=== PATIENT | female | born 1940 | race Caucasian/White ===

== ENCOUNTER 2017-11-02 22:18 | Emergency (ER) | payer MEDICARE, SELFPAY ==
[2017-11-02 22:19] VITALS: BP 163/72; PULSE 95; RESP 18; TEMP 37.1; O2SAT 98; BMI 21.4
--- NOTE | 2017-11-02 22:40 | CT_ITS ---
STUDY: CT ABDOMEN AND PELVIS WITHOUT CONTRAST REASON FOR EXAM: Female, 77 years old. Left-sided back pain, nausea and vomiting RADIATION DOSAGE (If Supplied By Facility): CTDIvol = ( 6.05 ) mGy, DLP = ( 271.98 ) mGycm TECHNIQUE: Transaxial images were obtained from the dome of the diaphragm to the symphysis pubis without oral contrast, and without intravenous contrast. Sagittal and coronal images were reconstructed. Individualized dose optimization techniques were used for this CT. COMPARISON: 09/08/2011 FINDINGS: The visualized lung bases are unremarkable. The visualized portions of the heart are within normal limits. Normal liver. There are surgical clips in the gallbladder fossa consistent with a prior cholecystectomy. Normal spleen. Normal pancreas. Normal bilateral adrenal glands. Normal right kidney. Normal left kidney. Normal visualized stomach. Normal small intestine. Normal colon. The appendix is visualized and appears normal. Normal abdominal aorta. Normal inferior vena cava. Normal retroperitoneum. Normal urinary bladder. Normal abdominal wall. There are diffuse degenerative changes of the visualized lumbar spine. CT/Abdomen/Pelvis without Cont IMPRESSION: No evidence of acute intestinal pathology or acute obstructive uropathy. Electronically Signed: Romulo Gan MD at 23:47 EDT Tel , Service support ,
--- NOTE | 2017-11-02 22:40 | EKG12_ITS ---
Test Reason : BACK PAIN Blood Pressure : / mmHG Vent. Rate : 086 BPM Atrial Rate : 086 BPM P-R Int : 136 ms QRS Dur : 080 ms QT Int : 360 ms P-R-T Axes : 041 080 056 degrees QTc Int : 430 ms Normal sinus rhythm Normal ECG Confirmed by CHIKI COLLADO, ANA ([id number]), department editor MEGHAN PEREZ ([id number] on 11/04/2017 3:42:51 PM Referred By: ULISES Confirmed By:ANA MONET MD
--- NOTE | 2017-11-02 22:43 | ED.VISSUMM ---
- ER Visit Summary Date of Service: 11/02/17 Chief Complaint: Left thoracic back pain History of Present Illness: The patient is a 77 F who presents for 4 days of intermittent left-sided back pain. Patient states the pain is severe and comes in waves. She has had associated vomiting today. She denies any urinary symptoms, fever, chest pain, shortness of breath, abdominal pain or any other complaint other than the back pain. She states she had history of shingles in the past and has had recurrence 4 times. She cannot say for sure if it was in the same area as her back pain. She has had pain in the same area but has not had vomiting with it before. No history of kidney stones. Denies cardiac history or venous thromboembolism. History remarkable for diabetes. Physical Examination: Vital signs: afebrile, hemodynamically stable, no hypoxia on room air General: well nourished, well developed, in no distress appears uncomfortable pacing in the room holding her hand on her left thoracic back Skin: warm, dry, no rash, no pallor. no hyperesthesia to light touch on left back HEENT: normocephalic and atraumatic; PERRL, EOMI, moist mucous membranes Cardiovascular: regular rate and rhythm without murmurs, no peripheral edema, 2+ pulses all distal extremities Respiratory: No increased work of breathing, lungs are clear to auscultation bilaterally, no rales, rhonchi or wheezing Abdominal: Abdomen is soft, nontender with normoactive bowel sounds, no guarding or rebound, no masses, left CVA tenderness, no midline tenderness or deformities, tender to palp left thoracic paraspinal region MSK: Moves all extremities, no deformities, normal strength Neuro: Awake and alert, oriented ?4. No facial droop, sensation and motor function intact and symmetric Test Results: Abnormal Lab Results 11/02/17 11/02/17 11/02/17 22:50 22:50 23:40 WBC 5.2 RBC 4.15 L Hgb 12.1 Hct 35.6 L MCV 85.8 MCH 29.2 MCHC 34.0 RDW 12.9 RDW Differential 40.6 Plt Count 306 MPV 9.0 Immature Gran % (Auto) 0.000 Neut % (Auto) 68.4 Lymph % (Auto) 21.6 [place] % (Auto) 8.6 Eos % (Auto) 1.0 Baso % (Auto) 0.4 Absolute Neuts (auto) 3.6 Absolute Lymphs (auto) 1.13 Total Counted Not Reportable Sodium 134 L Potassium 3.9 Chloride 99 Carbon Dioxide 27.0 Anion Gap 8 BUN 16 Creatinine 1.10 H Estim Creat Clear Calc 34.95 Est GFR (MDRD) Af Amer 62 Est GFR (MDRD) Non-Af 51 L BUN/Creatinine Ratio 14.5 Glucose 202 H Calcium 9.0 Total Bilirubin 0.90 AST 12 L ALT 18 Alkaline Phosphatase 82 Troponin I < 0.02 Total Protein 7.6 Albumin 3.9 Globulin 3.7 Albumin/Globulin Ratio 1.1 Lipase 123 Urine Color Yellow Urine Clarity Sl. Cloudy Urine pH 7.0 Ur Specific [place] 1.010 Urine Protein 30 H Urine Glucose (UA) Normal Urine Ketones 5 H Urine Occult Blood Negative Urine Nitrite Negative Urine Bilirubin Negative Urine Urobilinogen Normal Ur Leukocyte Esterase 500 H Urine RBC 0 SEEN Urine WBC 0-5 SEEN Ur Squamous Epith Cells 0 SEEN Urine Bacteria 0 SEEN Urine Mucus 0 SEEN Medications Given Discontinued Medications Hydrocodone Bitart/Acetaminophen ([place] 5mg-325mg) 2 tablet PO X1 ONE Stop: 11/03/17 00:29 Last Admin: 11/03/17 00:38 Dose: 2 tablet Morphine Sulfate () 4 mg IV X1 ONE Stop: 11/02/17 22:40 Last Admin: 11/02/17 22:59 Dose: 4 mg Morphine Sulfate () 4 mg IV X1 ONE Stop: 11/02/17 23:59 Last Admin: 11/03/17 00:01 Dose: 4 mg Ondansetron HCl (Zofran) 4 mg IV X1 ONE Stop: 11/02/17 22:40 Last Admin: 11/02/17 22:59 Dose: 4 mg Clinical Impression(s) from Imaging Studies Abdomen/Pelvis CT 11/02/17 22:40 IMPRESSION: No evidence of acute intestinal pathology or acute obstructive uropathy. Chest X-Ray 11/02/17 23:20 IMPRESSION: No acute disease. Mild scoliosis. COPD. Emergency Department Course and Treatment: Patient presents with left thoracic back pain, stating this is an intermittent issue for her and she has had it before, however not with vomiting. She is an elderly female and appears very uncomfortable, thus despite her statement this happened before, workup was performed to look for alternative source of her thoracic back pain. EKG showed a sinus rhythm without ischemia or ectopy. Troponin negative. Labs were unremarkable. Urine negative for infection. CT flank was performed and showed no urolithiasis or other acute intra-abdominal abnormalities. Patient received 2 doses of morphine and IV fluids, with great relief of her pain. On reevaluation the patient felt well enough to go home. We discussed patient's symptoms further, and given that there was no alternative cause of her pain found and she and daughter feel confident that this is patient's recurrent pain at the site of a prior shingles infection, patient will be discharged home. She was given a dose of [place] prior to discharge in a prescription for the same for concern for postherpetic neuralgia. She is to follow-up with her primary care doctor. She was discharged home in improved condition. Treatment Plan: [] Disposition: [] Impression: Postherpetic neuralgia of the left thoracic back This note was generated with S[employer]ee[employer] dictation software. It may contain incorrect words, spelling, and punctuation that were not noted in review of the chart prior to signing ED Disposition - Plan for ED Patient: Disposition: Home or Assisted Living Chief Complaint: Back Instructions: ED Spasm Back No Trauma Prescriptions: Hydrocodone/Acetaminophen [[place] 5-325 Tablet] 1 ea PO 4X/DAY PRN PRN 3 Days #12 tab PRN Reason: Pain Referrals: Jose Rafael Cuba MD [Primary Care Provider] - 3-5 Days Additional Instructions: A workup for your severe back pain tonight showed no concerning findings on imaging or lab work. Your pain seems most consistent with recurrent pain due to a history of shingles. Continue your gabapentin for your pain. For severe pain you may instead use [place], but do not use both medications at the same time. Please follow-up with your primary care doctor within the next few days to discuss further pain management strategies. Any time you develop worsening of your symptoms or any new concerning symptoms, please return to the emergency department for another evaluation.
[2017-11-02 22:56] LABS: Absolute Lymphocyte Count 1.13 X10^3/ul (0.83-4.51); Absolute Neutrophil Count 3.6 X10^3/uL (2.0-7.7); Basophil# 0.02 X10^3/uL; Basophil% 0.4 % (0-1); Eosinophil# 0.05 X10^3/uL; Hematocrit 35.6 % (37-47); Hemoglobin 12.1 g/dl (12.0-15.0); Lymphocyte # 1.13 X10^3/ul (4.0); Lymphocyte % 21.6 % (19-41); Mean Corpuscular Hgb 29.2 pg (27.0-32.0); Mean Corpuscular Volume 85.8 fL (81-99); Monocyte# 0.45 X10^3/uL; Monocyte% 8.6 % (0-10); Neutrophil # 3.58 X10^3/uL (2.7-7.7); Neutrophil % 68.4 % (47-70); POSITIVE COUNT NO; POSITIVE DIFFERENTIAL NO; POSITIVE MORPHOLOGY NO; Platelet Count 306 K/mm3 (150-450); RBC Distribution Width CV 12.9 % (11.6-14.6); RBC Distribution Width SD 40.6 fl (35.1-43.9); Red Blood Count 4.15 M/mm3 (4.2-5.4); White Blood Count 5.2 K/mm3 (4.4-11.0)
[2017-11-02] MEDS: Morphine 4 MG/ML Syringe IV (22:59)
[2017-11-02] MEDS: Ondansetron 4 MG/2 ML Vial IV (22:59)
[2017-11-02 23:17] LABS: ALB/GLOB Ratio 1.1 RATIO (0.9-2.4); AST(SGOT) 12 U/L (15-37); Alanine Aminotransfer ALT/SGPT 18 U/L (13-56); Albumin, Serum 3.9 g/dL (3.2-5.0); Alkaline Phosphatase 82 U/L (45-117); Anion Gap 8 (5-15); BUN 16 mg/dL (7-18); BUN/Creat Ratio 14.5 RATIO (10-20); Chloride 99 mmol/L (98-107); EST Glomerular Filtration Rate 51 mL/min (>60); Est Glom Filt Rate - Afr Amer 62 mL/min (>60); Estimated Creatinine Clearance 34.95 ml/min; Globulin 3.7 g/dL (2.2-4.2); Glucose 202 mg/dL (74-106); Lipase 123 U/L (73-393); Potassium 3.9 mmol/L (3.5-5.1); Protein, Total 7.6 g/dL (6.4-8.2); Sodium Level 134 mmol/L (136-145)
--- NOTE | 2017-11-02 23:20 | RAD_ITS ---
STUDY: X-RAY CHEST REASON FOR EXAM: Female, 77 years old. Left-sided back pain TECHNIQUE: Frontal and lateral views of the chest. COMPARISON: November 06, 2011 FINDINGS: Lungs are hyperaerated. The lungs are clear and expanded. There is no demonstrated pleural abnormality. Normal size heart. Normal mediastinum and ch[place]. Normal visualized pulmonary arteries. Normal visualized aortic arch and descending thoracic aorta. Mild scoliosis. Normal visualized ribs, clavicles, and shoulders. There is no demonstrated abnormality of the visualized soft tissue structures of the upper abdomen. RAD/Chest PA and Lateral IMPRESSION: No acute disease. Mild scoliosis. COPD. Electronically Signed: Cheng Lawson MD at 23:53 EDT , Service support ,
[2017-11-02 23:47] LABS: Bacteria 0 SEEN /hpf (None Seen); Color, Urine Yellow (Yellow); Glucose, Dipstick Normal (Normal); Ketone-Dipstick 5 mg/dl (Negative); Leukocyte Esterase-Dipstick 500 /ul (Negative); Mucous, Urine 0 SEEN /hpf (<or=2+); Nitrite-Dipstick Negative (Negative); Occult Blood-Urine Negative /ul (Negative); Protein-Dipstick 30 mg/dl (Negative); Squamous Epithelial Cells - UA 0 SEEN /hpf (5-10); Urine Bilirubin Dipstick Negative (Negative); Urine Clarity Sl. Cloudy (Clear); Urine Urobilinogen Normal (Normal)
[2017-11-03] MEDS: Morphine 4 MG/ML Syringe IV (00:01)
[2017-11-03 00:05] VITALS: BP 124/82; PULSE 88; RESP 18; O2SAT 97
[2017-11-03 00:08] LABS: Red Blood Cells-Urine 0 SEEN /hpf (0-5); White Blood Cells 0-5 SEEN /hpf (0-5)
--- NOTE | 2017-11-03 00:30 | ED.DEP ---
ED Disposition - Plan for ED Patient: Disposition: Home or Assisted Living Chief Complaint: Back Instructions: ED Spasm Back No Trauma Prescriptions: Hydrocodone/Acetaminophen [[place] 5-325 Tablet] 1 ea PO 4X/DAY PRN PRN 3 Days #12 tab PRN Reason: Pain Referrals: Jose Rafael Cuba MD [Primary Care Provider] - 3-5 Days Additional Instructions: A workup for your severe back pain tonight showed no concerning findings on imaging or lab work. Your pain seems most consistent with recurrent pain due to a history of shingles. Continue your gabapentin for your pain. For severe pain you may instead use [place], but do not use both medications at the same time. Please follow-up with your primary care doctor within the next few days to discuss further pain management strategies. Any time you develop worsening of your symptoms or any new concerning symptoms, please return to the emergency department for another evaluation.
[2017-11-03] MEDS: HYDROcodone Bitartrate/Apap 5/325 Tablet PO (00:38)
[2017-11-03 00:41] VITALS: BP 130/53; PULSE 82; RESP 16; O2SAT 95
== END 2017-11-03 00:41 | disposition home or self-care (01) ==
PROVIDERS: Emergency Provider Emergency Medicine; Family Provider Family Medicine; PCP Family Medicine
DX: B02.29 Other postherpetic nervous system involvement (principal); E11.9 Type 2 diabetes mellitus without complications; Z79.84 Long term (current) use of oral hypoglycemic drugs
CPT/HCPCS: 71046; 74176; 80053; 81001; 83690; 84484; 85025; 93005; 96374; 96375; 96376; 99284; J7040; A4216; J2405

== ENCOUNTER → 2017-11-16 07:06 | Outpatient (CLI) | payer MEDICARE, SELFPAY ==
[2017-11-16 10:47] LABS: Hemoglobin A1c 8.4 % (4.2-6.3)
[2017-11-16 10:51] LABS: Anion Gap 7 (5-15); BUN 34 mg/dL (7-18); BUN/Creat Ratio 32.7 RATIO (10-20); Chloride 107 mmol/L (98-107); Cholesterol 251 mg/dL (200); Creatinine, Serum 1.04 mg/dL (0.55-1.02); EST Glomerular Filtration Rate 55 mL/min (>60); Est Glom Filt Rate - Afr Amer 66 mL/min (>60); Glucose 176 mg/dL (74-106); High Density Lipoprotein 62 mg/dL; Potassium 4.2 mmol/L (3.5-5.1); Sodium Level 142 mmol/L (136-145); Triglycerides 99 mg/dL; Very Low Density Lipoprotein 20 mg/dL (5-40)
== END ==
PROVIDERS: Family Provider Family Medicine; PCP Family Medicine; Visit Provider Family Medicine
DX: E78.00 Pure hypercholesterolemia, unspecified (principal); E11.9 Type 2 diabetes mellitus without complications
CPT/HCPCS: 36415; 80048; 80061; 83036

== ENCOUNTER → 2018-05-16 07:13 | Outpatient (CLI) | payer MEDICARE, SELFPAY ==
[2018-05-16 10:31] LABS: Hemoglobin A1c 8.1 % (4.2-6.3)
[2018-05-16 10:41] LABS: Anion Gap 8 (5-15); BUN 20 mg/dL (7-18); Calcium,Total 9.2 mg/dL (8.5-10.1); Chloride 107 mmol/L (98-107); Creatinine, Serum 1.05 mg/dL (0.55-1.02); EST Glomerular Filtration Rate 54 mL/min (>60); Est Glom Filt Rate - Afr Amer 66 mL/min (>60); Glucose 202 mg/dL (74-106); Potassium 4.2 mmol/L (3.5-5.1); Sodium Level 140 mmol/L (136-145)
== END ==
PROVIDERS: Family Provider Family Medicine; PCP Family Medicine; Referring Provider Family Medicine; Visit Provider Family Medicine
DX: E11.65 Type 2 diabetes mellitus with hyperglycemia (principal)
CPT/HCPCS: 36415; 80048; 83036

== ENCOUNTER → 2018-10-05 17:11 | Outpatient (CLI) | payer MEDICARE, SELFPAY ==
--- NOTE | 2018-10-05 17:14 | RAD_ITS ---
STUDY: X-RAY - LUMBAR SPINE REASON FOR EXAM: Female, 78 years old. Low back pain. TECHNIQUE: 3 view(s) of the lumbar spine were obtained. COMPARISON: CT of the abdomen and pelvis dated November 02, 2017. FINDINGS: Normal lumbar lordosis. There is no substantial scoliosis. There is a normal alignment of the vertebrae. There is multilevel endplate spondylosis of the lumbar vertebrae. There is multi-level degenerative disc disease with multi-level disc space narrowing. There is no demonstrated fracture. There is no obvious organomegaly, mass or dilated bowel. Surgical clips are visible in the right upper quadrant. RAD/Lumbar Spine 2 or 3 Views IMPRESSION: 1. Multilevel degenerative disc disease, spondylosis and degenerative arthropathy of the lumbar spine. 2. No radiographic evidence for acute fracture. Electronically Signed: Rubi Cuba MD at 8:49 EDT , Service support ,
--- NOTE | 2018-10-05 17:15 | RAD_ITS ---
STUDY: X-RAY - THORACIC SPINE REASON FOR EXAM: Female, 78 years old. Back pain. TECHNIQUE: 3 view(s) of the thoracic spine were obtained. COMPARISON: Radiographs of the chest dated November 02, 2017. FINDINGS: Normal kyphosis of the thoracic spine. There is no substantial scoliosis. Normal thoracic vertebrae and endplates. Normal disc space heights. There is a pleural effusion. There appears to be a basal air space consolidation and/or atelectasis. RAD/Thoracic Spine 3 Views IMPRESSION: 1. No radiographic evidence of acute compression fracture. 2. Basilar airspace consolidation and/or atelectasis with pleural effusions. Electronically Signed: Rubi Cuba MD at 8:45 EDT , Service support ,
== END ==
PROVIDERS: Family Provider Family Medicine; PCP Family Medicine; Referring Provider Anesthesiology Pain Medicine; Visit Provider Anesthesiology Pain Medicine
DX: M54.6 Pain in thoracic spine (principal); M54.5 Low back pain
CPT/HCPCS: 72072; 72100

== ENCOUNTER → 2019-04-09 07:42 | Outpatient (CLI) | payer MEDICARE, SELFPAY ==
[2019-04-09 10:20] LABS: Hemoglobin A1c 8.2 % (4.2-6.3)
[2019-04-09 10:36] LABS: Anion Gap 10 (5-15); BUN 17 mg/dL (7-18); BUN/Creat Ratio 12.9 RATIO (10-20); Calcium,Total 8.9 mg/dL (8.5-10.1); Chloride 106 mmol/L (98-107); Cholesterol 246 mg/dL (200); Creatinine, Serum 1.32 mg/dL (0.55-1.02); EST Glomerular Filtration Rate 42 mL/min (>60); Est Glom Filt Rate - Afr Amer 50 mL/min (>60); Glucose 161 mg/dL (74-106); High Density Lipoprotein 66 mg/dL; Sodium Level 142 mmol/L (136-145); Triglycerides 144 mg/dL; Very Low Density Lipoprotein 29 mg/dL (5-40)
== END ==
PROVIDERS: Family Provider Family Medicine; PCP Family Medicine; Referring Provider Family Medicine; Visit Provider Family Medicine
DX: E11.9 Type 2 diabetes mellitus without complications (principal); E78.00 Pure hypercholesterolemia, unspecified
CPT/HCPCS: 36415; 80048; 80061; 83036

== ENCOUNTER → 2019-04-11 08:51 | Outpatient (CLI) | payer MEDICARE, SELFPAY ==
[2019-04-11 08:57] LABS: Bacteria 0 SEEN /hpf (None Seen); Mucous, Urine 0 SEEN /hpf (<or=2+); Red Blood Cells-Urine 0 SEEN /hpf (0-5)
[2019-04-11 10:13] LABS: Color, Urine Yellow (Yellow); Glucose, Dipstick 1000 mg/dl (Normal); Ketone-Dipstick Negative (Negative); Leukocyte Esterase-Dipstick 25 /ul (Negative); Nitrite-Dipstick Negative (Negative); Occult Blood-Urine Negative /ul (Negative); Protein-Dipstick 15 mg/dl (Negative); Specific Gravity, Urine 1.015 (1.002-1.030); Urine Bilirubin Dipstick Negative (Negative); Urine Clarity Clear (Clear); Urine Urobilinogen Normal (Normal)
[2019-04-11 10:15] LABS: Absolute Lymphocyte Count 0.94 X10^3/uL (0.83-4.51); Absolute Neutrophil Count 2.5 X10^3/uL (2.0-7.7); Basophil# 0.06 X10^3/uL; Basophil% 1.5 % (0-1); Eosinophils% 2.5 % (0-5); Hematocrit 35.8 % (37-47); Hemoglobin 11.5 g/dL (12.0-15.0); Lymphocyte # 0.94 X10^3/ul (4.0); Lymphocyte % 23.9 % (19-41); Mean Corp Hgb Conc 32.1 g/dL (32-36); Mean Corpuscular Volume 90.4 fL (81-99); Mean Platelet Vol. 10.3 fl (6.2-12.0); Monocyte# 0.38 X10^3/uL; Monocyte% 9.6 % (0-10); NRBC Flagged by Analyzer 0 % (0-5); Neutrophil # 2.45 X10^3/uL (2.7-7.7); Neutrophil % 62.2 % (47-70); Platelet Count 340 K/mm3 (150-450); RBC Distribution Width CV 13.2 % (11.6-14.6); RBC Distribution Width SD 43.9 fl (35.1-43.9); Red Blood Count 3.96 M/mm3 (4.2-5.4); White Blood Count 3.9 K/mm3 (4.4-11.0)
[2019-04-11 10:24] LABS: Squamous Epithelial Cells - UA 0-5 SEEN /hpf (5-10); White Blood Cells 0-5 SEEN /hpf (0-5)
[2019-04-11 10:37] LABS: PTHIN 63.9 pg/mL (18.4-80.1)
[2019-04-11 10:38] LABS: Vitamin B12 369 pg/mL (211-911); Vitamin D,25 Hydroxy 35.2 ng/mL (29.95-100.01)
[2019-04-11 10:56] LABS: AST(SGOT) 14 U/L (15-37); Alanine Aminotransfer ALT/SGPT 24 U/L (13-56); Albumin, Serum 4.1 g/dL (3.2-5.0); Alkaline Phosphatase 86 U/L (45-117); Bilirubin, Direct 0.12 mg/dL (0.00-0.30); Globulin 3.5 g/dL (2.2-4.2); Protein, Total 7.6 g/dL (6.4-8.2); Thyroid Stim Hormone (TSH) 0.79 uIU/mL (0.358-3.74)
[2019-04-11 11:32] LABS: Microalbumin,Random Urine 36.4 mg/L (NO RANGE EST.); Microalbumin:Creatinine Ratio 37.8 mg/g CRE (<30 mg/g CRE); Protein, Urine (Random) 19.6 mg/dL (<11.9); Protein:Creat Ratio 203 mg/g CRE (0-200)
== END ==
PROVIDERS: Family Provider Family Medicine; PCP Family Medicine; Referring Provider Family Medicine; Visit Provider Family Medicine
DX: E11.22 Type 2 diabetes mellitus with diabetic chronic kidney disease (principal); N18.3 Chronic kidney disease, stage 3 (moderate); E11.42 Type 2 diabetes mellitus with diabetic polyneuropathy; E55.9 Vitamin D deficiency, unspecified; E78.00 Pure hypercholesterolemia, unspecified; R03.0 Elevated blood-pressure reading, without diagnosis of hypertension
CPT/HCPCS: 36415; 80076; 81001; 82043; 82306; 82570; 82607; 83970; 84156; 84443; 85025

== ENCOUNTER → 2019-04-25 08:32 | Outpatient (CLI) | payer MEDICARE, SELFPAY ==
--- NOTE | 2019-04-25 08:35 | CDU_ITS ---
Reason For Study: Carotid artery stenosis Rt. Velocities/BP Lt. Velocities/BP Prox CCA 89.1/14.7 cm/sec. Prox CCA 107.2/22.5 cm/sec. Mid CCA 91.7/17.3 cm/sec. Mid CCA 93.7/16.3 cm/sec. Dist CCA 83.9/21.3 cm/sec. Dist CCA 80.2/13.9 cm/sec. Prox ICA 66.7/16.3 cm/sec. Prox ICA 58.1/13.9 cm/sec. Mid ICA 112/33.4 cm/sec. Mid ICA 103.5/28.6 cm/sec. Dist ICA 80.6/16.6 cm/sec. Dist ICA 101.1/29.8 cm/sec. Rt. ICA/CCA = 1.3. Lt. ICA/CCA = 1.1. Prox ECA 132.1 cm/sec. Prox ECA 372.6/33.9 cm/sec. Rt. Vert. 90.4/17.9 cm/sec. Lt. Vert. 81.4/17.6 cm/sec. Right Extracranial There is homogeneous, smooth atherosclerotic plaque noted in the right common carotid artery. There is homogeneous, smooth atherosclerotic plaque noted in the right internal carotid artery. There is heterogeneous, irregular atherosclerotic plaque noted in the right external carotid artery. Antegrade flow is noted in the right vertebral artery. There is heterogeneous, irregular atherosclerotic plaque noted in the right bulb. Left Extracranial There is homogeneous, smooth atherosclerotic plaque noted in the left common carotid artery. There is homogeneous, smooth atherosclerotic plaque noted in the left internal carotid artery. There is heterogeneous, irregular atherosclerotic plaque noted in the left external carotid artery. Antegrade flow is noted in the left vertebral artery. There is heterogeneous, irregular atherosclerotic plaque noted in the left bulb. Procedure Carotid Duplex 72989. Exam performed in department. Interpretation Summary Mild (<50%) stenosis right extracranial internal carotid. Mild (<50%) stenosis left extracranial internal carotid. Flow within the vertebral arteries is antegrade bilaterally. Heterogeneous, irregular atherosclerotic plaque is noted in the carotid bulbs bilaterally, which does not appear to be hemodynamically significant. Elevated velocities in the left external carotid artery is suggestive of stenosis >50%. Ordering Physician: Jose Rafael Kat Referring Physician: Jose Rafael Kat Performed By: Loan Vivar RVT
== END ==
PROVIDERS: Family Provider Family Medicine; PCP Family Medicine; Referring Provider Family Medicine; Visit Provider Family Medicine
DX: I65.23 Occlusion and stenosis of bilateral carotid arteries (principal)
CPT/HCPCS: 93880

== ENCOUNTER → 2019-05-03 10:09 | Outpatient (CLI) | payer MEDICARE, SELFPAY ==
[2019-05-03 13:09] LABS: Ferritin 39 ng/mL (8-252); Iron 55 ug/dL (50-170); Iron Binding Capacity,Total 321 ug/dL (250-450)
== END ==
PROVIDERS: Family Provider Family Medicine; PCP Family Medicine; Visit Provider Family Medicine
DX: D64.9 Anemia, unspecified (principal)
CPT/HCPCS: 36415; 82728; 82746; 83540; 83550

== ENCOUNTER 2019-07-16 19:07 | Emergency (ER) | payer MEDICARE, SELFPAY ==
[2019-07-16 19:07] VITALS: BP 155/94; PULSE 84; RESP 18; TEMP 36.5; O2SAT 96; BMI 19.9
--- NOTE | 2019-07-16 19:25 | EKG12_ITS ---
Test Reason : CP Blood Pressure : / mmHG Vent. Rate : 078 BPM Atrial Rate : 078 BPM P-R Int : 196 ms QRS Dur : 080 ms QT Int : 370 ms P-R-T Axes : 065 060 049 degrees QTc Int : 421 ms Normal sinus rhythm Normal ECG Confirmed by DOLLY COLLADO, SHAMEKA ([id number]), senior editor TIAN RING ([id number]) on 07/20/2019 9:50:49 AM Referred By: Confirmed By:DORCAS ALBERTO MD
--- NOTE | 2019-07-16 19:27 | RAD_ITS ---
STUDY: X-RAY CHEST REASON FOR EXAM: Female, 78 years old. CHEST PAIN TECHNIQUE: Frontal view COMPARISON: November 02, 2017 FINDINGS: The lungs are clear and expanded. There is no demonstrated pleural abnormality. Normal size heart. Normal mediastinum and [place]. Normal visualized pulmonary arteries. Normal visualized aortic arch and descending thoracic aorta. Degenerative changes of the thoracic spine. Normal visualized ribs, clavicles, and shoulders. There is no demonstrated abnormality of the visualized soft tissue structures of the upper abdomen. RAD/Chest 1 View (Portable) IMPRESSION: Normal x-ray examination of the chest. Electronically Signed: Satya Georges DO at 19:57 EST Tel [phone], Service support ,
[2019-07-16 19:36] LABS: Absolute Lymphocyte Count 1.16 X10^3/uL (0.83-4.51); Absolute Neutrophil Count 2.9 X10^3/uL (2.0-7.7); Basophil# 0.03 X10^3/uL; Basophil% 0.6 % (0-1); Eosinophil# 0.18 X10^3/uL; Eosinophils% 3.6 % (0-5); Hematocrit 33.5 % (37-47); Hemoglobin 11.2 g/dL (12.0-15.0); Lymphocyte # 1.16 X10^3/ul (4.0); Mean Corp Hgb Conc 33.4 g/dL (32-36); Mean Corpuscular Volume 86.8 fL (81-99); Mean Platelet Vol. 10.1 fl (6.2-12.0); Monocyte# 0.72 X10^3/uL; Monocyte% 14.3 % (0-10); NRBC Flagged by Analyzer 0 % (0-5); Neutrophil # 2.94 X10^3/uL (2.7-7.7); Neutrophil % 58.3 % (47-70); Platelet Count 319 K/mm3 (150-450); RBC Distribution Width CV 12.7 % (11.6-14.6); Red Blood Count 3.86 M/mm3 (4.2-5.4)
[2019-07-16 19:57] LABS: Anion Gap 6 (5-15); BUN 24 mg/dL (7-18); BUN/Creat Ratio 20.9 RATIO (10-20); Calcium,Total 9.2 mg/dL (8.5-10.1); Chloride 93 mmol/L (98-107); Creatinine, Serum 1.15 mg/dL (0.55-1.02); EST Glomerular Filtration Rate 49 mL/min (>60); Est Glom Filt Rate - Afr Amer 59 mL/min (>60); Estimated Creatinine Clearance 34.57 ml/min; Glucose 144 mg/dL (74-106); Potassium 4.3 mmol/L (3.5-5.1); Sodium Level 125 mmol/L (136-145)
--- NOTE | 2019-07-16 20:29 | ED.DCSUM_ITS ---
History of Present Illness Chief Complaint: Chest Pain Informant: Patient Onset: Today Narrative: Presents the emergency department with chest pain. She describes it as sharp lasting seconds was improved with rubbing of the left breast. Symptoms occurred 3 times within a 15-minute phone conversation with her daughter. She has had some shortness of breath a couple days ago. She is otherwise been feeling well. History of diabetes. She notes a slightly hoarse voice compared to normal. Past Medical History - Allergies and Home Meds Allergies/Adverse Reactions: Allergies oxycodone [Oxycodone] Adverse Reaction (Verified 07/16/19 19:09) Other CAUSES EXTREME DEHYDRATION Primary Care Physician: Jose Rafael Kat MD [Primary Care Provider] - Surgical History: cholecystectomy, hysterectomy, REPAIR Smoking Status: Never smoker Review of Systems General: Denies: Chills, Fever, Sweats Eyes: Denies: Visual changes - bilaterally, Diplopia ENT: Denies: Rhinorrhea, Sore throat Cardiovascular: Reports: Chest pain. Denies: Palpitations Respiratory: Reports: Dyspnea. Denies: Cough, Dyspnea on exertion Gastrointestinal: Denies: Abdominal pain, Nausea, Vomiting, Diarrhea, Melena, Hematochezia Genitourinary: Denies: Dysuria, Hematuria, Frequency Musculoskeletal: Denies: Back pain, Extremity Pain Skin: Denies: Rash, Wounds Neurological: Denies: Headache, Weakness, Numbness Physical Exam Vital Signs/Narrative: Vital Signs Temp Pulse Resp BP Pulse Ox 07/16/19 19:07 97.7 F L 84 18 155/94 H 96 Inital Vital Signs reviewed: Yes General: Well nourished, Well developed, No Acute Distress Head: Normocephalic, Atraumatic Eyes: Perrl, EOMI ENT: Moist mucous membranes, No rhinorrhea Neck: Supple, Nontender Cardiovascular: Regular rate, Regular rhythm, No murmurs Respiratory: No distress, CTA bilaterally, Chest nontender Abdomen: Soft, Nontender, Nondistended, Normal bowel sounds Back: Nontender, Normal Inspection Extremities: Nontender, No edema Skin: Normal color, No rash Neurological: Alert, Oriented x3, Cranial nerves II-XII grossly intact, Normal S trength, Normal Sensation Psychological: Normal affect, Normal Mood Diagnostic/Tx/Re-eval Chest X-Ray - ED: 1 View - Rhythm Strip Rhythm Strip: Sinus Rhythm Rate: 78 - Medical Decision Making EKG showed a normal sinus rhythm at a rate of 78. Chest x-ray was negative with a normal mediastinal silhouette.. Troponin is negative. Sodium is 125. I do not see an obvious reason for why she would be hyponatremic. She is not on a diuretic. She is not significantly hyperglycemic. She does not drink alcohol.. Patient symptoms are very atypical for angina. They are intermittent and have not reoccurred I doubt its PE or dissection. We discussed doing a second troponin. Patient declines and she will be discharged home to follow-up with her primary care physician return if worsening or concerns ED Disposition - Plan for ED Patient: Disposition: Psych[facility] Hospital or Unit Diagnosis: Chest pain Instructions: CHEST PAIN, Uncertain Cause Referrals: Jose Rafael Kat MD [Primary Care Provider] - As soon as possible
[2019-07-16 20:46] VITALS: BP 140/60; PULSE 78; RESP 20; O2SAT 99
== END 2019-07-16 20:47 | disposition home or self-care (01) ==
PROVIDERS: Emergency Provider Emergency Medicine; Family Provider Family Medicine; PCP Family Medicine
DX: R07.9 Chest pain, unspecified (principal); R06.00 Dyspnea, unspecified; E87.1 Hypo-osmolality and hyponatremia; E11.9 Type 2 diabetes mellitus without complications; Z79.84 Long term (current) use of oral hypoglycemic drugs; Z79.899 Other long term (current) drug therapy; Z88.5 Allergy status to narcotic agent; Z90.49 Acquired absence of other specified parts of digestive tract; Z90.710 Acquired absence of both cervix and uterus
CPT/HCPCS: 71045; 80048; 84484; 85025; 93005; 99284; A4216

== ENCOUNTER → 2019-07-30 08:21 | Outpatient (CLI) | payer MEDICARE, SELFPAY ==
[2019-07-16 19:07] VITALS: BMI 19.9
[2019-07-30 10:10] LABS: Absolute Lymphocyte Count 0.75 X10^3/uL (0.83-4.51); Absolute Neutrophil Count 2.3 X10^3/uL (2.0-7.7); Basophil# 0.05 X10^3/uL; Basophil% 1.3 % (0-1); Eosinophils% 5.4 % (0-5); Hematocrit 38.6 % (37-47); Hemoglobin 12.3 g/dL (12.0-15.0); Lymphocyte # 0.75 X10^3/ul (4.0); Lymphocyte % 20.2 % (19-41); Mean Corp Hgb Conc 31.9 g/dL (32-36); Mean Corpuscular Hgb 28.8 pg (27.0-32.0); Mean Corpuscular Volume 90.4 fL (81-99); Mean Platelet Vol. 10.5 fl (6.2-12.0); Monocyte% 10.8 % (0-10); NRBC Flagged by Analyzer 0 % (0-5); Platelet Count 370 K/mm3 (150-450); RBC Distribution Width CV 13.2 % (11.6-14.6); RBC Distribution Width SD 43.6 fl (35.1-43.9); Red Blood Count 4.27 M/mm3 (4.2-5.4); White Blood Count 3.7 K/mm3 (4.4-11.0)
[2019-07-30 10:33] LABS: Hemoglobin A1c 7.8 % (4.2-6.3)
[2019-07-30 10:34] LABS: Protein, Urine (Random) 12.8 mg/dL (<11.9); Protein:Creat Ratio 104 mg/g CRE (0-200)
[2019-07-30 10:36] LABS: ALB/GLOB Ratio 1.1 RATIO (0.9-2.4); AST(SGOT) 11 U/L (15-37); Alanine Aminotransfer ALT/SGPT 24 U/L (13-56); Albumin, Serum 3.9 g/dL (3.2-5.0); Alkaline Phosphatase 99 U/L (45-117); Anion Gap 5 (5-15); BUN 25 mg/dL (7-18); BUN/Creat Ratio 19.4 RATIO (10-20); Calcium,Total 9.4 mg/dL (8.5-10.1); Chloride 106 mmol/L (98-107); Cholesterol 229 mg/dL (200); Creatinine, Serum 1.29 mg/dL (0.55-1.02); EST Glomerular Filtration Rate 43 mL/min (>60); Est Glom Filt Rate - Afr Amer 52 mL/min (>60); Globulin 3.6 g/dL (2.2-4.2); Glucose 177 mg/dL (74-106); High Density Lipoprotein 64 mg/dL; Potassium 4.5 mmol/L (3.5-5.1); Protein, Total 7.5 g/dL (6.4-8.2); Sodium Level 138 mmol/L (136-145); Triglycerides 83 mg/dL; Very Low Density Lipoprotein 17 mg/dL (5-40)
[2019-07-30 10:55] LABS: Vitamin D,25 Hydroxy 38.6 ng/mL (29.95-100.01)
== END ==
LOC: MFPLAB 08:21
PROVIDERS: PCP Family Medicine; Visit Provider Family Medicine
DX: E11.22 Type 2 diabetes mellitus with diabetic chronic kidney disease (principal); N18.3 Chronic kidney disease, stage 3 (moderate); D64.9 Anemia, unspecified; E78.00 Pure hypercholesterolemia, unspecified; E55.9 Vitamin D deficiency, unspecified
CPT/HCPCS: 36415; 80053; 80061; 82306; 82570; 83036; 84156; 85025

== ENCOUNTER → 2019-11-27 08:13 | Outpatient (CLI) | payer MEDICARE, SELFPAY ==
[2019-11-27 10:01] LABS: Absolute Lymphocyte Count 0.82 X10^3/uL (0.83-4.51); Absolute Neutrophil Count 2.2 X10^3/uL (2.0-7.7); Basophil# 0.03 X10^3/uL; Basophil% 0.8 % (0-1); Eosinophil# 0.18 X10^3/uL; Hematocrit 35.5 % (37-47); Hemoglobin 11.3 g/dL (12.0-15.0); Lymphocyte # 0.82 X10^3/ul (4.0); Lymphocyte % 22.8 % (19-41); Mean Corp Hgb Conc 31.8 g/dL (32-36); Mean Corpuscular Hgb 29.7 pg (27.0-32.0); Mean Corpuscular Volume 93.2 fL (81-99); Mean Platelet Vol. 10.4 fl (6.2-12.0); Monocyte# 0.34 X10^3/uL; Monocyte% 9.5 % (0-10); NRBC Flagged by Analyzer 0 % (0-5); Neutrophil # 2.21 X10^3/uL (2.7-7.7); Neutrophil % 61.6 % (47-70); Platelet Count 337 K/mm3 (150-450); RBC Distribution Width SD 47.6 fl (35.1-43.9); Red Blood Count 3.81 M/mm3 (4.2-5.4); White Blood Count 3.6 K/mm3 (4.4-11.0)
[2019-11-27 10:08] LABS: ALB/GLOB Ratio 1.1 RATIO (0.9-2.4); AST(SGOT) 13 U/L (15-37); Alanine Aminotransfer ALT/SGPT 17 U/L (13-56); Albumin, Serum 3.7 g/dL (3.2-5.0); Alkaline Phosphatase 98 U/L (45-117); Anion Gap 10 (5-15); BUN 26 mg/dL (7-18); BUN/Creat Ratio 20.5 RATIO (10-20); Calcium,Total 9.4 mg/dL (8.5-10.1); Chloride 109 mmol/L (98-107); Creatinine, Serum 1.27 mg/dL (0.55-1.02); EST Glomerular Filtration Rate 43 mL/min (>60); Est Glom Filt Rate - Afr Amer 52 mL/min (>60); Globulin 3.5 g/dL (2.2-4.2); Glucose 169 mg/dL (74-106); Protein, Total 7.2 g/dL (6.4-8.2); Sodium Level 143 mmol/L (136-145)
[2019-11-27 10:15] LABS: Hemoglobin A1c 6.9 % (3.8-5.6)
[2019-11-27 10:20] LABS: Protein, Urine (Random) 14.1 mg/dL (<11.9); Protein:Creat Ratio 279 mg/g CRE (0-200)
[2019-11-27 11:56] LABS: Vitamin B12 239 pg/mL (211-911)
[2019-11-27 12:06] LABS: Ferritin 17 ng/mL (8-252); Iron 94 ug/dL (50-170); Iron Binding Capacity,Total 330 ug/dL (250-450); PERCENT IRON SATURATION 28.5 % (15.0-55.0)
== END ==
PROVIDERS: PCP Family Medicine; Visit Provider Family Medicine
DX: E11.22 Type 2 diabetes mellitus with diabetic chronic kidney disease (principal); N18.3 Chronic kidney disease, stage 3 (moderate); E55.9 Vitamin D deficiency, unspecified
CPT/HCPCS: 80053; 82306; 82570; 82607; 82728; 82746; 83036; 83540; 83550; 84156; 85025

== ENCOUNTER → 2019-11-29 08:50 | Outpatient (CLI) | payer MEDICARE, SELFPAY ==
[2019-11-29 08:43] VITALS: BMI 19.5
--- NOTE | 2019-11-29 08:52 | RAD_ITS ---
STUDY: X-RAY - RIGHT HUMERUS REASON FOR EXAM: Female, 79 years old. Pain. Question biceps tendon rupture. TECHNIQUE: 2 view(s) of the humerus. COMPARISON: None. FINDINGS: Normal visualized humerus. There is no demonstrated fracture or osseous destructive process. There are mild degenerative changes of the shoulder. The elbow appears intact. There is no demonstrated soft tissue abnormality. There is no abnormal contour of the biceps muscle to suggest biceps tendon rupture although this cannot be stated with certainty on plain film image. RAD/Humerus min 2 Views IMPRESSION: Normal x-ray examination of the humerus. Electronically Signed: Messi Fishman DO at 17:55 EDT Tel [phone], Service support ,
== END ==
PROVIDERS: PCP Family Medicine; Referring Provider Physician Assistant; Visit Provider Physician Assistant
DX: S46.211A Strain of muscle, fascia and tendon of other parts of biceps, right arm, initial encounter (principal)
CPT/HCPCS: 73060

== ENCOUNTER → 2020-01-25 08:05 | Outpatient (CLI) | payer MEDICARE, SELFPAY ==
[2019-11-29 08:43] VITALS: BMI 19.5
[2020-01-25 08:09] LABS: Bacteria 0 SEEN /hpf (None Seen); Mucous, Urine 0 SEEN /hpf (<or=2+); Red Blood Cells-Urine 0 SEEN /hpf (0-5); White Blood Cells 0 SEEN /hpf (0-5)
[2020-01-25 10:21] LABS: Color, Urine Yellow (Yellow); Glucose, Dipstick Normal (Normal); Ketone-Dipstick Negative (Negative); Leukocyte Esterase-Dipstick 25 /ul (Negative); Nitrite-Dipstick Negative (Negative); Occult Blood-Urine Negative /ul (Negative); Protein-Dipstick Negative (Negative); Specific Gravity, Urine 1.015 (1.002-1.030); Urine Bilirubin Dipstick Negative (Negative); Urine Clarity Clear (Clear); Urine Urobilinogen Normal (Normal)
[2020-01-25 10:29] LABS: Absolute Lymphocyte Count 0.86 X10^3/uL (0.83-4.51); Absolute Neutrophil Count 2.9 X10^3/uL (2.0-7.7); Basophil# 0.05 X10^3/uL; Basophil% 1.2 % (0-1); Eosinophil# 0.14 X10^3/uL; Eosinophils% 3.2 % (0-5); Hematocrit 36.6 % (37-47); Hemoglobin 11.8 g/dL (12.0-15.0); Lymphocyte # 0.86 X10^3/ul (4.0); Lymphocyte % 19.9 % (19-41); Mean Corp Hgb Conc 32.2 g/dL (32-36); Mean Corpuscular Volume 93.1 fL (81-99); Mean Platelet Vol. 10.5 fl (6.2-12.0); Monocyte# 0.39 X10^3/uL; NRBC Flagged by Analyzer 0 % (0-5); Neutrophil # 2.88 X10^3/uL (2.7-7.7); Neutrophil % 66.5 % (47-70); Platelet Count 355 K/mm3 (150-450); RBC Distribution Width CV 13.6 % (11.6-14.6); RBC Distribution Width SD 46.6 fl (35.1-43.9); Red Blood Count 3.93 M/mm3 (4.2-5.4); White Blood Count 4.3 K/mm3 (4.4-11.0)
[2020-01-25 10:31] LABS: Squamous Epithelial Cells - UA 0-5 SEEN /hpf (5-10)
[2020-01-25 10:37] LABS: Hemoglobin A1c 7.2 % (3.8-5.6)
[2020-01-25 10:41] LABS: ALB/GLOB Ratio 1.1 RATIO (0.9-2.4); AST(SGOT) 11 U/L (15-37); Alanine Aminotransfer ALT/SGPT 18 U/L (13-56); Albumin, Serum 3.9 g/dL (3.2-5.0); Alkaline Phosphatase 111 U/L (45-117); Anion Gap 5 (5-15); BUN 27 mg/dL (7-18); BUN/Creat Ratio 18.6 RATIO (10-20); Calcium,Total 9.2 mg/dL (8.5-10.1); Chloride 105 mmol/L (98-107); Creatinine, Serum 1.45 mg/dL (0.55-1.02); EST Glomerular Filtration Rate 37 mL/min (>60); Est Glom Filt Rate - Afr Amer 45 mL/min (>60); Globulin 3.6 g/dL (2.2-4.2); Glucose 220 mg/dL (74-106); Protein, Total 7.5 g/dL (6.4-8.2); Sodium Level 137 mmol/L (136-145)
[2020-01-25 11:46] LABS: Vitamin D,25 Hydroxy 45.4 ng/mL
== END ==
PROVIDERS: PCP Family Medicine; Referring Provider Family Medicine; Visit Provider Family Medicine
DX: E11.22 Type 2 diabetes mellitus with diabetic chronic kidney disease (principal); N18.3 Chronic kidney disease, stage 3 (moderate); E55.9 Vitamin D deficiency, unspecified
CPT/HCPCS: 36415; 80053; 81001; 82306; 83036; 85025

== ENCOUNTER → 2020-04-28 16:35 | Outpatient (CLI) | payer MEDICARE, SELFPAY ==
[2019-11-29 08:43] VITALS: BMI 19.5
== END ==
PROVIDERS: PCP Family Medicine; Visit Provider Registered Nurse
DX: Z20.828 Contact with and (suspected) exposure to other viral communicable diseases (principal)
CPT/HCPCS: 87635; U0003

== ENCOUNTER → 2020-09-02 08:10 | Outpatient (CLI) | payer MEDICARE, SELFPAY ==
[2019-11-29 08:43] VITALS: BMI 19.5
[2020-09-02 10:05] LABS: Absolute Neutrophil Count 3.1 X10^3/uL (2.0-7.7); Basophil# 0.05 X10^3/uL; Eosinophil# 0.23 X10^3/uL; Eosinophils% 4.7 % (0-5); Hematocrit 38.8 % (37-47); Hemoglobin 12.2 g/dL (12.0-15.0); Lymphocyte % 22.5 % (19-41); Mean Corp Hgb Conc 31.4 g/dL (32-36); Mean Corpuscular Hgb 28.7 pg (27.0-32.0); Mean Corpuscular Volume 91.3 fL (81-99); Mean Platelet Vol. 10.3 fl (6.2-12.0); Monocyte# 0.38 X10^3/uL; Monocyte% 7.8 % (0-10); NRBC Flagged by Analyzer 0 % (0-5); Neutrophil # 3.12 X10^3/uL (2.7-7.7); Neutrophil % 63.8 % (47-70); Platelet Count 389 K/mm3 (150-450); RBC Distribution Width CV 13.5 % (11.6-14.6); RBC Distribution Width SD 45.5 fl (35.1-43.9); Red Blood Count 4.25 M/mm3 (4.2-5.4); White Blood Count 4.9 K/mm3 (4.4-11.0)
[2020-09-02 10:33] LABS: PTHIN 62.5 pg/mL (18.4-80.1)
[2020-09-02 10:34] LABS: Hemoglobin A1c 8.9 % (3.8-5.6)
[2020-09-02 10:37] LABS: Vitamin B12 333 pg/mL (211-911); Vitamin D,25 Hydroxy 29.1 ng/mL
[2020-09-02 10:48] LABS: Microalbumin,Random Urine 17.4 mg/L (NO RANGE EST.); Microalbumin:Creatinine Ratio 26.2 mg/g CRE (<30 mg/g CRE); Protein, Urine (Random) 14.2 mg/dL (<11.9); Protein:Creat Ratio 214 mg/g CRE (0-200)
[2020-09-02 11:26] LABS: ALB/GLOB Ratio 1.1 RATIO (0.9-2.4); AST(SGOT) 12 U/L (15-37); Alanine Aminotransfer ALT/SGPT 18 U/L (13-56); Alkaline Phosphatase 112 U/L (45-117); Anion Gap 9 (5-15); BUN 28 mg/dL (7-18); BUN/Creat Ratio 21.9 RATIO (10-20); Calcium,Total 9.4 mg/dL (8.5-10.1); Chloride 103 mmol/L (98-107); Cholesterol 274 mg/dL (200); Creatinine, Serum 1.28 mg/dL (0.55-1.02); EST Glomerular Filtration Rate 43 mL/min (>60); Est Glom Filt Rate - Afr Amer 52 mL/min (>60); Ferritin 22 ng/mL (8-252); Globulin 3.7 g/dL (2.2-4.2); Glucose 251 mg/dL (74-106); High Density Lipoprotein 56 mg/dL; Iron 69 ug/dL (50-170); Iron Binding Capacity,Total 313 ug/dL (250-450); Potassium 4.8 mmol/L (3.5-5.1); Protein, Total 7.7 g/dL (6.4-8.2); Sodium Level 138 mmol/L (136-145); Triglycerides 233 mg/dL; Very Low Density Lipoprotein 47 mg/dL (5-40)
== END ==
PROVIDERS: PCP Family Medicine; Referring Provider Family Medicine; Visit Provider Family Medicine
DX: D64.9 Anemia, unspecified (principal); E11.22 Type 2 diabetes mellitus with diabetic chronic kidney disease; N18.30 Chronic kidney disease, stage 3 unspecified; E55.9 Vitamin D deficiency, unspecified
CPT/HCPCS: 36415; 80053; 80061; 82043; 82306; 82570; 82607; 82728; 82746; 83036; 83540; 83550; 83970; 84100; 84156; 85025

== ENCOUNTER → 2020-10-13 12:12 | Outpatient (CLI) | payer MEDICARE, SELFPAY ==
[2019-11-29 08:43] VITALS: BMI 19.5
[2020-10-13 15:21] LABS: Absolute Lymphocyte Count 0.83 X10^3/uL (0.83-4.51); Absolute Neutrophil Count 2.3 X10^3/uL (2.0-7.7); Basophil# 0.02 X10^3/uL; Basophil% 0.5 % (0-1); Eosinophil# 0.13 X10^3/uL; Eosinophils% 3.3 % (0-5); Hematocrit 33.6 % (37-47); Hemoglobin 10.7 g/dL (12.0-15.0); Lymphocyte # 0.83 X10^3/ul (4.0); Lymphocyte % 20.8 % (19-41); Mean Corp Hgb Conc 31.8 g/dL (32-36); Mean Platelet Vol. 9.9 fl (6.2-12.0); Monocyte% 17.5 % (0-10); NRBC Flagged by Analyzer 0 % (0-5); Neutrophil # 2.31 X10^3/uL (2.7-7.7); Neutrophil % 57.6 % (47-70); Platelet Count 313 K/mm3 (150-450); RBC Distribution Width CV 13.5 % (11.6-14.6); RBC Distribution Width SD 43.7 fl (35.1-43.9); Red Blood Count 3.82 M/mm3 (4.2-5.4)
[2020-10-13 15:31] LABS: Vitamin D,25 Hydroxy 30.1 ng/mL
[2020-10-13 15:32] LABS: ALB/GLOB Ratio 0.9 RATIO (0.9-2.4); AST(SGOT) 12 U/L (15-37); Alanine Aminotransfer ALT/SGPT 18 U/L (13-56); Albumin, Serum 3.6 g/dL (3.2-5.0); Alkaline Phosphatase 72 U/L (45-117); Anion Gap 7 (5-15); BUN 12 mg/dL (7-18); BUN/Creat Ratio 9.9 RATIO (10-20); Calcium,Total 9.3 mg/dL (8.5-10.1); Chloride 96 mmol/L (98-107); Cholesterol 204 mg/dL (200); Creatinine, Serum 1.21 mg/dL (0.55-1.02); EST Glomerular Filtration Rate 46 mL/min (>60); Est Glom Filt Rate - Afr Amer 55 mL/min (>60); Globulin 3.8 g/dL (2.2-4.2); Glucose 157 mg/dL (74-106); High Density Lipoprotein 64 mg/dL; Potassium 3.8 mmol/L (3.5-5.1); Protein, Total 7.4 g/dL (6.4-8.2); Sodium Level 130 mmol/L (136-145); Triglycerides 129 mg/dL; Very Low Density Lipoprotein 26 mg/dL (5-40)
[2020-10-13 15:40] LABS: Protein, Urine (Random) 49.3 mg/dL (<11.9); Protein:Creat Ratio 404 mg/g CRE (0-200)
[2020-10-13 16:29] LABS: Hemoglobin A1c 8.3 % (3.8-5.6)
== END ==
PROVIDERS: PCP Family Medicine; Visit Provider Family Medicine
DX: K92.0 Hematemesis (principal); E55.9 Vitamin D deficiency, unspecified; E11.69 Type 2 diabetes mellitus with other specified complication
CPT/HCPCS: 36415; 80053; 80061; 82306; 82570; 83036; 84156; 85025

== ENCOUNTER 2020-10-30 10:52 | Day surgery (SDC) | payer MEDICARE, SELFPAY ==
[2019-11-29 08:43] VITALS: BMI 19.5
[2020-10-30] VITALS (7 sets, daily range): BP systolic 109–146; BP diastolic 58–77; PULSE 76–92; RESP 16–18; TEMP 36.2–37.1; O2SAT 97–100; BMI 19.3
[2020-10-30] MEDS: Lactated Ringers 1,000 ML 100 ML IV (11:35)
--- NOTE | 2020-10-30 12:00 | IMM_PTH ---
PATIENT: MARGOT BOLAÑOS LOC: EN U#:[id number] AGE/SX: 80/F ROOM: RE10/30/[address]: Dr. Dread Houser MD : 1940 BED: DIS: 10/30/2020 SPEC #: [id number] RECD: 10/30/20 13:51 STATUS: COMFORT REQ #: [id number] ODALYS: 10/30/20 12:[address]: Dread Houser DEPT: IMMUNOHISTOCHEMISTRY RECD BY: Shobha Chang ENTERED: 10/30/20 13:51 SP TYPE: IMMUNO OTHR DR: Dr. Jose Rafael Kat MD Tissues: B - Stomach, NOS Procedures: H Pylori (initial) PHYSICIAN & INSTITUTION [place] [id number] SPECIMEN INFORMATION: Tissue Source: B ? Antrum biopsy Clinical Info: Nausea, hematemesis Specimen Number: [id number] CPT code: 54966 METHODOLOGY: Deparaffinized sections of prefer/formalin-fixed tissue or PAP/DQ stained slides are incubated with monoclonal/polyclonal antibodies/oligonucleotide probes. Localization is made via biotin free immunoperoxidase method. Appropriate controls are performed and reacted as expected. Results on target cell population are indicated in the following table: RESULTS: ANTIBODY / CLONE RESULT Block B H Pylori (polyclonal) negative These tests were developed and their performance characteristics determined by [facility]. They may not have been cleared or approved by the U.S. Food and Drug Administration. The FDA has determined that such clearance or approval is not necessary. INTERPRETATION: B. Antrum biopsy: Negative for Helicobacter pylori organisms. AM:carin 11/03/2020
--- NOTE | 2020-10-30 12:00 | EGD_PTH ---
PATIENT: MARGOT BOLAÑOS LOC: EN U#:[id number] AGE/SX: 80/F ROOM: RE10/30/[address]: Dr. Dread Houser MD : 1940 BED: DIS: 10/30/2020 SPEC #: [id number] RECD: 10/30/20 12:49 STATUS: COMFORT RECallie #: [id number] ODALYS: 10/30/20 12:[address]: Dread Houser DEPT: SURGICAL PATHOLOGY RECD BY: Erika Fleming ENTERED: 10/30/20 13:34 SP TYPE: EGD BIOPSY OT DR: Dr. Jose Rafael Kat MD Tissues: A - Duodenum, NOS B - Gastric mucous membrane C - Gastric fundus D - COLON BIOPSY Procedures: Surgery Specimen Level IV HEADER OPERATION[place] [place] [facility] [place] DIAGNOSIS: Nausea, hematemesis TISSUE SUBMITTED: A - Duodenum biopsy, B - Antrum biopsy for histo and H. pylori, C - Fundic gland polyp biopsy, D - Random colonic biopsy MICROSCOPIC DIAGNOSIS A. Duodenum, biopsy: No pathologic change. B. Gastric antrum, biopsy: Mild chronic gastritis. See comment. C. Gastric fundus, biopsy: Focal changes suggestive of fundic gland polyp. D. Colon, random biopsy: No pathologic change. AM:carin 10/31/2020 COMMENT B. The results of immunohistochemistry for Helicobacter pylori will be reported separately ([id number]). MICROSCOPIC DESCRIPTION Slides are reviewed. GROSS DESCRIPTION A - Received in fixative is one container labeled with the patient's name and designated duodenum biopsy. The specimen consists of two irregular fragments of light anton soft tissue that in aggregate measure 0.8 x 0.3 x 0.1 cm. The specimen is totally submitted in one cassette. B - Received in fixative is one container labeled with the patient's name and designated antrum biopsy. The specimen consists of one irregular fragment of light anton soft tissue that measures 0.6 x 0.1 x 0.1 cm. The specimen is totally submitted in one cassette. C - Received in fixative is one container labeled with the patient's name and designated fundic gland polyp biopsy. The specimen consists of one irregular fragment of light anton soft tissue that measures 0.4 x 0.3 x 0.1 cm. The specimen is totally submitted in one cassette. D - Received in fixative is one container labeled with the patient's name and designated random colonic biopsy. The specimen consists of multiple irregular fragments of light anton soft tissue that in aggregate measure 1.5 x 1 x 0.1 cm. The specimen is totally submitted in one cassette. / SJ:rg 10/30/20 TC:3 CPT: 27480 x4
--- NOTE | 2020-10-30 12:17 | OP.EGD_ITS ---
Patient Name: Jermaine Vasquez Procedure Date: 10/30/2020 11:33 AM Date of : 1940 Age: 80 Procedure: Upper GI endoscopy Indications: Abdominal pain in the right upper quadrant, Hematemesis, Diarrhea, Nausea with vomiting Providers: Dread Houser MD Referring MD: Jose Rafael Kat Medicines: See the Anesthesia note for documentation of the administered medications Patient Profile: This is a 80 year old female. Refer to note in patient chart for documentation of history and physical. Complications: No immediate complications. Procedure: Pre-Anesthesia Assessment: - Prior to the procedure, a History and Physical was performed, and patient medications and allergies were reviewed. The patient's tolerance of previous anesthesia was also reviewed. The risks and benefits of the procedure and the sedation options and risks were discussed with the patient. All questions were answered, and informed consent was obtained. Prior Anticoagulants: The patient has taken no previous anticoagulant or antiplatelet agents. ASA Grade Assessment: II - A patient with mild systemic disease. After reviewing the risks and benefits, the patient was deemed in satisfactory condition to undergo the procedure. After obtaining informed consent, the endoscope was passed under direct vision. Throughout the procedure, the patient's blood pressure, pulse, and oxygen saturations were monitored continuously. The Endoscope was introduced through the mouth, and advanced to the second part of duodenum. The upper GI endoscopy was accomplished without difficulty. The patient tolerated the procedure well. Scope In: 11:50:59 AM Scope Out: 11:55:22 AM Total Procedure Duration Time 0 hours 4 minutes 23 seconds Findings: The Z-line was regular and was found 37 cm from the incisors. No biopsies or other specimens were collected for this exam. Localized mild inflammation characterized by linear erosions was found in the prepyloric region of the stomach. Biopsies were taken with a cold forceps for Helicobacter pylori testing. The examined duodenum was normal. Biopsies were taken with a cold forceps for histology. Impression: - Z-line regular, 37 cm from the incisors. No specimens collected. - Gastritis. Biopsied. - Normal examined duodenum. Biopsied. Recommendation: - Await pathology results. - Repeat upper endoscopy (date not yet determined) for surveillance based on pathology results. - Return to nurse practitioner in 1 week. - Continue present medications. Procedure Code(s): --- Professional --- 32811, Esophagogastroduodenoscopy, flexible, transoral; with biopsy, single or multiple Diagnosis Code(s): --- Professional --- K29.70, Gastritis, unspecified, without bleeding R10.11, Right upper quadrant pain K92.0, Hematemesis R19.7, Diarrhea, unspecified R11.2, Nausea with vomiting, unspecified CPT copyright 2017 [employer]. All rights reserved. The codes documented in this report are preliminary and upon nail making machine tender review may be revised to meet current compliance requirements. MD Dread Araujo MD 10/30/2020 12:17:40 PM This report has been signed electronically. Number of Addenda: 0 Note Initiated On: 10/30/2020 11:33 AM
--- NOTE | 2020-10-30 12:18 | OP.CCLET_ITS ---
10/30/2020 Jose Rafael Kat [address] [place] [address] Re : Upper GI endoscopy procedure for Jermaine Vasquez Dear Dr. Kat This procedure was performed on October. My impressions and recommendations are as follows: Impressions : - Z-line regular, 37 cm from the incisors. No specimens collected. - Gastritis. Biopsied. - Normal examined duodenum. Biopsied. Recommendations : - Await pathology results. - Repeat upper endoscopy (date not yet determined) for surveillance based on pathology results. - Return to nurse practitioner in 1 week. - Continue present medications. My findings are described in the full procedure note, which is enclosed. If I can be of further assistance, please feel free to contact me at Doctor phone number(s): , Fax: [phone], Work: . Sincerely, MD Dread Araujo MD 10/30/2020 12:17:40 PM This report has been signed electronically.
--- NOTE | 2020-10-30 12:19 | OP.COLON_ITS ---
Patient Name: Jermaine Vasquez Procedure Date: 10/30/2020 11:57 AM Date of : 1940 Age: 80 Procedure: Colonoscopy Indications: Clinically significant diarrhea of unexplained origin Providers: Dread Houser MD Referring MD: Jose Rafael Kat Medicines: See the Anesthesia note for documentation of the administered medications Patient Profile: This is a 80 year old female. Refer to note in patient chart for documentation of history and physical. Last Colonoscopy: more than 10 years ago. Complications: No immediate complications. Estimated blood loss: Minimal. Procedure: Pre-Anesthesia Assessment: - Prior to the procedure, a History and Physical was performed, and patient medications and allergies were reviewed. The patient's tolerance of previous anesthesia was also reviewed. The risks and benefits of the procedure and the sedation options and risks were discussed with the patient. All questions were answered, and informed consent was obtained. Prior Anticoagulants: The patient has taken no previous anticoagulant or antiplatelet agents. ASA Grade Assessment: II - A patient with mild systemic disease. After reviewing the risks and benefits, the patient was deemed in satisfactory condition to undergo the procedure. After I obtained informed consent, the scope was passed under direct vision. Throughout the procedure, the patient's blood pressure, pulse, and oxygen saturations were monitored continuously. The adult colonoscope was introduced through the anus and advanced to the cecum, identified by appendiceal orifice and ileocecal valve. The colonoscopy was performed without difficulty. The patient tolerated the procedure well. The quality of the bowel preparation was good. Scope In: 11:58:41 AM Scope Withdrawal Time 0 hours 6 minutes 29 seconds Scope Out: 12:11:29 PM Total Procedure Duration Time 0 hours 12 minutes 48 seconds Findings: The colon (entire examined portion) appeared normal. Biopsies for histology were taken with a cold forceps from the entire colon for evaluation of microscopic colitis. The exam was otherwise without abnormality on direct and retroflexion views. Impression: - The entire examined colon is normal. Biopsied. - The examination was otherwise normal on direct and retroflexion views. Recommendation: - Discharge patient to home. - Resume previous diet. - Continue present medications. - Await pathology results. - Repeat colonoscopy is not recommended due to current age (66 years or older) for surveillance. - Return to nurse practitioner in 1 week. Procedure Code(s): --- Professional --- 47829, Colonoscopy, flexible; with biopsy, single or multiple Diagnosis Code(s): --- Professional --- R19.7, Diarrhea, unspecified CPT copyright 2017 [employer]. All rights reserved. The codes documented in this report are preliminary and upon seasoner review may be revised to meet current compliance requirements. MD Dread Araujo MD 10/30/2020 12:19:24 PM This report has been signed electronically. Number of Addenda: 0 Note Initiated On: 10/30/2020 11:57 AM
--- NOTE | 2020-10-30 12:19 | OP.CCLET_ITS ---
10/30/2020 Jose Rafael Kat [address] [place] [address] Re : Colonoscopy procedure for Jermaine Vasquez Dear Dr. Kat This procedure was performed on October. My impressions and recommendations are as follows: Impressions : - The entire examined colon is normal. Biopsied. - The examination was otherwise normal on direct and retroflexion views. Recommendations : - Discharge patient to home. - Resume previous diet. - Continue present medications. - Await pathology results. - Repeat colonoscopy is not recommended due to current age (66 years or older) for surveillance. - Return to nurse practitioner in 1 week. My findings are described in the full procedure note, which is enclosed. If I can be of further assistance, please feel free to contact me at Doctor phone number(s): , Fax: [phone], Work: . Sincerely, MD Dread Araujo MD 10/30/2020 12:19:24 PM This report has been signed electronically.
[2020-10-30 12:55] LABS: Bedside Glucose 171 mg/dL (70-110)
== END 2020-10-30 13:17 ==
LOC: EN 10:53 → AC 11:00
PROVIDERS: PCP Family Medicine; Referring Provider Family Medicine; Visit Provider Surgery
PROC: 0DJD8ZZ Inspection of Lower Intestinal Tract, Via Natural or Artificial Opening Endoscopic (ICD-10-PCS; CPT 45378; principal; 2020-10-30 11:55)
DX: K29.50 Unspecified chronic gastritis without bleeding (principal); R19.7 Diarrhea, unspecified; E11.9 Type 2 diabetes mellitus without complications; Z79.84 Long term (current) use of oral hypoglycemic drugs; Z79.899 Other long term (current) drug therapy
CPT/HCPCS: 43239; 45380; 82962; 88305; 88342; J7120

== ENCOUNTER → 2020-11-11 15:17 | Outpatient (CLI) | payer MEDICARE, SELFPAY ==
[2020-10-30 11:30] VITALS: BMI 19.3
--- NOTE | 2020-11-11 15:22 | RAD_ITS ---
STUDY: X-RAY - CERVICAL SPINE REASON FOR EXAM: Female, 80 years old. CERVICALGIA TECHNIQUE: 5 view(s) of the cervical spine were obtained. COMPARISON: None FINDINGS: Normal anterior atlantoaxial articulation. Normal odontoid process. There is straightening of the normal cervical lordosis. There is multi-level endplate spondylosis. There is multi-level degenerative disc disease with multilevel disc space narrowing. Facet joint osteoarthritis. Mild degree of right C5-C6 neural foraminal stenosis. The soft tissue structures are unremarkable. RAD/Cerv Spine 4 or 5 Views IMPRESSION: Straightening of the normal cervical lordosis. Multilevel spondylosis and disc space narrowing. Electronically Signed: Marcelo Marshall MD at 15:23 EDT , Service support ,
== END ==
PROVIDERS: PCP Family Medicine; Referring Provider Family Medicine; Visit Provider Family Medicine
DX: M54.2 Cervicalgia (principal)
CPT/HCPCS: 72050

== ENCOUNTER → 2020-12-02 08:05 | Outpatient (CLI) | payer MEDICARE, SELFPAY ==
[2020-10-30 11:30] VITALS: BMI 19.3
[2020-12-02 09:47] LABS: Absolute Neutrophil Count 2.7 X10^3/uL (2.0-7.7); Basophil# 0.03 X10^3/uL; Basophil% 0.7 % (0-1); Eosinophil# 0.14 X10^3/uL; Eosinophils% 3.3 % (0-5); Hematocrit 35.5 % (37-47); Hemoglobin 11.3 g/dL (12.0-15.0); Lymphocyte % 21.5 % (19-41); Mean Corp Hgb Conc 31.8 g/dL (32-36); Mean Corpuscular Hgb 28.8 pg (27.0-32.0); Mean Corpuscular Volume 90.3 fL (81-99); Mean Platelet Vol. 9.8 fl (6.2-12.0); Monocyte# 0.38 X10^3/uL; Monocyte% 9.1 % (0-10); NRBC Flagged by Analyzer 0 % (0-5); Neutrophil # 2.73 X10^3/uL (2.7-7.7); Neutrophil % 65.2 % (47-70); Platelet Count 386 K/mm3 (150-450); RBC Distribution Width CV 13.9 % (11.6-14.6); RBC Distribution Width SD 46.3 fl (35.1-43.9); Red Blood Count 3.93 M/mm3 (4.2-5.4); White Blood Count 4.2 K/mm3 (4.4-11.0)
[2020-12-02 10:00] LABS: Protein, Urine (Random) 25.1 mg/dL (<11.9); Protein:Creat Ratio 326 mg/g CRE (0-200)
[2020-12-02 10:13] LABS: Vitamin D,25 Hydroxy 42.7 ng/mL
[2020-12-02 10:29] LABS: ALB/GLOB Ratio 1.1 RATIO (0.9-2.4); AST(SGOT) 10 U/L (15-37); Alanine Aminotransfer ALT/SGPT 17 U/L (13-56); Albumin, Serum 3.8 g/dL (3.2-5.0); Alkaline Phosphatase 91 U/L (45-117); Anion Gap 9 (5-15); BUN 24 mg/dL (7-18); Calcium,Total 9.6 mg/dL (8.5-10.1); Chloride 104 mmol/L (98-107); Cholesterol 264 mg/dL (200); Creatinine, Serum 1.26 mg/dL (0.55-1.02); EST Glomerular Filtration Rate 44 mL/min (>60); Est Glom Filt Rate - Afr Amer 53 mL/min (>60); Globulin 3.6 g/dL (2.2-4.2); Glucose 237 mg/dL (74-106); High Density Lipoprotein 76 mg/dL; Potassium 4.3 mmol/L (3.5-5.1); Protein, Total 7.4 g/dL (6.4-8.2); Sodium Level 138 mmol/L (136-145); Triglycerides 86 mg/dL; Very Low Density Lipoprotein 17 mg/dL (5-40)
[2020-12-02 11:29] LABS: Hemoglobin A1c 7.5 % (3.8-5.6)
== END ==
PROVIDERS: PCP Family Medicine; Referring Provider Family Medicine; Visit Provider Family Medicine
DX: E11.22 Type 2 diabetes mellitus with diabetic chronic kidney disease (principal); D64.9 Anemia, unspecified; E55.9 Vitamin D deficiency, unspecified
CPT/HCPCS: 36415; 80053; 80061; 82306; 82570; 83036; 84156; 85025

== ENCOUNTER 2020-12-15 10:42 | Outpatient (RCR) | payer MEDICARE, SELFPAY ==
[2020-10-30 11:30] VITALS: BMI 19.3
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
== END 2020-12-15 19:00 | disposition home or self-care (01) ==
LOC: PT 10:42
PROVIDERS: PCP Family Medicine; Referring Provider Family Medicine; Visit Provider Family Medicine
DX: M50.30 Other cervical disc degeneration, unspecified cervical region (principal); M46.92 Unspecified inflammatory spondylopathy, cervical region
CPT/HCPCS: 97035; 97161

== ENCOUNTER → 2021-03-06 08:19 | Outpatient (CLI) | payer MEDICARE, SELFPAY ==
[2021-03-06 11:00] LABS: Hemoglobin A1c 9.4 % (3.8-5.6); PTHIN 54.2 pg/mL (18.4-80.1)
[2021-03-06 11:03] LABS: Vitamin B12 255 pg/mL (211-911)
[2021-03-06 11:19] LABS: ALB/GLOB Ratio 1.1 RATIO (0.9-2.4); AST(SGOT) 12 U/L (15-37); Alanine Aminotransfer ALT/SGPT 24 U/L (13-56); Albumin, Serum 3.9 g/dL (3.2-5.0); Alkaline Phosphatase 78 U/L (45-117); Anion Gap 5 (5-15); BUN 18 mg/dL (7-18); BUN/Creat Ratio 14.2 RATIO (10-20); Calcium,Total 9.3 mg/dL (8.5-10.1); Chloride 108 mmol/L (98-107); Cholesterol 234 mg/dL (200); Creatinine, Serum 1.27 mg/dL (0.55-1.02); EST Glomerular Filtration Rate 43 mL/min (>60); Est Glom Filt Rate - Afr Amer 52 mL/min (>60); Ferritin 22 ng/mL (8-252); Globulin 3.7 g/dL (2.2-4.2); Glucose 200 mg/dL (74-106); High Density Lipoprotein 78 mg/dL; Iron 64 ug/dL (50-170); Iron Binding Capacity,Total 320 ug/dL (250-450); Phosphorus 4.1 mg/dL (2.5-4.9); Protein, Total 7.6 g/dL (6.4-8.2); Sodium Level 139 mmol/L (136-145); Triglycerides 77 mg/dL; Very Low Density Lipoprotein 15 mg/dL (5-40)
== END ==
PROVIDERS: PCP Family Medicine; Referring Provider Family Medicine; Visit Provider Family Medicine
DX: E11.22 Type 2 diabetes mellitus with diabetic chronic kidney disease (principal); N18.9 Chronic kidney disease, unspecified; D64.9 Anemia, unspecified; E55.9 Vitamin D deficiency, unspecified
CPT/HCPCS: 36415; 80053; 80061; 82306; 82607; 82728; 82746; 83036; 83540; 83550; 83970; 84100

== ENCOUNTER → 2021-06-04 08:07 | Outpatient (CLI) | payer MEDICARE, SELFPAY ==
[2021-06-04 08:10] LABS: Red Blood Cells-Urine 0 SEEN /hpf (0-5)
[2021-06-04 10:19] LABS: Absolute Lymphocyte Count 1.14 X10^3/uL (0.83-4.51); Absolute Neutrophil Count 2.4 X10^3/uL (2.0-7.7); Basophil# 0.03 X10^3/uL; Basophil% 0.8 % (0-1); Eosinophil# 0.12 X10^3/uL; Hematocrit 38.7 % (37-47); Hemoglobin 12.5 g/dL (12.0-15.0); Lymphocyte # 1.14 X10^3/ul (0.83-4.51); Lymphocyte % 28.5 % (19-41); Mean Corp Hgb Conc 32.3 g/dL (32-36); Mean Corpuscular Hgb 29.2 pg (27.0-32.0); Mean Corpuscular Volume 90.4 fL (81-99); Mean Platelet Vol. 10.2 fl (6.2-12.0); Monocyte# 0.35 X10^3/uL; Monocyte% 8.8 % (0-10); NRBC Flagged by Analyzer 0 % (0-5); Neutrophil # 2.35 X10^3/uL (2.7-7.7); Neutrophil % 58.6 % (47-70); Platelet Count 376 K/mm3 (150-450); RBC Distribution Width CV 13.1 % (11.6-14.6); RBC Distribution Width SD 43.1 fl (35.1-43.9); Red Blood Count 4.28 M/mm3 (4.2-5.4)
[2021-06-04 10:23] LABS: Color, Urine Yellow (Yellow); Glucose, Dipstick Normal (Normal); Ketone-Dipstick Negative (Negative); Leukocyte Esterase-Dipstick 500 /ul (Negative); Nitrite-Dipstick Negative (Negative); Occult Blood-Urine Negative /ul (Negative); Protein-Dipstick Negative (Negative); Specific Gravity, Urine 1.015 (1.002-1.030); Urine Bilirubin Dipstick Negative (Negative); Urine Clarity Sl. Cloudy (Clear); Urine Urobilinogen Normal (Normal)
[2021-06-04 10:32] LABS: Bacteria 1+ /hpf (None Seen); Mucous, Urine RARE /hpf (<or=2+); Squamous Epithelial Cells - UA 0-5 SEEN /hpf (5-10); White Blood Cells 10-25 SEEN /hpf (0-5)
[2021-06-04 10:37] LABS: ALB/GLOB Ratio 1.1 RATIO (0.9-2.4); AST(SGOT) 15 U/L (15-37); Alanine Aminotransfer ALT/SGPT 19 U/L (13-56); Alkaline Phosphatase 86 U/L (45-117); Anion Gap 8 (5-15); BUN 29 mg/dL (7-18); BUN/Creat Ratio 19.6 RATIO (10-20); Chloride 107 mmol/L (98-107); Creatinine, Serum 1.48 mg/dL (0.55-1.02); EST Glomerular Filtration Rate 36 mL/min (>60); Est Glom Filt Rate - Afr Amer 44 mL/min (>60); Globulin 3.8 g/dL (2.2-4.2); Glucose 228 mg/dL (74-106); Phosphorus 4.1 mg/dL (2.5-4.9); Potassium 4.2 mmol/L (3.5-5.1); Protein, Total 7.8 g/dL (6.4-8.2); Protein:Creat Ratio 220 mg/g CRE (0-200); Sodium Level 138 mmol/L (136-145)
[2021-06-04 10:39] LABS: Vitamin D,25 Hydroxy 53.5 ng/mL
[2021-06-04 10:46] LABS: Hemoglobin A1c 8.1 % (3.8-5.6)
== END ==
PROVIDERS: PCP Family Medicine; Referring Provider Family Medicine; Visit Provider Family Medicine
DX: D64.9 Anemia, unspecified (principal); E55.9 Vitamin D deficiency, unspecified; E11.22 Type 2 diabetes mellitus with diabetic chronic kidney disease; N18.9 Chronic kidney disease, unspecified
CPT/HCPCS: 36415; 80053; 81001; 82306; 82570; 83036; 84100; 84156; 85025

== ENCOUNTER 2021-09-04 10:08 | Outpatient (CLI) | payer MEDICARE, SELFPAY ==
[2021-09-04 10:36] LABS: Bacteria 0 SEEN /hpf (None Seen); Mucous, Urine 0 SEEN /hpf (<or=2+); Red Blood Cells-Urine 0 SEEN /hpf (0-5)
[2021-09-04 10:46] LABS: Absolute Lymphocyte Count 0.81 X10^3/uL (0.83-4.51); Absolute Neutrophil Count 5.6 X10^3/uL (2.0-7.7); Basophil# 0.05 X10^3/uL; Basophil% 0.7 % (0-1); Eosinophil# 0.11 X10^3/uL; Eosinophils% 1.5 % (0-5); Hematocrit 41.4 % (37-47); Hemoglobin 13.1 g/dL (12.0-15.0); Lymphocyte # 0.81 X10^3/ul (0.83-4.51); Lymphocyte % 11.2 % (19-41); Mean Corp Hgb Conc 31.6 g/dL (32-36); Mean Corpuscular Volume 91.6 fL (81-99); Mean Platelet Vol. 10.2 fl (6.2-12.0); Monocyte# 0.64 X10^3/uL; Monocyte% 8.9 % (0-10); NRBC Flagged by Analyzer 0 % (0-5); Neutrophil # 5.56 X10^3/uL (2.7-7.7); Neutrophil % 77.1 % (47-70); Platelet Count 512 K/mm3 (150-450); RBC Distribution Width SD 43.8 fl (35.1-43.9); Red Blood Count 4.52 M/mm3 (4.2-5.4); White Blood Count 7.2 K/mm3 (4.4-11.0)
[2021-09-04 10:50] LABS: Color, Urine Yellow (Yellow); Glucose, Dipstick 1000 mg/dl (Normal); Ketone-Dipstick Negative (Negative); Leukocyte Esterase-Dipstick 100 /ul (Negative); Nitrite-Dipstick Negative (Negative); Occult Blood-Urine Negative /ul (Negative); Protein-Dipstick Negative (Negative); Urine Bilirubin Dipstick Negative (Negative); Urine Clarity Sl. Cloudy (Clear); Urine Urobilinogen Normal (Normal)
[2021-09-04 10:59] LABS: Protein, Urine (Random) 10.7 mg/dL (<11.9); Protein:Creat Ratio 274 mg/g CRE (0-200)
[2021-09-04 11:01] LABS: Squamous Epithelial Cells - UA 0-5 SEEN /hpf (5-10); White Blood Cells 10-25 SEEN /hpf (0-5)
[2021-09-04 11:04] LABS: Vitamin D,25 Hydroxy 80.5 ng/mL
[2021-09-04 11:08] LABS: ALB/GLOB Ratio 0.7 RATIO (0.9-2.4); AST(SGOT) 8 U/L (15-37); Alanine Aminotransfer ALT/SGPT 17 U/L (13-56); Albumin, Serum 3.4 g/dL (3.2-5.0); Alkaline Phosphatase 87 U/L (45-117); Anion Gap 7 (5-15); BUN 21 mg/dL (7-18); BUN/Creat Ratio 14.5 RATIO (10-20); Calcium,Total 10.1 mg/dL (8.5-10.1); Chloride 104 mmol/L (98-107); Cholesterol 192 mg/dL (200); Creatinine, Serum 1.45 mg/dL (0.55-1.02); EST Glomerular Filtration Rate 37 mL/min (>60); Est Glom Filt Rate - Afr Amer 45 mL/min (>60); Globulin 4.9 g/dL (2.2-4.2); Glucose 285 mg/dL (74-106); High Density Lipoprotein 47 mg/dL; Phosphorus 4.4 mg/dL (2.5-4.9); Potassium 3.9 mmol/L (3.5-5.1); Protein, Total 8.3 g/dL (6.4-8.2); Sodium Level 136 mmol/L (136-145); Triglycerides 159 mg/dL; Very Low Density Lipoprotein 32 mg/dL (5-40)
[2021-09-04 11:13] LABS: PTHIN 37.3 pg/mL (18.4-80.1)
== END 2021-09-04 23:59 | disposition home or self-care (01) ==
LOC: MFPLAB 10:09
PROVIDERS: PCP Family Medicine; Visit Provider Family Medicine
DX: D64.9 Anemia, unspecified (principal); E11.22 Type 2 diabetes mellitus with diabetic chronic kidney disease; E55.9 Vitamin D deficiency, unspecified; N18.9 Chronic kidney disease, unspecified
CPT/HCPCS: 36415; 80053; 80061; 81001; 82306; 82570; 83036; 83970; 84100; 84156; 85025

== ENCOUNTER → 2021-12-28 | Outpatient (CLI) | payer MEDICARE, SELFPAY ==
[2021-12-28 10:02] LABS: Absolute Lymphocyte Count 0.86 X10^3/uL (0.83-4.51); Absolute Neutrophil Count 2.7 X10^3/uL (2.0-7.7); Basophil# 0.04 X10^3/uL; Eosinophil# 0.13 X10^3/uL; Eosinophils% 3.2 % (0-5); Hematocrit 38.7 % (37-47); Hemoglobin 12.2 g/dL (12.0-15.0); Lymphocyte # 0.86 X10^3/ul (0.83-4.51); Lymphocyte % 20.9 % (19-41); Mean Corp Hgb Conc 31.5 g/dL (32-36); Mean Corpuscular Hgb 29.3 pg (27.0-32.0); Mean Corpuscular Volume 92.8 fL (81-99); Mean Platelet Vol. 10.4 fl (6.2-12.0); Monocyte# 0.36 X10^3/uL; Monocyte% 8.7 % (0-10); NRBC Flagged by Analyzer 0 % (0-5); Neutrophil # 2.72 X10^3/uL (2.7-7.7); Platelet Count 388 K/mm3 (150-450); RBC Distribution Width CV 14.7 % (11.6-14.6); RBC Distribution Width SD 50.1 fl (35.1-43.9); Red Blood Count 4.17 M/mm3 (4.2-5.4); White Blood Count 4.1 K/mm3 (4.4-11.0)
[2021-12-28 10:20] LABS: Vitamin D,25 Hydroxy 75.1 ng/mL
[2021-12-28 10:37] LABS: Hemoglobin A1c 9.2 % (3.8-5.6)
[2021-12-28 10:44] LABS: AST(SGOT) 13 U/L (15-37); Alanine Aminotransfer ALT/SGPT 16 U/L (13-56); Albumin, Serum 3.9 g/dL (3.2-5.0); Alkaline Phosphatase 90 U/L (45-117); Anion Gap 7 (5-15); BUN 19 mg/dL (7-18); BUN/Creat Ratio 13.9 RATIO (10-20); Calcium,Total 9.5 mg/dL (8.5-10.1); Chloride 106 mmol/L (98-107); Creatinine, Serum 1.37 mg/dL (0.55-1.02); EST Glomerular Filtration Rate 40 mL/min (>60); Est Glom Filt Rate - Afr Amer 48 mL/min (>60); Globulin 3.8 g/dL (2.2-4.2); Glucose 242 mg/dL (74-106); Potassium 4.7 mmol/L (3.5-5.1); Protein, Total 7.7 g/dL (6.4-8.2); Sodium Level 139 mmol/L (136-145)
[2021-12-28 10:53] LABS: Microalbumin,Random Urine 13.8 mg/L (NO RANGE EST.); Microalbumin:Creatinine Ratio 23.3 mg/g CRE (<30 mg/g CRE)
== END | disposition home or self-care (01) ==
LOC: MFPLAB 08:02
PROVIDERS: PCP Family Medicine; Visit Provider Family Medicine
DX: E11.9 Type 2 diabetes mellitus without complications (principal); E55.9 Vitamin D deficiency, unspecified
CPT/HCPCS: 36415; 80053; 82043; 82306; 82570; 83036; 85025

== ENCOUNTER → 2022-03-29 | Outpatient (CLI) | payer MEDICARE, SELFPAY ==
[2022-03-29 08:06] LABS: Bacteria 0 SEEN /hpf (None Seen); Mucous, Urine 0 SEEN /hpf (<or=2+); Red Blood Cells-Urine 0 SEEN /hpf (0-5)
[2022-03-29 10:02] LABS: Absolute Lymphocyte Count 0.89 X10^3/uL (0.83-4.51); Absolute Neutrophil Count 2.4 X10^3/uL (2.0-7.7); Basophil# 0.05 X10^3/uL; Basophil% 1.3 % (0-1); Eosinophil# 0.12 X10^3/uL; Eosinophils% 3.2 % (0-5); Hematocrit 38.7 % (37-47); Hemoglobin 12.6 g/dL (12.0-15.0); Lymphocyte # 0.89 X10^3/ul (0.83-4.51); Lymphocyte % 23.5 % (19-41); Mean Corp Hgb Conc 32.6 g/dL (32-36); Mean Corpuscular Hgb 29.9 pg (27.0-32.0); Mean Corpuscular Volume 91.9 fL (81-99); Mean Platelet Vol. 10.1 fl (6.2-12.0); Monocyte# 0.34 X10^3/uL; NRBC Flagged by Analyzer 0 % (0-5); Neutrophil # 2.37 X10^3/uL (2.7-7.7); Neutrophil % 62.7 % (47-70); Platelet Count 416 K/mm3 (150-450); RBC Distribution Width CV 13.4 % (11.6-14.6); Red Blood Count 4.21 M/mm3 (4.2-5.4); White Blood Count 3.8 K/mm3 (4.4-11.0)
[2022-03-29 10:18] LABS: Color, Urine Yellow (Yellow); Glucose, Dipstick Normal (Normal); Ketone-Dipstick Negative (Negative); Leukocyte Esterase-Dipstick 100 /ul (Negative); Nitrite-Dipstick Negative (Negative); Occult Blood-Urine Negative /ul (Negative); Protein-Dipstick Negative (Negative); Urine Bilirubin Dipstick Negative (Negative); Urine Clarity Sl. Cloudy (Clear); Urine Urobilinogen Normal (Normal); Urine pH 6.5 (5.0 - 8.0)
[2022-03-29 10:20] LABS: Vitamin D,25 Hydroxy 65.1 ng/mL
[2022-03-29 10:21] LABS: AST(SGOT) 16 U/L (15-37); Alanine Aminotransfer ALT/SGPT 26 U/L (13-56); Albumin, Serum 3.8 g/dL (3.2-5.0); Alkaline Phosphatase 86 U/L (45-117); Anion Gap 10 (5-15); BUN 22 mg/dL (7-18); BUN/Creat Ratio 17.2 RATIO (10-20); Calcium,Total 9.6 mg/dL (8.5-10.1); Chloride 102 mmol/L (98-107); Cholesterol 269 mg/dL (200); Creatinine, Serum 1.28 mg/dL (0.55-1.02); EST Glomerular Filtration Rate 43 mL/min (>60); Est Glom Filt Rate - Afr Amer 52 mL/min (>60); Globulin 3.7 g/dL (2.2-4.2); Glucose 243 mg/dL (74-106); High Density Lipoprotein 70 mg/dL; Magnesium 2.2 mg/dL (1.6-2.6); Phosphorus 3.7 mg/dL (2.5-4.9); Potassium 4.1 mmol/L (3.5-5.1); Protein, Total 7.5 g/dL (6.4-8.2); Sodium Level 137 mmol/L (136-145); Triglycerides 156 mg/dL; Very Low Density Lipoprotein 31 mg/dL (5-40)
[2022-03-29 10:24] LABS: Squamous Epithelial Cells - UA 0-5 SEEN /hpf (5-10); White Blood Cells 10-25 SEEN /hpf (0-5)
[2022-03-29 10:26] LABS: Hemoglobin A1c 9.5 % (3.8-5.6)
[2022-03-29 10:45] LABS: Microalbumin:Creatinine Ratio 24.3 mg/g CRE (<30 mg/g CRE); Protein, Urine (Random) 9.4 mg/dL (<11.9); Protein:Creat Ratio 208 mg/g CRE (0-200)
== END | disposition home or self-care (01) ==
LOC: MFPLAB 08:05
PROVIDERS: PCP Family Medicine; Referring Provider Family Medicine; Visit Provider Family Medicine
DX: E11.22 Type 2 diabetes mellitus with diabetic chronic kidney disease (principal); E55.9 Vitamin D deficiency, unspecified; N18.9 Chronic kidney disease, unspecified
CPT/HCPCS: 36415; 80053; 80061; 81001; 82043; 82306; 82570; 83036; 83735; 84100; 84156; 85025

== ENCOUNTER → 2022-09-20 | Outpatient (CLI) | payer MEDICARE, SELFPAY ==
[2022-09-20 09:13] LABS: Mucous, Urine 0 SEEN /hpf (<or=2+); Red Blood Cells-Urine 0 SEEN /hpf (0-5); Squamous Epithelial Cells - UA 0 SEEN /hpf (5-10)
[2022-09-20 10:04] LABS: Absolute Lymphocyte Count 1.09 X10^3/uL (0.83-4.51); Absolute Neutrophil Count 2.2 X10^3/uL (2.0-7.7); Basophil# 0.04 X10^3/uL; Eosinophil# 0.12 X10^3/uL; Eosinophils% 3.1 % (0-5); Hematocrit 38.4 % (37-47); Hemoglobin 12.4 g/dL (12.0-15.0); Lymphocyte # 1.09 X10^3/ul (0.83-4.51); Lymphocyte % 28.6 % (19-41); Mean Corp Hgb Conc 32.3 g/dL (32-36); Mean Corpuscular Hgb 29.5 pg (27.0-32.0); Mean Corpuscular Volume 91.2 fL (81-99); Mean Platelet Vol. 9.9 fl (6.2-12.0); Monocyte% 10.5 % (0-10); NRBC Flagged by Analyzer 0 % (0-5); Neutrophil # 2.15 X10^3/uL (2.7-7.7); Neutrophil % 56.5 % (47-70); Platelet Count 382 K/mm3 (150-450); RBC Distribution Width CV 12.9 % (11.6-14.6); Red Blood Count 4.21 M/mm3 (4.2-5.4); White Blood Count 3.8 K/mm3 (4.4-11.0)
[2022-09-20 10:21] LABS: ALB/GLOB Ratio 1.2 RATIO (0.9-2.4); AST(SGOT) 15 U/L (15-37); Alanine Aminotransfer ALT/SGPT 19 U/L (13-56); Albumin, Serum 4.2 g/dL (3.2-5.0); Alkaline Phosphatase 68 U/L (45-117); Anion Gap 8 (5-15); BUN 14 mg/dL (7-18); BUN/Creat Ratio 11.2 RATIO (10-20); Calcium,Total 9.7 mg/dL (8.5-10.1); Chloride 104 mmol/L (98-107); Cholesterol 250 mg/dL (200); Creatinine, Serum 1.25 mg/dL (0.55-1.02); EST Glomerular Filtration Rate 44 mL/min (>60); Est Glom Filt Rate - Afr Amer 53 mL/min (>60); Globulin 3.4 g/dL (2.2-4.2); Glucose 193 mg/dL (74-106); High Density Lipoprotein 68 mg/dL; Protein, Total 7.6 g/dL (6.4-8.2); Sodium Level 139 mmol/L (136-145); Triglycerides 107 mg/dL; Very Low Density Lipoprotein 21 mg/dL (5-40)
[2022-09-20 10:25] LABS: Vitamin D,25 Hydroxy 60.5 ng/mL
[2022-09-20 10:28] LABS: Hemoglobin A1c 7.9 % (3.8-5.6)
[2022-09-20 10:43] LABS: Color, Urine Yellow (Yellow); Glucose, Dipstick Normal (Normal); Ketone-Dipstick Negative (Negative); Leukocyte Esterase-Dipstick 100 /ul (Negative); Nitrite-Dipstick Negative (Negative); Occult Blood-Urine Negative /ul (Negative); Protein-Dipstick 15 mg/dl (Negative); Urine Bilirubin Dipstick Negative (Negative); Urine Clarity Clear (Clear); Urine Urobilinogen Normal (Normal); Urine pH 6.5 (5.0 - 8.0)
[2022-09-20 10:45] LABS: Microalbumin,Random Urine 6.2 mg/L (NO RANGE EST.); Microalbumin:Creatinine Ratio 16.1 mg/g CRE (<30 mg/g CRE); Protein, Urine (Random) < 6.0 mg/dL (<11.9)
[2022-09-20 10:58] LABS: Bacteria RARE /hpf (None Seen); White Blood Cells 0-5 SEEN /hpf (0-5)
== END | disposition home or self-care (01) ==
PROVIDERS: PCP Family Medicine; Visit Provider Family Medicine
DX: E11.22 Type 2 diabetes mellitus with diabetic chronic kidney disease (principal); E55.9 Vitamin D deficiency, unspecified; N18.9 Chronic kidney disease, unspecified
CPT/HCPCS: 36415; 80053; 80061; 81001; 82043; 82306; 82570; 83036; 84100; 84156; 85025

== ENCOUNTER → 2022-12-20 | Outpatient (CLI) | payer MEDICARE, SELFPAY ==
[2022-12-20 10:09] LABS: Color, Urine Yellow (Yellow); Glucose, Dipstick 100 mg/dl (Normal); Ketone-Dipstick Negative (Negative); Leukocyte Esterase-Dipstick 100 /ul (Negative); Nitrite-Dipstick Negative (Negative); Occult Blood-Urine Negative /ul (Negative); Protein-Dipstick Negative (Negative); Specific Gravity, Urine 1.015 (1.002-1.030); Urine Bilirubin Dipstick Negative (Negative); Urine Clarity Clear (Clear); Urine Urobilinogen Normal (Normal)
[2022-12-20 10:12] LABS: Protein, Urine (Random) 21.1 mg/dL (<11.9); Protein:Creat Ratio 205 mg/g CRE (0-200)
[2022-12-20 10:22] LABS: Absolute Lymphocyte Count 1.07 X10^3/uL (0.83-4.51); Absolute Neutrophil Count 4.4 X10^3/uL (2.0-7.7); Basophil# 0.05 X10^3/uL; Basophil% 0.8 % (0-1); Eosinophil# 0.13 X10^3/uL; Eosinophils% 2.1 % (0-5); Hematocrit 38.5 % (37-47); Hemoglobin 12.2 g/dL (12.0-15.0); Lymphocyte # 1.07 X10^3/ul (0.83-4.51); Lymphocyte % 17.3 % (19-41); Mean Corp Hgb Conc 31.7 g/dL (32-36); Mean Corpuscular Hgb 29.8 pg (27.0-32.0); Mean Corpuscular Volume 94.1 fL (81-99); Mean Platelet Vol. 10.4 fl (6.2-12.0); Monocyte# 0.49 X10^3/uL; Monocyte% 7.9 % (0-10); NRBC Flagged by Analyzer 0 % (0-5); Neutrophil # 4.44 X10^3/uL (2.7-7.7); Neutrophil % 71.6 % (47-70); Platelet Count 370 K/mm3 (150-450); RBC Distribution Width CV 13.3 % (11.6-14.6); RBC Distribution Width SD 46.2 fl (35.1-43.9); Red Blood Count 4.09 M/mm3 (4.2-5.4); White Blood Count 6.2 K/mm3 (4.4-11.0)
[2022-12-20 10:28] LABS: Mucous, Urine 0 SEEN /hpf (<or=2+); Red Blood Cells-Urine 0 SEEN /hpf (0-5)
[2022-12-20 10:29] LABS: Bacteria RARE /hpf (None Seen); Squamous Epithelial Cells - UA 0-5 SEEN /hpf (5-10); White Blood Cells 0-5 SEEN /hpf (0-5)
[2022-12-20 11:36] LABS: ALB/GLOB Ratio 1.3 RATIO (0.9-2.4); AST(SGOT) 12 U/L (15-37); Alanine Aminotransfer ALT/SGPT 16 U/L (13-56); Albumin, Serum 3.9 g/dL (3.2-5.0); Alkaline Phosphatase 77 U/L (45-117); Anion Gap 10 (5-15); BUN 24 mg/dL (7-18); BUN/Creat Ratio 17.6 RATIO (10-20); Calcium,Total 9.3 mg/dL (8.5-10.1); Chloride 107 mmol/L (98-107); Cholesterol 270 mg/dL (200); Creatinine, Serum 1.36 mg/dL (0.55-1.02); EST Glomerular Filtration Rate 40 mL/min (>60); Est Glom Filt Rate - Afr Amer 48 mL/min (>60); Globulin 3.1 g/dL (2.2-4.2); Glucose 265 mg/dL (74-106); High Density Lipoprotein 71 mg/dL; Phosphorus 4.3 mg/dL (2.5-4.9); Potassium 4.3 mmol/L (3.5-5.1); Sodium Level 139 mmol/L (136-145); Triglycerides 91 mg/dL; Very Low Density Lipoprotein 18 mg/dL (5-40)
[2022-12-20 12:04] LABS: Hemoglobin A1c 8.2 % (3.8-5.6)
== END | disposition home or self-care (01) ==
LOC: MFPLAB 08:01
PROVIDERS: PCP Family Medicine; Visit Provider Family Medicine
DX: E11.9 Type 2 diabetes mellitus without complications (principal)
CPT/HCPCS: 36415; 80053; 80061; 81001; 82570; 83036; 84100; 84156; 85025

== ENCOUNTER → 2023-01-31 | Outpatient (CLI) | payer MEDICARE, SELFPAY ==
--- NOTE | 2023-01-31 08:42 | CDU_ITS ---
Reason For Study: Carotid stenosis Rt. Velocities/BP Lt. Velocities/BP Prox CCA 67.4/12.6 cm/sec. Prox CCA 81.5/9.7 cm/sec. Mid CCA 57.9/11.6 cm/sec. Mid CCA 53.2/8.8 cm/sec. Dist CCA 57.9/10.7 cm/sec. Dist CCA 58.9/12.6 cm/sec. Prox ICA 43/10.7 cm/sec. Prox ICA 57/12.6 cm/sec. Mid ICA 77/22.9 cm/sec. Mid ICA 91/26.7 cm/sec. Dist ICA 75.9/20.1 cm/sec. Dist ICA 80.8/22.4 cm/sec. Rt. ICA/CCA = 1.33. Lt. ICA/CCA = 1.54. Prox ECA 115.6/6 cm/sec. Prox ECA 148.5/4.2 cm/sec. Rt. Vert. 68.3/15.4 cm/sec. Lt. Vert. 53.1/12.4 cm/sec. Right Extracranial There is homogeneous, smooth atherosclerotic plaque noted in the right common carotid artery. There is homogeneous, smooth atherosclerotic plaque noted in the right internal carotid artery. There is heterogeneous, irregular atherosclerotic plaque noted in the right external carotid artery. Antegrade flow is noted in the right vertebral artery. There is heterogeneous, irregular atherosclerotic plaque noted in the right bulb. Left Extracranial There is homogeneous, smooth atherosclerotic plaque noted in the left common carotid artery. There is homogeneous, smooth atherosclerotic plaque noted in the left internal carotid artery. There is intimal thickening but no significant atherosclerotic plaque noted in the left external carotid artery. Antegrade flow is noted in the left vertebral artery. There is heterogeneous, irregular atherosclerotic plaque noted in the left bulb. Procedure This is a Carotid Duplex examination using B-mode, color flow and specral Doppler. Carotid Duplex 01205. Exam performed in department. VL/Carotid Duplex Ultrasound Interpretation Summary Smooth heterogenous plaque at the proximal right internal carotid with less benito n 50% stenosis Less than 50% stenosis right external carotid artery Calcific plaque with shadowing at the proximal left internal carotid artery/car otid bulb with less than 50% stenosis Less than 50% stenosis left external carotid artery Patent and antegrade vertebral arteries bilaterally No apparent progression of disease since April 25, 2019 Ordering Physician: Jose Rafael Kat Referring Physician: Jose Rafael Kat Performed By: Loan Vivar RVT
== END | disposition home or self-care (01) ==
PROVIDERS: PCP Family Medicine; Referring Provider Family Medicine; Visit Provider Family Medicine
DX: I65.23 Occlusion and stenosis of bilateral carotid arteries (principal)
CPT/HCPCS: 93880

== ENCOUNTER → 2023-05-13 | Outpatient (CLI) | payer MEDICARE, SELFPAY ==
[2023-05-13 08:19] LABS: Bacteria 0 SEEN /hpf (None Seen); Mucous, Urine 0 SEEN /hpf (<or=2+); Red Blood Cells-Urine 0 SEEN /hpf (0-5); Squamous Epithelial Cells - UA 0 SEEN /hpf (5-10)
[2023-05-13 10:15] LABS: Absolute Lymphocyte Count 1.04 X10^3/uL (0.83-4.51); Absolute Neutrophil Count 4.2 X10^3/uL (2.0-7.7); Basophil# 0.08 X10^3/uL; Basophil% 1.3 % (0-1); Eosinophils% 6.3 % (0-5); Hematocrit 37.8 % (37-47); Hemoglobin 11.8 g/dL (12.0-15.0); Lymphocyte # 1.04 X10^3/ul (0.83-4.51); Lymphocyte % 16.4 % (19-41); Mean Corp Hgb Conc 31.2 g/dL (32-36); Mean Corpuscular Hgb 28.9 pg (27.0-32.0); Mean Corpuscular Volume 92.4 fL (81-99); Mean Platelet Vol. 10.4 fl (6.2-12.0); Monocyte# 0.62 X10^3/uL; Monocyte% 9.8 % (0-10); NRBC Flagged by Analyzer 0 % (0-5); Neutrophil # 4.16 X10^3/uL (2.7-7.7); Neutrophil % 65.7 % (47-70); Platelet Count 406 K/mm3 (150-450); RBC Distribution Width CV 13.1 % (11.6-14.6); Red Blood Count 4.09 M/mm3 (4.2-5.4); White Blood Count 6.3 K/mm3 (4.4-11.0)
[2023-05-13 10:19] LABS: Color, Urine Yellow (Yellow); Glucose, Dipstick Normal (Normal); Ketone-Dipstick Negative (Negative); Leukocyte Esterase-Dipstick 25 /ul (Negative); Nitrite-Dipstick Negative (Negative); Occult Blood-Urine Negative /ul (Negative); Protein-Dipstick Negative (Negative); Urine Bilirubin Dipstick Negative (Negative); Urine Clarity Sl. Cloudy (Clear); Urine Urobilinogen Normal (Normal)
[2023-05-13 10:29] LABS: Vitamin D,25 Hydroxy 89.9 ng/mL
[2023-05-13 10:30] LABS: Protein, Urine (Random) 11.6 mg/dL (<11.9); Protein:Creat Ratio 238 mg/g CRE (0-200); White Blood Cells 0-5 SEEN /hpf (0-5)
[2023-05-13 10:37] LABS: AST(SGOT) 9 U/L (15-37); Alanine Aminotransfer ALT/SGPT 13 U/L (13-56); Albumin, Serum 3.6 g/dL (3.2-5.0); Alkaline Phosphatase 83 U/L (45-117); Anion Gap 4 (5-15); BUN 27 mg/dL (7-18); BUN/Creat Ratio 20.6 RATIO (10-20); Calcium,Total 9.5 mg/dL (8.5-10.1); Chloride 107 mmol/L (98-107); Cholesterol 252 mg/dL (200); Creatinine, Serum 1.31 mg/dL (0.55-1.02); EST Glomerular Filtration Rate 41 mL/min (>60); Est Glom Filt Rate - Afr Amer 50 mL/min (>60); Globulin 3.7 g/dL (2.2-4.2); Glucose 212 mg/dL (74-106); High Density Lipoprotein 68 mg/dL; Phosphorus 3.2 mg/dL (2.5-4.9); Potassium 4.8 mmol/L (3.5-5.1); Protein, Total 7.3 g/dL (6.4-8.2); Sodium Level 136 mmol/L (136-145); Thyroid Stim Hormone (TSH) 0.52 uIU/mL (0.358-3.74); Triglycerides 91 mg/dL; Very Low Density Lipoprotein 18 mg/dL (5-40)
[2023-05-13 10:53] LABS: Hemoglobin A1c 9.8 % (3.8-5.6)
== END | disposition home or self-care (01) ==
LOC: MFPLAB 08:18
PROVIDERS: PCP Family Medicine; Visit Provider Family Medicine
DX: E11.22 Type 2 diabetes mellitus with diabetic chronic kidney disease (principal); E55.9 Vitamin D deficiency, unspecified; N18.9 Chronic kidney disease, unspecified
CPT/HCPCS: 36415; 80053; 80061; 81001; 82306; 82570; 83036; 84100; 84156; 84443; 85025

== ENCOUNTER → 2023-08-15 | Outpatient (CLI) | payer MEDICARE, SELFPAY ==
--- OUTSIDE RECORDS SUMMARY | 2023-08-15 09:06 | XMS RPT_ITS | CCD ---
Author Name Unknown Address [address] [place] [id number] Organization [facility] Results Test Name Value Interpretation Reference Range Facil ity Progress note 11-10-2020 Note Date & Type Note Facility 11-10-2020 Note HNO ID: [id number] Author: Katty Aguilar APRN.FASHION DESIGN PROFESSOR Service: ? Author Type: Nurse Practitioner Type: Progress Notes Filed: 11/10/2020 1:32 PM Note Text: DEPARTMENT OF GASTROENTEROLOGY - FOLLOW UP VISIT HISTORY OF PRESENT ILLNESS Jermaine Bolaños is a 80 year old female who presents today for follow up of diarrhea, nausea and hematemesis. Had EGD and Colonoscopy done by on 10/30/2020 Diarrhea - has resolved she has noticed if she does not drink Gatorade she will have loose stool. She thinks her ozempic is causing the diarrhea. Patient denies blood or black stool. She is having a bowel movement every 3 days. Diet - She will have 2 healthy choice meals a day and munch on food throughout the day. She states she does get full early she has not been eating as much. She has a recent weight loss and is concerned. Patient feels this due to her ozempic and she has a Appt December 05 to discuss Ozempic and possible discontinuing the medication Denies having heartburn, nausea, vomiting, dysphagia or painful swallowing I have reviewed the procedure and pathology reports, as well as the images, with the patient. PRIOR TEST RESULTS Imaging/Procedures: Colonoscopy: Impression: The entire examined colon was normal biopsied. The examination was otherwise normal on direct and retroflexion views. EGD: Impressions: Z-line regular, 37 cm from the incisors. No specimen collected. Gastritis biopsied. Normal examined duodenum biopsied. Pathology: A. Duodenum biopsy: No pathologic change. B. Gastric antrum biopsy: Mild chronic gastritis see comment (negative for H pylori ) C. Gastric fundus, biopsied: Focal changes suggestive of fundic gland polyp. D. Colon random biopsies no pathological change PAST MEDICAL HISTORY Diagnosis Date - Diabetes (HCC) oral medication, no longer using it - Excessive or frequent menstruation PAST SURGICAL HISTORY Procedure Laterality Date - ANTER COLPORRHAPHY,BLAD/VAGINA age 32 or so - COLONOSCOPY W/BX 10/30/2020 - EGD W/O BRSH SPECIMEN W/BX 10/30/2020 - L'SCOPE LIZ W/EXPL CBD - VAGINAL HYSTERECTOMY age 32 or so Current Outpatient Medications Medication Sig Dispense Refill - OZEMPIC 0.25 mg or 0.5 mg(2 mg/1.5 mL) pnij Inject 0.5 mg subcutaneously one time a week. - cholecalciferol, vitD3,/vit K2 (VITAMIN D3-VITAMIN K2 ORAL) Take 1 tablet by mouth once daily. - gabapentin (NEURONTIN) 300 mg capsule Take 1 capsule by mouth three times daily. (Patient taking differently: Take 100 mg by mouth as needed. ) 21 capsule 0 - metFORMIN (GLUCOPHAGE) 500 mg ORAL tablet Take 500 mg by mouth twice daily with meals. - glipiZIDE (GLUCOTROL) 5 mg tablet Take 1 tablet by mouth once daily. - omeprazole (PRILOSEC) 20 mg capsule Take 1 capsule by mouth once daily. 30 capsule 1 - polyethylene glycol 3350 (MIRALAX, GLYCOLAX) 17 gram/dose powder Use as directed for Miralax / Gatorade Bowel Prep Kit (Patient not taking: Reported on 11/10/2020 ) 238 g 0 - carisoprodol (SOMA) 350 mg tablet Take 1 tablet by mouth four times daily as needed for Muscle Spasm. (Patient not taking: Reported on 10/16/2020) 30 tablet 0 No current facility-administered medications for this visit. ALLERGIES No Known Allergies PHYSICAL EXAMINATION BP 132/80 Pulse 85 Ht 5' 2 (1.58m) Wt 103 lb 3.2 oz (46.8kg) SpO2 95% BMI 18.87 kg/(m2). Last 6 Encounter Wt Readings: Date: Wt: 11/10/2020 46.8 kg (103 lb 3.2 oz) 10/16/2020 50.3 kg (111 lb) 11/02/2011 51.7 kg (114 lb) 10/27/2011 51 kg (112 lb 6.4 oz) 01/14/2010 51.1 kg (112 lb 11.2 oz) 01/29/2009 55.3 kg (122 lb)] General Appearance: alert, oriented x 3, pleasant and in no acute distress Eyes: Negative for significant chage in vision, and significant vision problems Oropharynx:Lips, tongue, and oral mucosa normal. There is no thrush or oral ulcers. Lungs: breath sounds clear to auscultation bilaterally, no crackles, rhonchi, or wheezes Heart: regular rate and rhythm, no murmurs or gallops Abdomen: not distended, normal bowel sounds, soft and depressible, no guarding or rebound, no palpable mass, no organomegaly Rectal exam: deferred Extremities: no cyanosis or edema Skin: no jaundice, no spider angiomas, no palmar erythema Neuro: alert, oriented x 3, pleasant and in no acute distress IMPRESSION (K21.9) Gastroesophageal reflux disease without esophagitis (primary encounter diagnosis) (E87.8) Electrolyte abnormality PLAN Patient presents today for a follow up from colonoscopy and EGD done by at [facility]. Patient's symptoms have resolved however she does have diarrhea if she does not drink Gatorade. Patient has had a concerning drop in weight and states that she does have early satiety, patient believes this is do to her ozempic. I also believe this is contributing to patients symptoms. Plan I will order labs CMP and CBC and start her in a low dose omeprazole 20mg onc (more content not included)... [facility] Summary Purpose Family History No Family History Records FoundNo Family History Records Found Advance Directives No Advanced Directives Records FoundNo Advanced Directives Records Found Additional Source Comments INFORMATION SOURCE (unrecogn ized section and content) DATE CREATED AUTHOR AUTHOR'S ORGANIZ ATION 08/22/2021 [facility] FOR RECORDS PERTAINING TO PATIENTS WHO ARE OR HAVE BEEN ENROLLED IN A CHEMICAL DEPENDENCY/SUBSTANCEABUSE PROGRAM, SOME INFORMATION MAY BE OMITTED. This clinical summary was aggregated from multiple sources. Caution should be exercised in using it in the provision of clinical care. This summary normalizes information from multiple sources, and as a consequence, information in this document may materially change the coding, format and clinical context of patient data. In addition, data may be omitted in some cases. CLINICAL DECISIONS SHOULD BE BASED ON THE PRIMARY CLINICAL RECORDS. [facility]. provides no warranty or guarantee of the accuracy or completeness of information in this document.
[2023-08-15 10:30] LABS: Absolute Lymphocyte Count 1.01 X10^3/uL (0.83-4.51); Absolute Neutrophil Count 3.4 X10^3/uL (2.0-7.7); Basophil# 0.05 X10^3/uL; Eosinophil# 0.13 X10^3/uL; Eosinophils% 2.6 % (0-5); Hematocrit 39.3 % (37-47); Hemoglobin 12.3 g/dL (12.0-15.0); Lymphocyte # 1.01 X10^3/ul (0.83-4.51); Lymphocyte % 20.1 % (19-41); Mean Corp Hgb Conc 31.3 g/dL (32-36); Mean Corpuscular Hgb 28.4 pg (27.0-32.0); Mean Corpuscular Volume 90.8 fL (81-99); Mean Platelet Vol. 10.1 fl (6.2-12.0); Monocyte# 0.43 X10^3/uL; Monocyte% 8.5 % (0-10); NRBC Flagged by Analyzer 0 % (0-5); Neutrophil # 3.39 X10^3/uL (2.7-7.7); Neutrophil % 67.4 % (47-70); Platelet Count 424 K/mm3 (150-450); RBC Distribution Width SD 50.2 fl (35.1-43.9); Red Blood Count 4.33 M/mm3 (4.2-5.4)
[2023-08-15 10:50] LABS: Vitamin D,25 Hydroxy 58.1 ng/mL
[2023-08-15 11:21] LABS: Color, Urine Yellow (Yellow); Glucose, Dipstick Normal (Normal); Ketone-Dipstick Negative (Negative); Leukocyte Esterase-Dipstick 500 /ul (Negative); Nitrite-Dipstick Negative (Negative); Occult Blood-Urine Negative /ul (Negative); Protein-Dipstick Negative (Negative); Urine Bilirubin Dipstick Negative (Negative); Urine Clarity Clear (Clear); Urine Urobilinogen Normal (Normal)
[2023-08-15 11:51] LABS: Bacteria 0 SEEN /hpf (None Seen); Mucous, Urine 0 SEEN /hpf (<or=2+); Red Blood Cells-Urine 0 SEEN /hpf (0-5); Squamous Epithelial Cells - UA 0 SEEN /hpf (5-10); White Blood Cells 0 SEEN /hpf (0-5)
[2023-08-15 13:08] LABS: ALB/GLOB Ratio 1.1 RATIO (0.9-2.4); AST(SGOT) 12 U/L (15-37); Alanine Aminotransfer ALT/SGPT 25 U/L (13-56); Albumin, Serum 4.1 g/dL (3.2-5.0); Alkaline Phosphatase 72 U/L (45-117); Anion Gap 9 (5-15); BUN 20 mg/dL (7-18); BUN/Creat Ratio 16.5 RATIO (10-20); Calcium,Total 9.6 mg/dL (8.5-10.1); Chloride 110 mmol/L (98-107); Creatinine, Serum 1.21 mg/dL (0.55-1.02); EST Glomerular Filtration Rate 45 mL/min (>60); Est Glom Filt Rate - Afr Amer 55 mL/min (>60); Globulin 3.6 g/dL (2.2-4.2); Glucose 175 mg/dL (74-106); Phosphorus 3.6 mg/dL (2.5-4.9); Protein, Total 7.7 g/dL (6.4-8.2); Sodium Level 140 mmol/L (136-145)
[2023-08-15 14:13] LABS: Hemoglobin A1c 8.2 % (3.8-5.6)
[2023-08-15 14:28] LABS: Microalbumin,Random Urine 7.7 mg/L (NO RANGE EST.); Microalbumin:Creatinine Ratio 18.1 mg/g CRE (<30 mg/g CRE); Protein, Urine (Random) 11.2 mg/dL (<11.9); Protein:Creat Ratio 263 mg/g CRE (0-200)
== END | disposition home or self-care (01) ==
LOC: MFPLAB 08:12
PROVIDERS: PCP Family Medicine; Visit Provider Family Medicine
DX: E11.8 Type 2 diabetes mellitus with unspecified complications (principal); E55.9 Vitamin D deficiency, unspecified
CPT/HCPCS: 36415; 80053; 81001; 82043; 82306; 82570; 83036; 84100; 84156; 85025

== ENCOUNTER → 2023-12-12 | Outpatient (CLI) | payer MEDICARE, SELFPAY ==
[2023-12-12 08:03] LABS: Mucous, Urine 0 SEEN /hpf (<or=2+); Red Blood Cells-Urine 0 SEEN /hpf (0-5)
[2023-12-12 10:37] LABS: Color, Urine Yellow (Yellow); Glucose, Dipstick 100 mg/dl (Normal); Ketone-Dipstick Negative (Negative); Leukocyte Esterase-Dipstick 500 /ul (Negative); Nitrite-Dipstick Negative (Negative); Occult Blood-Urine Negative /ul (Negative); Protein-Dipstick Negative (Negative); Specific Gravity, Urine 1.015 (1.002-1.030); Urine Bilirubin Dipstick Negative (Negative); Urine Clarity Sl. Cloudy (Clear); Urine Urobilinogen Normal (Normal)
[2023-12-12 10:53] LABS: Absolute Lymphocyte Count 1.03 X10^3/uL (0.83-4.51); Absolute Neutrophil Count 3.2 X10^3/uL (2.0-7.7); Basophil# 0.05 X10^3/uL; Eosinophil# 0.19 X10^3/uL; Eosinophils% 3.8 % (0-5); Hematocrit 37.6 % (37-47); Hemoglobin 11.9 g/dL (12.0-15.0); Lymphocyte # 1.03 X10^3/ul (0.83-4.51); Lymphocyte % 20.9 % (19-41); Mean Corp Hgb Conc 31.6 g/dL (32-36); Mean Corpuscular Hgb 28.5 pg (27.0-32.0); Mean Corpuscular Volume 90.2 fL (81-99); Mean Platelet Vol. 10.6 fl (6.2-12.0); Monocyte# 0.44 X10^3/uL; Monocyte% 8.9 % (0-10); NRBC Flagged by Analyzer 0 % (0-5); Neutrophil # 3.22 X10^3/uL (2.7-7.7); Neutrophil % 65.2 % (47-70); Platelet Count 376 K/mm3 (150-450); RBC Distribution Width CV 13.3 % (11.6-14.6); RBC Distribution Width SD 43.9 fl (35.1-43.9); Red Blood Count 4.17 M/mm3 (4.2-5.4); White Blood Count 4.9 K/mm3 (4.4-11.0)
[2023-12-12 10:54] LABS: Bacteria RARE /hpf (None Seen); Squamous Epithelial Cells - UA 0-5 SEEN /hpf (5-10); White Blood Cells 5-10 SEEN /hpf (0-5)
[2023-12-12 11:10] LABS: Vitamin D,25 Hydroxy 53.7 ng/mL
[2023-12-12 11:21] LABS: Microalbumin,Random Urine 14.7 mg/L (NO RANGE EST.); Microalbumin:Creatinine Ratio 21.8 mg/g CRE (<30 mg/g CRE); Protein, Urine (Random) 16.3 mg/dL (<11.9); Protein:Creat Ratio 241 mg/g CRE (0-200)
[2023-12-12 11:28] LABS: AST(SGOT) 14 U/L (15-37); Alanine Aminotransfer ALT/SGPT 22 U/L (13-56); Albumin, Serum 3.7 g/dL (3.2-5.0); Alkaline Phosphatase 93 U/L (45-117); Anion Gap 6 (5-15); BUN 19 mg/dL (7-18); BUN/Creat Ratio 15.2 RATIO (10-20); Calcium,Total 9.7 mg/dL (8.5-10.1); Chloride 108 mmol/L (98-107); Cholesterol 241 mg/dL (200); Creatinine, Serum 1.25 mg/dL (0.55-1.02); EST Glomerular Filtration Rate 44 mL/min (>60); Est Glom Filt Rate - Afr Amer 53 mL/min (>60); Globulin 3.6 g/dL (2.2-4.2); Glucose 283 mg/dL (74-106); High Density Lipoprotein 70 mg/dL; Phosphorus 3.8 mg/dL (2.5-4.9); Potassium 4.5 mmol/L (3.5-5.1); Protein, Total 7.3 g/dL (6.4-8.2); Sodium Level 136 mmol/L (136-145); Thyroid Stim Hormone (TSH) 0.71 uIU/mL (0.358-3.74); Triglycerides 94 mg/dL; Very Low Density Lipoprotein 19 mg/dL (5-40)
[2023-12-12 11:49] LABS: Hemoglobin A1c 10.6 % (3.8-5.6)
[2023-12-12 12:32] LABS: PTHIN 26.8 pg/mL (18.4-80.1)
== END | disposition home or self-care (01) ==
LOC: MFPLAB 08:01
PROVIDERS: PCP Family Medicine; Visit Provider Family Medicine
DX: E11.22 Type 2 diabetes mellitus with diabetic chronic kidney disease (principal)
CPT/HCPCS: 36415; 80053; 80061; 81001; 82043; 82306; 82570; 83036; 83970; 84100; 84156; 84443; 85025

== ENCOUNTER 2024-01-17 16:32 | Emergency (ER) | payer MEDICARE, SELFPAY ==
[2024-01-17 16:33] VITALS: BP 150/90; PULSE 82; RESP 22; TEMP 36.8; O2SAT 93; BMI 20.2
[2024-01-17 18:33] VITALS: BP 171/73; PULSE 91; RESP 16; O2SAT 100
[2024-01-17 18:50] LABS: Bedside Glucose 263 mg/dL (74-106)
[2024-01-17 19:00] VITALS: BP 141/70; PULSE 99; RESP 16; O2SAT 98
--- NOTE | 2024-01-17 19:33 | CT_ITS ---
EXAM: CT LUMBAR SPINE WITHOUT INTRAVENOUS CONTRAST CLINICAL INDICATION: Pain TECHNIQUE: Helically acquired images were obtained of the lumbar spine without intravenous contrast. 2D reformats were reviewed. This CT exam was performed using one or more of the following dose reduction techniques: automated exposure control, adjustment of the mA and/or kV according to patient size, and/or use of iterative reconstruction technique. COMPARISON: No relevant prior studies available. FINDINGS: VERTEBRAE: There is facet hypertrophy at L4-5 and L5-S1. No fracture. No traumatic subluxation. No discrete lytic or blastic abnormality. Normal alignment. DISCS/SPINAL CANAL/NEURAL FORAMINA: There is disc space narrowing from L2 through S1. VASCULATURE: Visualized abdominal aorta is not dilated. LYMPH NODES: Unremarkable. No retroperitoneal adenopathy. CT/Spine Lumbar without Contrast IMPRESSION: Multilevel degenerative change with disc space narrowing. There is no acute osseous abnormality. If indicated further evaluation with MRI may be beneficial. Electronically Signed: Samuel Agustin MD at 20:28 EDT ,
--- NOTE | 2024-01-17 19:33 | CT_ITS ---
EXAM: CT THORACIC SPINE WITHOUT INTRAVENOUS CONTRAST CLINICAL INDICATION: pain TECHNIQUE: Helically acquired images were obtained of the thoracic spine without intravenous contrast. 2D reformats were reviewed. This CT exam was performed using one or more of the following dose reduction techniques: automated exposure control, adjustment of the mA and/or kV according to patient size, and/or use of iterative reconstruction technique. COMPARISON: No relevant prior studies available. FINDINGS: VERTEBRAE: Unremarkable. No fracture. No traumatic subluxation. No discrete lytic or blastic abnormality. Normal alignment. DISCS/SPINAL CANAL/NEURAL FORAMINA: Unremarkable. Disc heights are preserved. VASCULATURE: Visualized thoracic aorta is not dilated. LYMPH NODES: Unremarkable. No retroperitoneal adenopathy. LUNGS AND PLEURAL SPACES: Unremarkable as visualized. No mass. No consolidation or edema. No pleural effusion or thickening. No pneumothorax. CT/Spine Thoracic without Contras IMPRESSION: No evidence of acute thoracic spinal fracture or spondylolisthesis. Electronically Signed: Samuel Agustin MD at 20:27 EDT ,
--- NOTE | 2024-01-17 19:34 | EDS_ITS ---
HPI History of Present Illness Chief Complaint: Back Narrative Narrative: 83-year-old female past medical history of chronic back pain for which she takes gabapentin presents with exacerbation of her chronic back pain that she has had since Tuesday of last week. This was almost 7 days ago. Her daughter who is an VEHICLE SAFETY INSPECTOR relates history that she had a bad fall 3 weeks ago. However, she had fallen forward. Additionally patient has superficial pressure sore on her mid spine in the thoracic to lumbar area. She denies any fevers or chills, no loss of bowel or bladder, no radiation down her leg. However, she complains more of left-sided back pain and muscle spasms. She does not like to take her gabapentin because they make her wobbly and woozy. She is a diabetic. She lives at home independently. She presents for exacerbation of her chronic pain. She states when she usually comes to the emergency department she receives an injection of morphine to help control her pain. PFSH PFSH Home Medications ?Medication ?Instructions ?Recorded ?Last Taken ?Type glipizide 5 mg tablet, extended 5 mg PO DAILY@0800 06/06/14 Unknown History release 24 hr metformin 1,000 mg tablet 500 mg PO BID 06/06/14 Unknown History cholecalciferol (vitamin D3) 25 1,000 unit PO DAILY 11/02/17 Unknown History mcg (1,000 unit) capsule gabapentin 300 mg capsule 300 mg PO PRN PRN Spasms 11/02/17 Unknown History semaglutide 0.25 mg or 0.5 mg (2 0.5 mg SQ QWEEK 10/24/20 Unknown History mg/1.5 mL) subcutaneous pen injector Allergy/AdvReac Type Severity Reaction Status Date / Time oxycodone (Oxycodone) AdvReac passed out Verified 01/17/24 16:35 Social History Smoking Status: Never smoker ROS ROS ED ROS Narrative Constitutional: No fever, no chills. HEENT: No sore throat. No neck pain. No loss of vision. No rhinorrhea. Cardiovascular: No chest pain. No palpitations. No pedal edema. Respiratory: No cough, no shortness of breath. Abdominal: No abdominal pain. No nausea. No vomiting. Genitourinary: No dysuria. No hematuria. Musculoskeletal: No myalgias. No arthralgias. Positive thoracic to upper lumbar back pain, more left paraspinal. Neurologic: No headaches. No dizziness. No lightheadedness. No loss of bowel or bladder. Skin: No rash. No change in color. Psychiatric: No depression. No anxiety. EXAM Physical Exam Narrative Exam Narrative: Afebrile. Vital signs noted. HEENT: Normocephalic. Atraumatic. PERRL, EOMI. Neck soft and supple. No point tenderness or step off. Cardiovascular: Regular rate and rhythm. No murmurs, rubs, or gallops appreciated. Respiratory: No tachypnea. Lungs clear to auscultation bilaterally. Gastrointestinal: Abdomen soft, nontender, with normoactive bowel sounds. No rebound or guarding. Neurological: Awake. Alert. Nonfocal, nonlateralizing. Skin: No rash. Normal color. No pallor. Positive bandage upper lumbar to lower thoracic spine. No point tenderness or step-off. Mild tenderness to palpation left paraspinal musculature in this area. Musculoskeletal: No pedal edema. Full range of motion extremities. Const Vital Signs: 01/17/24 16:33 01/17/24 18:33 01/17/24 19:00 Temperature 98.2 F Temperature Source Temporal Pulse Rate 82 91 99 Respiratory Rate 22 H 16 16 Blood Pressure 150/90 H 171/73 H 141/70 H Blood Pressure Mean 110 105 93 Pulse Ox 93 100 98 Oxygen Delivery Method Room Air Room Air Room Air 01/17/24 20:56 Temperature Temperature Source Pulse Rate 98 Respiratory Rate 14 Blood Pressure 168/80 H Blood Pressure Mean 109 Pulse Ox 97 Oxygen Delivery Method Room Air MDM MDM MDM Narrative Medical decision making narrative: In the differential diagnosis would be compression fracture. I do not feel that her stage I pressure sore would be the cause of her left-sided pain. I have low suspicion for abscess. Her daughter states that she is not concerned about her slightly elevated blood sugar, but she is more worried about her intractable pain. Patient states that she usually receives an intramuscular injection of morphine. They deny that she needs to be admitted for detention placement. She was administered 4 mg of morphine intramuscularly. Additionally I will obtain CT of the thoracic and of the lumbar spine to rule out compression fracture. I reviewed the radiology reports of the CT of the thoracic and lumbar spine. There are multilevel degenerative changes with disc space narrowing but no evidence of an acute fracture in either the lumbar or the thoracic spine. After her initial morphine shot, she states that she usually receives 2 intramuscular injections. I did review her previous chart, she has not been here since 2019 regarding her chronic back pain. I had a lengthy discussion with the patient and her daughter who is an VEHICLE SAFETY INSPECTOR. Patient makes all her own decisions. She does not want to be admitted overnight and she does not want detention placement. She was given her second injection, and I feel she can be discharged to continue her gabapentin and follow-up with her primary care provider. She is agreeable to the plan. Disposition is discharged home in stable condition. Lab Data Labs: Laboratory Results - last 24 hr 01/17/24 18:28 POC Glucose 263 H Radiography Diagnostic Testing: Clinical Impression(s) from Imaging Studies Lumbar Spine CT 01/17/24 19:33 IMPRESSION: Multilevel degenerative change with disc space narrowing. There is no acute osseous abnormality. If indicated further evaluation with MRI may be beneficial. Electronically Signed: Samuel Agustin MD at 20:28 EDT , Thoracic Spine CT 01/17/24 19:33 IMPRESSION: No evidence of acute thoracic spinal fracture or spondylolisthesis. Electronically Signed: Samuel Agustin MD at 20:27 EDT , Discharge Plan Triage Chief Complaint: Back ED Provider: José Her Dx/Rx/DC Orders Clinical Impression: Acute on chronic back pain Instructions: ED Pain Management: Chronic Prescriptions: No Action glipizide 5 MG tablet 5 mg PO DAILY@0800 metformin 1,000 MG tablet 500 mg PO BID gabapentin 300 MG capsule 300 mg PO PRN PRN (Reason: Spasms) cholecalciferol (vitamin D3) 1,000 UNIT capsule 1,000 unit PO DAILY semaglutide 0.25 MG/0.2 ML pen injector 0.5 mg SQ QWEEK Primary Care Provider: Jose Rafael Kat Referrals: Jose Rafael Kat MD [Primary Care Provider] - 1 Day Activity Restrictions/Additional Instructions: Take your gabapentin as previously directed. Print Language: Palauan Disposition Disposition: Home, Self Care
[2024-01-17] MEDS: Morphine 4 MG/ML Syringe IM ×2 (19:40→20:59)
[2024-01-17 20:56] VITALS: BP 168/80; PULSE 98; RESP 14; O2SAT 97
[2024-01-17 21:26] VITALS: BP 163/70; PULSE 89; RESP 18; TEMP 36.6; O2SAT 98
== END 2024-01-17 21:34 | disposition home or self-care (01) ==
PROVIDERS: Emergency Provider Emergency Medicine; PCP Family Medicine; Visit Provider Emergency Medicine
DX: M54.9 Dorsalgia, unspecified (principal); E11.9 Type 2 diabetes mellitus without complications; G89.29 Other chronic pain
CPT/HCPCS: 72128; 72131; 82962; 96372; 99282

== ENCOUNTER → 2024-03-12 | Outpatient (CLI) | payer MEDICARE, SELFPAY ==
[2024-03-12 08:05] LABS: Bacteria 0 SEEN /hpf (None Seen); Mucous, Urine 0 SEEN /hpf (<or=2+); Red Blood Cells-Urine 0 SEEN /hpf (0-5)
[2024-03-12 10:16] LABS: Absolute Lymphocyte Count 0.96 X10^3/uL (0.83-4.51); Absolute Neutrophil Count 3.4 X10^3/uL (2.0-7.7); Basophil# 0.06 X10^3/uL; Basophil% 1.2 % (0-1); Eosinophil# 0.13 X10^3/uL; Eosinophils% 2.6 % (0-5); Hemoglobin 11.4 g/dL (12.0-15.0); Lymphocyte # 0.96 X10^3/ul (0.83-4.51); Lymphocyte % 19.4 % (19-41); Mean Corp Hgb Conc 31.7 g/dL (32-36); Mean Corpuscular Hgb 28.5 pg (27.0-32.0); Mean Platelet Vol. 9.4 fl (6.2-12.0); Monocyte# 0.42 X10^3/uL; Monocyte% 8.5 % (0-10); NRBC Flagged by Analyzer 0 % (0-5); Neutrophil # 3.36 X10^3/uL (2.7-7.7); Neutrophil % 68.1 % (47-70); Platelet Count 648 K/mm3 (150-450); RBC Distribution Width CV 13.6 % (11.6-14.6); RBC Distribution Width SD 44.6 fl (35.1-43.9); White Blood Count 4.9 K/mm3 (4.4-11.0)
[2024-03-12 10:32] LABS: ALB/GLOB Ratio 0.9 RATIO (0.9-2.4); AST(SGOT) 21 U/L (15-37); Alanine Aminotransfer ALT/SGPT 23 U/L (13-56); Albumin, Serum 3.6 g/dL (3.2-5.0); Alkaline Phosphatase 74 U/L (45-117); Anion Gap 8 (5-15); BUN 18 mg/dL (7-18); BUN/Creat Ratio 15.5 RATIO (10-20); Calcium,Total 9.8 mg/dL (8.5-10.1); Chloride 102 mmol/L (98-107); Cholesterol 247 mg/dL (200); Creatinine, Serum 1.16 mg/dL (0.55-1.02); EST Glomerular Filtration Rate 48 mL/min (>60); Est Glom Filt Rate - Afr Amer 58 mL/min (>60); Globulin 3.9 g/dL (2.2-4.2); Glucose 230 mg/dL (74-106); High Density Lipoprotein 80 mg/dL; Potassium 4.3 mmol/L (3.5-5.1); Protein, Total 7.5 g/dL (6.4-8.2); Sodium Level 135 mmol/L (136-145); Triglycerides 110 mg/dL; Very Low Density Lipoprotein 22 mg/dL (5-40)
[2024-03-12 10:33] LABS: Vitamin D,25 Hydroxy 80.9 ng/mL
[2024-03-12 10:34] LABS: Glucose, Dipstick Normal (Normal); Ketone-Dipstick Negative (Negative); Leukocyte Esterase-Dipstick 100 /ul (Negative); Nitrite-Dipstick Negative (Negative); Occult Blood-Urine Negative /ul (Negative); Protein-Dipstick Negative (Negative); Urine Bilirubin Dipstick Negative (Negative); Urine Urobilinogen Normal (Normal)
[2024-03-12 10:37] LABS: Color, Urine YELLOW (Yellow); Urine Clarity Clear (Clear)
[2024-03-12 10:41] LABS: Squamous Epithelial Cells - UA 0-5 SEEN /hpf (5-10)
[2024-03-12 10:42] LABS: White Blood Cells 0-5 SEEN /hpf (0-5)
[2024-03-12 10:43] LABS: Hemoglobin A1c 10.4 % (3.8-5.6)
[2024-03-12 10:50] LABS: Microalbumin,Random Urine 13.6 mg/L (NO RANGE EST.); Microalbumin:Creatinine Ratio 28.3 mg/g CRE (<30 mg/g CRE); Protein, Urine (Random) 11.9 mg/dL (<11.9); Protein:Creat Ratio 247 mg/g CRE (0-200)
== END | disposition home or self-care (01) ==
LOC: MFPLAB 08:03
PROVIDERS: PCP Family Medicine; Visit Provider Family Medicine
DX: E11.22 Type 2 diabetes mellitus with diabetic chronic kidney disease (principal)
CPT/HCPCS: 36415; 80053; 80061; 81001; 82043; 82306; 82570; 83036; 84100; 84156; 85025

== ENCOUNTER → 2024-03-14 | Outpatient (CLI) | payer MEDICARE, SELFPAY ==
--- NOTE | 2024-03-14 11:46 | RAD_ITS ---
INDICATION: anesthesia of skin EXAMINATION/TECHNIQUE: X-RAY - XR Spine Cervical 2 or 3 Views COMPARISON: Prior study dated: 11/11/2020 FINDINGS: VERTEBRAE: Preserved vertebral body height. No fracture. Minimal anterolisthesis of C4 over C5 and C7 over T1. Preservation of the normal cervical lordosis. No significant facet arthropathy. DISCS: Disc space narrowing of C5-C6 and C6-C7. Endplate spondylosis. NECK SOFT TISSUES: No prevertebral soft tissue widening. LUNG APICES: Clear. RAD/Cerv Spine 2 or 3 Views IMPRESSION: Multilevel degenerative changes as described above essentially unchanged.. Electronically Signed: Gio Schroeder MD at 15:54 EDT ,
--- NOTE | 2024-03-14 11:46 | RAD_ITS ---
STUDY: X-RAY - LUMBAR SPINE REASON FOR EXAM: Female, 83 years old. Skin anesthesia. TECHNIQUE: 2 view(s) of the lumbar spine were obtained. COMPARISON: CT of the lumbar spine December 18, 2023 FINDINGS: Osteopenia. Normal lordosis. Mild thoracolumbar scoliosis unchanged. Diffuse moderate lower thoracic and lumbosacral facet sclerosis. Stable diffuse intervertebral disc space narrowing in the lower thoracic and lumbosacral spine. Marked sclerosis of the endplates and osteophytes from L2-3 to L5-S1, all unchanged compared to the CT study. Cholecystectomy clips and vascular calcification unchanged. RAD/Lumbar Spine 2 or 3 Views IMPRESSION: Stable osteopenia with diffuse moderate to marked lower thoracic and lumbosacral spondylosis, stable since prior CT of January 17, 2024. Electronically Signed: All Reynolds MD at 15:25 EDT ,
== END | disposition home or self-care (01) ==
LOC: MTRAD 11:44
PROVIDERS: PCP Family Medicine; Referring Provider Family Medicine; Visit Provider Family Medicine
DX: R20.0 Anesthesia of skin (principal)
CPT/HCPCS: 72040; 72100

== ENCOUNTER → 2024-04-06 | Outpatient (CLI) | payer MEDICARE, SELFPAY ==
--- NOTE | 2024-04-06 08:40 | CDU_ITS ---
Version 2 Reason For Study: CAROTID STENOSIS Rt. Velocities/BP Lt. Velocities/BP Prox CCA 82.8/14.7 cm/sec. Prox CCA 66.9/14.2 cm/sec. Mid CCA 77.1/15.7 cm/sec. Mid CCA 88.9/16.4 cm/sec. Dist CCA 72.4/13.8 cm/sec. Dist CCA 69.1/13.1 cm/sec. Prox ICA 59.2/13.1 cm/sec. Prox ICA 60.1/14.7 cm/sec. Mid ICA 117.4/29.0 cm/sec. Mid ICA 101.4/21.6 cm/sec. Dist ICA 144.0/34.2 cm/sec. Dist ICA 152.7/37.6 cm/sec. Rt. ICA/CCA = 144.0/77.1=1.9. Lt. ICA/CCA = 152.7/88.9=1.7. Prox ECA 106.3/4.4 cm/sec. Prox ECA 304.8/10.7 cm/sec. Rt. Vert. 41.7/8.7 cm/sec. Lt. Vert. 58.4/8.6 cm/sec. Right Extracranial There is intimal thickening but no significant atherosclerotic plaque noted in the right common carotid artery. The tortuous nature of the right internal carotid artery may result in flow velocities overestimating the degree of stenosis. There is heterogeneous, irregular atherosclerotic plaque noted in the right external carotid artery. Antegrade flow is noted in the right vertebral artery. Left Extracranial There is intimal thickening but no significant atherosclerotic plaque noted in the left common carotid artery. There is homogeneous, smooth atherosclerotic plaque noted in the left internal carotid artery. The tortuous nature of the left internal carotid artery may result in flow velocities overestimating the degree of stenosis. There is heterogeneous, irregular atherosclerotic plaque noted in the left external carotid artery. Antegrade flow is noted in the left vertebral artery. Procedure Carotid Duplex [id number]. This is a Carotid Duplex examination using B-mode, color flow and specral Doppler. Exam performed in department. VL/Carotid Duplex Ultrasound Interpretation Summary Moderate (50-69%) stenosis right extracranial internal carotid. Moderate (50-69%) stenosis left extracranial internal carotid. Patent and antegrade vertebrals bilaterally. Degree of stenosis may be over estimated due to vessel tortuosity. Ordering Physician: Jose Rafael Kat Referring Physician: Jose Rafael Kat Performed By: Anastacia Guzman RDCS, RVT
== END | disposition home or self-care (01) ==
LOC: CVS 08:37
PROVIDERS: PCP Family Medicine; Referring Provider Family Medicine; Visit Provider Family Medicine
DX: I65.23 Occlusion and stenosis of bilateral carotid arteries (principal)
CPT/HCPCS: 93880

== ENCOUNTER → 2024-05-17 | Outpatient (CLI) | payer MEDICARE, SELFPAY ==
[2024-05-17 15:36] LABS: Absolute Lymphocyte Count 1.02 X10^3/uL (0.83-4.51); Absolute Neutrophil Count 4.6 X10^3/uL (2.0-7.7); Basophil# 0.05 X10^3/uL; Basophil% 0.8 % (0-1); Eosinophil# 0.08 X10^3/uL; Eosinophils% 1.3 % (0-5); Hematocrit 38.6 % (37-47); Hemoglobin 12.7 g/dL (12.0-15.0); Lymphocyte # 1.02 X10^3/ul (0.83-4.51); Lymphocyte % 16.3 % (19-41); Mean Corp Hgb Conc 32.9 g/dL (32-36); Mean Corpuscular Hgb 29.1 pg (27.0-32.0); Mean Corpuscular Volume 88.5 fL (81-99); Mean Platelet Vol. 9.9 fl (6.2-12.0); Monocyte# 0.51 X10^3/uL; Monocyte% 8.2 % (0-10); NRBC Flagged by Analyzer 0 % (0-5); Neutrophil # 4.55 X10^3/uL (2.7-7.7); Neutrophil % 72.9 % (47-70); Platelet Count 420 K/mm3 (150-450); RBC Distribution Width CV 13.2 % (11.6-14.6); RBC Distribution Width SD 43.1 fl (35.1-43.9); Red Blood Count 4.36 M/mm3 (4.2-5.4); White Blood Count 6.2 K/mm3 (4.4-11.0)
[2024-05-17 16:09] LABS: ALB/GLOB Ratio 1.3 RATIO (0.9-2.4); AST(SGOT) 15 U/L (15-37); Alanine Aminotransfer ALT/SGPT 25 U/L (13-56); Albumin, Serum 4.5 g/dL (3.2-5.0); Alkaline Phosphatase 99 U/L (45-117); Anion Gap 8 (5-15); BUN 13 mg/dL (7-18); BUN/Creat Ratio 10.7 RATIO (10-20); Calcium,Total 9.8 mg/dL (8.5-10.1); Chloride 98 mmol/L (98-107); Cholesterol 180 mg/dL (200); Creatinine, Serum 1.22 mg/dL (0.55-1.02); EST Glomerular Filtration Rate 45 mL/min (>60); Est Glom Filt Rate - Afr Amer 54 mL/min (>60); Ferritin 26 ng/mL (8-252); Globulin 3.4 g/dL (2.2-4.2); Glucose 327 mg/dL (74-106); High Density Lipoprotein 87 mg/dL; Iron 71 ug/dL (50-170); Iron Binding Capacity,Total 371 ug/dL (250-450); Potassium 4.6 mmol/L (3.5-5.1); Protein, Total 7.9 g/dL (6.4-8.2); Sodium Level 134 mmol/L (136-145); Triglycerides 92 mg/dL; Very Low Density Lipoprotein 18 mg/dL (5-40)
[2024-05-17 17:01] LABS: Vitamin B12 365 pg/mL (211-911); Vitamin D,25 Hydroxy 75.7 ng/mL
== END | disposition home or self-care (01) ==
LOC: MFPLAB 12:00
PROVIDERS: PCP Family Medicine; Referring Provider Family Medicine; Visit Provider Family Medicine
DX: E11.8 Type 2 diabetes mellitus with unspecified complications (principal); D64.9 Anemia, unspecified; E55.9 Vitamin D deficiency, unspecified
CPT/HCPCS: 36415; 80053; 80061; 82306; 82607; 82728; 82746; 83036; 83540; 83550; 85025

== ENCOUNTER → 2024-09-26 | Outpatient (CLI) | payer MEDICARE, SELFPAY ==
[2024-09-26 10:53] LABS: Absolute Lymphocyte Count 0.91 X10^3/uL (0.83-4.51); Absolute Neutrophil Count 3.5 X10^3/uL (2.0-7.7); Basophil# 0.05 X10^3/uL; Eosinophil# 0.16 X10^3/uL; Eosinophils% 3.2 % (0-5); Hematocrit 35.8 % (37-47); Hemoglobin 12.1 g/dL (12.0-15.0); Lymphocyte # 0.91 X10^3/ul (0.83-4.51); Lymphocyte % 17.9 % (19-41); Mean Corp Hgb Conc 33.8 g/dL (32-36); Mean Corpuscular Hgb 29.4 pg (27.0-32.0); Mean Corpuscular Volume 87.1 fL (81-99); Mean Platelet Vol. 9.7 fl (6.2-12.0); Monocyte# 0.44 X10^3/uL; Monocyte% 8.7 % (0-10); NRBC Flagged by Analyzer 0 % (0-5); Platelet Count 409 K/mm3 (150-450); RBC Distribution Width CV 13.2 % (11.6-14.6); RBC Distribution Width SD 41.7 fl (35.1-43.9); Red Blood Count 4.11 M/mm3 (4.2-5.4); White Blood Count 5.1 K/mm3 (4.4-11.0)
[2024-09-26 11:18] LABS: Hemoglobin A1c 9.8 % (<=5.6)
[2024-09-26 11:38] LABS: ALB/GLOB Ratio 1.8 RATIO (0.9-2.4); AST(SGOT) 22 U/L (<=31); Alanine Aminotransfer ALT/SGPT 20 U/L (<=34); Albumin, Serum 4.3 g/dL (3.4-4.8); Alkaline Phosphatase 84 U/L (35-104); Anion Gap 13 (5-15); BUN 16 mg/dL (4-19); BUN/Creat Ratio 13.8 RATIO (10-20); Calcium,Total 9.6 mg/dL (7.6-11.0); Carbon Dioxide 23.2 mmol/L (21.0-32.0); Chloride 99 mmol/L (98-108); Cholesterol 169 mg/dL (<=200); Creatinine, Serum 1.17 mg/dL (0.70-1.20); EST Glomerular Filtration Rate 47 (>60); Globulin 2.4 g/dL (2.2-4.2); Glucose 145 mg/dL (70-99); High Density Lipoprotein 89 mg/dL; Low Density Lipoprotein Calc. 67 mg/dL; Potassium 4.3 mmol/L (3.3-5.1); Protein, Total 6.8 g/dL (5.9-8.4); Sodium Level 135 mmol/L (133-145); Total Bilirubin 0.52 mg/dL (0.00-1.30); Triglycerides 64 mg/dL; Very Low Density Lipoprotein 13 mg/dL (5-40); Vitamin D,25 Hydroxy 83.8 ng/mL (30-100)
[2024-09-26 12:34] LABS: Microalbumin,Random Urine < 12.0 mg/L (NO RANGE EST.); Microalbumin:Creatinine Ratio UNABLE TO CALCULATE mg/g CRE
== END | disposition home or self-care (01) ==
LOC: MFPLAB 08:35
PROVIDERS: PCP Family Medicine; Referring Provider Family Medicine; Visit Provider Family Medicine
DX: E11.8 Type 2 diabetes mellitus with unspecified complications (principal)
CPT/HCPCS: 36415; 80053; 80061; 82043; 82306; 82570; 83036; 85025

== ENCOUNTER → 2024-11-08 | Outpatient (CLI) | payer MEDICARE, SELFPAY ==
--- NOTE | 2024-11-08 06:34 | MRI_ITS ---
PROCEDURE: SPINE LUMBAR (ROUTINE) 11/08/2024 REASON FOR EXAM: LEG WEAKNESS TECHNIQUE: Multiplanar and multisequence images were obtained without IV contrast administration. Axial and sagittal T1 and T2 weighted images were obtained. Fat suppressed images were also obtained. COMPARISON: None. FINDINGS: Mildly heterogeneous signal intensity of the visualized bone marrow, probably osteopenia. Moderate diffuse spondylosis. Exaggerated lumbar lordosis. Mildly increased kyphosis at the level of the thoracolumbar junction. There is normal signal intensity from the visualized bone marrow without evidence of replacement or acute fracture. The conus is unremarkable. T12-L1 : Moderate diffuse disc bulge. Superimposed central disc extrusion measuring 6.4 mm. The spinal canal is mildly narrowed. Mild bilateral neural foraminal narrowing. L1-2: Mild diffuse disc bulge. Bilateral facet joint arthropathy and ligamentum flavum hypertrophy. The spinal canal is not narrowed. Mild bilateral neural foramina narrowing. L2-3: Grade 1 retrolisthesis measuring 5.6 mm. Moderate diffuse disc bulge. Bilateral facet joint arthropathy and ligamentum flavum hypertrophy. The spinal canal is mildly narrowed. Moderate bilateral neural foramina narrowing. L3-4: Grade 1 retrolisthesis measuring 3.5 mm. Moderate diffuse disc bulge. Bilateral facet joint arthropathy and ligamentum flavum hypertrophy. The spinal canal is mildly narrowed. Moderate bilateral neural foramina narrowing. L4-5: Grade 1 retrolisthesis measuring 3.2 mm. Moderate diffuse disc bulge. Bilateral facet joint arthropathy and ligamentum flavum hypertrophy. The spinal canal is mildly narrowed. Moderate right and mild left neural foramina narrowing. L5-S1: Grade 1 retrolisthesis measuring 3.3 mm. Moderate diffuse disc bulge. Bilateral facet joint arthropathy and ligamentum flavum hypertrophy. Moderate right and mild left neural foraminal narrowing. Bilateral prominent extrarenal pelves. MRI/Spine Lumbar (Routine) IMPRESSION: Spondylosis. Degenerative disc disease. Reading Location: [place] [id number]
--- NOTE | 2024-11-08 06:34 | MRI_ITS ---
PROCEDURE: BRAIN WITHOUT CONTRAST 11/08/2024 REASON FOR EXAM: LEG WEAKNESS TECHNIQUE: Noncontrast brain MRI. Multiplanar and multisequence images were obtained. COMPARISON: None FINDINGS: BRAIN/PARENCHYMA: No evidence of acute infarction or acute intracranial hemorrhage. There are subcortical and periventricular white matter FLAIR hyperintensities, likely related to chronic microvascular ischemic disease. No abnormal post-contrast enhancement. EXTRA-AXIAL SPACES: No abnormal extra-axial fluid collections. Patent basal cisterns and foramen magnum. MIDLINE SHIFT: None. VENTRICLES: No hydrocephalus. SCALP SOFT TISSUES & CALVARIUM: No significant abnormality. VISUALIZED SINUSES & MASTOIDS: No air-fluid levels in the paranasal sinuses. The mastoid air cells are clear. ARTERIAL FLOW VOIDS: Preserved major arterial flow voids indicating gross patency. MRI/Brain without Contrast IMPRESSION: No acute intracranial abnormality; no acute infarct, intracranial hemorrhage or extra-axial collection. Chronic microvascular ischemia and involutional changes. Reading Location: [facility]
== END | disposition home or self-care (01) ==
PROVIDERS: PCP Family Medicine; Referring Provider Family Medicine; Visit Provider Family Medicine
DX: R29.898 Other symptoms and signs involving the musculoskeletal system (principal)
CPT/HCPCS: 70551; 72148

== ENCOUNTER → 2024-11-23 | Outpatient (CLI) | payer MEDICARE, SELFPAY ==
[2024-11-23 11:01] LABS: ALB/GLOB Ratio 1.7 RATIO (0.9-2.4); AST(SGOT) 16 U/L (<=31); Alanine Aminotransfer ALT/SGPT 12 U/L (<=34); Albumin, Serum 4.4 g/dL (3.4-4.8); Alkaline Phosphatase 73 U/L (35-104); Anion Gap 18 (5-15); BUN 13 mg/dL (4-19); BUN/Creat Ratio 10.5 RATIO (10-20); Calcium,Total 9.2 mg/dL (7.6-11.0); Carbon Dioxide 16.4 mmol/L (21.0-32.0); Chloride 102 mmol/L (98-108); EST Glomerular Filtration Rate 45 (>60); Globulin 2.6 g/dL (2.2-4.2); Glucose 196 mg/dL (70-99); Potassium 4.2 mmol/L (3.3-5.1); Protein, Total 7.1 g/dL (5.9-8.4); Sodium Level 136 mmol/L (133-145); Total Bilirubin 0.68 mg/dL (0.00-1.30)
[2024-11-23 11:11] LABS: Hemoglobin A1c 8.6 % (<=5.6)
== END | disposition home or self-care (01) ==
LOC: MFPLAB 08:12
PROVIDERS: PCP Family Medicine; Referring Provider Family Medicine; Visit Provider Family Medicine
DX: E11.8 Type 2 diabetes mellitus with unspecified complications (principal)
CPT/HCPCS: 36415; 80053; 83036

== ENCOUNTER → 2025-03-05 | Outpatient (CLI) | payer MEDICARE, SELFPAY ==
--- NOTE | 2025-03-05 11:42 | RAD_ITS ---
EXAM: XR Left Hip With Pelvis When Performed, 2 or 3 Views CLINICAL INDICATION: LEFT HIP PAIN TECHNIQUE: Two or three views of the left hip with pelvis when performed. COMPARISON: No relevant prior studies available. FINDINGS: BONES/JOINTS: Mild degenerative changes of the right hip joint. No acute fracture. No dislocation. SOFT TISSUES: Unremarkable. VASCULATURE: Vascular calcification. RAD/Hip uni 4+ views with Pelvis IMPRESSION: Degenerative changes as above. Reading Location: [facility]
== END | disposition home or self-care (01) ==
LOC: MTRAD 11:40
PROVIDERS: PCP Family Medicine; Referring Provider Family Medicine; Visit Provider Family Medicine
DX: M25.552 Pain in left hip (principal)
CPT/HCPCS: 73503

== ENCOUNTER → 2025-03-27 | Outpatient (CLI) | payer MEDICARE, SELFPAY ==
[2025-03-27 10:21] LABS: Mucous, Urine 0 SEEN /hpf (<or=2+); Red Blood Cells-Urine 0 SEEN /hpf (0-5)
[2025-03-27 12:24] LABS: Color, Urine Yellow (Yellow); Glucose, Dipstick Normal (Normal); Ketone-Dipstick Negative (Negative); Leukocyte Esterase-Dipstick 25 /ul (Negative); Nitrite-Dipstick Negative (Negative); Occult Blood-Urine Negative /ul (Negative); Protein-Dipstick 30 mg/dl (Negative); Specific Gravity, Urine 1.015 (1.002-1.030); Urine Bilirubin Dipstick Negative (Negative)
[2025-03-27 12:28] LABS: Hematocrit 34.3 % (37-47); Hemoglobin 11.5 g/dL (12.0-15.0); Immature Granulocytes Count 0.010 X10^3/uL (0.0-0.0); Mean Corp Hgb Conc 33.5 g/dL (32-36); Mean Corpuscular Volume 88.4 fL (81-99); Mean Platelet Vol. 9.5 fl (6.2-12.0); NRBC Flagged by Analyzer 0 % (0-5); Platelet Count 396 K/mm3 (150-450); RBC Distribution Width CV 13.8 % (11.6-14.6); RBC Distribution Width SD 44.7 fl (35.1-43.9); Red Blood Count 3.88 M/mm3 (4.2-5.4); White Blood Count 4.6 K/mm3 (4.4-11.0)
[2025-03-27 12:30] LABS: Squamous Epithelial Cells - UA 0-5 SEEN /hpf (5-10)
[2025-03-27 12:47] LABS: Creatinine, Urine (random) 93.20 mg/dL (28.00-217.00); Microalbumin,Random Urine < 12.0 mg/L (<20 mg/L); Protein, Urine (Random) 10.8 mg/dL (0.0-12.0); Protein:Creat Ratio 116 mg/g CRE (0-200)
[2025-03-27 13:01] LABS: AST(SGOT) 16 U/L (<=31); Alanine Aminotransfer ALT/SGPT 12 U/L (<=34); Albumin, Serum 4.6 g/dL (3.4-4.8); Alkaline Phosphatase 66 U/L (35-104); Anion Gap 14 (5-15); BUN 25 mg/dL (4-19); BUN/Creat Ratio 22.7 RATIO (10-20); Calcium,Total 9.7 mg/dL (7.6-11.0); Carbon Dioxide 21.5 mmol/L (21.0-32.0); Chloride 95 mmol/L (98-108); Cholesterol 157 mg/dL (<=200); Globulin 2.6 g/dL (2.2-4.2); Glucose 116 mg/dL (70-99); Low Density Lipoprotein Calc. 62 mg/dL; Potassium 4.3 mmol/L (3.3-5.1); Triglycerides 113 mg/dL; Very Low Density Lipoprotein 23 mg/dL (5-40); Vitamin D,25 Hydroxy 113.0 ng/mL (30-100); cholesterol:hdl ratio screen 2.16
== END | disposition home or self-care (01) ==
LOC: MFPLAB 10:16
PROVIDERS: PCP Family Medicine; Visit Provider Family Medicine
DX: E55.9 Vitamin D deficiency, unspecified (principal); E11.22 Type 2 diabetes mellitus with diabetic chronic kidney disease; N18.30 Chronic kidney disease, stage 3 unspecified
CPT/HCPCS: 36415; 80053; 80061; 81001; 82043; 82306; 82570; 83036; 84156; 85025

== ENCOUNTER → 2025-04-17 | Outpatient (CLI) | payer MEDICARE, SELFPAY ==
--- NOTE | 2025-04-17 10:21 | RAD_ITS ---
PROCEDURE: LUMBAR SPINE 2 OR 3 VIEWS 04/17/2025 REASON FOR EXAM: PAIN TECHNIQUE: Procedure Code: RADSPLL Modality: DX Procedure: LUMBAR SPINE 2 OR 3 VIEWS FINDINGS: No evidence acute fracture or dislocation. S shaped scoliosis. Severe degenerative changes of the visualized spine. Grade 1 retrolisthesis of L2 on L3 and L3 on L4. Vertebral body heights are maintained. RAD/Lumbar Spine 2 or 3 Views IMPRESSION: Spondylosis. Scoliosis. Spondylolisthesis. Reading Location: [id number]
--- NOTE | 2025-04-17 10:21 | RAD_ITS ---
PROCEDURE: THORACIC SPINE 2 VIEWS 04/17/2025 REASON FOR EXAM: PAIN TECHNIQUE: Procedure Code: RADSPT2 Modality: DX Procedure: THORACIC SPINE 2 VIEWS FINDINGS: No evidence of acute fracture or dislocation. Mild degenerative changes of the thoracic spine. Vertebral body heights are maintained. RAD/Thoracic Spine 2 Views IMPRESSION: Spondylosis. Reading Location: [id number]
== END | disposition home or self-care (01) ==
LOC: MTRAD 10:21
PROVIDERS: PCP Family Medicine; Referring Provider Family Medicine; Visit Provider Family Medicine
DX: M54.9 Dorsalgia, unspecified (principal)
CPT/HCPCS: 72070; 72100

== ENCOUNTER 2025-05-27 05:45 | Day surgery (SDC) | payer MEDICARE, SELFPAY ==
--- NOTE | 2025-05-21 09:54 | EKG12_ITS ---
Test Reason : PREOP Blood Pressure : */* mmHG Vent. Rate : 78 BPM Atrial Rate : 78 BPM P-R Int : 172 ms QRS Dur : 76 ms QT Int : 372 ms P-R-T Axes : 64 68 48 degrees QTcB Int : 424 ms Normal sinus rhythm Normal ECG Confirmed by CHIKI COLLADO, ANA ([id number]), desk editor CHRIS BLACKMAN ([id number]) on 05/22/2025 6:25:16 AM Referred By: Jose Rafael Kat Confirmed By: ANA MONET MD
[2025-05-21 11:04] LABS: Anion Gap 12 (5-15); BUN 21 mg/dL (4-19); BUN/Creat Ratio 19.8 RATIO (10-20); Calcium,Total 9.3 mg/dL (7.6-11.0); Carbon Dioxide 20.2 mmol/L (21.0-32.0); Chloride 108 mmol/L (98-108); Glucose 201 mg/dL (70-99); Potassium 4.5 mmol/L (3.3-5.1)
[2025-05-27] VITALS (7 sets, daily range): BP systolic 123–156; BP diastolic 57–74; PULSE 67–83; RESP 12–20; TEMP 36.3–36.9; O2SAT 97–100; BMI 19.3
--- OUTSIDE RECORDS SUMMARY | 2025-05-27 05:50 | XMS RPT_ITS | CCD ---
Author Organization [facility] Care Team Providers Care C 13 Catapult Operator Name Role Phone Dr. Jose Rafael Kat Primary Care Provider Dr. Dewayne Jordan Attending Provider [place], Dr. Jose Rafael Stroud Primary Care Provider [phone] [place], Dr. Jose Rafael Stroud Attending Provider [place], Dr. Jose Rafael Stroud Referring Provider [place], Dr. Jose Rafael Stroud Primary Care Provider [phone] [place], Dr. Jose Rafael Stroud Attending Provider [phone] [place], Dr. Jose Rafael Stroud Referring Provider [place], Dr. Garcia Attending Provider [place], Dr. Jose Rafael Stroud Primary Care Physician [place], Dr. Jose Rafael Stroud Attending Physician [phone] [place], Dr. Jose Rafael Stroud Referring Provider [phone] [place], Dr. Garcia Attending Physician Jose Rafael Kat Primary Care Unavailable Jose Rafael Kat Attending Unavailable Jose Rafael Kat Referring Unavailable Jose Rafael Kat Attending Unavailable Jose Rafael Kat Primary Care Unavailable Jose Rafael Kat Referring Unavailable Jose Rafael Kat Primary Care Unavailable Jose Rafael Kat Attending Unavailable Jose Rafael Kat Referring Unavailable Jose Rafael Kat Primary Care Unavailable Jose Rafael Kat Attending Unavailable Jose Rafael Kat Referring Unavailable Jose Rafael Kat Primary Care Unavailable Jose Rafael Kat Attending Unavailable Jose Rafael Kat Referring Unavailable Jose Rafael Kat Primary Care Unavailable Jose Rafael Kat Attending Unavailable Jose Rafael Kat Referring Unavailable Jose Rafael Kat Primary Care Unavailable Jose Rafael Kat Attending Unavailable Jose Rafael Kat Primary Care Unavailable Jose Rafael Kat Attending Unavailable Jose Rafael Kat Referring Unavailable Jose Rafael Kat Primary Care Unavailable Jose Alejo Attending Unavailable Jose Rafael Kat Referring Unavailable Jose Rafael Kat Primary Care Unavailable Jose Alejo Attending Unavailable Allergies Allergy Classification Reported Allergen(s) Allergy Type Date of Onset Reaction(s) Facility (11 sources) oxyCODONE Drug Allergy 10-24-2020 passed out [facility] Comment on above: CAUSES EXTREME DEHYD RATION (2 sources) semaglutide Drug Allergy 03-07-2025 Vomiting [facility] (1 source) oxyCODONE Drug Allergy 03-07-2025 [facility] Repository (1 source) semaglutide Drug allergy (disorder) 03-07-2025 [facility] Repository Medications Current Medications Medication Drug Class(es) Dates Sig (Normalized) Sig (Original) aspirin 81 mg oral tablet (2 sources) Platelet Aggregation Inhibitor, Nonsteroidal Anti-inflammatory Drug Start: 03-07-2025 take 1 tablet by mouth once daily cholecalciferol 0.025 mg oral capsule (11 sources) Vitamin D Start: 11-02-2017 take 1 capsule by mouth once daily gabapentin 300 mg oral capsule (11 sources) Anti-epileptic Agent Start: 11-02-2017 glipiZIDE 10 mg oral tablet (13 sources) Sulfonylurea Start: 03-07-2025 take 1 tablet by mouth twice daily Start: 06-06-2014 End: 03-07-2025 take 1 tablet by mouth once daily Glipizide 5 MG tablet Discontinued 5 mg PO DAILY@0800 June 06, 2014 1:00am March 07, 2025 9:15am metFORMIN hydrochloride 1000 mg oral tablet (11 sources) Biguanide Start: 06-06-2014 Start: 06-06-2014 take 500 mg by mouth twice femi ly Metformin Active 500 MG PO TWICE A DAY June 06, 2014 12:00am naproxen sodium 220 mg oral capsule (2 sources) Nonsteroidal Anti-inflammatory Drug Start: 03-07-2025 take 1 capsule by mouth twice daily as needed rosuvastatin calcium 5 mg oral tablet (2 sources) HMG-CoA Reductase Inhibitor Start: 03-07-2025 take 1 table t by mouth once daily Completed/Discontinued Medications Medication Drug Class(es) Dates Sig (Normalized) Sig (Original) 0.25 mg, 0.5 mg dose 1.5 ml semaglutide 1.34 mg/ml pen injector (11 sources) Start: 10-24-2020 End: 03-07-2025 Semaglutide 0.25 MG/0.2 ML pen injector Discontinued 0.5 mg SQ EVERY WEEK October 24, 2020 12:00am March 07, 2025 9:21am Start: 10-24-2020 inject 0.5 mg by sub cutaneous injection every week Semaglutide Active 0.5 MG SQ EVERY WEEK October 23, 2020 11:00pm Problems Active Problems Problem Classification Problem Date Documented Da te Episodic/Chronic Abdominal hernia (5 sources) Right inguinal hernia ; Translations: [Unilateral inguinal hernia, without obstruction or gangrene, not specified as recurrent] Onset: 03-07-2025 03-07-2025 Episodic Diabetes mellitus with complications (1 source) Type 2 diabetes mellitus with unspecified complications; Translations: [Type 2 diabetes mellitus with unspecified complications] Onset: 11-29-2024 Chronic Diabetes mellitus without complication (11 sources) Diabetes mellitus; Translations: [Type 2 diabetes mellitus without complications] 04-01-2016 Chronic Disorders of lipid metabolism (11 sources) Hyperlipidemia; Translations: [Hyperlipidemia, unspecified] 04-01-2016 Chronic Nonspecific chest pain (11 sources) Chest pain; Translations: [Chest pain, unspecified] 07-17-2019 Episodic Nutritional deficiencies (1 source) Vitamin D deficiency, unspecified; Translations: [Vitamin D deficiency, unspecified] Onset: 04-26-2025 Chronic Osteoarthritis (11 sources) Degenerative joint disease involving multiple joints; Translations: [Polyosteoarthritis , unspecified] 04-01-2016 Chronic Other non-traumatic joint disorders (2 sources) Pain in left hip; Translations: [Pain in left hip] Onset: 03-05-2025 Episodic Spondylosis; intervertebral disc disorders; other back problems (6 sources) Exacerbation of backache; Translations: [Dorsalgia, unspecified] Onset: 04-30-2025 01-25-2024 Episodic Past or Other Problems Problem Classification Problem Date Documented Date Episodic/Chronic Other connective tissue disease (1 source) Other symptoms and signs involving the musculoskeletal system; Translations: [Other symptoms and signs involving the musculoskeletal system] Onset: 11-13-2024 Episodic Results Test Name Value Interpretation Reference Range Facility Lumbar Spine 2 or 3 Viewson 04-17-2025 Lumbar Spine 2 or 3 Views [facility] [address], [place] [id number] Lumbar Spine 2 or 3 Views MR#: [id number] Acct: [id number] Name: MARGOT VASQUEZ Rep #: [id number] : 1940 F 84 From: Barney Chong MD PCP: Dr. Jose Rafael Kat MD Status: REG CLI Study: Lumbar Spine 2 or 3 Views Date of Exam: Exam# [id number] Ordering Dr: Jose Rafael Kat MD PROCEDURE: LUMBAR SPINE 2 OR 3 VIEWS 04/17/2025 REASON FOR EXAM: PAIN TECHNIQUE: Procedure Code: RADSPLL Modality: DX Procedure: LUMBAR SPINE 2 OR 3 VIEWS FINDINGS: No evidence acute fracture or dislocation. S shaped scoliosis. Severe degenerative changes of the visualized spine. Grade 1 retrolisthesis of L2 on L3 and L3 on L4. Vertebral body heights are maintained. RAD/Lumbar Spine 2 or 3 Views IMPRESSION: Spondylosis. Scoliosis. Spondylolisthesis. Reading Location: [address] CC: Dr. Jose Rafael Kat MD Satellite Tv Technician Installer: Signed Normal [facility] Thoracic Spine 2 Viewson Thoracic Spine 2 Views [facility] [address], [place] [address] Thoracic Spine 2 Views MR#: [id number] Acct: [id number] Name: MARGOT VASQUEZ Rep #: [id number] : 1940 F 84 From: Barney Chong MD PCP: Dr. Jose Rafael Kat MD Status: REG CLI Study: Thoracic Spine 2 Views Date of Exam: 04/17/25 Exam# [id number] Ordering Dr: Jose Rafael Kat MD PROCEDURE: THORACIC SPINE 2 VIEWS 04/17/2025 REASON FOR EXAM: PAIN TECHNIQUE: Procedure Code: RADSPT2 Modality: DX Procedure: THORACIC SPINE 2 VIEWS FINDINGS: No evidence of acute fracture or dislocation. Mild degenerative changes of the thoracic spine. Vertebral body heights are maintained. RAD/Thoracic Spine 2 Views IMPRESSION: Spondylosis. Reading Location: [address] CC: Dr. Jose Rafael Kat MD Satellite Tv Technician Installer: Signed Normal [facility] Absolute lymphocyte countOrd ered By: Jose Rafael Kat on 03-27-2025 Lymphocytes Auto (Unsp spec) [#/Vol] 0.89 10*3/uL 0.83-4.51 [facility] Absolute neutrophil countOrd ered By: Jose Rafael Kat on 03-27-2025 Neutrophils (Bld) [#/Vol] 3.2 10*3/uL 2.0-7.7 [facility] Anion gap in Serum or Plasma Ordered By: Jose Rafael Kat on 03-27-2025 Anion gap [Moles/Vol] 14 mmol/L 5-15 [facility] Automated lymphocyte count a s percentage of total leukocytesOrdered By: Jose Rafael Kat on 03-27-2025 Lymphocytes/100 WBC Auto (Unsp spec) 19.5 % 19-41 [facility] BUN/creatinine ratioOrdered By: Jose Rafael Kat on 03-27-2025 Urea nitrogen/Creatinine [Mass ratio] 22.7 mg/mg High 10-20 [facility] Basophil percentageOrdered B y: Jose Rafael Kat on 03-27-2025 Basophils/100 WBC (Bld) 1.1 % High 0-1 [facility] Bilirubin Test strip Ql (U)O rdered By: Jose Rafael Kat on 03-27-2025 Bilirubin Ql (U) Negative Negative [facility] Bilirubin, totalOrdered By: Jose Rafael Kat on 03-27-2025 Bilirubin [Mass/Vol] 0.80 mg/dL 0.00-1.30 [facility] CBC W/Diff, Automatedon 03-05 Absolute Lymph 0.89 X10 3/uL Normal 0.83-4.51 [facility] Comment on above: Order Comment: Order Date: 03/27/25Order Info: [id number] - CBCD Performed By: #### L 500.4100, L100.0100, L500.4050, L501.9985 ####[facility] [address] [place], [address] Absolute Neut 3.2 X10 3/uL Normal 2.0-7.7 [facility] Comment on above: Order Comment: Order Date: 03/27/25Order Info: [id number] - CBCD Performed By: #### L 500.4100, L100.0100, L500.4050, [id number] ####[facility] [address] [place], [address] Basophils/100 WBC (Bld) 1.1 % High 0-1 [facility] Comment on above: Order Comment: Order Date: 03/27/25Order Info: 018- - CBCD Performed By: #### L 500.4100, L100.0100, L500.4050, [id number] ####[facility] [address] [place], [address] Eosinophils/100 WBC (Bld) 0.9 % Normal 0-5 [facility] Comment on above: Order Comment: Order Date: 03/27/25Order Info: 018- - CBCD Performed By: #### L 500.4100, L100.0100, L500.4050, [id number] ####[facility] [address] [place], [address] Erythrocyte distribution width (RBC) [Ratio] 13.8 % Normal 11.6-14.6 [facility] Comment on above: Order Comment: Order Date: 03/27/25Order Info: [id number] - CBCD Performed By: #### L 500.4100, L100.0100, L500.4050, L501.9985 ####[facility] [address] [place], [address] Hematocrit (Bld) [Volume fraction] 34.3 % Low 37-47 [facility] Comment on above: Order Comment: Order Date: 03/27/25Order Info: [id number] - CBCD Performed By: #### L 500.4100, L100.0100, L500.4050, L501.9985 ####[facility] [address] [place], [address] Hemoglobin (Bld) [Mass/Vol] 11.5 g/dL Low 12.0-15.0 [facility] Comment on above: Order Comment: Order Date: 03/27/25Order Info: [id number] - CBCD Performed By: #### L 500.4100, L100.0100, L500.4050, [id number] ####[facility] [address] [place], [address] IG% 0.200 Normal 0.0-0.9 [facility] Comment on above: Order Comment: Order Date: 03/27/25Order Info: [id number] - CBCD Result Comment: IG% - Immature Granulocytes (promyelocytes, myelocytes and metamyelocytes) > 1% indicates that a LEFT SHIFT is Present. Performed By: #### L 500.4100, L100.0100, L500.4050, L501.9985 ####[facility] [address] [place], [address] Lymphocytes/100 WBC (Bld) 19.5 % Normal 19-41 [facility] Comment on above: Order Comment: Order Date: 03/27/25Order Info: [id number] - CBCD Performed By: #### L 500.4100, L100.0100, L500.4050, L501.9985 ####[facility] [address] [place], [address] MCH (RBC) [Entitic mass] 29.6 pg Normal 27.0-32.0 [facility] Comment on above: Order Comment: Order Date: 03/27/25Order Info: [id number] - CBCD Performed By: #### L 500.4100, L100.0100, L500.4050, L501.9985 ####[facility] [address] [place], [address] MCHC (RBC) [Mass/Vol] 33.5 g/dL Normal 32-36 [facility] Comment on above: Order Comment: Order Date: 03/27/25Order Info: [id number] - CBCD Performed By: #### L 500.4100, L100.0100, L500.4050, L501.9985 ####[facility] [address] [place], [address] MCV (RBC) [Entitic vol] 88.4 fL Normal 81-99 [facility] Comment on above: Order Comment: Order Date: 03/27/25Order Info: 018- - CBCD Performed By: #### L 500.4100, L100.0100, L500.4050, [id number] ####[facility] [address] [place], [address] Monocytes/100 WBC (Bld) 9.2 % Normal 0-10 [facility] Comment on above: Order Comment: Order Date: 03/27/25Order Info: 018- - CBCD Performed By: #### L 500.4100, L100.0100, L500.4050, L501.9985 ####[facility] [address] [place], [address] Neutrophils/100 WBC (Bld) 69.1 % Normal 47-70 [facility] Comment on above: Order Comment: Order Date: 03/27/25Order Info: [id number] - CBCD Performed By: #### L 500.4100, L100.0100, L500.4050, L501.9985 ####[facility] [address] [place], [address] Nucleated RBC (Bld) [#/Vol] 0 10*3/uL Normal 0-5 [facility] Comment on above: Order Comment: Order Date: 03/27/25Order Info: [id number] - CBCD Performed By: #### L 500.4100, L100.0100, L500.4050, L501.9985 ####[facility] [address] [place], [address] Platelet mean volume (Bld) [Entitic vol] 9.5 fL Normal 6.2-12.0 [facility] Comment on above: Order Comment: Order Date: 03/27/25Order Info: 018- - CBCD Performed By: #### L 500.4100, L100.0100, L500.4050, L501.9985 ####[facility] [address] [place], [address] Platelets (Bld) [#/Vol] 396 10*3/uL Normal 150-450 [facility] Comment on above: Order Comment: Order Date: 03/27/25Order Info: [id number]- - CBCD Performed By: #### L 500.4100, L100.0100, L500.4050, L501.9985 ####[facility] [address] [place], [address] RBC (Bld) [#/Vol] 3.88 10*6/uL Low 4.2-5.4 [facility] Comment on above: Order Comment: Order Date: 03/27/25Order Info: [id number] - CBCD Performed By: #### L 500.4100, L100.0100, L500.4050, L501.9985 ####[facility] [address] [place], [address] RDW SD 44.7 fl High 35.1-43.9 [facility] Comment on above: Order Comment: Order Date: 03/27/25Order Info: [id number] - CBCD Performed By: #### L 500.4100, L100.0100, L500.4050, L501.9985 ####[facility] [address] [place], [place], [id number] WBC (Bld) [#/Vol] 4.6 10*3/uL Normal 4.4-11.0 [facility] Comment on above: Order Comment: Order Date: 03/27/25Order Info: [id number]- - CBCD Performed By: #### L 500.4100, L100.0100, L500.4050, L501.9985 ####[facility] [address] [place], [place], [id number] Calculated very low density lipoprotein (VLDL) cholesterol measurementOrdered By: Jose Rafael Kat on 03-27-2025 Calculated very low density lipoprotein (VLDL) cholesterol measurement 23 mg/dL 5-40 [facility] Carbon dioxide, total [Moles /volume] in Central venous bloodOrdered By: Jose Rafael Kat on 03-27-2025 CO2 [Moles/Vol] 21.5 mmol/L 21.0-32.0 [facility] Chloride assayOrdered By: Ashtyn Kat on 03-27-2025 Chloride [Moles/Vol] 95 mmol/L Low 98-108 [facility] Comprehensive Metabolic Prof ilon 03-27-2025 Albumin [Mass/Vol] 4.6 g/dL Normal 3.4-4.8 [facility] Comment on above: Order Comment: Order Date: 03/27/25Order Info: [id number] - CMPOrder Info: [id number] - LIPID Performed By: #### L 500.4100, L100.0100, L500.4050, L501.9985 ####[facility] [address] [place], [place], [address] Albumin/Globulin [Mass ratio] 1.8 {ratio} Normal 0.9-2.4 [facility] Comment on above: Order Comment: Order Date: 03/27/25Order Info: [id number] - CMPOrder Info: [id number] - LIPID Performed By: #### L 500.4100, L100.0100, L500.4050, L501.9985 ####[facility] [address] [place], [address] ALK PHOS 66 U/L Normal 35-104 [facility] Comment on above: Order Comment: Order Date: 03/27/25Order Info: [id number]- - CMPOrder Info: [id number] - LIPID Performed By: #### L 500.4100, L100.0100, L500.4050, L501.9985 ####[facility] [address] [place], [address] ALT [Catalytic activity/Vol] 12 U/L Normal <=34 [facility] Comment on above: Order Comment: Order Date: 03/27/25Order Info: [id number] - CMPOrder Info: [id number] - LIPID Performed By: #### L 500.4100, L100.0100, L500.4050, L501.9985 ####[facility] [address] [place], [address] AST [Catalytic activity/Vol] 16 U/L Normal <=31 [facility] Comment on above: Order Comment: Order Date: 03/27/25Order Info: [id number]- - CMPOrder Info: [id number] - LIPID Performed By: #### L 500.4100, L100.0100, L500.4050, L501.9985 ####[facility] [address] [place], [address] Bilirubin [Mass/Vol] 0.80 mg/dL Normal 0.00-1.30 [facility] Comment on above: Order Comment: Order Date: 03/27/25Order Info: [id number]- - CMPOrder Info: [id number] - LIPID Performed By: #### L 500.4100, L100.0100, L500.4050, L501.9985 ####[facility] [address] [place], [address] BUN/CRE 22.7 RATIO High 10-20 [facility] Comment on above: Order Comment: Order Date: 03/27/25Order Info: [id number] - CMPOrder Info: [id number] - LIPID Performed By: #### L 500.4100, L100.0100, L500.4050, L501.9985 ####[facility] [address] [place], [address] Calcium [Mass/Vol] 9.7 mg/dL Normal 7.6-11.0 [facility] Comment on above: Order Comment: Order Date: 03/27/25Order Info: [id number] - CMPOrder Info: [id number] - LIPID Performed By: #### L 500.4100, L100.0100, L500.4050, L501.9985 ####[facility] [address] [place], [address] Chloride [Moles/Vol] 95 mmol/L Low 98-108 [facility] Comment on above: Order Comment: Order Date: 03/27/25Order Info: [id number]- - CMPOrder Info: [id number] - LIPID Performed By: #### L 500.4100, L100.0100, L500.4050, L501.9985 ####[facility] [address] [place], [address] CO2 [Moles/Vol] 21.5 mmol/L Normal 21.0-32.0 [facility] Comment on above: Order Comment: Order Date: 03/27/25Order Info: [id number] - CMPOrder Info: [id number] - LIPID Performed By: #### L 500.4100, L100.0100, L500.4050, L501.9985 ####[facility] [address] [place], [address] Creatinine [Mass/Vol] 1.10 mg/dL Normal 0.70-1.20 [facility] Comment on above: Order Comment: Order Date: 03/27/25Order Info: [id number] - CMPOrder Info: [id number] - LIPID Performed By: #### L 500.4100, L100.0100, L500.4050, L501.9985 ####[facility] [address] [place], [address] GAP 14 Normal 5-15 [facility] Comment on above: Order Comment: Order Date: 03/27/25Order Info: [id number]- - CMPOrder Info: [id number] - LIPID Performed By: #### L 500.4100, L100.0100, L500.4050, L501.9985 ####[facility] [address] [place], [address] GFR/1.73 sq M.predicted among non-blacks MDRD (S/P/Bld) [Vol rate/Area] 50 mL/min/{1.73_m2} Low >60 [facility] Comment on above: Order Comment: Order Date: 03/27/25Order Info: [id number]- - CMPOrder Info: [id number] - LIPID Result Comment: mL/m in/1.73m2 CKD-EPI Creatinine Equation (2020) Performed By: #### L 500.4100, L100.0100, L500.4050, L501.9985 ####[facility] [address] [place], [address] Globulin (S) [Mass/Vol] 2.6 g/dL Normal 2.2-4.2 [facility] Comment on above: Order Comment: Order Date: 03/27/25Order Info: [id number] - CMPOrder Info: [id number] - LIPID Performed By: #### L 500.4100, L100.0100, L500.4050, L501.9985 ####[facility] [address] [place], [address] Glucose [Mass/Vol] 116 mg/dL High 70-99 [facility] Comment on above: Order Comment: Order Date: 03/27/25Order Info: [id number] - CMPOrder Info: [id number] - LIPID Performed By: #### L 500.4100, L100.0100, L500.4050, L501.9985 ####[facility] [address] [place], [address] Potassium [Moles/Vol] 4.3 mmol/L Normal 3.3-5.1 [facility] Comment on above: Order Comment: Order Date: 03/27/25Order Info: [id number]- - CMPOrder Info: [id number] - LIPID Performed By: #### L 500.4100, L100.0100, L500.4050, L501.9985 ####[facility] [address] [place], [address] Sodium [Moles/Vol] 130 mmol/L Low 133-145 [facility] Comment on above: Order Comment: Order Date: 03/27/25Order Info: [id number] - CMPOrder Info: [id number] - LIPID Performed By: #### L 500.4100, L100.0100, L500.4050, L501.9985 ####[facility] [address] [place], [address] T PROT 7.2 g/dL Normal 5.9-8.4 [facility] Comment on above: Order Comment: Order Date: 03/27/25Order Info: [id number] - CMPOrder Info: [id number] - LIPID Performed By: #### L 500.4100, L100.0100, L500.4050, L501.9985 ####[facility] [address] [place], [address] Urea nitrogen [Mass/Vol] 25 mg/dL High 4-19 [facility] Comment on above: Order Comment: Order Date: 03/27/25Order Info: [id number] - CMPOrder Info: [id number] - LIPID Performed By: #### L 500.4100, L100.0100, L500.4050, L501.9985 ####[facility] [address] [place], [place], [id number] Eosinophil percentageOrdered By: Jose Rafael Kat on 03-27-2025 Eosinophils/100 WBC (Bld) 0.9 % 0-5 [facility] Erythrocyte distribution wid th ratioOrdered By: Jose Rafael Kat on 03-27-2025 Erythrocyte distribution width (RBC) [Ratio] 13.8 % 11.6-14.6 [facility] Erythrocyte distribution wid th standard deviationOrdered By: Jose Rafael Kat on 03-27-2025 Erythrocyte distribution width (RBC) [Ratio] 44.7 fl High 35.1-43.9 [facility] Glomerular filtration rate ( GFR) estimation/1.73 sq m using serum, plasma, or whole bOrdered By: Jose Rafael Kat on 03-27-2025 GFR/1.73 sq M.predicted among non-blacks MDRD (S/P/Bld) [Vol rate/Area] 50 mL/min/{1.73_m2} Low >60 [facility] Comment on above: mL/min/1.73m2 CKD-EP I Creatinine Equation (2020) Hematocrit Auto (Bld) [Volum e fraction]Ordered By: Jose Rafael Kat on 03-27-2025 Hematocrit (Bld) [Volume fraction] 34.3 % Low 37-47 [facility] Hemoglobin A1con 03-27-2025 HbA1c (Bld) [Mass fraction] 8.5 % High <=5.6 [facility] Comment on above: Order Comment: Order Date: 03/27/25Order Info: [id number] - A1C Result Comment: Norm al < 5.7 % Prediabetic 5.7 - 6.4 % Diabetic >or= 6.5 % Please note range changes. Performed By: #### L 500.4100, L100.0100, L500.4050, L501.9985 ####[facility] [address] [place], [place], [id number] Hemoglobin A1c percentageOrd ered By: Jose Rafael Kat on 03-27-2025 HbA1c (Bld) [Mass fraction] 8.5 % High <5.7 [facility] [facility] Comment on above: Normal < 5.7 % Predi abetic 5.7 - 6.4 % Diabetic >or= 6.5 % Please note range changes. Hemoglobin measurementOrdere d By: Jose Rafael Kat on 03-27-2025 Hemoglobin (Bld) [Mass/Vol] 11.5 g/dL Low 12.0-15.0 [facility] Immature granulocytes/100 WB C Auto (Bld)Ordered By: Jose Rafael Kat on 03-27-2025 Immature granulocytes/100 WBC (Bld) 0.200 % 0.0-0.9 [facility] Comment on above: IG% - Immature Granu locytes (promyelocytes, myelocytes and metamyelocytes) > 1% indicates that a LEFT SHIFT is Present. Ketones Test strip Ql (U)Ord ered By: Jose Rafael Kat on 03-27-2025 Ketones Ql (U) Negative Negative [facility] LDL calc ser/plasOrdered By: Jose Rafael Kat on 03-27-2025 Cholesterol in LDL [Mass/Vol] 62 mg/dL [facility] Comment on above: Lbruckikai=981-999 m g/dL & Higher Rzgb=793 mg/dL or greaterFriedwald Equation for LDL-C Laboratory - Chemistry and C hemistry - challengeOrdered By: Jose Rafael Kat on 03-27-2025 AST [Catalytic activity/Vol] 16 U/L <32 [facility] Lipid Profileon 03-27-2025 CHOL:HDL 2.16 Normal [facility] Comment on above: Order Comment: Order Date: 03/27/25Order Info: [id number] - CMPOrder Info: [id number] - LIPID Performed By: #### L 500.4100, L100.0100, L500.4050, L501.9985 ####[facility] [address] [place], [address] Cholesterol [Mass/Vol] 157 mg/dL Normal <=200 [facility] Comment on above: Order Comment: Order Date: 03/27/25Order Info: [id number] - CMPOrder Info: [id number] - LIPID Result Comment: Chol esterol level, Desirable <200 mg/dL Borderline high cholesterol 200-239 mg/dL High cholesterol >=240 mg/dL Recommendations of the NCEP Adult Treatment Panel for the following risk-cutoff thresholds for the [place] population. Performed By: #### L 500.4100, L100.0100, L500.4050, L501.9985 ####[facility] [address] [place], [address] Cholesterol in HDL [Mass/Vol] 73 mg/dL Normal [facility] Comment on above: Order Comment: Order Date: 03/27/25Order Info: [id number]- - CMPOrder Info: [id number] - LIPID Result Comment: Ivon onal Cholesterol Education Program (NCEP) guidelines: <40 mg/dL: Low HDL-cholesterol (major risk factor for CHD) >= 60 mg/dL: High HDL-cholesterol (negative risk factor for CHD) HDL-cholesterol is affected by a number of factors, e.g. smoking, exercise, hormones, sex and age. Performed By: #### L 500.4100, L100.0100, L500.4050, L501.9985 ####[facility] [address] [place], [address] Cholesterol in LDL [Mass/Vol] 62 mg/dL Normal [facility] Comment on above: Order Comment: Order Date: 03/27/25Order Info: [id number] - CMPOrder Info: [id number] - LIPID Result Comment: Bord oxmjox=237-181 mg/dL Higher Ddxh=409 mg/dL or greater Friedwald Equation for LDL-C Performed By: #### L 500.4100, L100.0100, L500.4050, L501.9985 ####[facility] [address] [place], [address] Cholesterol in VLDL [Mass/Vol] 23 mg/dL Normal 5-40 [facility] Comment on above: Order Comment: Order Date: 03/27/25Order Info: [id number]- - CMPOrder Info: [id number] - LIPID Performed By: #### L 500.4100, L100.0100, L500.4050, L501.9985 ####[facility] [address] [place], [place], [id number] Triglyceride [Mass/Vol] 113 mg/dL Normal [facility] Comment on above: Order Comment: Order Date: 03/27/25Order Info: [id number] - CMPOrder Info: [id number] - LIPID Result Comment: The drugs N-Acetylcysteine and Metamizole may falsely depress this assay. Normal range: <150 mg/dL Borderline High: 150-199 mg/dL High: 200-499 mg/dL Very High: >500 mg/dL Performed By: #### L 500.4100, L100.0100, L500.4050, L501.9985 ####[facility] [address] [place], [place], [id number] MCV (mean corpuscular volume ) determinationOrdered By: Jose Rafael Kat on 03-27-2025 MCV (RBC) [Entitic vol] 88.4 fL 81-99 [facility] Mean corpuscular hemoglobin (MCH) determinationOrdered By: Jose Rafael Kat on 03-27-2025 MCH (RBC) [Entitic mass] 29.6 pg 27.0-32.0 [facility] Mean corpuscular hemoglobin concentration (MCHC) determinationOrdered By: Jose Rafael Kat on 03-27-2025 MCHC (RBC) [Mass/Vol] 33.5 g/dL 32-36 [facility] Mean platelet volume determi nationOrdered By: Jose Rafael Kat on 03-27-2025 Platelet mean volume (Bld) [Entitic vol] 9.5 fL 6.2-12.0 [facility] Microalb:Creat Ratio,Random URon 03-27-2025 MALB:CREAT UNABLE TO CALCULATE Normal <30 mg/g CRE [facility] Comment on above: Order Comment: Order Date: 03/27/25Order Info: [id number] - MIALB Performed By: #### L 502.0250, L501.0900, L400.0001, L506.1001 ####[facility] [address] [place], [address] MICROALBUMIN,UR < 12.0 Normal <20 mg/L [facility] Comment on above: Order Comment: Order Date: 03/27/25Order Info: [id number] - MIALB Performed By: #### L 502.0250, L501.0900, L400.0001, L506.1001 ####[facility] [address] [place], [address] Microalbumin/creat ratio urO rdered By: Jose Rafael Kat on 03-27-2025 Urine microalbumin/creatinine ratio measurement UNABLE TO CALCULATE mg/g CRE <30 [facility] Microscopic analysis of urin e for red blood cells (RBC)Ordered By: Jose Rafael Kat on 03-27-2025 Microscopic analysis of urine for red blood cells (RBC) 0 SEEN /hpf 0-5 [facility] Monocyte percentageOrdered B y: Jose Rafael Kat on 03-27-2025 Monocytes/100 WBC (Bld) 9.2 % 0-10 [facility] Mucus LM Ql (Urine sed)Order ed By: Jose Rafael Kta on 03-27-2025 Mucus Ql (Urine sed) 0 SEEN /hpf [facility] Neutrophil percentageOrdered By: Jose Rafael Kat on 03-27-2025 Neutrophils/100 WBC (Bld) 69.1 % 47-70 [facility] Nitrite Test strip Ql (U)Ord ered By: Jose Rafael Kat on 03-27-2025 Nitrite Ql (U) Negative Negative [facility] Nucleated red blood cell per centageOrdered By: Jose Rafael Kat on 03-27-2025 Nucleated RBC/100 WBC (Bld) [Ratio] 0 % 0-5 [facility] Platelet countOrdered By: Ashtyn Kat on 03-27-2025 Platelets (Bld) [#/Vol] 396 10*3/uL 150-450 [facility] Potassium measurement (mass/ volume)Ordered By: Jose Rafael Kat on 03-27-2025 Potassium (Unsp spec) [Mass/Vol] 4.3 mmol/L 3.3-5.1 [facility] Protein Test strip Ql (U)Ord ered By: Jose Rafael Kat on 03-27-2025 Protein Ql (U) 30 mg/dl High Negative [facility] Protein+Creatinine Ratio,Uri neon 03-27-2025 PROT:CRE RATIO 116 mg/g CRE Normal 0-200 [facility] Comment on above: Order Comment: Order Date: 03/27/25Order Info: [id number] - MIALB Performed By: #### L 502.0250, L501.0900, L400.0001, L506.1001 ####[facility] [address] [place], [address] Protein (U) [Mass/Vol] 10.8 mg/dL Normal 0.0-12.0 [facility] Comment on above: Order Comment: Order Date: 03/27/25Order Info: [id number] - MIALB Performed By: #### L 502.0250, L501.0900, L400.0001, L506.1001 ####[facility] [address] [place], [address] UR CREAT 93.20 mg/dL Normal 28.00-217.00 [facility] Comment on above: Order Comment: Order Date: 03/27/25Order Info: [id number] - MIALB Performed By: #### L 502.0250, L501.0900, L400.0001, L506.1001 ####[facility] [address] [place], [address] RBC Auto (Bld) [#/Vol]Ordere d By: Jose Rafael Kat on 03-27-2025 RBC (Bld) [#/Vol] 3.88 10*6/uL Low 4.2-5.4 [facility] Random urine creatinine tameka urement (mass/volume)Ordered By: Jose Rafael Kat on 03-27-2025 Creatinine Unsp time (U) [Mass/Vol] 93.20 mg/dL 28.00-217.00 [facility] Screening total cholesterol/ high density lipoprotein (HDL) cholesterol ratioOrdered By: Jose Rafael Kat on 03-27-2025 Cholesterol.total/Choles terol in HDL [Mass ratio] 2.16 {ratio} [facility] Serum creatinine measurement (mass/volume)Ordered By: Jose Rafael Kat on 03-27-2025 Creatinine [Mass/Vol] 1.10 mg/dL 0.70-1.20 [facility] Serum globulin measurementOr dered By: Jose Rafael Kat on 03-27-2025 Globulin (S) [Mass/Vol] 2.6 g/dL 2.2-4.2 [facility] Serum glucose measurement (m ass/volume)Ordered By: Jose Rafael Kat on 03-27-2025 Glucose [Mass/Vol] 116 mg/dL High 70-99 [facility] Serum or plasma alanine frazier otransferase (ALT) measurementOrdered By: Jose Rafael Kat on 03-27-2025 ALT [Catalytic activity/Vol] 12 U/L <35 [facility] Serum or plasma albumin tameka urement (mass/volume)Ordered By: Jose Rafael Kat on 03-27-2025 Albumin [Mass/Vol] 4.6 g/dL 3.4-4.8 [facility] Serum or plasma albumin/glob ulin mass ratioOrdered By: Jose Rafael Kat on 03-27-2025 Albumin/Globulin [Mass ratio] 1.8 {ratio} 0.9-2.4 [facility] Serum or plasma alkaline kenroy sphatase measurementOrdered By: Jose Rafael Kat on 03-27-2025 ALP [Catalytic activity/Vol] 66 U/L 35-104 [facility] Serum or plasma calcium tameka urement (mass/volume)Ordered By: Jose Rafael Kat on 03-27-2025 Calcium [Mass/Vol] 9.7 mg/dL 7.6-11.0 [facility] Serum or plasma cholesterol in HDL measurement (mass/volume)Ordered By: Jose Rafael Kat on 03-27-2025 Cholesterol in HDL [Mass/Vol] 73 mg/dL >40 [facility] Comment on above: National Cholesterol Education Program (NCEP) guidelines:<40 mg/dL: Low HDL-cholesterol (major risk factor for CHD)>= 60 mg/dL: High HDL-cholesterol (negative risk factor for CHD)HDL-cholesterol is affected by a number of factors, e.g. smoking, exercise, hormones, sex and age. Serum or plasma cholesterol measurement (mass/volume)Ordered By: Jose Rafael Kat on 03-27-2025 Cholesterol [Mass/Vol] 157 mg/dL <[address] [facility] Comment on above: Cholesterol level, D esirable <200 mg/dLBorderline high cholesterol 200-239 mg/dLHigh cholesterol >=240 mg/dLRecommendations of the NCEP Adult Treatment Panel for the following risk-cutoff thresholds for the [place] population. Serum or plasma urea nitroge n measurement (mass/volume)Ordered By: Jose Rafael Kat on 03-27-2025 Urea nitrogen [Mass/Vol] 25 mg/dL High 4-19 [facility] Sodium levelOrdered By: Jose Rafael Kat on 03-27-2025 Sodium [Moles/Vol] 130 mmol/L Low 133-145 [facility] Squamous epithelial cells de tection in urine sediment by light microscopyOrdered By: Jose Rafael Kat on 03-27-2025 Epithelial cells.squamous LM Ql (Urine sed) 0-5 SEEN /hpf 5- [facility] Total proteinOrdered By: Devaughn Kat on 03-27-2025 Protein [Mass/Vol] 7.2 g/dL 5.9-8.4 [facility] Triglycerides measurementOrd ered By: Jose Rafael Kat on 03-27-2025 Triglyceride [Mass/Vol] 113 mg/dL <199 [facility] Comment on above: The drugs N-Acetylcy steine and Metamizole may falsely depress this assay. Normal range: <150 mg/dLBorderline High: 150-199 mg/dLHigh: 200-499 mg/dLVery High: >500 mg/dL Urinalysis, Completeon 03-27 EPI,SQUAMOUS 0-5 SEEN Normal 5-10 [facility] Comment on above: Order Comment: Urine , Random Performed By: #### L 502.0250, L501.0900, L400.0001, L506.1001 ####[facility] [address] [place], [address] WBC 0-5 SEEN Normal 0-5 [facility] Comment on above: Order Comment: Urine , Random Performed By: #### L 502.0250, L501.0900, L400.0001, L506.1001 ####[facility] [address] [place], [address] BACTERIA 0 SEEN Normal None Seen [facility] Comment on above: Order Comment: Urine , Random Performed By: #### L 502.0250, L501.0900, L400.0001, L506.1001 ####[facility] [address] [place], [address] Mucus Ql (Urine sed) 0 SEEN Normal [facility] Comment on above: Order Comment: Urine , Random Performed By: #### L 502.0250, L501.0900, L400.0001, L506.1001 ####[facility] [address] [place], [address] RBC 0 SEEN Normal 0-5 [facility] Comment on above: Order Comment: Urine , Random Performed By: #### L 502.0250, L501.0900, L400.0001, L506.1001 ####[facility] [address] [place], [address] [facility] detection limit of 20 mg/L or less (mass/volume)Ordered By: Jose Rafael Kat on 03-27-2025 Albumin DL <= 20 mg/L (U) [Mass/Vol] < 12.0 mg/L <20 mg/L [facility] Urine clarityOrdered By: Devaughn Kat on 03-27-2025 Clarity (U) Clear Clear [facility] Urine color determinationOrd ered By: Jose Rafael Kat on 03-27-2025 Color (U) Yellow Yellow [facility] Urine glucose detectionOrder ed By: Jose Rafael Kat on 03-27-2025 Glucose Ql (U) Normal mg/dl Normal [facility] Urine leukocyte esterase det ection by dipstickOrdered By: Jose Rafael Kat on 03-27-2025 Leukocyte esterase Test strip Ql (U) 25 /ul High Negative [facility] Urine pHOrdered By: Jose Rafael burroughs on 03-27-2025 pH (U) 5.0 [pH] 5.0 - 8.0 [facility] Urine protein measurement (m ass/volume)Ordered By: Jose Rafael Kat on 03-27-2025 Protein (U) [Mass/Vol] 10.8 mg/dL 0.0-12.0 [facility] Urine protein/creatinine mas s ratioOrdered By: Jose Rafael Kat on 03-27-2025 Protein/Creatinine (U) [Mass ratio] 116 mg/g CRE 0-200 [facility] Urine sediment bacteria coun t by microscopy (number/high power field)Ordered By: Jose Rafael Kat on 03-27-2025 Bacteria LM.HPF (Urine sed) [#/Area] 0 /[HPF] None Seen [facility] Urine specific gravity measu rementOrdered By: Jose Rafael Kat on 03-27-2025 Specific gravity (U) [Rel density] 1.015 1.002-1.030 [facility] Urine urobilinogen measureme ntOrdered By: Jose Rafael Kat on 03-27-2025 Urobilinogen Ql (U) Normal mg/dl Normal [facility] Vitamin D,25 Hydroxyon 03-27 Vitamin D 25-OH 113.0 ng/mL High 30-100 [facility] Comment on above: Order Comment: Order Date: 03/27/25Order Info: [id number] - CMPOrder Info: [id number] - LIPID Result Comment: Eileen min D Status Deficiency: <20 ng/mL (50nmol/L) Insufficiency: 20-30 ng/mL (50-75 nmol/L) Sufficiency: 30-100 ng/mL (75-250 nmol/L) Toxicity: >100 ng/mL (>250 nmol/L) Performed By: #### L 502.0250, L501.0900, L400.0001, L506.1001 ####[facility] [address] [place], [place], [id number] White blood cell (WBC) count Ordered By: Jose Rafael Kat on 03-27-2025 WBC (Bld) [#/Vol] 4.6 10*3/uL 4.4-11.0 [facility] White blood cell countOrdere d By: Jose Rafael Kat on 03-27-2025 White blood cell count 0-5 SEEN /hpf 0-5 [facility] Surgery Visit Reporton 03-07 Surgery Visit Report [facility] [address] [place] [address] OFFICE VISIT Date of Service: 03/07/25 MR#: [id number] Acct: [id number] Name: MARGOT VASQUEZ Rep #: [id number] : 1940 Provider: Dr. Jose nichole MD Age/Sex: 84/F Location: [facility] Status: Signed Intake Vital Signs 01/17/24 16:33 03/07/25 09:13 Height 5 ft 2 in 5 ft 2 in Weight: 104 lb BMI 19.0 BP 177/78 H Blood Pressure Location Rt brachial Position Sitting Respiration 17 Pulse 84 Pulse Source Monitor Pulse Oximetry (%) 99 Oxygen Delivery Method room air Intake Visit Reasons: INGUINAL HERNIA Chief Complaint: inguinal hernia right side Is patient in pain?: No Allergies semaglutide Adverse Reaction (Intermediate, Verified 03/07/25 09:23) Vomiting oxycodone (Oxycodone) Adverse Reaction (Verified 03/07/25 09:23) passed out Medications ???Medication ???Instructions ???Recorded ???Confirmed ???Type metformin 1,000 mg tablet 500 mg PO BID 06/06/14 03/07/25 Hi story cholecalciferol (vitamin D3) 25 1,000 unit PO DAILY 11/02/1703/07 History mcg (1,000 unit) capsule gabapentin 300 mg capsule 300 mg PO PRN PRN Spasms 11/02/17 03/07/25 History aspirin 81 mg tablet 81 mg PO QDAY 03/07/25 03/07/25 Hi story glipizide 10 mg tablet 10 mg PO BID 03/07/25 03/07/25 His tory naproxen sodium 220 mg capsule 220 mg PO BID PRN 03/07/25 5 History (Eitan) rosuvastatin 5 mg tablet 5 mg PO QDAY 03/07/25 03/07/25 His tory Have you fallen in the past year?: No PFSH Medical History (Updated 03/07/25 @ 09:12 by Becky Basurto) Rheumatoid arthritis Anxiety Basal cell carcinoma (BCC) in situ of skin Surgical History (Updated 03/07/25 @ 09:12 by Becky Basurto) H/O carpal tunnel repair History of cholecystectomy H/O: hysterectomy Family History (Updated 03/07/25 @ 09:13 by Becky Basurto) Mother Diabetes Heart disease Father Diabetes Heart disease Brother Heart disease Diabetes Sister Heart disease Social History (Updated 03/07/25 @ 09:13 by Becky Basurto) Smoking Status: Never smoker alcohol intake: never additional social history: Aleve daily HPI HPI HPI: Patient is an 84-year-old female with right groin bulging. She says this has been there since September. She denies any nausea or vomiting. She says it is sore especially when coughing. She would like it repaired. ROS General General: No weight change, appetite, fatigue, colon cancer, breast cancer or weakness HEENT HEENT: No difficulty swallowing, eye injury, eye surgery, swollen glands or hoarseness Endo Endocrine: Yes diabetes mellitus; No thyroid disease, thyroid cancer, Hair loss, heat intolerance or cold intolerance Skin Skin: No rash or changing moles Musc Musculoskeletal: Yes back problems, arthritis and rheumatoid arthritis; No gout or joint pain Cardio Cardiovascular: No murmur, pacemaker, heart disease, atrial fibrillation, high blood pressure, heart attack, heart stent, palpitations, shortness of breath with exertion or chest pain Psych Psychiatric: Yes anxiety; No depression or hearing voices Resp Respiratory: No shortness of breath, No sleep apnea, No cough, No COPD, No asthma, No emphysema and No wheezing Gastro Gastrointestinal: No abdominal pain, No nausea or vomiting, No diarrhea, Yes constipation, No blood in stool, No acid reflux, No hemorrhoids, No ulcers, No gallbladder problem and No black,tarry stools Lee Hematologic: No blood thinners, No blood disorders, No bleeding, No anemia and No blood clots Neuro Neurologic: No system reviewed and no additional complaints, except as documented, No as per HPI, No abnormal gait, No abnormal hearing, No abnormal movements, No abnormal speech, No behavioral james nges, No burning sensations, No confusion, No convulsions, No disequilibrium, No dizziness, No localized weakness, No frequent falls, No headache(s), No lack of coordination, No loss of vision, No memory loss, Yes numbness, No other visual disturbances, No radicular pain, No restless legs, No sensory deficit, No syncope, Yes tingling, No tremor(s), No weakness and No other Exam Const General: cooperative Orientation: alert and oriented x3 HENMN Head: normal to inspection Neck Neck: normal visual inspection and full ROM Chest Chest palpation inspection: normal inspection of the chest Resp Effort Inspection: normal respiratory effort Auscultation: clear to auscultation bilaterally Cardio Rate: regular rate Rhythm: regular rhythm GI Inspection: non-distended Palpation: soft, hernia direct inguinal on the right and nontender Skin General: no rashes or lesions noted Neuro General: patient alert and patient oriented x3 Extrem General: full R (more content not included)... Normal [facility] Hip uni 4+ views with Pelvis on 03-05-2025 Hip uni 4+ views with Pelvis [facility] [address] [place], [place] [address] Hip uni 4+ views with Pelvis MR#: [id number] Acct: [id number] Name: MARGOT VASQUEZ Rep #: [id number] : 1940 F 84 From: Jovan Magaña MD PCP: Dr. Jose Rafael Kat MD Status: REG CLI Study: Hip uni 4+ views with Pelvis Date of Exam: 08/28 Exam# [id number] Ordering Dr: Jose Rafael Kat MD EXAM: XR Left Hip With Pelvis When Performed, 2 or 3 Views CLINICAL INDICATION: LEFT HIP PAIN TECHNIQUE: Two or three views of the left hip with pelvis when performed. COMPARISON: No relevant prior studies available. FINDINGS: BONES/JOINTS: Mild degenerative changes of the right hip joint. No acute fracture. No dislocation. SOFT TISSUES: Unremarkable. VASCULATURE: Vascular calcification. RAD/Hip uni 4+ views with Pelvis IMPRESSION: Degenerative changes as above. Reading [facility] CC: Dr. Jose Rafael Kat MD Satellite Tv Technician Installer: Signed Normal [facility] Anion gap in Serum or Plasma Ordered By: Jose Rafael Kat on 11-23-2024 Anion gap [Moles/Vol] 18 mmol/L High 5-15 [facility] BUN/creatinine ratioOrdered By: Jose Rafael Kat on 11-23-2024 Urea nitrogen/Creatinine [Mass ratio] 10.5 mg/mg 10-20 [facility] Bilirubin, totalOrdered By: Jose Rafael Kat on 11-23-2024 Bilirubin [Mass/Vol] 0.68 mg/dL 0.00-1.30 [facility] Carbon dioxide, total [Moles /volume] in Central venous bloodOrdered By: Jose Rafael Kat on 11-23-2024 CO2 [Moles/Vol] 16.4 mmol/L Low 21.0-32.0 [facility] Chloride assayOrdered By: Ashtyn Kat on 11-23-2024 Chloride [Moles/Vol] 102 mmol/L 98-108 [facility] Comprehensive Metabolic Prof ilon 11-23-2024 Albumin [Mass/Vol] 4.4 g/dL Normal 3.4-4.8 [facility] Comment on above: Order Comment: Order Date: 11/01/24Order Info: [id number] - CMP Performed By: #### L 500.4050, L501.9985 ####[facility] [address] [place], [place], [id number] Albumin/Globulin [Mass ratio] 1.7 {ratio} Normal 0.9-2.4 [facility] Comment on above: Order Comment: Order Date: 11/01/24Order Info: [id number] - CMP Performed By: #### L 500.4050, L501.9985 ####[facility] [address] [place], [address] ALK PHOS 73 U/L Normal 35-104 [facility] Comment on above: Order Comment: Order Date: 11/01/24Order Info: [id number] - CMP Performed By: #### L 500.4050, L501.9985 ####[facility] [address] [place], [address] ALT [Catalytic activity/Vol] 12 U/L Normal <=34 [facility] Comment on above: Order Comment: Order Date: 11/01/24Order Info: [id number] - CMP Performed By: #### L 500.4050, L501.9985 ####[facility] [address] [place], [address] AST [Catalytic activity/Vol] 16 U/L Normal <=31 [facility] Comment on above: Order Comment: Order Date: 11/01/24Order Info: [id number] - CMP Performed By: #### L 500.4050, L501.9985 ####[facility] [address] [place], [address] Bilirubin [Mass/Vol] 0.68 mg/dL Normal 0.00-1.30 [facility] Comment on above: Order Comment: Order Date: 11/01/24Order Info: [id number] - CMP Performed By: #### L 500.4050, L501.9985 ####[facility] [address] [place], [address] BUN/CRE 10.5 RATIO Normal 10-20 [facility] Comment on above: Order Comment: Order Date: 11/01/24Order Info: [id number] - CMP Performed By: #### L 500.4050, L501.9985 ####[facility] [address] [place], [address] Calcium [Mass/Vol] 9.2 mg/dL Normal 7.6-11.0 [facility] Comment on above: Order Comment: Order Date: 11/01/24Order Info: 0786-1 - CMP Performed By: #### L 500.4050, L501.9985 ####[facility] [address] [place], [address] Chloride [Moles/Vol] 102 mmol/L Normal 98-108 [facility] Comment on above: Order Comment: Order Date: 11/01/24Order Info: 0786-1 - CMP Performed By: #### L 500.4050, L501.9985 ####[facility] [address] [place], [address] CO2 [Moles/Vol] 16.4 mmol/L Low 21.0-32.0 [facility] Comment on above: Order Comment: Order Date: 11/01/24Order Info: 0786-1 - CMP Performed By: #### L 500.4050, L501.9985 ####[facility] [address] [place], [address] Creatinine [Mass/Vol] 1.20 mg/dL Normal 0.70-1.20 [facility] Comment on above: Order Comment: Order Date: 11/01/24Order Info: 0786-1 - CMP Performed By: #### L 500.4050, L501.9985 ####[facility] [address] [place], [address] GAP 18 High 5-15 [facility] Comment on above: Order Comment: Order Date: 11/01/24Order Info: 0786-1 - CMP Performed By: #### L 500.4050, L501.9985 ####[facility] [address] [place], [address] GFR/1.73 sq M.predicted among non-blacks MDRD (S/P/Bld) [Vol rate/Area] 45 mL/min/{1.73_m2} Low >60 [facility] Comment on above: Order Comment: Order Date: 11/01/24Order Info: 0786-1 - CMP Result Comment: mL/m in/1.73m2 CKD-EPI Creatinine Equation (2020) Performed By: #### L 500.4050, L501.9985 ####[facility] [address] [place], [address] Globulin (S) [Mass/Vol] 2.6 g/dL Normal 2.2-4.2 [facility] Comment on above: Order Comment: Order Date: 11/01/24Order Info: 0786-1 - CMP Performed By: #### L 500.4050, L501.9985 ####[facility] [address] [place], [address] Glucose [Mass/Vol] 196 mg/dL High 70-99 [facility] Comment on above: Order Comment: Order Date: 11/01/24Order Info: 0786-1 - CMP Performed By: #### L 500.4050, L501.9985 ####[facility] [address] [place], [address] Potassium [Moles/Vol] 4.2 mmol/L Normal 3.3-5.1 [facility] Comment on above: Order Comment: Order Date: 11/01/24Order Info: 0786-1 - CMP Performed By: #### L 500.4050, L501.9985 ####[facility] [address] [place], [address] Sodium [Moles/Vol] 136 mmol/L Normal 133-145 [facility] Comment on above: Order Comment: Order Date: 11/01/24Order Info: 0786-1 - CMP Performed By: #### L 500.4050, L501.9985 ####[facility] [address] [place], [address] T PROT 7.1 g/dL Normal 5.9-8.4 [facility] Comment on above: Order Comment: Order Date: 11/01/24Order Info: 0786-1 - CMP Performed By: #### L 500.4050, L501.9985 ####[facility] [address] [place], [address] Urea nitrogen [Mass/Vol] 13 mg/dL Normal 4-19 [facility] Comment on above: Order Comment: Order Date: 11/01/24Order Info: 0786-1 - CMP Performed By: #### L 500.4050, L501.9985 ####[facility] [address] [place], [place], [address] Glomerular filtration rate ( GFR) estimation/1.73 sq m using serum, plasma, or whole bOrdered By: Jose Rafael Kat on 11-23-2024 GFR/1.73 sq M.predicted among non-blacks MDRD (S/P/Bld) [Vol rate/Area] 45 mL/min/{1.73_m2} Low >60 [facility] Comment on above: mL/min/1.73m2 CKD-EP I Creatinine Equation (2020) Hemoglobin A1con 11-23-2024 HbA1c (Bld) [Mass fraction] 8.6 % High <=5.6 [facility] Comment on above: Order Comment: Order Date: 11/01/24Order Info: 4548-4 - A1C Result Comment: Norm al < 5.7 % Prediabetic 5.7 - 6.4 % Diabetic >or= 6.5 % Please note range changes. Performed By: #### L 500.4050, L501.9985 ####[facility] [address] [place], [place], [address] Hemoglobin A1c percentageOrd ered By: Jose Rafael Kat on 11-23-2024 HbA1c (Bld) [Mass fraction] 8.6 % High <5.7 [facility] Comment on above: Normal < 5.7 % Predi abetic 5.7 - 6.4 % Diabetic >or= 6.5 % Please note range changes. Laboratory - Chemistry and C hemistry - challengeOrdered By: Jose Rafael Kat on 11-23-2024 AST [Catalytic activity/Vol] 16 U/L <32 [facility] Potassium measurement (mass/ volume)Ordered By: Jose Rafael Kat on 11-23-2024 Potassium (Unsp spec) [Mass/Vol] 4.2 mmol/L 3.3-5.1 [facility] Serum creatinine measurement (mass/volume)Ordered By: Jose Rafael Kat on 11-23-2024 Creatinine [Mass/Vol] 1.20 mg/dL 0.70-1.20 [facility] Serum globulin measurementOr dered By: Jose Rafael Kat on 11-23-2024 Globulin (S) [Mass/Vol] 2.6 g/dL 2.2-4.2 [facility] Serum glucose measurement (m ass/volume)Ordered By: Jose Rafael Kat on 11-23-2024 Glucose [Mass/Vol] 196 mg/dL High 70-99 [facility] Serum or plasma alanine frazier otransferase (ALT) measurementOrdered By: Jose Rafael Kat on 11-23-2024 ALT [Catalytic activity/Vol] 12 U/L <35 [facility] Serum or plasma albumin tameka urement (mass/volume)Ordered By: Jose Rafael Kat on 11-23-2024 Albumin [Mass/Vol] 4.4 g/dL 3.4-4.8 [facility] Serum or plasma albumin/glob ulin mass ratioOrdered By: Jose Rafael Kat on 11-23-2024 Albumin/Globulin [Mass ratio] 1.7 {ratio} 0.9-2.4 [facility] Serum or plasma alkaline kenroy sphatase measurementOrdered By: Jose Rafael Kat on 11-23-2024 ALP [Catalytic activity/Vol] 73 U/L 35-104 [facility] Serum or plasma calcium tameka urement (mass/volume)Ordered By: Jose Rafael Kat on 11-23-2024 Calcium [Mass/Vol] 9.2 mg/dL 7.6-11.0 [facility] Serum or plasma urea nitroge n measurement (mass/volume)Ordered By: Jose Rafael Kat on 11-23-2024 Urea nitrogen [Mass/Vol] 13 mg/dL 4-19 [facility] Sodium levelOrdered By: Jose Rafael Kat on 11-23-2024 Sodium [Moles/Vol] 136 mmol/L 133-145 [facility] Total proteinOrdered By: Devaughn Kat on 11-23-2024 Protein [Mass/Vol] 7.1 g/dL 5.9-8.4 [facility] Magnetic resonance imaging r eportOrdered By: Cheyenne Daily on 11-11-2024 Study report [facility] [address] [place] [address] Spine Lumbar (Routine) MR#: [id number] Acct: [id number] Name: MARGOT VASQUEZ Rep #: [id number] : 1940 F 84 From: Dayday Daily MD PCP: Dr. Jose Rafael Kat MD Status: RE G CLI Study:Spine Lumbar (Routine) Date of Exam: 11/08/24 Exam# [id number] Ordering Dr: Jose Rafael Kat MD PROCEDURE: SPINE LUMBAR (ROUTINE) 11/08/2024 REASON FOR EXAM: LEG WEAKNESS TECHNIQUE: Multiplanar and multisequence images were obtained without IV contrast administration. Axial and sagittal T1 and T2 weighted images were obtained. Fat suppressed images were also obtained. COMPARISON: None. FINDINGS: Mildly heterogeneous signal intensity of the visualized bone marrow, probably osteopenia. Moderate diffuse spondylosis. Exaggerated lumbar lordosis. Mildly increased kyphosis at the level of the thoracolumbar junction. There is normal signal intensity from the visualized bone marrow without evidence of replacement or acute fracture. The conus is unremarkable. T12-L1 : Moderate diffuse disc bulge. Superimposed central disc extrusion measuring 6.4 mm. The spinal canal is mildly narrowed. Mild bilateral neural foraminal narrowing. L1-2: Mild diffuse disc bulge. Bilateral facet joint arthropathy and ligamentumflavum hypertrophy. The spinal canal is not narrowed. Mild bilateral neural foramina narrowing. L2-3: Grade 1 retrolisthesis measuring 5.6 mm. Moderate diffuse disc bulge. Bilateral facet joint arthropathy and ligamentum flavum hypertrophy. The spinal canal is mildly narrowed. Moderate bilateral neural foramina narrowing. L3-4: Grade 1 retrolisthesis measuring 3.5 mm. Moderate diffuse disc bulge. Bilateral facet joint arthropathy and ligamentum flavum hypertrophy. The spinal canal is mildly narrowed. Moderate bilateral neural foramina narrowing. L4-5: Grade 1 retrolisthesis measuring 3.2 mm. Moderate diffuse disc bulge. Bilateral facet joint arthropathy and ligamentum flavum hypertrophy. The spinal canal is mildly narrowed. Moderate right and mild left neural foramina narrowing. L5-S1: Grade 1 retrolisthesis measuring 3.3 mm. Moderate diffuse disc bulge. Bilateral facet joint arthropathy and ligamentum flavum hypertrophy. Moderate right and mild left neural foraminal narrowing. Bilateral prominent extrarenal pelves. MRI/Spine Lumbar (Routine) IMPRESSION: Spondylosis. Degenerative disc disease. Reading Location: [place] [address] CC: Dr. Jose Rafael Kat MD ~ Satellite Tv Technician Installer: Signed [facility] Brain without Contraston Brain without Contrast [facility] [address] [place] [address] Brain without Contrast MR#: [id number] Acct: [id number] Name: MARGOT VASQUEZ Rep #: [id number] : 1940 F 84 From: Emanuel stroud MD PCP: Dr. Jose Rafael Kat MD Status: REG CLI Study: Brain without Contrast Date of Exam: 11/08/24 Exam# [id number] Ordering Dr: Jose Rafael Kat MD PROCEDURE: BRAIN WITHOUT CONTRAST 11/08/2024 REASON FOR EXAM: LEG WEAKNESS TECHNIQUE: Noncontrast brain MRI. Multiplanar and multisequence images were obtained. COMPARISON: None FINDINGS: BRAIN/PARENCHYMA: No evidence of acute infarction or acute intracranial hemorrhage. There are subcortical and periventricular white matter FLAIR hyperintensities, likely related to chronic microvascular ischemic disease. No abnormal post-contrast enhancement. EXTRA-AXIAL SPACES: No abnormal extra-axial fluid collections. Patent basal cisterns and foramen magnum. MIDLINE SHIFT: None. VENTRICLES: No hydrocephalus. SCALP SOFT TISSUES CALVARIUM: No significant abnormality. VISUALIZED SINUSES MASTOIDS: No air-fluid levels in the paranasal sinuses. The mastoid air cells are clear. ARTERIAL FLOW VOIDS: Preserved major arterial flow voids indicating gross patency. MRI/Brain without Contrast IMPRESSION: No acute intracranial abnormality; no acute infarct, intracranial hemorrhage or extra-axial collection. Chronic microvascular ischemia and involutional changes. Reading Location: [facility] CC: Dr. Jose Rafael Kat MD Satellite Tv Technician Installer: Signed Normal [facility] Magnetic resonance imaging r eportOrdered By: Emanuel Manuel on 11-08-2024 Study report [facility] [address] [place], [place] [id number] Brain without Contrast MR#: [id number] Acct: [id number] Name: MARGOT VASQUEZ Rep #: [id number] : 1940 F 84 From: Meg Manuel MD PCP: Dr. Jose Rafael Kat MD Status: RE G CLI Study:Brain without Contrast Date of Exam: 11/08/24 Exam# [id number] Ordering Dr: Jose Rafael Kat MD PROCEDURE: BRAIN WITHOUT CONTRAST 11/08/2024 REASON FOR EXAM: LEG WEAKNESS TECHNIQUE: Noncontrast brain MRI. Multiplanar and multisequence images were obtained. COMPARISON: None FINDINGS: BRAIN/PARENCHYMA: No evidence of acute infarction or acute intracranial hemorrhage. There are subcortical and periventricular white matter FLAIR hyperintensities, likely related to chronic microvascular ischemic disease. No abnormal post-contrast enhancement. EXTRA-AXIAL SPACES: No abnormal extra-axial fluid collections. Patent basal cisterns and foramen magnum. MIDLINE SHIFT: None. VENTRICLES: No hydrocephalus. SCALP SOFT TISSUES & CALVARIUM: No significant abnormality. VISUALIZED SINUSES & MASTOIDS: No air-fluid levels in the paranasal sinuses. Themastoid air cells are clear. ARTERIAL FLOW VOIDS: Preserved major arterial flow voids indicating gross patency. MRI/Brain without Contrast IMPRESSION: No acute intracranial abnormality; no acute infarct, intracranial hemorrhage or extra-axial collection. Chronic microvascular ischemia and involutional changes. Reading Location: [facility] CC: Dr. Jose Rafael Kat MD ~ Satellite Tv Technician Installer: Signed [facility] Spine Lumbar (Routine)on Spine Lumbar (Routine) [facility] [address] [place] [address] Spine Lumbar (Routine) MR#: [id number] Acct: [id number] Name: MARGOT VASQUEZ Rep #: [id number] : 1940 F 84 From: Cheyenne barroso MD PCP: Dr. Jose Rafael Kat MD Status: REG CLI Study: Spine Lumbar (Routine) Date of Exam: 11/08/24 Exam# [id number] Ordering Dr: Jose Rafael Kat MD PROCEDURE: SPINE LUMBAR (ROUTINE) 11/08/2024 REASON FOR EXAM: LEG WEAKNESS TECHNIQUE: Multiplanar and multisequence images were obtained without IV contrast administration. Axial and sagittal T1 and T2 weighted images were obtained. Fat suppressed images were also obtained. COMPARISON: None. FINDINGS: Mildly heterogeneous signal intensity of the visualized bone marrow, probably osteopenia. Moderate diffuse spondylosis. Exaggerated lumbar lordosis. Mildly increased kyphosis at the level of the thoracolumbar junction. There is normal signal intensity from the visualized bone marrow without evidence of replacement or acute fracture. The conus is unremarkable. T12-L1 : Moderate diffuse disc bulge. Superimposed central disc extrusion measuring 6.4 mm. The spinal canal is mildly narrowed. Mild bilateral neural foraminal narrowing. L1-2: Mild diffuse disc bulge. Bilateral facet joint arthropathy and ligamentum flavum hypertrophy. The spinal canal is not narrowed. Mild bilateral neural foramina narrowing. L2-3: Grade 1 retrolisthesis measuring 5.6 mm. Moderate diffuse disc bulge. Bilateral facet joint arthropathy and ligamentum flavum hypertrophy. The spinal canal is mildly narrowed. Moderate bilateral neural foramina narrowing. L3-4: Grade 1 retrolisthesis measuring 3.5 mm. Moderate diffuse disc bulge. Bilateral facet joint arthropathy and ligamentum flavum hypertrophy. The spinal canal is mildly narrowed. Moderate bilateral neural foramina narrowing. L4-5: Grade 1 retrolisthesis measuring 3.2 mm. Moderate diffuse disc bulge. Bilateral facet joint arthropathy and ligamentum flavum hypertrophy. The spinal canal is mildly narrowed. Moderate right and mild left neural foramina narrowing. L5-S1: Grade 1 retrolisthesis measuring 3.3 mm. Moderate diffuse disc bulge. Bilateral facet joint arthropathy and ligamentum flavum hypertrophy. Moderate right and mild left neural foraminal narrowing. Bilateral prominent extrarenal pelves. MRI/Spine Lumbar (Routine) IMPRESSION: Spondylosis. Degenerative disc disease. Reading Location: [place] [address] CC: Dr. Jose Rafael Kat MD Satellite Tv Technician Installer: Signed Normal [facility] Absolute lymphocyte countOrd ered By: Jose Rafael Kat on 09-26-2024 Lymphocytes Auto (Unsp spec) [#/Vol] 0.91 10*3/uL 0.83-4.51 [facility] Absolute neutrophil countOrd ered By: Jose Rafael Kat on 09-26-2024 Neutrophils (Bld) [#/Vol] 3.5 10*3/uL 2.0-7.7 [facility] Albumin DL <= 20 mg/L (U) [M ass/Vol]Ordered By: Jose Rafael Kat on 09-26-2024 Urine Random Microalbumin < 12.0 mg/L NO RANGE EST. [facility] Anion gap in Serum or Plasma Ordered By: Jose Rafael Kat on 09-26-2024 Anion gap [Moles/Vol] 13 mmol/L 5-15 [facility] Automated lymphocyte count a s percentage of total leukocytesOrdered By: Jose Rafael Kat on 09-26-2024 Lymphocytes/100 WBC Auto (Unsp spec) 17.9 % Low 19-41 [facility] BUN/creatinine ratioOrdered By: Jose Rafael Kat on 09-26-2024 Urea nitrogen/Creatinine [Mass ratio] 13.8 mg/mg 10-20 [facility] Basophil percentageOrdered B y: Jose Rafael Kat on 09-26-2024 Basophils/100 WBC (Bld) 1.0 % 0-1 [facility] Bilirubin, totalOrdered By: Jose Rafael aKt on 09-26-2024 Bilirubin [Mass/Vol] 0.52 mg/dL 0.00-1.30 [facility] CBC W/Diff, Automatedon 09-02 Absolute Lymph 0.91 X10 3/uL Normal 0.83-4.51 [facility] Comment on above: Order Comment: Order Date: 09/25/24Order Info: 0184-1 - CBCD Performed By: #### L 502.0250, L500.4050, L500.4100, L100.0100, L501.9985 ####[facility] [address] [place], [address] Absolute Neut 3.5 X10 3/uL Normal 2.0-7.7 [facility] Comment on above: Order Comment: Order Date: 09/25/24Order Info: 0184-1 - CBCD Performed By: #### L 502.0250, L500.4050, L500.4100, L100.0100, L501.9985 ####[facility] [address] [place], [address] Basophils/100 WBC (Bld) 1.0 % Normal 0-1 [facility] Comment on above: Order Comment: Order Date: 09/25/24Order Info: 0184-1 - CBCD Performed By: #### L 502.0250, L500.4050, L500.4100, L100.0100, L501.9985 ####[facility] [address] [place], [address] Eosinophils/100 WBC (Bld) 3.2 % Normal 0-5 [facility] Comment on above: Order Comment: Order Date: 09/25/24Order Info: 0184-1 - CBCD Performed By: #### L 502.0250, L500.4050, L500.4100, L100.0100, L501.9985 ####[facility] [address] [place], [address] Erythrocyte distribution width (RBC) [Ratio] 13.2 % Normal 11.6-14.6 [facility] Comment on above: Order Comment: Order Date: 09/25/24Order Info: 0184-1 - CBCD Performed By: #### L 502.0250, L500.4050, L500.4100, L100.0100, L501.9985 ####[facility] [address] [place], [address] Hematocrit (Bld) [Volume fraction] 35.8 % Low 37-47 [facility] Comment on above: Order Comment: Order Date: 09/25/24Order Info: 0184-1 - CBCD Performed By: #### L 502.0250, L500.4050, L500.4100, L100.0100, L501.9985 ####[facility] [address] [place], [address] Hemoglobin (Bld) [Mass/Vol] 12.1 g/dL Normal 12.0-15.0 [facility] Comment on above: Order Comment: Order Date: 09/25/24Order Info: 0184-1 - CBCD Performed By: #### L 502.0250, L500.4050, L500.4100, L100.0100, L501.9985 ####[facility] [address] [place], [address] IG% 0.200 Normal 0.0-0.9 [facility] Comment on above: Order Comment: Order Date: 09/25/24Order Info: 0184-1 - CBCD Result Comment: IG% - Immature Granulocytes (promyelocytes, myelocytes and metamyelocytes) > 1% indicates that a LEFT SHIFT is Present. Performed By: #### L 502.0250, L500.4050, L500.4100, L100.0100, L501.9985 ####[facility] [address] [place], [address] Lymphocytes/100 WBC (Bld) 17.9 % Low 19-41 [facility] Comment on above: Order Comment: Order Date: 09/25/24Order Info: 0184-1 - CBCD Performed By: #### L 502.0250, L500.4050, L500.4100, L100.0100, L501.9985 ####[facility] [address] [place], [address] MCH (RBC) [Entitic mass] 29.4 pg Normal 27.0-32.0 [facility] Comment on above: Order Comment: Order Date: 09/25/24Order Info: 0184-1 - CBCD Performed By: #### L 502.0250, L500.4050, L500.4100, L100.0100, L501.9985 ####[facility] [address] [place], [address] MCHC (RBC) [Mass/Vol] 33.8 g/dL Normal 32-36 [facility] Comment on above: Order Comment: Order Date: 09/25/24Order Info: 0184-1 - CBCD Performed By: #### L 502.0250, L500.4050, L500.4100, L100.0100, L501.9985 ####[facility] [address] [place], [address] MCV (RBC) [Entitic vol] 87.1 fL Normal 81-99 [facility] Comment on above: Order Comment: Order Date: 09/25/24Order Info: 0184-1 - CBCD Performed By: #### L 502.0250, L500.4050, L500.4100, L100.0100, L501.9985 ####[facility] [address] [facility] [place], [address] Monocytes/100 WBC (Bld) 8.7 % Normal 0-10 [facility] Comment on above: Order Comment: Order Date: 09/25/24Order Info: 0184-1 - CBCD Performed By: #### L 502.0250, L500.4050, L500.4100, L100.0100, L501.9985 ####[facility] [address] [place], [address] Neutrophils/100 WBC (Bld) 69.0 % Normal 47-70 [facility] Comment on above: Order Comment: Order Date: 09/25/24Order Info: 0184-1 - CBCD Performed By: #### L 502.0250, L500.4050, L500.4100, L100.0100, L501.9985 ####[facility] [address] [place], [address] Nucleated RBC (Bld) [#/Vol] 0 10*3/uL Normal 0-5 [facility] Comment on above: Order Comment: Order Date: 09/25/24Order Info: 0184-1 - CBCD Performed By: #### L 502.0250, L500.4050, L500.4100, L100.0100, L501.9985 ####[facility] [address] [place], [address] Platelet mean volume (Bld) [Entitic vol] 9.7 fL Normal 6.2-12.0 [facility] Comment on above: Order Comment: Order Date: 09/25/24Order Info: 0184-1 - CBCD Performed By: #### L 502.0250, L500.4050, L500.4100, L100.0100, L501.9985 ####[facility] [address] [place], [address] Platelets (Bld) [#/Vol] 409 10*3/uL Normal 150-450 [facility] Comment on above: Order Comment: Order Date: 09/25/24Order Info: 0184-1 - CBCD Performed By: #### L 502.0250, L500.4050, L500.4100, L100.0100, L501.9985 ####[facility] [address] [place], [address] RBC (Bld) [#/Vol] 4.11 10*6/uL Low 4.2-5.4 [facility] Comment on above: Order Comment: Order Date: 09/25/24Order Info: 0184-1 - CBCD Performed By: #### L 502.0250, L500.4050, L500.4100, L100.0100, L501.9985 ####[facility] [address] [place], [place], [address] RDW SD 41.7 fl Normal 35.1-43.9 [facility] Comment on above: Order Comment: Order Date: 09/25/24Order Info: 0184-1 - CBCD Performed By: #### L 502.0250, L500.4050, L500.4100, L100.0100, L501.9985 ####[facility] [address] [place], [place], [address] WBC (Bld) [#/Vol] 5.1 10*3/uL Normal 4.4-11.0 [facility] Comment on above: Order Comment: Order Date: 09/25/24Order Info: 0184-1 - CBCD Performed By: #### L 502.0250, L500.4050, L500.4100, L100.0100, L501.9985 ####[facility] [address] [facility] [place], [place], [address] Calculated very low density lipoprotein (VLDL) cholesterol measurementOrdered By: Jose Rafael Kat on 09-26-2024 Calculated very low density lipoprotein (VLDL) cholesterol measurement 13 mg/dL 5-40 [facility] VLDL Cholesterol 13 mg/dL -40 [facility] Carbon dioxide, total [Moles /volume] in Central venous bloodOrdered By: Jose Rafael Kat on 09-26-2024 CO2 [Moles/Vol] 23.2 mmol/L 21.0-32.0 [facility] Chloride assayOrdered By: Ashtyn Kat on 09-26-2024 Chloride [Moles/Vol] 99 mmol/L 98-108 [facility] Comprehensive Metabolic Prof ilon 09-26-2024 Albumin [Mass/Vol] 4.3 g/dL Normal 3.4-4.8 [facility] Comment on above: Order Comment: Order Date: 09/25/24Order Info: 0786-1 - CMPOrder Info: [id number] - LIPID Performed By: #### L 502.0250, L500.4050, L500.4100, L100.0100, L501.9985 ####[facility] [address] [place], [address] Albumin/Globulin [Mass ratio] 1.8 {ratio} Normal 0.9-2.4 [facility] Comment on above: Order Comment: Order Date: 09/25/24Order Info: 0786-1 - CMPOrder Info: [id number] - LIPID Performed By: #### L 502.0250, L500.4050, L500.4100, L100.0100, L501.9985 ####[facility] [facility] [address] [place], [address] ALK PHOS 84 U/L Normal 35-104 [facility] Comment on above: Order Comment: Order Date: 09/25/24Order Info: [id number] - CMPOrder Info: [id number] - LIPID Performed By: #### L 502.0250, L500.4050, L500.4100, L100.0100, L501.9985 ####[facility] [address] [place], [address] ALT [Catalytic activity/Vol] 20 U/L Normal <=34 [facility] Comment on above: Order Comment: Order Date: 09/25/24Order Info: [id number] - CMPOrder Info: [id number] - LIPID Performed By: #### L 502.0250, L500.4050, L500.4100, L100.0100, L501.9985 ####[facility] [address] [place], [address] AST [Catalytic activity/Vol] 22 U/L Normal <=31 [facility] Comment on above: Order Comment: Order Date: 09/25/24Order Info: [id number] - CMPOrder Info: [id number] - LIPID Performed By: #### L 502.0250, L500.4050, L500.4100, L100.0100, L501.9985 ####[facility] [address] [place], [address] Bilirubin [Mass/Vol] 0.52 mg/dL Normal 0.00-1.30 [facility] Comment on above: Order Comment: Order Date: 09/25/24Order Info: [id number] - CMPOrder Info: [id number] - LIPID Performed By: #### L 502.0250, L500.4050, L500.4100, L100.0100, L501.9985 ####[facility] [address] [place], [address] BUN/CRE 13.8 RATIO Normal 10-20 [facility] Comment on above: Order Comment: Order Date: 09/25/24Order Info: [id number] - CMPOrder Info: [id number] - LIPID Performed By: #### L 502.0250, L500.4050, L500.4100, L100.0100, L501.9985 ####[facility] [address] [place], [address] Calcium [Mass/Vol] 9.6 mg/dL Normal 7.6-11.0 [facility] Comment on above: Order Comment: Order Date: 09/25/24Order Info: [id number] - CMPOrder Info: [id number] - LIPID Performed By: #### L 502.0250, L500.4050, L500.4100, L100.0100, L501.9985 ####[facility] [address] [place], [address] Chloride [Moles/Vol] 99 mmol/L Normal 98-108 [facility] Comment on above: Order Comment: Order Date: 09/25/24Order Info: [id number] - CMPOrder Info: [id number] - LIPID Performed By: #### L 502.0250, L500.4050, L500.4100, L100.0100, L501.9985 ####[facility] [address] [place], [address] CO2 [Moles/Vol] 23.2 mmol/L Normal 21.0-32.0 [facility] Comment on above: Order Comment: Order Date: 09/25/24Order Info: [id number] - CMPOrder Info: [id number] - LIPID Performed By: #### L 502.0250, L500.4050, L500.4100, L100.0100, L501.9985 ####[facility] [address] [place], [place], [address] Creatinine [Mass/Vol] 1.17 mg/dL Normal 0.70-1.20 [facility] Comment on above: Order Comment: Order Date: 09/25/24Order Info: [id number] - CMPOrder Info: [id number] - LIPID Performed By: #### L 502.0250, L500.4050, L500.4100, L100.0100, L501.9985 ####[facility] [address] [place], [place], [address] GAP 13 Normal 5-15 [facility] Comment on above: Order Comment: Order Date: 09/25/24Order Info: [id number] - CMPOrder Info: [id number] - LIPID Performed By: #### L 502.0250, L500.4050, L500.4100, L100.0100, L501.9985 ####[facility] [address] [place], [place], [address] GFR/1.73 sq M.predicted among non-blacks MDRD (S/P/Bld) [Vol rate/Area] 47 mL/min/{1.73_m2} Low >60 [facility] Comment on above: Order Comment: Order Date: 09/25/24Order Info: [id number] - CMPOrder Info: [id number] - LIPID Result Comment: mL/m in/1.73m2 CKD-EPI Creatinine Equation (2020) Performed By: #### L 502.0250, L500.4050, L500.4100, L100.0100, L501.9985 ####[facility] [address] [place], [address] Globulin (S) [Mass/Vol] 2.4 g/dL Normal 2.2-4.2 [facility] Comment on above: Order Comment: Order Date: 09/25/24Order Info: [id number] - CMPOrder Info: [id number] - LIPID Performed By: #### L 502.0250, L500.4050, L500.4100, L100.0100, L501.9985 ####[facility] [address] [place], [address] Glucose [Mass/Vol] 145 mg/dL High 70-99 [facility] Comment on above: Order Comment: Order Date: 09/25/24Order Info: [id number] - CMPOrder Info: [id number] - LIPID Performed By: #### L 502.0250, L500.4050, L500.4100, L100.0100, L501.9985 ####[facility] [address] [facility] [place], [address] Potassium [Moles/Vol] 4.3 mmol/L Normal 3.3-5.1 [facility] Comment on above: Order Comment: Order Date: 09/25/24Order Info: [id number] - CMPOrder Info: [id number] - LIPID Performed By: #### L 502.0250, L500.4050, L500.4100, L100.0100, L501.9985 ####[facility] [address] [place] [place], [address] Sodium [Moles/Vol] 135 mmol/L Normal 133-145 [facility] Comment on above: Order Comment: Order Date: 09/25/24Order Info: [id number] - CMPOrder Info: [id number] - LIPID Performed By: #### L 502.0250, L500.4050, L500.4100, L100.0100, L501.9985 ####[facility] [address] [place], [place], [address] T PROT 6.8 g/dL Normal 5.9-8.4 [facility] Comment on above: Order Comment: Order Date: 09/25/24Order Info: [id number] - CMPOrder Info: [id number] - LIPID Performed By: #### L 502.0250, L500.4050, L500.4100, L100.0100, L501.9985 ####[facility] [address] [place], [place], [address] Urea nitrogen [Mass/Vol] 16 mg/dL Normal 4-19 [facility] Comment on above: Order Comment: Order Date: 09/25/24Order Info: [id number] - CMPOrder Info: [id number] - LIPID Performed By: #### L 502.0250, L500.4050, L500.4100, L100.0100, L501.9985 ####[facility] [address] [place], [place], [address] Creatinine Unsp time (U) [Ma ss/Vol]Ordered By: Jose Rafael Kat on 09-26-2024 Creatinine (U) [Mass/Vol] 31.50 mg/dL 28.00-217.00 [facility] Eosinophil percentageOrdered By: Jose Rafael Kat on 09-26-2024 Eosinophils/100 WBC (Bld) 3.2 % 0-5 [facility] Erythrocyte distribution wid th ratioOrdered By: Jose Rafael Kat on 09-26-2024 Erythrocyte distribution width (RBC) [Ratio] 13.2 % 11.6-14.6 [facility] Erythrocyte distribution wid th standard deviationOrdered By: Jose Rafael Kat on 09-26-2024 Erythrocyte distribution width (RBC) [Entitic vol] 41.7 fL 35.1-43.9 [facility] Erythrocyte distribution width (RBC) [Ratio] 41.7 fl 35.1-43.9 [facility] GFR/1.73 sq M.predicted portia g non-blacks MDRD (S/P/Bld) [Vol rate/Area]Ordered By: Jose Rafael Kat on 09-26-2024 Estimated GFR (MDRD) Non-Af Amer 47 Low >60 [facility] Comment on above: mL/min/1.73m2 CKD-EP I Creatinine Equation (2020) Glomerular filtration rate ( GFR) estimation/1.73 sq m using serum, plasma, or whole bOrdered By: Jose Rafael Kat on 09-26-2024 GFR/1.73 sq M.predicted among non-blacks MDRD (S/P/Bld) [Vol rate/Area] 47 mL/min/{1.73_m2} Low >60 [facility] Comment on above: mL/min/1.73m2 CKD-EP I Creatinine Equation (2020) Hematocrit Auto (Bld) [Volum e fraction]Ordered By: Jose Rafael Kat on 09-26-2024 Hematocrit (Bld) [Volume fraction] 35.8 % Low 37-47 [facility] Hemoglobin A1con 09-26-2024 HbA1c (Bld) [Mass fraction] 9.8 % Normal <=5.6 [facility] Comment on above: Order Comment: Order Date: 09/25/24Order Info: [id number] - A1C Performed By: #### L 502.0250, L500.4050, L500.4100, L100.0100, L501.9985 ####[facility] [address] [place], [address] Hemoglobin A1c percentageOrd ered By: Jose Rafael Kat on 09-26-2024 HbA1c (Bld) [Mass fraction] 9.8 % >5.7 [facility] Hemoglobin measurementOrdere d By: Jose Rafael Kat on 09-26-2024 Hemoglobin (Bld) [Mass/Vol] 12.1 g/dL 12.0-15.0 [facility] Immature granulocytes/100 WB C Auto (Bld)Ordered By: Jose Rafael Kat on 09-26-2024 Immature granulocytes/100 WBC (Bld) 0.200 % 0.0-0.9 [facility] Comment on above: IG% - Immature Granu locytes (promyelocytes, myelocytes and metamyelocytes) > 1% indicates that a LEFT SHIFT is Present. L506.1001on 03-26-2025 Vitamin D 25-OH 83.8 ng/mL Normal 30-100 [facility] Comment on above: Order Comment: Order Date: 09/25/24 Order Info: [id number] - CMP Order Info: [id number] - LIPID Result Comment: Eileen min D Status Deficiency: <20 ng/mL (50nmol/L) Insufficiency: 20-30 ng/mL (50-75 nmol/L) Sufficiency: 30-100 ng/mL (75-250 nmol/L) Toxicity: >100 ng/mL (>250 nmol/L) Performed By: #### L 506.1001 #### [facility] [address] [place], [place], [address] LDL calc ser/plasOrdered By: Jose Rafael Kat on 09-26-2024 Cholesterol in LDL [Mass/Vol] 67 mg/dL [facility] Comment on above: Jddzqgpxar=224-093 m g/dL & Higher Vove=773 mg/dL or greater LDL Cholesterol, Calculated 67 mg/dL [facility] Comment on above: Ztwawomhsr=690-849 m g/dL & Higher Yxzc=257 mg/dL or greater Laboratory - Chemistry and C hemistry - challengeOrdered By: Jose Rafael Kat on 09-26-2024 AST [Catalytic activity/Vol] 22 U/L <32 [facility] Lipid Profileon 09-26-2024 CHOL:HDL 1.90 Normal [facility] Comment on above: Order Comment: Order Date: 09/25/24Order Info: [id number] - CMPOrder Info: [id number] - LIPID Performed By: #### L 502.0250, L500.4050, L500.4100, L100.0100, L501.9985 ####[facility] [address] [place], [address] Cholesterol [Mass/Vol] 169 mg/dL Normal <=200 [facility] Comment on above: Order Comment: Order Date: 09/25/24Order Info: [id number] - CMPOrder Info: [id number] - LIPID Result Comment: Chol esterol level, Desirable <200 mg/dL Borderline high cholesterol 200-239 mg/dL High cholesterol >=240 mg/dL Recommendations of the NCEP Adult Treatment Panel for the following risk-cutoff thresholds for the [place] population. Performed By: #### L 502.0250, L500.4050, L500.4100, L100.0100, L501.9985 ####[facility] [address] [place], [address] Cholesterol in HDL [Mass/Vol] 89 mg/dL Normal [facility] Comment on above: Order Comment: Order Date: 09/25/24Order Info: [id number] - CMPOrder Info: [id number] - LIPID Result Comment: Ivon onal Cholesterol Education Program (NCEP) guidelines: <40 mg/dL: Low HDL-cholesterol (major risk factor for CHD) >= 60 mg/dL: High HDL-cholesterol (negative risk factor for CHD) HDL-cholesterol is affected by a number of factors, e.g. smoking, exercise, hormones, sex and age. Performed By: #### L 502.0250, L500.4050, L500.4100, L100.0100, L501.9985 ####[facility] [address] [place], [address] Cholesterol in LDL [Mass/Vol] 67 mg/dL Normal [facility] Comment on above: Order Comment: Order Date: 09/25/24Order Info: [id number] - CMPOrder Info: [id number] - LIPID Result Comment: Bord pcmrgl=550-788 mg/dL Higher Yaxd=059 mg/dL or greater Performed By: #### L 502.0250, L500.4050, L500.4100, L100.0100, L501.9985 ####[facility] [address] [place], [address] Cholesterol in VLDL [Mass/Vol] 13 mg/dL Normal 5-40 [facility] Comment on above: Order Comment: Order Date: 09/25/24Order Info: [id number] - CMPOrder Info: [id number] - LIPID Performed By: #### L 502.0250, L500.4050, L500.4100, L100.0100, L501.9985 ####[facility] [address] [place], [address] Triglyceride [Mass/Vol] 64 mg/dL Normal [facility] Comment on above: Order Comment: Order Date: 09/25/24Order Info: [id number] - CMPOrder Info: [id number] - LIPID Result Comment: The drugs N-Acetylcysteine and Metamizole may falsely depress this assay. Normal range: <150 mg/dL Borderline High: 150-199 mg/dL High: 200-499 mg/dL Very High: >500 mg/dL Performed By: #### L 502.0250, L500.4050, L500.4100, L100.0100, L501.9985 ####[facility] [address] [place], [address] Lymphocytes Auto (Unsp spec) [#/Vol]Ordered By: Jose Rafael Kat on 09-26-2024 Lymphocytes (Bld) [#/Vol] 0.91 10*3/uL 0.83-4.51 [facility] Lymphocytes/100 WBC Auto (Un sp spec)Ordered By: Jose Rafael Kat on 09-26-2024 Lymphocytes/100 WBC (Bld) 17.9 % Low 19-41 [facility] MCV (mean corpuscular volume ) determinationOrdered By: Jose Rafael Kat on 09-26-2024 MCV (RBC) [Entitic vol] 87.1 fL 81-99 [facility] Mean corpuscular hemoglobin (MCH) determinationOrdered By: Jose Rafael Kat on 09-26-2024 MCH (RBC) [Entitic mass] 29.4 pg 27.0-32.0 [facility] Mean corpuscular hemoglobin concentration (MCHC) determinationOrdered By: Jose Rafael Kat on 09-26-2024 MCHC (RBC) [Mass/Vol] 33.8 g/dL 32-36 [facility] Mean platelet volume determi nationOrdered By: Jose Rafael Kat on 09-26-2024 Platelet mean volume (Bld) [Entitic vol] 9.7 fL 6.2-12.0 [facility] Microalb:Creat Ratio,Random URon 09-26-2024 Creatinine [Mass/Vol] 31.50 mg/dL Normal 28.00-217.00 [facility] Comment on above: Order Comment: Order Date: 09/25/24Order Info: [id number] - MIACREOrder Info: [id number] - MIALB Performed By: #### L 502.0250, L500.4050, L500.4100, L100.0100, L501.9985 ####[facility] [address] [place], [place], [address] MALB:CREAT UNABLE TO CALCULATE Normal [facility] Comment on above: Order Comment: Order Date: 09/25/24Order Info: [id number] - MIACREOrder Info: [id number] - MIALB Performed By: #### L 502.0250, L500.4050, L500.4100, L100.0100, L501.9985 ####[facility] [address] [place], [place], [address] MICROALBUMIN,UR < 12.0 Normal NO RANGE EST. [facility] Comment on above: Order Comment: Order Date: 09/25/24Order Info: [id number] - MIACREOrder Info: [id number] - MIALB Performed By: #### L 502.0250, L500.4050, L500.4100, L100.0100, L501.9985 ####[facility] [address] [place], [place], [address] Microalbumin/creat ratio urO rdered By: Jose Rafael Kat on 09-26-2024 Urine Microalbumin/Creatinine Ratio UNABLE TO CALCULATE mg/g CRE [facility] Urine microalbumin/creatinine ratio measurement UNABLE TO CALCULATE mg/g CRE [facility] Monocyte percentageOrdered B y: Jose Rafael Kat on 09-26-2024 Monocytes/100 WBC (Bld) 8.7 % 0-10 [facility] Neutrophil percentageOrdered By: Jose Rafael Kat on 09-26-2024 Neutrophils/100 WBC (Bld) 69.0 % 47-70 [facility] Nucleated red blood cell per centageOrdered By: Jose Rafael Kat on 09-26-2024 Nucleated RBC/100 WBC (Bld) [Ratio] 0 % 0-5 [facility] Platelet countOrdered By: Ashtyn Kat on 09-26-2024 Platelets (Bld) [#/Vol] 409 10*3/uL 150-450 [facility] Potassium (Unsp spec) [Mass/ Vol]Ordered By: Jose Rafael Kat on 09-26-2024 Potassium [Moles/Vol] 4.3 mmol/L 3.3-5.1 [facility] Potassium measurement (mass/ volume)Ordered By: Jose Rafael Kat on 09-26-2024 Potassium (Unsp spec) [Mass/Vol] 4.3 mmol/L 3.3-5.1 [facility] RBC Auto (Bld) [#/Vol]Ordere d By: Jose Rafael Kat on 09-26-2024 RBC (Bld) [#/Vol] 4.11 10*6/uL Low 4.2-5.4 [facility] Random urine creatinine tameka urement (mass/volume)Ordered By: Jose Rafael Kat on 09-26-2024 Creatinine Unsp time (U) [Mass/Vol] 31.50 mg/dL 28.00-217.00 [facility] Screening total cholesterol/ high density lipoprotein (HDL) cholesterol ratioOrdered By: Jose Rafael Kat on 09-26-2024 Cholesterol.total/Choles terol in HDL [Mass ratio] 1.90 {ratio} [facility] Serum creatinine measurement (mass/volume)Ordered By: Jose Rafael Kat on 09-26-2024 Creatinine [Mass/Vol] 1.17 mg/dL 0.70-1.20 [facility] Serum globulin measurementOr dered By: Jose Rafael Kat on 09-26-2024 Globulin (S) [Mass/Vol] 2.4 g/dL 2.2-4.2 [facility] Serum glucose measurement (m ass/volume)Ordered By: Jose Rafael Kat on 09-26-2024 Glucose [Mass/Vol] 145 mg/dL High 70-99 [facility] Serum or plasma alanine frazier otransferase (ALT) measurementOrdered By: Jose Rafael Kat on 09-26-2024 ALT [Catalytic activity/Vol] 20 U/L <35 [facility] Serum or plasma albumin tameka urement (mass/volume)Ordered By: Jose Rafael Kat on 09-26-2024 Albumin [Mass/Vol] 4.3 g/dL 3.4-4.8 [facility] Serum or plasma albumin/glob ulin mass ratioOrdered By: Jose Rafael Kat on 09-26-2024 Albumin/Globulin [Mass ratio] 1.8 {ratio} 0.9-2.4 [facility] Serum or plasma alkaline kenroy sphatase measurementOrdered By: Jose Rafael Kat on 09-26-2024 ALP [Catalytic activity/Vol] 84 U/L 35-104 [facility] Serum or plasma calcium tameka urement (mass/volume)Ordered By: Jose Rafael Kat on 09-26-2024 Calcium [Mass/Vol] 9.6 mg/dL 7.6-11.0 [facility] Serum or plasma cholesterol in HDL measurement (mass/volume)Ordered By: Jose Rafael Kat on 09-26-2024 Cholesterol in HDL [Mass/Vol] 89 mg/dL >40 [facility] Comment on above: National Cholesterol Education Program (NCEP) guidelines:<40 mg/dL: Low HDL-cholesterol (major risk factor for CHD)>= 60 mg/dL: High HDL-cholesterol (negative risk factor for CHD)HDL-cholesterol is affected by a number of factors, e.g. smoking, exercise, hormones, sex and age. Serum or plasma cholesterol measurement (mass/volume)Ordered By: Jose Rafael Kat on 09-26-2024 Cholesterol [Mass/Vol] 169 mg/dL <201 [facility] Comment on above: Cholesterol level, D esirable <200 mg/dLBorderline high cholesterol 200-239 mg/dLHigh cholesterol >=240 mg/dLRecommendations of the NCEP Adult Treatment Panel for the following risk-cutoff thresholds for the [place] population. Serum or plasma urea nitroge n measurement (mass/volume)Ordered By: Jose Rafael Kat on 09-26-2024 Urea nitrogen [Mass/Vol] 16 mg/dL 4-19 [facility] Sodium levelOrdered By: Jose Rafael Kat on 09-26-2024 Sodium [Moles/Vol] 135 mmol/L 133-145 [facility] Total proteinOrdered By: Devaughn Kat on 09-26-2024 Protein [Mass/Vol] 6.8 g/dL 5.9-8.4 [facility] Triglycerides measurementOrd ered By: Jose Rafael Kat on 09-26-2024 Triglyceride [Mass/Vol] 64 mg/dL <199 [facility] Comment on above: The drugs N-Acetylcy steine and Metamizole may falsely depress this assay. Normal range: <150 mg/dLBorderline High: 150-199 mg/dLHigh: 200-499 mg/dLVery High: >500 mg/dL Urine albumin measurement wi detection limit of 20 mg/L or less (mass/volume)Ordered By: Jose Rafael Kat on 09-26-2024 Albumin DL <= 20 mg/L (U) [Mass/Vol] < 12.0 mg/L NO RANGE EST. [facility] Vitamin D, 25-hydroxyOrdered By: Jose Rafael Kat on 09-26-2024 Vitamin D 25-Hydroxy 83.8 ng/mL 30-100 [facility] Comment on above: Vitamin D StatusDefi ciency: <20 ng/mL (50nmol/L)Insufficiency: 20-30 ng/mL (50-75 nmol/L)Sufficiency: 30-100 ng/mL (75-250 nmol/L)Toxicity: >100 ng/mL (>250 nmol/L) White blood cell (WBC) count Ordered By: Jose Rafael Kat on 09-26-2024 WBC (Bld) [#/Vol] 5.1 10*3/uL 4.4-11.0 [facility] CBC W/Diff, Automatedon 05-04 Absolute Lymph 1.02 X10 3/uL Normal 0.83-4.51 [facility] Comment on above: Order Comment: Order Date: 05/17/24 Order Info: [id number] - CBCD Performed By: #### L 506.0250, L100.0100, L500.4050, L503.6150, L501.9985, L503.6075, L503.6550, L500.4100, L506.1000, L503.0105 #### [facility] [address] [place], [address] Absolute Neut 4.6 X10 3/uL Normal 2.0-7.7 [facility] Comment on above: Order Comment: Order Date: 05/17/24 Order Info: [id number] - CBCD Performed By: #### L 506.0250, L100.0100, L500.4050, L503.6150, L501.9985, L503.6075, L503.6550, L500.4100, L506.1000, L503.0105 #### [facility] [address] [place], [address] Basophils/100 WBC (Bld) 0.8 % Normal 0-1 [facility] Comment on above: Order Comment: Order Date: 05/17/24 Order Info: [id number] - CBCD Performed By: #### L 506.0250, L100.0100, L500.4050, L503.6150, L501.9985, L503.6075, L503.6550, L500.4100, L506.1000, L503.0105 #### [facility] [address] [place], [address] Eosinophils/100 WBC (Bld) 1.3 % Normal 0-5 [facility] Comment on above: Order Comment: Order Date: 05/17/24 Order Info: [id number] - CBCD Performed By: #### L 506.0250, L100.0100, L500.4050, L503.6150, L501.9985, L503.6075, L503.6550, L500.4100, L506.1000, L503.0105 #### [facility] [address] [place], [address] Erythrocyte distribution width (RBC) [Ratio] 13.2 % Normal 11.6-14.6 [facility] Comment on above: Order Comment: Order Date: 05/17/24 Order Info: [id number] - CBCD Performed By: #### L 506.0250, L100.0100, L500.4050, L503.6150, L501.9985, L503.6075, L503.6550, L500.4100, L506.1000, L503.0105 #### [facility] [address] [place], [address] Hematocrit (Bld) [Volume fraction] 38.6 % Normal 37-47 [facility] Comment on above: Order Comment: Order Date: 05/17/24 Order Info: [id number]- - CBCD Performed By: #### L 506.0250, L100.0100, L500.4050, L503.6150, L501.9985, L503.6075, L503.6550, L500.4100, L506.1000, L503.0105 #### [facility] [address] [place], [address] Hemoglobin (Bld) [Mass/Vol] 12.7 g/dL Normal 12.0-15.0 [facility] Comment on above: Order Comment: Order Date: 05/17/24 Order Info: [id number] - CBCD Performed By: #### L 506.0250, L100.0100, L500.4050, L503.6150, L501.9985, L503.6075, L503.6550, L500.4100, L506.1000, L503.0105 #### [facility] [address] [place], [address] IG% 0.500 Normal 0.0-0.9 [facility] Comment on above: Order Comment: Order Date: 05/17/24 Order Info: [id number] - CBCD Result Comment: IG% - Immature Granulocytes (promyelocytes, myelocytes and metamyelocytes) > 1% indicates that a LEFT SHIFT is Present. Performed By: #### L 506.0250, L100.0100, L500.4050, L503.6150, L501.9985, L503.6075, L503.6550, L500.4100, L506.1000, L503.0105 #### [facility] [address] [place], [address] Lymphocytes/100 WBC (Bld) 16.3 % Low 19-41 [facility] Comment on above: Order Comment: Order Date: 05/17/24 Order Info: [id number] - CBCD Performed By: #### L 506.0250, L100.0100, L500.4050, L503.6150, L501.9985, L503.6075, L503.6550, L500.4100, L506.1000, L503.0105 #### [facility] [address] [facility] [place], [address] MCH (RBC) [Entitic mass] 29.1 pg Normal 27.0-32.0 [facility] Comment on above: Order Comment: Order Date: 05/17/24 Order Info: [id number]- - CBCD Performed By: #### L 506.0250, L100.0100, L500.4050, L503.6150, L501.9985, L503.6075, L503.6550, L500.4100, L506.1000, L503.0105 #### [facility] [address] [facility] [place], [address] MCHC (RBC) [Mass/Vol] 32.9 g/dL Normal 32-36 [facility] Comment on above: Order Comment: Order Date: 05/17/24 Order Info: 0184-1 - CBCD Performed By: #### L 506.0250, L100.0100, L500.4050, L503.6150, L501.9985, L503.6075, L503.6550, L500.4100, L506.1000, L503.0105 #### [facility] [address] [place], [address] MCV (RBC) [Entitic vol] 88.5 fL Normal 81-99 [facility] Comment on above: Order Comment: Order Date: 05/17/24 Order Info: 0184-1 - CBCD Performed By: #### L 506.0250, L100.0100, L500.4050, L503.6150, L501.9985, L503.6075, L503.6550, L500.4100, L506.1000, L503.0105 #### [facility] [address] [place], [address] Monocytes/100 WBC (Bld) 8.2 % Normal 0-10 [facility] Comment on above: Order Comment: Order Date: 05/17/24 Order Info: 0184- - CBCD Performed By: #### L 506.0250, L100.0100, L500.4050, L503.6150, L501.9985, L503.6075, L503.6550, L500.4100, L506.1000, L503.0105 #### [facility] [address] [place], [address] Neutrophils/100 WBC (Bld) 72.9 % High 47-70 [facility] Comment on above: Order Comment: Order Date: 05/17/24 Order Info: 0184- - CBCD Performed By: #### L 506.0250, L100.0100, L500.4050, L503.6150, L501.9985, L503.6075, L503.6550, L500.4100, L506.1000, L503.0105 #### [facility] [address] [place], [address] Nucleated RBC (Bld) [#/Vol] 0 10*3/uL Normal 0-5 [facility] Comment on above: Order Comment: Order Date: 05/17/24 Order Info: 0184-1 - CBCD Performed By: #### L 506.0250, L100.0100, L500.4050, L503.6150, L501.9985, L503.6075, L503.6550, L500.4100, L506.1000, L503.0105 #### [facility] [address] [place], [address] Platelet mean volume (Bld) [Entitic vol] 9.9 fL Normal 6.2-12.0 [facility] Comment on above: Order Comment: Order Date: 05/17/24 Order Info: 0184-1 - CBCD Performed By: #### L 506.0250, L100.0100, L500.4050, L503.6150, L501.9985, L503.6075, L503.6550, L500.4100, L506.1000, L503.0105 #### [facility] [address] [place], [address] Platelets (Bld) [#/Vol] 420 10*3/uL Normal 150-450 [facility] Comment on above: Order Comment: Order Date: 05/17/24 Order Info: 0184-1 - CBCD Performed By: #### L 506.0250, L100.0100, L500.4050, L503.6150, L501.9985, L503.6075, L503.6550, L500.4100, L506.1000, L503.0105 #### [facility] [address], [address] RBC (Bld) [#/Vol] 4.36 10*6/uL Normal 4.2-5.4 [facility] Comment on above: Order Comment: Order Date: 05/17/24 Order Info: 0184-1 - CBCD Performed By: #### L 506.0250, L100.0100, L500.4050, L503.6150, L501.9985, L503.6075, L503.6550, L500.4100, L506.1000, L503.0105 #### [facility] [address] [place], [place], [address] RDW SD 43.1 fl Normal 35.1-43.9 [facility] Comment on above: Order Comment: Order Date: 05/17/24 Order Info: 0184-1 - CBCD Performed By: #### L 506.0250, L100.0100, L500.4050, L503.6150, L501.9985, L503.6075, L503.6550, L500.4100, L506.1000, L503.0105 #### [facility] [address] [place], [place], [address] WBC (Bld) [#/Vol] 6.2 10*3/uL Normal 4.4-11.0 [facility] Comment on above: Order Comment: Order Date: 05/17/24 Order Info: 0184- - CBCD Performed By: #### L 506.0250, L100.0100, L500.4050, L503.6150, L501.9985, L503.6075, L503.6550, L500.4100, L506.1000, L503.0105 #### [facility] [address] [place], [place], [address] Comprehensive Metabolic Prof ilon 05-17-2024 Albumin [Mass/Vol] 4.5 g/dL Normal 3.2-5.0 [facility] Comment on above: Order Comment: Order Date: 05/17/24 Order Info: 0786-1 - CMP Order Info: [id number] - LIPID Order Info: 2500-7 - TIBC Order Info: 2498-4 - FE Order Info: 2276-4 - LYNNETTE Order Info: 2284-8 - FOLS N Performed By: #### L 506.0250, L100.0100, L500.4050, L503.6150, L501.9985, L503.6075, L503.6550, L500.4100, L506.1000, L503.0105 #### [facility] [address] [place], [address] Albumin/Globulin [Mass ratio] 1.3 {ratio} Normal 0.9-2.4 [facility] Comment on above: Order Comment: Order Date: 05/17/24 Order Info: 07 - CMP Order Info: 54917-8 - LIPID Order Info: 2500-01 - TIBC Order Info: 2497-10 - FE Order Info: 2275-10 - LYNNETTE Order Info: 2284-02 - FOLS N Performed By: #### L 506.0250, L100.0100, L500.4050, L503.6150, L501.9985, L503.6075, L503.6550, L500.4100, L506.1000, L503.0105 #### [facility] [address] [place], [place], [phone] [phone] P 99 U/L Normal 45-117 [facility] Comment on above: Order Comment: Order Date: 05/17/24 Order Info: 785-07 - CMP Order Info: - LIPID Order Info: 2500-01 - TIBC Order Info: 2497-10 - FE Order Info: 2275-10 - LYNNETTE Order Info: 2284-02 - FOLS N Performed By: #### L 506.0250, L100.0100, L500.4050, L503.6150, L501.9985, L503.6075, L503.6550, L500.4100, L506.1000, L503.0105 #### [facility] [address] [place], [address] ALT [Catalytic activity/Vol] 25 U/L Normal 13-56 [facility] Comment on above: Order Comment: Order Date: 05/17/24 Order Info: 07 - CMP Order Info: 48731-1 - LIPID Order Info: 2500-01 - TIBC Order Info: 2497-10 - FE Order Info: 2275-10 - LYNNETTE Order Info: 2284-02 - FOLS N Performed By: #### L 506.0250, L100.0100, L500.4050, L503.6150, L501.9985, L503.6075, L503.6550, L500.4100, L506.1000, L503.0105 #### [facility] [address] [place], [place], [address] AST [Catalytic activity/Vol] 15 U/L Normal 15-37 [facility] Comment on above: Order Comment: Order Date: 05/17/24 Order Info: 0786- - CMP Order Info: 56766-5 - LIPID Order Info: 2500-01 - TIBC Order Info: 2497-10 - FE Order Info: 2275-10 - LYNNETTE Order Info: 2284-02 - FOLS N Performed By: #### L 506.0250, L100.0100, L500.4050, L503.6150, L501.9985, L503.6075, L503.6550, L500.4100, L506.1000, L503.0105 #### [facility] [address] [place], [place], [address] [phone] Bilirubin [Mass/Vol] 0.70 mg/dL Normal 0.20-1.00 [facility] Comment on above: Order Comment: Order Date: 05/17/24 Order Info: 0786- - CMP Order Info: 17405-6 - LIPID Order Info: 2500-01 TIBC Order Info: 2497-10 - FE Order Info: 2275-10 - LYNNETTE Order Info: 2284-02 - FOLS N Result Comment: For patients on eltrombopag therapy, use of Dimension [place] TBIL is not recommended. Performed By: #### L 506.0250, L100.0100, L500.4050, L503.6150, L501.9985, L503.6075, L503.6550, L500.4100, L506.1000, L503.0105 #### [facility] [address] [place], [address] BUN/CRE 10.7 RATIO Normal 10-20 [facility] Comment on above: Order Comment: Order Date: 05/17/24 Order Info: 07 - CMP Order Info: - LIPID Order Info: 2500-01 TIBC Order Info: 2497-10 - FE Order Info: 2275-10 - LYNNETTE Order Info: 8 - FOLS N Performed By: #### L 506.0250, L100.0100, L500.4050, L503.6150, L501.9985, L503.6075, L503.6550, L500.4100, L506.1000, L503.0105 #### [facility] [address] [place], [place], [address] CA,Total 9.8 mg/dL Normal 8.5-10.1 [facility] Comment on above: Order Comment: Order Date: 05/17/24 Order Info: 785-07 - CMP Order Info: - LIPID Order Info: 2500-01 TIBC Order Info: 2497-10 - FE Order Info: 2275-10 - LYNNETTE Order Info: 2284-02 - FOLS N Performed By: #### L 506.0250, L100.0100, L500.4050, L503.6150, L501.9985, L503.6075, L503.6550, L500.4100, L506.1000, L503.0105 #### [facility] [address] [place], [place], [address] [phone] Chloride [Moles/Vol] 98 mmol/L Normal 98-107 [facility] Comment on above: Order Comment: Order Date: 05/17/24 Order Info: 785-07 - CMP Order Info: - LIPID Order Info: 2500-01 TIBC Order Info: 2497-10 - FE Order Info: 2275-10 - LYNNETTE Order Info: 8 - FOLS N Performed By: #### L 506.0250, L100.0100, L500.4050, L503.6150, L501.9985, L503.6075, L503.6550, L500.4100, L506.1000, L503.0105 #### [facility] [address] [place], [address] CO2 [Moles/Vol] 27.0 mmol/L Normal 21.0-32.0 [facility] Comment on above: Order Comment: Order Date: 05/17/24 Order Info: 0786- - CMP Order Info: - LIPID Order Info: 2500-01 - TIBC Order Info: 2497-10 FE Order Info: 2275-10 - LYNNETTE Order Info: 8 - FOLS N Performed By: #### L 506.0250, L100.0100, L500.4050, L503.6150, L501.9985, L503.6075, L503.6550, L500.4100, L506.1000, L503.0105 #### [facility] [address] [place], [address] Creatinine [Mass/Vol] 1.22 mg/dL High 0.55-1.02 [facility] Comment on above: Order Comment: Order Date: 05/17/24 Order Info: 0786- - CMP Order Info: - LIPID Order Info: 2500-01 - TIBC Order Info: 2497-10 FE Order Info: 2275-10 - LYNNETTE Order Info: 2284-02 - FOLS N Result Comment: The validity of the calculated GFR GFRAA in patients over 70 years has not been determined. Clinical correlation is essential. Performed By: #### L 506.0250, L100.0100, L500.4050, L503.6150, L501.9985, L503.6075, L503.6550, L500.4100, L506.1000, L503.0105 #### [facility] [address] [place], [address] EST GFR - AA 54 mL/min Low >60 [facility] Comment on above: Order Comment: Order Date: 05/17/24 Order Info: 07 - CMP Order Info: - LIPID Order Info: 2500-01 - TIBC Order Info: 2497-10 - FE Order Info: 2275-10 - LYNNETTE Order Info: 2284-02 - FOLS N Result Comment: Afri can [place] GFR Calc Performed By: #### L 506.0250, L100.0100, L500.4050, L503.6150, L501.9985, L503.6075, L503.6550, L500.4100, L506.1000, L503.0105 #### [facility] [address] [place], [place], [address] [phone]) GAP 8 Normal 5-15 [facility] Comment on above: Order Comment: Order Date: 05/17/24 Order Info: 0786- - CMP Order Info: - LIPID Order Info: 2500-01 TIBC Order Info: 2497-10 FE Order Info: 2275-10 - LYNNETTE Order Info: 2284-02 - FOLS N Performed By: #### L 506.0250, L100.0100, L500.4050, L503.6150, L501.9985, L503.6075, L503.6550, L500.4100, L506.1000, L503.0105 #### [facility] [address] [place], [place], [phone] (184) GFR/1.73 sq M.predicted among non-blacks MDRD (S/P/Bld) [Vol rate/Area] 45 mL/min/{1.73_m2} Low >60 [facility] Comment on above: Order Comment: Order Date: 05/17/24 Order Info: 0786-1 - CMP Order Info: 38250-3 - LIPID Order Info: 2500-01 TIBC Order Info: 2497-10 FE Order Info: 2275-10 - LYNNETTE Order Info: 2284-02 - FOLS N Result Comment: Non- GFR Calc Performed By: #### L 506.0250, L100.0100, L500.4050, L503.6150, L501.9985, L503.6075, L503.6550, L500.4100, L506.1000, L503.0105 #### [facility] [address] [place], [address] Globulin (S) [Mass/Vol] 3.4 g/dL Normal 2.2-4.2 [facility] Comment on above: Order Comment: Order Date: 05/17/24 Order Info: 785-07 - CMP Order Info: - LIPID Order Info: 2500-01 - TIBC Order Info: 2497-10 - FE Order Info: 2275-10 - LYNNETTE Order Info: 2284-02 - FOLS N Performed By: #### L 506.0250, L100.0100, L500.4050, L503.6150, L501.9985, L503.6075, L503.6550, L500.4100, L506.1000, L503.0105 #### [facility] [address] [place], [address] Glucose [Mass/Vol] 327 mg/dL High 74-106 [facility] Comment on above: Order Comment: Order Date: 05/17/24 Order Info: 785-07 - CMP Order Info: - LIPID Order Info: 2500-01 TIBC Order Info: 2497-10 - FE Order Info: 2275-10 - LYNNETTE Order Info: 2284-02 - FOLS N Result Comment: Gluc ose result greater than or equal to 200 mg/dL suggests DIABETES MELLITUS per A.D.A. criteria. Performed By: #### L 506.0250, L100.0100, L500.4050, L503.6150, L501.9985, L503.6075, L503.6550, L500.4100, L506.1000, L503.0105 #### [facility] [address] [place], [address] Potassium [Moles/Vol] 4.6 mmol/L Normal 3.5-5.1 [facility] Comment on above: Order Comment: Order Date: 05/17/24 Order Info: 07 - CMP Order Info: [id number] - LIPID Order Info: 2500-01 TIBC Order Info: 2497-10 - FE Order Info: 2275-10 - LYNNETTE Order Info: 8 - FOLS N Performed By: #### L 506.0250, L100.0100, L500.4050, L503.6150, L501.9985, L503.6075, L503.6550, L500.4100, L506.1000, L503.0105 #### [facility] [address] [place], [place], [address] Sodium [Moles/Vol] 134 mmol/L Low 136-145 [facility] Comment on above: Order Comment: Order Date: 05/17/24 Order Info: 785-07 - CMP Order Info: - LIPID Order Info: 2500-01 TIBC Order Info: 2497-10 - FE Order Info: 2275-10 - LYNNETTE Order Info: 2284-02 - FOLS N Performed By: #### L 506.0250, L100.0100, L500.4050, L503.6150, L501.9985, L503.6075, L503.6550, L500.4100, L506.1000, L503.0105 #### [facility] [address] [place], [place], [address] [phone] PROT 7.9 g/dL Normal 6.4-8.2 [facility] Comment on above: Order Comment: Order Date: 05/17/24 Order Info: 0786 - CMP Order Info: [id number] - LIPID Order Info: 2500-01 TIBC Order Info: 2497-10 - FE Order Info: 2275-10 - LYNNETTE Order Info: 2284-02 - FOLS N Performed By: #### L 506.0250, L100.0100, L500.4050, L503.6150, L501.9985, L503.6075, L503.6550, L500.4100, L506.1000, L503.0105 #### [facility] [address] [place], [address] Urea nitrogen [Mass/Vol] 13 mg/dL Normal 7-18 [facility] Comment on above: Order Comment: Order Date: 05/17/24 Order Info: 0786-1 - CMP Order Info: 11035-8 - LIPID Order Info: 7 - TIBC Order Info: 2497-10 - FE Order Info: 2275-10 - LYNNETTE Order Info: 2284-02 - FOLS N Performed By: #### L 506.0250, L100.0100, L500.4050, L503.6150, L501.9985, L503.6075, L503.6550, L500.4100, L506.1000, L503.0105 #### [facility] [address], [address] Ferritinon 05-17-2024 Ferritin [Mass/Vol] 26 ng/mL Normal 8-252 [facility] Comment on above: Order Comment: Order Date: 05/17/24Order Info: 07- - CMPOrder Info: - LIPIDOrder Info: 2500-01 - TIBCOrder Info: 2497-10 - FEOrder Info: 2275-10 - FEROrder Info: 2284-02 - FOLSN Performed By: #### L 506.0250, L100.0100, L500.4050, L503.6150, L501.9985, L503.6075, L503.6550, L500.4100, L506.1000, L503.0105 ####[facility] [address] [place], [place], [address](935) Folates, (Folic Acid)on 05-04 FOLATES 17.20 ng/mL Normal 3.1-55.4 [facility] Comment on above: Order Comment: Order Date: 05/17/24Order Info: 0786- - CMPOrder Info: 78212-6 - LIPIDOrder Info: 2500-01 - TIBCOrder Info: 2497-10 - FEOrder Info: 2276-4 - FEROrder Info: 228-8 - FOLSN Performed By: #### L 506.0250, L100.0100, L500.4050, L503.6150, L501.9985, L503.6075, L503.6550, L500.4100, L506.1000, L503.0105 ####[facility] [address] [place], [place], [address](556) Hemoglobin A1con 05-17-2024 HbA1c (Bld) [Mass fraction] 10.0 % High 3.8-5.6 [facility] Comment on above: Order Comment: Order Date: 05/17/24 Order Info: 4548-4 - A1C Result Comment: Norm al < 5.7 % Prediabetic 5.7 - 6.4 % Diabetic >or= 6.5 % Please note range changes. Performed By: #### L 506.0250, L100.0100, L500.4050, L503.6150, L501.9985, L503.6075, L503.6550, L500.4100, L506.1000, L503.0105 #### [facility] [address] [place], [place], [address] Ironon 05-17-2024 Iron [Mass/Vol] 71 ug/dL Normal 50-170 [facility] Comment on above: Order Comment: Order Date: 05/17/24Order Info: 0786-1 - CMPOrder Info: 43806-1 - LIPIDOrder Info: 2500-7 - TIBCOrder Info: 2498-4 - FEOrder Info: 2276-4 - FEROrder Info: 228-8 - FOLSN Performed By: #### L 506.0250, L100.0100, L500.4050, L503.6150, L501.9985, L503.6075, L503.6550, L500.4100, L506.1000, L503.0105 ####[facility] [address] [place], [place], [address] Iron Binding Capacity,Totalo n 05-17-2024 TIBC 371 ug/dL Normal 250-450 [facility] Comment on above: Order Comment: Order Date: 05/17/24Order Info: 86-1 - CMPOrder Info: 32550-0 - LIPIDOrder Info: 2500-01 - TIBCOrder Info: 2497-10 - FEOrder Info: 2275-10 - FEROrder Info: 2284-02 - FOLSN Performed By: #### L 506.0250, L100.0100, L500.4050, L503.6150, L501.9985, L503.6075, L503.6550, L500.4100, L506.1000, L503.0105 ####[facility] [address] [place], [place], [address] Lipid Profileon 05-17-2024 Cholesterol [Mass/Vol] 180 mg/dL Normal 200 [facility] Comment on above: Order Comment: Order Date: 05/17/24Order Info: 785-07 - CMPOrder Info: - LIPIDOrder Info: 2500-01 - TIBCOrder Info: 2497-10 - FEOrder Info: 2275-10 - FEROrder Info: 2284-02 - FOLSN Result Comment: <200 mg/dL Desirable 200-240 mg/dL Borderline >240 mg/dL High Risk Performed By: #### L 506.0250, L100.0100, L500.4050, L503.6150, L501.9985, L503.6075, L503.6550, L500.4100, L506.1000, L503.0105 ####[facility] [address] [place], [place], [address] Cholesterol in HDL [Mass/Vol] 87 mg/dL Normal [facility] Comment on above: Order Comment: Order Date: 05/17/24Order Info: 785- - CMPOrder Info: 71643-0 - LIPIDOrder Info: 2500-01 - TIBCOrder Info: 2497-10 - FEOrder Info: 2275-10 - FEROrder Info: 2284-02 - FOLSN Result Comment: The drugs N-Acetylcysteine and Metamizole may falsely depress this assay. Reference Range HDL <40 mg/dL Low HDL Cholesterol HDL >or= 60 mg/dL High HDL Cholesterol Performed By: #### L 506.0250, L100.0100, L500.4050, L503.6150, L501.9985, L503.6075, L503.6550, L500.4100, L506.1000, L503.0105 ####[facility] [address] [place], [address] Cholesterol in LDL [Mass/Vol] 75 mg/dL Normal 0-130 [facility] Comment on above: Order Comment: Order Date: 05/17/24Order Info: 0786- - CMPOrder Info: [id number] - LIPIDOrder Info: 2500-01 - TIBCOrder Info: 2497-10 - FEOrder Info: 2275-10 - FEROrder Info: 2284-02 - FOLSN Performed By: #### L 506.0250, L100.0100, L500.4050, L503.6150, L501.9985, L503.6075, L503.6550, L500.4100, L506.1000, L503.0105 ####[facility] [address] [place], [address] Cholesterol in VLDL [Mass/Vol] 18 mg/dL Normal 5-40 [facility] Comment on above: Order Comment: Order Date: 05/17/24Order Info: 0786- - CMPOrder Info: [id number] - LIPIDOrder Info: 2500-01 - TIBCOrder Info: 2497-10 - FEOrder Info: 2275-10 - FEROrder Info: 2284-02 - FOLSN Performed By: #### L 506.0250, L100.0100, L500.4050, L503.6150, L501.9985, L503.6075, L503.6550, L500.4100, L506.1000, L503.0105 ####[facility] [address] [place], [address] Triglyceride [Mass/Vol] 92 mg/dL Normal [facility] Comment on above: Order Comment: Order Date: 05/17/24Order Info: 0786-1 - CMPOrder Info: 14150-6 - LIPIDOrder Info: 2500-7 - TIBCOrder Info: 2498-4 - FEOrder Info: 2276-4 - FEROrder Info: 2284-8 - FOLSN Result Comment: The drugs N-Acetylcysteine and Metamizole may falsely depress this assay. Serum Triglycerides Reference Interval Normal <150 mg/dL Borderline high 150 - 199 mg/dL High 200 - 499 mg/dL Very High > or = 500 mg/dL Performed By: #### L 506.0250, L100.0100, L500.4050, L503.6150, L501.9985, L503.6075, L503.6550, L500.4100, L506.1000, L503.0105 ####[facility] [address] [place], [address] Vitamin B12on 05-17-2024 Cobalamin (Vitamin B12) [Mass/Vol] 365 pg/mL Normal 211-911 [facility] Comment on above: Order Comment: Order Date: 05/17/24Order Info: 2132-03 - K30Ooayn Info: 94939-4 - VITD25 Performed By: #### L 506.0250, L100.0100, L500.4050, L503.6150, L501.9985, L503.6075, L503.6550, L500.4100, L506.1000, L503.0105 ####[facility] [address] [place], [address] Vitamin D,25 Hydroxyon 05-17 Vitamin D 25-OH 75.7 ng/mL Normal [facility] Comment on above: Order Comment: Order Date: 05/17/24Order Info: 9 - E06Fhids Info: 93546-8 - VITD25 Result Comment: Eileen min D 25(OH) Status Range Deficiency <20 ng/mL (50nmol/L) Insufficiency 20 - 30 ng/mL (50 - 75 nmol/L) Sufficiency 30 - 100 ng/mL (75 - 250 nmol/L) Toxicity >100 ng/mL (>250 nmol/L) Performed By: #### L 506.0250, L100.0100, L500.4050, L503.6150, L501.9985, L503.6075, L503.6550, L500.4100, L506.1000, L503.0105 ####[facility] [address] [place], [address] Absolute lymphocyte countOrd ered By: Jose Rafael Kat on 08-15-2023 Lymphocytes Auto (Unsp spec) [#/Vol] 1.01 10*3/uL 0.83-4.51 [facility] Automated lymphocyte count a s percentage of total leukocytesOrdered By: Jose Rafael Kat on 08-15-2023 Lymphocytes/100 WBC Auto (Unsp spec) 20.1 % 19-41 [facility] Basophil percentageOrdered B y: Jose Rafael Kat on 08-15-2023 Basophil percentage 0 SEEN /hpf 0-5 [facility] Basophil percentage 3.6 mg/dL 2.5-4.9 [facility] Basophils/100 WBC (Bld) 1.0 % 0-1 [facility] Bilirubin [Mass/Vol] 0.90 mg/dL 0.20-1.00 [facility] Comment on above: For patients on eltr ombopag therapy, use of Dimension [place] TBIL is not recommended. Chloride [Moles/Vol] 110 mmol/L 98-107 [facility] Eosinophils/100 WBC (Bld) 2.6 % 0-5 [facility] Glucose [Mass/Vol] 175 mg/dL 74-106 [facility] Comment on above: Fasting Glucose resu lt greater than or equal to 126 mg/dL suggests DIABETES MELLITUS per A.D.A. criteria. Hemoglobin (Bld) [Mass/Vol] 12.3 g/dL 12.0-15.0 [facility] Monocytes/100 WBC (Bld) 8.5 % 0-10 [facility] Neutrophils (Bld) [#/Vol] 3.4 10*3/uL 2.0-7.7 [facility] Neutrophils/100 WBC (Bld) 67.4 % 47-70 [facility] Potassium [Moles/Vol] 4.0 mmol/L 3.5-5.1 [facility] Protein [Mass/Vol] 7.7 g/dL 6.4-8.2 [facility] Sodium [Moles/Vol] 140 mmol/L 136-145 [facility] WBC (Bld) [#/Vol] 5.0 10*3/uL 4.4-11.0 [facility] Bilirubin Test strip Ql (U)O rdered By: Jose Rafael Kat on 08-15-2023 Bilirubin Ql (U) Negative Negative [facility] Determination of erythrocyte mean corpuscular volume (MCV)Ordered By: Jose Rafael Kat on 08-15-2023 MCV (RBC) [Entitic vol] 90.8 fL 81-99 [facility] Erythrocyte distribution wid th ratioOrdered By: Jose Rafael Kat on 08-15-2023 Erythrocyte distribution width (RBC) [Ratio] 15.0 % 11.6-14.6 [facility] Erythrocyte distribution wid th standard deviationOrdered By: Jose Rafael Kat on 08-15-2023 Erythrocyte distribution width (RBC) [Entitic vol] 50.2 fL 35.1-43.9 [facility] Hematocrit Auto (Bld) [Volum e fraction]Ordered By: Jose Rafael Kat on 08-15-2023 Hematocrit (Bld) [Volume fraction] 39.3 % 37-47 [facility] Immature granulocytes/100 WB C Auto (Bld)Ordered By: Jose Rafael Kat on 08-15-2023 Immature granulocytes/100 WBC (Bld) 0.400 % 0.0-0.9 [facility] Comment on above: IG% - Immature Granu locytes (promyelocytes, myelocytes and metamyelocytes) > 1% indicates that a LEFT SHIFT is Present. Ketones Test strip Ql (U)Ord ered By: Jose Rafael Kat on 08-15-2023 Ketones Ql (U) Negative Negative [facility] Laboratory - Chemistry and C hemistry - challengeOrdered By: Jose Rafael Kat on 08-15-2023 Albumin/Globulin [Mass ratio] 1.1 {ratio} 0.9-2.4 [facility] ALP [Catalytic activity/Vol] 72 U/L 45-117 [facility] ALT [Catalytic activity/Vol] 25 U/L 13-56 [facility] CO2 [Moles/Vol] 21.0 mmol/L 21.0-32.0 [facility] Globulin (S) [Mass/Vol] 3.6 g/dL 2.2-4.2 [facility] Urea nitrogen/Creatinine [Mass ratio] 16.5 mg/mg 10-20 [facility] Laboratory - Hematology and Cell countsOrdered By: Jose Rafael Kat on 08-15-2023 MCH (RBC) [Entitic mass] 28.4 pg 27.0-32.0 [facility] MCHC (RBC) [Mass/Vol] 31.3 g/dL 32-36 [facility] Nucleated RBC/100 WBC (Bld) [Ratio] 0 % 0-5 [facility] Platelet mean volume (Bld) [Entitic vol] 10.1 fL 6.2-12.0 [facility] Platelets (Bld) [#/Vol] 424 10*3/uL 150-450 [facility] Mucus LM Ql (Urine sed)Order ed By: Jose Rafael Kat on 08-15-2023 Mucus Ql (Urine sed) 0 SEEN /hpf [facility] Nitrite Test strip Ql (U)Ord ered By: Jose Rafael Kat on 08-15-2023 Nitrite Ql (U) Negative Negative [facility] No Panel InformationOrdered By: Jose Rafael Kat on 08-15-2023 Estimated GFR (MDRD) Amer 55 mL/min >60 [facility] Comment on above: GFR Calc Estimated GFR (MDRD) Non-Af Amer 45 mL/min >60 [facility] Comment on above: Non- GFR Calc Urine Microalbumin/Creatinine Ratio 18.1 mg/g CRE <30 [facility] Urine RBC 0 SEEN /hpf 0-5 [facility] Vitamin D 25-Hydroxy 58.1 ng/mL [facility] Comment on above: Vitamin D 25(OH) Sta tus Range Deficiency <20 ng/mL (50nmol/L) Insufficiency 20 - 30 ng/mL (50 - 75 nmol/L) Sufficiency 30 - 100 ng/mL (75 - 250 nmol/L) Toxicity >100 ng/mL (>250 nmol/L) Protein Test strip Ql (U)Ord ered By: Jose Rafael Kat on 08-15-2023 Protein Ql (U) Negative Negative [facility] RBC Auto (Bld) [#/Vol]Ordere d By: Jose Rafael Kat on 08-15-2023 RBC (Bld) [#/Vol] 4.33 10*6/uL 4.2-5.4 [facility] Serum or plasma calcium tameka urement (mass/volume)Ordered By: Jose Rafael Kat on 08-15-2023 Calcium [Mass/Vol] 9.6 mg/dL 8.5-10.1 [facility] Serum or plasma creatinine m easurement (mass/volume)Ordered By: Jose Rafael Kat on 08-15-2023 Creatinine [Mass/Vol] 1.21 mg/dL 0.55-1.02 [facility] Comment on above: The validity of the calculated GFR & GFRAA in patients over 70 years has not been determined. Clinical correlation is essential. Serum or plasma urea nitroge n measurement (mass/volume)Ordered By: Jose Rafael Kat on 08-15-2023 Urea nitrogen [Mass/Vol] 20 mg/dL 7-18 [facility] Squamous epithelial cells de tection in urine sediment by light microscopyOrdered By: Jose Rafael Kat on 08-15-2023 Epithelial cells.squamous LM Ql (Urine sed) 0 SEEN /hpf 5-10 [facility] Thin prep Papanicolaou smear with manual screeningOrdered By: Jose Rafael Kat on 08-15-2023 Protein (U) [Mass/Vol] 11.2 mg/dL 0.0-11.8 [facility] Thin prep Papanicolaou smear with manual screening 4.1 g/dL 3.2-5.0 [facility] Thin prep Papanicolaou smear with manual screening 12 U/L 15-37 [facility] Thin prep Papanicolaou smear with manual screening 9 5-15 [facility] Thin prep Papanicolaou smear with manual screening 7.7 mg/L NO RANGE EST. [facility] Urine blood detectionOrdered By: Jose Rafael Kat on 08-15-2023 RBC Ql (U) Negative Negative [facility] Urine clarityOrdered By: Devaughn Kat on 08-15-2023 Clarity (U) Clear Clear [facility] Urine color determinationOrd ered By: Jose Rafael Kat on 08-15-2023 Color (U) Yellow Yellow [facility] Urine creatinine measurement (mass/volume)Ordered By: Jose Rafael Kat on 08-15-2023 Creatinine (U) [Mass/Vol] 42.60 mg/dL NO RANGE EST. [facility] Urine glucose detectionOrder ed By: Jsoe Rafael Kat on 08-15-2023 Glucose Ql (U) Normal mg/dl Normal [facility] Urine leukocyte esterase det ection by dipstickOrdered By: Jose Rafael Kat on 08-15-2023 Leukocyte esterase Test strip Ql (U) 500 /ul Negative [facility] Urine pHOrdered By: Jose Rafael burroughs on 08-15-2023 pH (U) 6.0 [pH] 5.0 - 8.0 [facility] Urine protein/creatinine mas s ratioOrdered By: Jose Rafael Kat on 08-15-2023 Protein/Creatinine (U) [Mass ratio] 263 mg/g CRE 0-200 [facility] Urine sediment bacteria coun t by microscopy (number/high power field)Ordered By: Jose Rafael Kat on 08-15-2023 Bacteria LM.HPF (Urine sed) [#/Area] 0 /[HPF] None Seen [facility] Urine specific gravity measu rementOrdered By: Jose Rafael Kat on 08-15-2023 Specific gravity (U) [Rel density] 1.010 1.002-1.030 [facility] Urine urobilinogen measureme ntOrdered By: Jose Rafael Kat on 08-15-2023 Urobilinogen Ql (U) Normal mg/dl Normal [facility] Whole blood hemoglobin A1c/t otal hemoglobin ratio (mass fraction)Ordered By: Jose Rafael Kat on 08-15-2023 HbA1c (Bld) [Mass fraction] 8.2 % 3.8-5.6 [facility] Comment on above: Normal < 5.7 % Predi abetic 5.7 - 6.4 % Diabetic >or= 6.5 % Please note range changes. Absolute lymphocyte countOrd ered By: Jose Rafael Kat on 05-13-2023 Lymphocytes Auto (Unsp spec) [#/Vol] 1.04 10*3/uL 0.83-4.51 [facility] Basophil percentageOrdered B y: Jose Rafael Kat on 05-13-2023 Basophil percentage 0-5 SEEN /hpf 0-5 [facility] Basophil percentage 3.2 mg/dL 2.5-4.9 [facility] Basophils/100 WBC (Bld) 1.3 % 0-1 [facility] Bilirubin [Mass/Vol] 0.40 mg/dL 0.20-1.00 [facility] Comment on above: For patients on eltr ombopag therapy, use of Dimension [place] TBIL is not recommended. Chloride [Moles/Vol] 107 mmol/L 98-107 [facility] Cholesterol [Mass/Vol] 252 mg/dL <200 [facility] Comment on above: <200 mg/dL Desirable 200-240 mg/dL Borderline >240 mg/dL High Risk Eosinophils/100 WBC (Bld) 6.3 % 0-5 [facility] Glucose [Mass/Vol] 212 mg/dL 74-106 [facility] Comment on above: Glucose result great er than or equal to 200 mg/dLsuggests DIABETES MELLITUS per A.D.A. criteria. Neutrophils (Bld) [#/Vol] 4.2 10*3/uL 2.0-7.7 [facility] Neutrophils/100 WBC (Bld) 65.7 % 47-70 [facility] Potassium [Moles/Vol] 4.8 mmol/L 3.5-5.1 [facility] Protein [Mass/Vol] 7.3 g/dL 6.4-8.2 [facility] Sodium [Moles/Vol] 136 mmol/L 136-145 [facility] Triglyceride [Mass/Vol] 91 mg/dL <199 [facility] Comment on above: The drugs N-Acetylcy steine and Metamizole may falsely depress this assay.Serum Triglycerides Reference Interval Normal <150 mg/dL Borderline high 150 - 199 mg/dL High 200 - 499 mg/dL Very High > or = 500 mg/dL WBC (Bld) [#/Vol] 6.3 10*3/uL 4.4-11.0 [facility] Bilirubin Test strip Ql (U)O rdered By: Jose Rafael Kat on 05-13-2023 Bilirubin Ql (U) Negative Negative [facility] Blood erythrocytes count (nu mber/volume)Ordered By: Jose Rafael Kat on 05-13-2023 RBC (Bld) [#/Vol] 4.09 10*6/uL 4.2-5.4 [facility] Blood hemoglobin measurement (mass/volume)Ordered By: Jose Rafael Kat on 05-13-2023 Hemoglobin (Bld) [Mass/Vol] 11.8 g/dL 12.0-15.0 [facility] Blood lymphocytes/100 leukoc ytesOrdered By: Jose Rafael Kat on 05-13-2023 Lymphocytes/100 WBC (Bld) 16.4 % 19-41 [facility] Blood monocytes/100 leukocyt esOrdered By: Jose Rafael Kat on 05-13-2023 Monocytes/100 WBC (Bld) 9.8 % 0-10 [facility] Blood platelet mean volumeOr dered By: Jose Rafael Kat on 05-13-2023 Platelet mean volume (Bld) [Entitic vol] 10.4 fL 6.2-12.0 [facility] Determination of erythrocyte mean corpuscular volume (MCV)Ordered By: Jose Rafael Kat on 05-13-2023 MCV (RBC) [Entitic vol] 92.4 fL 81-99 [facility] Hematocrit Auto (Bld) [Volum e fraction]Ordered By: Jose Rafael Kat on 05-13-2023 Hematocrit (Bld) [Volume fraction] 37.8 % 37-47 [facility] Ketones Test strip Ql (U)Ord ered By: Jose Rafael Kat on 05-13-2023 Ketones Ql (U) Negative Negative [facility] Laboratory - Chemistry and C hemistry - challengeOrdered By: Jose Rafael Kat on 05-13-2023 ALP [Catalytic activity/Vol] 83 U/L 45-117 [facility] ALT [Catalytic activity/Vol] 13 U/L 13-56 [facility] CO2 [Moles/Vol] 25.0 mmol/L 21.0-32.0 [facility] Globulin (S) [Mass/Vol] 3.7 g/dL 2.2-4.2 [facility] Urea nitrogen/Creatinine [Mass ratio] 20.6 mg/mg 10- [facility] Laboratory - Hematology and Cell countsOrdered By: Jose Rafael Kat on 05-13-2023 Erythrocyte distribution width (RBC) [Entitic vol] 44.0 fL 35.1-43.9 [facility] Erythrocyte distribution width (RBC) [Ratio] 13.1 % 11.6-14.6 [facility] Immature granulocytes/100 WBC (Bld) 0.500 % 0.0-0.9 [facility] Comment on above: IG% - Immature Granu locytes (promyelocytes, myelocytes and metamyelocytes) > 1% indicates that a LEFT SHIFT is Present. MCH (RBC) [Entitic mass] 28.9 pg 27.0-32.0 [facility] Nucleated RBC/100 WBC (Bld) [Ratio] 0 % 0-5 [facility] MCHC Auto (RBC) [Mass/Vol]Or dered By: Jose Rafael Kat on 05-13-2023 MCHC (RBC) [Mass/Vol] 31.2 g/dL 32-36 [facility] Mucus LM Ql (Urine sed)Order ed By: Jose Rafael Kat on 05-13-2023 Mucus Ql (Urine sed) 0 SEEN /hpf [facility] Nitrite Test strip Ql (U)Ord ered By: Jose Rafael Kat on 05-13-2023 Nitrite Ql (U) Negative Negative [facility] No Panel InformationOrdered By: Jose Rafael Kat on 05-13-2023 Estimated GFR (MDRD) Amer 50 mL/min >60 [facility] Comment on above: GFR Calc Estimated GFR (MDRD) Non-Af Amer 41 mL/min >60 [facility] Comment on above: Non- GFR Calc Thyroid Stimulating Hormone (TSH) 0.52 uIU/mL 0.358-3.74 [facility] Vitamin D 25-Hydroxy 89.9 ng/mL [facility] Comment on above: Vitamin D 25(OH) Sta tus Range Deficiency <20 ng/mL (50nmol/L) Insufficiency 20 - 30 ng/mL (50 - 75 nmol/L) Sufficiency 30 - 100 ng/mL (75 - 250 nmol/L) Toxicity >100 ng/mL (>250 nmol/L) Platelets bldOrdered By: Devaughn Kat on 05-13-2023 Platelets (Bld) [#/Vol] 406 10*3/uL 150-450 [facility] Protein Test strip Ql (U)Ord ered By: Jose Rafael Kat on 05-13-2023 Protein Ql (U) Negative Negative [facility] Serum or plasma albumin tameka urement (mass/volume)Ordered By: Jose Rafael Kat on 05-13-2023 Albumin [Mass/Vol] 3.6 g/dL 3.2-5.0 [facility] Serum or plasma albumin/glob ulin mass ratioOrdered By: Jose Rafael Kat on 05-13-2023 Albumin/Globulin [Mass ratio] 1.0 {ratio} 0.9-2.4 [facility] Serum or plasma calcium tameka urement (mass/volume)Ordered By: Jose Rafael Kat on 05-13-2023 Calcium [Mass/Vol] 9.5 mg/dL 8.5-10.1 [facility] Serum or plasma cholesterol in HDL measurement (mass/volume)Ordered By: Jose Rafael Kat on 05-13-2023 Cholesterol in HDL [Mass/Vol] 68 mg/dL >40 [facility] Comment on above: The drugs N-Acetylcy steine and Metamizole may falsely depress this assay. Reference Range HDL <40 mg/dL Low HDL Cholesterol HDL >or= 60 mg/dL High HDL Cholesterol Serum or plasma cholesterol in VLDL measurement (mass/volume)Ordered By: Jose Rafael Kat on 05-13-2023 Cholesterol in VLDL [Mass/Vol] 18 mg/dL 5-40 [facility] Serum or plasma creatinine m easurement (mass/volume)Ordered By: Jose Rafael Kat on 05-13-2023 Creatinine [Mass/Vol] 1.31 mg/dL 0.55-1.02 [facility] Comment on above: The validity of the calculated GFR & GFRAA in patients over 70 years has not been determined. Clinical correlation is essential. Serum or plasma low density lipoprotein (LDL) cholesterol measurement (mass/volume)Ordered By: Jose Rafael Kat on 05-13-2023 Cholesterol in LDL [Mass/Vol] 166 mg/dL 0-130 [facility] Serum or plasma urea nitroge n measurement (mass/volume)Ordered By: Jose Rafael Kat on 05-13-2023 Urea nitrogen [Mass/Vol] 27 mg/dL 7-18 [facility] Squamous epithelial cells de tection in urine sediment by light microscopyOrdered By: Jose Rafael Kat on 05-13-2023 Epithelial cells.squamous LM Ql (Urine sed) 0 SEEN /hpf 5-10 [facility] Thin prep Papanicolaou smear with manual screeningOrdered By: Jose Rafael Kat on 05-13-2023 Thin prep Papanicolaou smear with manual screening 9 U/L 15-37 [facility] Thin prep Papanicolaou smear with manual screening 4 5-15 [facility] Urine blood detectionOrdered By: Jose Rafael Kat on 05-13-2023 RBC Ql (U) Negative Negative [facility] RBC Ql (U) 0 SEEN /hpf 0-5 [facility] Urine clarityOrdered By: Devaughn Kat on 05-13-2023 Clarity (U) Sl. Cloudy Clear [facility] Urine color determinationOrd ered By: Jose Rafael Kat on 05-13-2023 Color (U) Yellow Yellow [facility] Urine creatinine measurement (mass/volume)Ordered By: Jose Rafael Kat on 05-13-2023 Creatinine (U) [Mass/Vol] 48.80 mg/dL NO RANGE EST. [facility] Urine glucose detectionOrder ed By: Jose Rafael Kat on 05-13-2023 Glucose Ql (U) Normal mg/dl Normal [facility] Urine leukocyte esterase det ection by dipstickOrdered By: Jose Rafael Kat on 05-13-2023 Leukocyte esterase Test strip Ql (U) 25 /ul Negative [facility] Urine pHOrdered By: Jose Rafael burroughs on 05-13-2023 pH (U) 6.0 [pH] 5.0 - 8.0 [facility] Urine protein measurement (m ass/volume)Ordered By: Jose Rafael Kat on 05-13-2023 Protein (U) [Mass/Vol] 11.6 mg/dL 0.0-11.8 [facility] Urine protein/creatinine mas s ratioOrdered By: Jose Rafael Kat on 05-13-2023 Protein/Creatinine (U) [Mass ratio] 238 mg/g CRE 0-200 [facility] Urine sediment bacteria coun t by microscopy (number/high power field)Ordered By: Jose Rafael Kat on 05-13-2023 Bacteria LM.HPF (Urine sed) [#/Area] 0 /[HPF] None Seen [facility] Urine specific gravity measu rementOrdered By: Jose Rafael Kat on 05-13-2023 Specific gravity (U) [Rel density] 1.010 1.002-1.030 [facility] Urobilinogen Auto test strip Ql (U)Ordered By: Jose Rafael Kat on 05-13-2023 Urobilinogen Ql (U) Normal mg/dl Normal [facility] Whole blood hemoglobin A1c/t otal hemoglobin ratio (mass fraction)Ordered By: Jose Rafael Kat on 05-13-2023 HbA1c (Bld) [Mass fraction] 9.8 % 3.8-5.6 [facility] Comment on above: Normal < 5.7 % Predi abetic 5.7 - 6.4 % Diabetic >or= 6.5 % Please note range changes. Absolute lymphocyte countOrd ered By: Dr. Kat on 12-20-2022 Lymphocytes Auto (Unsp spec) [#/Vol] 1.07 10*3/uL 0.83-4.51 [facility] Basophil percentageOrdered B y: Dr. Kat on 12-20-2022 Basophil percentage 0-5 SEEN /hpf 0-5 [facility] Basophil percentage 4.3 mg/dL 2.5-4.9 [facility] Basophils/100 WBC (Bld) 0.8 % 0-1 [facility] Bilirubin [Mass/Vol] 0.50 mg/dL 0.20-1.00 [facility] Comment on above: For patients on eltr ombopag therapy, use of Dimension [place] TBIL is not recommended. Chloride [Moles/Vol] 107 mmol/L 98-107 [facility] Cholesterol [Mass/Vol] 270 mg/dL <200 [facility] Comment on above: <200 mg/dL Desirable 200-240 mg/dL Borderline >240 mg/dL High Risk Eosinophils/100 WBC (Bld) 2.1 % 0-5 [facility] Glucose [Mass/Vol] 265 mg/dL 74-106 [facility] Comment on above: Glucose result great er than or equal to 200 mg/dLsuggests DIABETES MELLITUS per A.D.A. criteria. Neutrophils (Bld) [#/Vol] 4.4 10*3/uL 2.0-7.7 [facility] Neutrophils/100 WBC (Bld) 71.6 % 47-70 [facility] Potassium [Moles/Vol] 4.3 mmol/L 3.5-5.1 [facility] Protein [Mass/Vol] 7.0 g/dL 6.4-8.2 [facility] Sodium [Moles/Vol] 139 mmol/L 136-145 [facility] Triglyceride [Mass/Vol] 91 mg/dL <199 [facility] Comment on above: The drugs N-Acetylcy steine and Metamizole may falsely depress this assay.Serum Triglycerides Reference Interval Normal <150 mg/dL Borderline high 150 - 199 mg/dL High 200 - 499 mg/dL Very High > or = 500 mg/dL WBC (Bld) [#/Vol] 6.2 10*3/uL 4.4-11.0 [facility] Bilirubin Test strip Ql (U)O rdered By: Dr. Kat on 12-20-2022 Bilirubin Ql (U) Negative Negative [facility] Blood erythrocytes count (nu mber/volume)Ordered By: Dr. Kat on 12-20-2022 RBC (Bld) [#/Vol] 4.09 10*6/uL 4.2-5.4 [facility] Blood hemoglobin measurement (mass/volume)Ordered By: Dr. Kat on 12-20-2022 Hemoglobin (Bld) [Mass/Vol] 12.2 g/dL 12.0-15.0 [facility] Blood lymphocytes/100 leukoc ytesOrdered By: Dr. Kat on 12-20-2022 Lymphocytes/100 WBC (Bld) 17.3 % 19-41 [facility] Blood monocytes/100 leukocyt esOrdered By: Dr. Kat on 12-20-2022 Monocytes/100 WBC (Bld) 7.9 % 0-10 [facility] Blood platelet mean volumeOr dered By: Dr. Kat on 12-20-2022 Platelet mean volume (Bld) [Entitic vol] 10.4 fL 6.2-12.0 [facility] Determination of erythrocyte mean corpuscular volume (MCV)Ordered By: Dr. Kat on 12-20-2022 MCV (RBC) [Entitic vol] 94.1 fL 81-99 [facility] Hematocrit Auto (Bld) [Volum e fraction]Ordered By: Dr. Kat on 12-20-2022 Hematocrit (Bld) [Volume fraction] 38.5 % 37-47 [facility] Ketones Test strip Ql (U)Ord ered By: Dr. Kat on 12-20-2022 Ketones Ql (U) Negative Negative [facility] Laboratory - Chemistry and C hemistry - challengeOrdered By: Dr. Kat on 12-20-2022 ALP [Catalytic activity/Vol] 77 U/L 45-117 [facility] ALT [Catalytic activity/Vol] 16 U/L 13-56 [facility] CO2 [Moles/Vol] 22.0 mmol/L 21.0-32.0 [facility] Globulin (S) [Mass/Vol] 3.1 g/dL 2.2-4.2 [facility] Urea nitrogen/Creatinine [Mass ratio] 17.6 mg/mg 10-20 [facility] Laboratory - Hematology and Cell countsOrdered By: Dr. Kat on 12-20-2022 Erythrocyte distribution width (RBC) [Entitic vol] 46.2 fL 35.1-43.9 [facility] Erythrocyte distribution width (RBC) [Ratio] 13.3 % 11.6-14.6 [facility] Immature granulocytes/100 WBC (Bld) 0.300 % 0.0-0.9 [facility] Comment on above: IG% - Immature Granu locytes (promyelocytes, myelocytes and metamyelocytes) > 1% indicates that a LEFT SHIFT is Present. MCH (RBC) [Entitic mass] 29.8 pg 27.0-32.0 [facility] Nucleated RBC/100 WBC (Bld) [Ratio] 0 % 0-5 [facility] MCHC Auto (RBC) [Mass/Vol]Or dered By: Dr. Kat on 12-20-2022 MCHC (RBC) [Mass/Vol] 31.7 g/dL 32-36 [facility] Mucus LM Ql (Urine sed)Order ed By: Dr. Kat on 12-20-2022 Mucus Ql (Urine sed) 0 SEEN /hpf [facility] Nitrite Test strip Ql (U)Ord ered By: Dr. Kat on 12-20-2022 Nitrite Ql (U) Negative Negative [facility] No Panel InformationOrdered By: Dr. Kat on 12-20-2022 Estimated GFR (MDRD) Amer 48 mL/min >60 [facility] Comment on above: GFR Calc Estimated GFR (MDRD) Non-Af Amer 40 mL/min >60 [facility] Comment on above: Non- GFR Calc Platelets bldOrdered By: Dr. Kat on 12-20-2022 Platelets (Bld) [#/Vol] 370 10*3/uL 150-450 [facility] Protein Test strip Ql (U)Ord ered By: Dr. Kat on 12-20-2022 Protein Ql (U) Negative Negative [facility] Serum or plasma albumin tameka urement (mass/volume)Ordered By: Dr. Kat on 12-20-2022 Albumin [Mass/Vol] 3.9 g/dL 3.2-5.0 [facility] Serum or plasma albumin/glob ulin mass ratioOrdered By: Dr. Kat on 12-20-2022 Albumin/Globulin [Mass ratio] 1.3 {ratio} 0.9-2.4 [facility] Serum or plasma calcium tameka urement (mass/volume)Ordered By: Dr. Kat on 12-20-2022 Calcium [Mass/Vol] 9.3 mg/dL 8.5-10.1 [facility] Serum or plasma cholesterol in HDL measurement (mass/volume)Ordered By: Dr. Kat on 12-20-2022 Cholesterol in HDL [Mass/Vol] 71 mg/dL >40 [facility] Comment on above: The drugs N-Acetylcy steine and Metamizole may falsely depress this assay. Reference Range HDL <40 mg/dL Low HDL Cholesterol HDL >or= 60 mg/dL High HDL Cholesterol Serum or plasma cholesterol in VLDL measurement (mass/volume)Ordered By: Dr. Kat on 12-20-2022 Cholesterol in VLDL [Mass/Vol] 18 mg/dL 5-40 [facility] Serum or plasma creatinine m easurement (mass/volume)Ordered By: Dr. Kat on 12-20-2022 Creatinine [Mass/Vol] 1.36 mg/dL 0.55-1.02 [facility] Comment on above: The validity of the calculated GFR & GFRAA in patients over 70 years has not been determined. Clinical correlation is essential. Serum or plasma low density lipoprotein (LDL) cholesterol measurement (mass/volume)Ordered By: Dr. Kat on 12-20-2022 Cholesterol in LDL [Mass/Vol] 181 mg/dL 0-130 [facility] Serum or plasma urea nitroge n measurement (mass/volume)Ordered By: Dr. Kat on 12-20-2022 Urea nitrogen [Mass/Vol] 24 mg/dL 7-18 [facility] Squamous epithelial cells de tection in urine sediment by light microscopyOrdered By: Dr. Kat on 12-20-2022 Epithelial cells.squamous LM Ql (Urine sed) 0-5 SEEN /hpf 5-10 [facility] Thin prep Papanicolaou smear with manual screeningOrdered By: Dr. Kat on 12-20-2022 Thin prep Papanicolaou smear with manual screening 12 U/L 15-37 [facility] Thin prep Papanicolaou smear with manual screening 10 5-15 [facility] Urine blood detectionOrdered By: Dr. Kat on 12-20-2022 RBC Ql (U) Negative Negative [facility] RBC Ql (U) 0 SEEN /hpf 0-5 [facility] Urine clarityOrdered By: Dr. Kat on 12-20-2022 Clarity (U) Clear Clear [facility] Urine color determinationOrd ered By: Dr. Kat on 12-20-2022 Color (U) Yellow Yellow [facility] Urine creatinine measurement (mass/volume)Ordered By: Dr. Kat on 12-20-2022 Creatinine (U) [Mass/Vol] 103.00 mg/dL NO RANGE EST. [facility] Urine glucose detectionOrder ed By: Dr. Kat on 12-20-2022 Glucose Ql (U) 100 mg/dl Normal [facility] [facility] leukocyte esterase det ection by dipstickOrdered By: Dr. Kat on 12-20-2022 Leukocyte esterase Test strip Ql (U) 100 /ul Negative [facility] Urine pHOrdered By: Dr. Aisha cline on 12-20-2022 pH (U) 5.0 [pH] 5.0 - 8.0 [facility] Urine protein measurement (m ass/volume)Ordered By: Dr. Kat on 12-20-2022 Protein (U) [Mass/Vol] 21.1 mg/dL 0.0-11.8 [facility] Urine protein/creatinine mas s ratioOrdered By: Dr. Kat on 12-20-2022 Protein/Creatinine (U) [Mass ratio] 205 mg/g CRE 0-200 [facility] Urine sediment bacteria coun t by microscopy (number/high power field)Ordered By: Dr. Kat on 12-20-2022 Bacteria LM.HPF (Urine sed) [#/Area] RARE /hpf None Seen [facility] Urine specific gravity measu rementOrdered By: Dr. Kat on 12-20-2022 Specific gravity (U) [Rel density] 1.015 1.002-1.030 [facility] Urobilinogen Auto test strip Ql (U)Ordered By: Dr. Kat on 12-20-2022 Urobilinogen Ql (U) Normal mg/dl Normal [facility] Whole blood hemoglobin A1c/t otal hemoglobin ratio (mass fraction)Ordered By: Dr. Kat on 12-20-2022 HbA1c (Bld) [Mass fraction] 8.2 % 3.8-5.6 [facility] Comment on above: Normal < 5.7 % Predi abetic 5.7 - 6.4 % Diabetic >or= 6.5 % Please note range changes. Absolute lymphocyte countOrd ered By: Dr. Kat on 09-20-2022 Lymphocytes Auto (Unsp spec) [#/Vol] 1.09 10*3/uL 0.83-4.51 [facility] Basophil percentageOrdered B y: Dr. Kat on 09-20-2022 Basophil percentage 0-5 SEEN /hpf 0-5 [facility] Basophil percentage 4.0 mg/dL 2.5-4.9 [facility] Basophils/100 WBC (Bld) 1.0 % 0-1 [facility] Bilirubin [Mass/Vol] 0.80 mg/dL 0.20-1.00 [facility] Comment on above: For patients on eltr ombopag therapy, use of Dimension [place] TBIL is not recommended. Chloride [Moles/Vol] 104 mmol/L 98-107 [facility] Cholesterol [Mass/Vol] 250 mg/dL <200 [facility] Comment on above: <200 mg/dL Desirable 200-240 mg/dL Borderline >240 mg/dL High Risk Eosinophils/100 WBC (Bld) 3.1 % 0-5 [facility] Glucose [Mass/Vol] 193 mg/dL 74-106 [facility] Comment on above: Fasting Glucose resu lt greater than or equal to 126 mg/dL suggests DIABETES MELLITUS per A.D.A. criteria. Neutrophils (Bld) [#/Vol] 2.2 10*3/uL 2.0-7.7 [facility] Neutrophils/100 WBC (Bld) 56.5 % 47-70 [facility] Potassium [Moles/Vol] 4.0 mmol/L 3.5-5.1 [facility] Protein [Mass/Vol] 7.6 g/dL 6.4-8.2 [facility] Sodium [Moles/Vol] 139 mmol/L 136-145 [facility] Triglyceride [Mass/Vol] 107 mg/dL <199 [facility] Comment on above: The drugs N-Acetylcy steine and Metamizole may falsely depress this assay.Serum Triglycerides Reference Interval Normal <150 mg/dL Borderline high 150 - 199 mg/dL High 200 - 499 mg/dL Very High > or = 500 mg/dL WBC (Bld) [#/Vol] 3.8 10*3/uL 4.4-11.0 [facility] Bilirubin Test strip Ql (U)O rdered By: Dr. Kat on 09-20-2022 Bilirubin Ql (U) Negative Negative [facility] Blood erythrocytes count (nu mber/volume)Ordered By: Dr. Kat on 09-20-2022 RBC (Bld) [#/Vol] 4.21 10*6/uL 4.2-5.4 [facility] Blood hemoglobin measurement (mass/volume)Ordered By: Dr. Kat on 09-20-2022 Hemoglobin (Bld) [Mass/Vol] 12.4 g/dL 12.0-15.0 [facility] Blood lymphocytes/100 leukoc ytesOrdered By: Dr. Kat on 09-20-2022 Lymphocytes/100 WBC (Bld) 28.6 % 19-41 [facility] Blood monocytes/100 leukocyt esOrdered By: Dr. Kat on 09-20-2022 Monocytes/100 WBC (Bld) 10.5 % 0-10 [facility] Blood platelet mean volumeOr dered By: Dr. Kat on 09-20-2022 Platelet mean volume (Bld) [Entitic vol] 9.9 fL 6.2-12.0 [facility] Determination of erythrocyte mean corpuscular volume (MCV)Ordered By: Dr. Kat on 09-20-2022 MCV (RBC) [Entitic vol] 91.2 fL 81-99 [facility] Hematocrit Auto (Bld) [Volum e fraction]Ordered By: Dr. Kat on 09-20-2022 Hematocrit (Bld) [Volume fraction] 38.4 % 37-47 [facility] Ketones Test strip Ql (U)Ord ered By: Dr. Kat on 09-20-2022 Ketones Ql (U) Negative Negative [facility] Laboratory - Chemistry and C hemistry - challengeOrdered By: Dr. Kat on 09-20-2022 ALP [Catalytic activity/Vol] 68 U/L 45-117 [facility] ALT [Catalytic activity/Vol] 19 U/L 13-56 [facility] CO2 [Moles/Vol] 27.0 mmol/L 21.0-32.0 [facility] Globulin (S) [Mass/Vol] 3.4 g/dL 2.2-4.2 [facility] Urea nitrogen/Creatinine [Mass ratio] 11.2 mg/mg 10-20 [facility] Laboratory - Hematology and Cell countsOrdered By: Dr. Kat on 09-20-2022 Erythrocyte distribution width (RBC) [Entitic vol] 43.0 fL 35.1-43.9 [facility] Erythrocyte distribution width (RBC) [Ratio] 12.9 % 11.6-14.6 [facility] Immature granulocytes/100 WBC (Bld) 0.300 % 0.0-0.9 [facility] Comment on above: IG% - Immature Granu locytes (promyelocytes, myelocytes and metamyelocytes) > 1% indicates that a LEFT SHIFT is Present. MCH (RBC) [Entitic mass] 29.5 pg 27.0-32.0 [facility] Nucleated RBC/100 WBC (Bld) [Ratio] 0 % 0-5 [facility] MCHC Auto (RBC) [Mass/Vol]Or dered By: Dr. Kat on 09-20-2022 MCHC (RBC) [Mass/Vol] 32.3 g/dL 32-36 [facility] Mucus LM Ql (Urine sed)Order ed By: Dr. Kat on 09-20-2022 Mucus Ql (Urine sed) 0 SEEN /hpf [facility] Nitrite Test strip Ql (U)Ord ered By: Dr. Kat on 09-20-2022 Nitrite Ql (U) Negative Negative [facility] No Panel InformationOrdered By: Dr. Kat on 09-20-2022 Urine Microalbumin/Creatinine Ratio 16.1 mg/g CRE <30 [facility] Estimated GFR (MDRD) Amer 53 mL/min >60 [facility] Comment on above: GFR Calc Estimated GFR (MDRD) Non-Af Amer 44 mL/min >60 [facility] Comment on above: Non- GFR Calc Vitamin D 25-Hydroxy 60.5 ng/mL [facility] Comment on above: Vitamin D 25(OH) Sta tus Range Deficiency <20 ng/mL (50nmol/L) Insufficiency 20 - 30 ng/mL (50 - 75 nmol/L) Sufficiency 30 - 100 ng/mL (75 - 250 nmol/L) Toxicity >100 ng/mL (>250 nmol/L) Platelets bldOrdered By: Dr. Kat on 09-20-2022 Platelets (Bld) [#/Vol] 382 10*3/uL 150-450 [facility] Protein Test strip Ql (U)Ord ered By: Dr. Kat on 09-20-2022 Protein Ql (U) 15 mg/dl Negative [facility] Serum or plasma albumin tameka urement (mass/volume)Ordered By: Dr. Kat on 09-20-2022 Albumin [Mass/Vol] 4.2 g/dL 3.2-5.0 [facility] Serum or plasma albumin/glob ulin mass ratioOrdered By: Dr. Kat on 09-20-2022 Albumin/Globulin [Mass ratio] 1.2 {ratio} 0.9-2.4 [facility] Serum or plasma calcium tameka urement (mass/volume)Ordered By: Dr. Kat on 09-20-2022 Calcium [Mass/Vol] 9.7 mg/dL 8.5-10.1 [facility] Serum or plasma cholesterol in HDL measurement (mass/volume)Ordered By: Dr. Kat on 09-20-2022 Cholesterol in HDL [Mass/Vol] 68 mg/dL >40 [facility] Comment on above: The drugs N-Acetylcy steine and Metamizole may falsely depress this assay. Reference Range HDL <40 mg/dL Low HDL Cholesterol HDL >or= 60 mg/dL High HDL Cholesterol Serum or plasma cholesterol in VLDL measurement (mass/volume)Ordered By: Dr. Kat on 09-20-2022 Cholesterol in VLDL [Mass/Vol] 21 mg/dL 5-40 [facility] Serum or plasma creatinine m easurement (mass/volume)Ordered By: Dr. Kat on 09-20-2022 Creatinine [Mass/Vol] 1.25 mg/dL 0.55-1.02 [facility] Comment on above: The validity of the calculated GFR & GFRAA in patients over 70 years has not been determined. Clinical correlation is essential. Serum or plasma low density lipoprotein (LDL) cholesterol measurement (mass/volume)Ordered By: Dr. Kat on 09-20-2022 Cholesterol in LDL [Mass/Vol] 161 mg/dL 0-130 [facility] Serum or plasma urea nitroge n measurement (mass/volume)Ordered By: Dr. Kat on 09-20-2022 Urea nitrogen [Mass/Vol] 14 mg/dL 7-18 [facility] Squamous epithelial cells de tection in urine sediment by light microscopyOrdered By: Dr. Kat on 09-20-2022 Epithelial cells.squamous LM Ql (Urine sed) 0 SEEN /hpf 5-10 [facility] Thin prep Papanicolaou smear with manual screeningOrdered By: Dr. Kat on 09-20-2022 Thin prep Papanicolaou smear with manual screening 6.2 mg/L NO RANGE EST. [facility] Thin prep Papanicolaou smear with manual screening 15 U/L 15-37 [facility] Thin prep Papanicolaou smear with manual screening 8 5-15 [facility] Urine blood detectionOrdered By: Dr. Kat on 09-20-2022 RBC Ql (U) Negative Negative [facility] RBC Ql (U) 0 SEEN /hpf 0-5 [facility] Urine clarityOrdered By: Dr. Kat on 09-20-2022 Clarity (U) Clear Clear [facility] Urine color determinationOrd ered By: Dr. Kat on 09-20-2022 Color (U) Yellow Yellow [facility] Urine creatinine measurement (mass/volume)Ordered By: Dr. Kat on 09-20-2022 Creatinine (U) [Mass/Vol] 38.10 mg/dL NO RANGE EST. [facility] Urine glucose detectionOrder ed By: Dr. Kat on 09-20-2022 Glucose Ql (U) Normal mg/dl Normal [facility] Urine leukocyte esterase det ection by dipstickOrdered By: Dr. Kat on 09-20-2022 Leukocyte esterase Test strip Ql (U) 100 /ul Negative [facility] Urine pHOrdered By: Dr. Aisha cline on 09-20-2022 pH (U) 6.5 [pH] 5.0 - 8.0 [facility] Urine protein measurement (m ass/volume)Ordered By: Dr. Kat on 09-20-2022 Protein (U) [Mass/Vol] mg/dL 0.0-11.8 [facility] Urine protein/creatinine mas s ratioOrdered By: Dr. Kat on 09-20-2022 Protein/Creatinine (U) [Mass ratio] TNP [facility] Comment on above: Test not performed Urine sediment bacteria coun t by microscopy (number/high power field)Ordered By: Dr. Kat on 09-20-2022 Bacteria LM.HPF (Urine sed) [#/Area] RARE /hpf None Seen [facility] Urine specific gravity measu rementOrdered By: Dr. Kat on 09-20-2022 Specific gravity (U) [Rel density] 1.010 1.002-1.030 [facility] Urobilinogen Auto test strip Ql (U)Ordered By: Dr. Kat on 09-20-2022 Urobilinogen Ql (U) Normal mg/dl Normal [facility] Whole blood hemoglobin A1c/t otal hemoglobin ratio (mass fraction)Ordered By: Dr. Kat on 09-20-2022 HbA1c (Bld) [Mass fraction] 7.9 % 3.8-5.6 [facility] Comment on above: Normal < 5.7 % Predi abetic 5.7 - 6.4 % Diabetic >or= 6.5 % Please note range changes. Absolute lymphocyte counton 03-29-2022 Lymphocytes Auto (Unsp spec) [#/Vol] 0.89 10*3/uL 0.83-4.51 [facility] Work Phone: Basophil percentageon 2021 Basophil percentage 10-25 SEEN /hpf 0-5 [facility] Work Phone: Basophil percentage 3.7 mg/dL 2.5-4.9 [facility] Work Phone: Basophils/100 WBC (Bld) 1.3 % 0-1 [facility] Work Phone: Bilirubin [Mass/Vol] 0.80 mg/dL 0.20-1.00 [facility] Work Phone: Comment on above: For patients on eltr ombopag therapy, use of Dimension [place] TBIL is not recommended. Chloride [Moles/Vol] 102 mmol/L 98-107 [facility] Work Phone: Cholesterol [Mass/Vol] 269 mg/dL <[address] [facility] Work Phone: Comment on above: <200 mg/dL Desirable 200-240 mg/dL Borderline >240 mg/dL High Risk Eosinophils/100 WBC (Bld) 3.2 % 0-5 [facility] Work Phone: Glucose [Mass/Vol] 243 mg/dL 74-106 [facility] Work Phone: Comment on above: Glucose result great er than or equal to 200 mg/dLsuggests DIABETES MELLITUS per A.D.A. criteria. Neutrophils (Bld) [#/Vol] 2.4 10*3/uL 2.0-7.7 [facility] Work Phone: Neutrophils/100 WBC (Bld) 62.7 % 47-70 [facility] Work Phone: Potassium [Moles/Vol] 4.1 mmol/L 3.5-5.1 [facility] Work Phone: Protein [Mass/Vol] 7.5 g/dL 6.4-8.2 [facility] Work Phone: Sodium [Moles/Vol] 137 mmol/L 136-145 [facility] Work Phone: Triglyceride [Mass/Vol] 156 mg/dL <199 [facility] Work Phone: Comment on above: The drugs N-Acetylcy steine and Metamizole may falsely depress this assay.Serum Triglycerides Reference Interval Normal <150 mg/dL Borderline high 150 - 199 mg/dL High 200 - 499 mg/dL Very High > or = 500 mg/dL WBC (Bld) [#/Vol] 3.8 10*3/uL 4.4-11.0 [facility] Work Phone: Bilirubin Test strip Ql (U)o n 03-29-2022 Bilirubin Ql (U) Negative Negative [facility] Work Phone: Blood erythrocytes count (nu mber/volume)on 03-29-2022 RBC (Bld) [#/Vol] 4.21 10*6/uL 4.2-5.4 [facility] Work Phone: Blood hemoglobin measurement (mass/volume)on 03-29-2022 Hemoglobin (Bld) [Mass/Vol] 12.6 g/dL 12.0-15.0 [facility] Work Phone: Blood lymphocytes/100 leukoc yteson 03-29-2022 Lymphocytes/100 WBC (Bld) 23.5 % 19-41 [facility] Work Phone: Blood monocytes/100 leukocyt eson 03-29-2022 Monocytes/100 WBC (Bld) 9.0 % 0-10 [facility] Work Phone: Blood platelet mean volumeon 03-29-2022 Platelet mean volume (Bld) [Entitic vol] 10.1 fL 6.2-12.0 [facility] Work Phone: Determination of erythrocyte mean corpuscular volume (MCV)on 03-29-2022 MCV (RBC) [Entitic vol] 91.9 fL 81-99 [facility] Work Phone: Hematocrit Auto (Bld) [Volum e fraction]on 03-29-2022 Hematocrit (Bld) [Volume fraction] 38.7 % 37-47 [facility] Work Phone: Ketones Test strip Ql (U)on 03-29-2022 Ketones Ql (U) Negative Negative [facility] Work Phone: Laboratory - Chemistry and C hemistry - challengeon 03-29-2022 ALP [Catalytic activity/Vol] 86 U/L 45-117 [facility] Work Phone: ALT [Catalytic activity/Vol] 26 U/L 13-56 [facility] Work Phone: CO2 [Moles/Vol] 25.0 mmol/L 21.0-32.0 [facility] Work Phone: Globulin (S) [Mass/Vol] 3.7 g/dL 2.2-4.2 [facility] Work Phone: Magnesium [Mass/Vol] 2.2 mg/dL 1.6-2.6 [facility] Work [facility]: Urea nitrogen/Creatinine [Mass ratio] 17.2 mg/mg 10-20 [facility] Work Phone: Laboratory - Hematology and Cell countson 03-29-2022 Erythrocyte distribution width (RBC) [Entitic vol] 45.0 fL 35.1-43.9 [facility] Work Phone: Erythrocyte distribution width (RBC) [Ratio] 13.4 % 11.6-14.6 [facility] Work Phone: Immature granulocytes/100 WBC (Bld) 0.300 % 0.0-0.9 [facility] Work Phone: Comment on above: IG% - Immature Granu locytes (promyelocytes, myelocytes and metamyelocytes) > 1% indicates that a LEFT SHIFT is Present. MCH (RBC) [Entitic mass] 29.9 pg 27.0-32.0 [facility] Work Phone: Nucleated RBC/100 WBC (Bld) [Ratio] 0 % 0-5 [facility] Work Phone: MCHC Auto (RBC) [Mass/Vol]on 03-29-2022 MCHC (RBC) [Mass/Vol] 32.6 g/dL 32-36 [facility] Work Phone: Mucus LM Ql (Urine sed)on Mucus Ql (Urine sed) 0 SEEN /hpf [facility] Work Phone: Nitrite Test strip Ql (U)on 03-29-2022 Nitrite Ql (U) Negative Negative [facility] Work Phone: No Panel Informationon 03-29 Estimated GFR (MDRD) Amer 52 mL/min >60 [facility] Work Phone: Comment on above: GFR Calc Estimated GFR (MDRD) Non-Af Amer 43 mL/min >60 [facility] Work Phone: Comment on above: Non- GFR Calc Urine Microalbumin/Creatinine Ratio 24.3 mg/g CRE <30 [facility] Work Phone: Vitamin D 25-Hydroxy 65.1 ng/mL [facility] Work Phone: Comment on above: Vitamin D 25(OH) Sta tus Range Deficiency <20 ng/mL (50nmol/L) Insufficiency 20 - 30 ng/mL (50 - 75 nmol/L) Sufficiency 30 - 100 ng/mL (75 - 250 nmol/L) Toxicity >100 ng/mL (>250 nmol/L) Platelets bldon 03-29-2022 Platelets (Bld) [#/Vol] 416 10*3/uL 150-450 [facility] Work Phone: Protein Test strip Ql (U)on 03-29-2022 Protein Ql (U) Negative Negative [facility] Work Phone: Serum or plasma albumin tameka urement (mass/volume)on 03-29-2022 Albumin [Mass/Vol] 3.8 g/dL 3.2-5.0 [facility] Work Phone: Serum or plasma albumin/glob ulin mass ratioon 03-29-2022 Albumin/Globulin [Mass ratio] 1.0 {ratio} 0.9-2.4 [facility] Work Phone: Serum or plasma calcium tameka urement (mass/volume)on 03-29-2022 Calcium [Mass/Vol] 9.6 mg/dL 8.5-10.1 [facility] Work Phone: Serum or plasma cholesterol in HDL measurement (mass/volume)on 03-29-2022 Cholesterol in HDL [Mass/Vol] 70 mg/dL >40 [facility] Work Phone: Comment on above: The drugs N-Acetylcy steine and Metamizole may falsely depress this assay. Reference Range HDL <40 mg/dL Low HDL Cholesterol HDL >or= 60 mg/dL High HDL Cholesterol Serum or plasma cholesterol in VLDL measurement (mass/volume)on 03-29-2022 Cholesterol in VLDL [Mass/Vol] 31 mg/dL 5-40 [facility] Work Phone: Serum or plasma creatinine m easurement (mass/volume)on 03-29-2022 Creatinine [Mass/Vol] 1.28 mg/dL 0.55-1.02 [facility] Work Phone: Comment on above: The validity of the calculated GFR & GFRAA in patients over 70 years has not been determined. Clinical correlation is essential. Serum or plasma low density lipoprotein (LDL) cholesterol measurement (mass/volume)on 03-29-2022 Cholesterol in LDL [Mass/Vol] 168 mg/dL 0-130 [facility] Work Phone: Serum or plasma urea nitroge n measurement (mass/volume)on 03-29-2022 Urea nitrogen [Mass/Vol] 22 mg/dL 7-18 [facility] Work Phone: Squamous epithelial cells de tection in urine sediment by light microscopyon 03-29-2022 Epithelial cells.squamous LM Ql (Urine sed) 0-5 SEEN /hpf 5-10 [facility] Work Phone: Thin prep Papanicolaou smear with manual screeningon 03-29-2022 Thin prep Papanicolaou smear with manual screening 16 U/L 15-37 [facility] Work Phone: Thin prep Papanicolaou smear with manual screening 10 5-15 [facility] Work Phone: Thin prep Papanicolaou smear with manual screening 11.0 mg/L NO RANGE EST. [facility] Work Phone: Urine blood detectionon 03-05 RBC Ql (U) Negative Negative [facility] Work Phone: RBC Ql (U) 0 SEEN /hpf 0-5 [facility] Work Phone: Urine clarityon 09-26-2022 Clarity (U) Sl. Cloudy Clear [facility] Work Phone: Urine color determinationon 03-29-2022 Color (U) Yellow Yellow [facility] Work Phone: Urine creatinine measurement (mass/volume)on 03-29-2022 Creatinine (U) [Mass/Vol] 45.30 mg/dL NO RANGE EST. [facility] Work Phone: Urine glucose detectionon Glucose Ql (U) Normal mg/dl Normal [facility] Work Phone: Urine leukocyte esterase det ection by dipstickon 03-29-2022 Leukocyte esterase Test strip Ql (U) 100 /ul Negative [facility] Work Phone: Urine pHon 03-29-2022 pH (U) 6.5 [pH] 5.0 - 8.0 [facility] Work Phone: Urine protein measurement (m ass/volume)on 03-29-2022 Protein (U) [Mass/Vol] 9.4 mg/dL 0.0-11.8 [facility] Work Phone: Urine protein/creatinine mas s ratioon 03-29-2022 Protein/Creatinine (U) [Mass ratio] 208 mg/g CRE 0-200 [facility] Work Phone: Urine sediment bacteria coun t by microscopy (number/high power field)on 03-29-2022 Bacteria LM.HPF (Urine sed) [#/Area] 0 /[HPF] None Seen [facility] Work Phone: Urine specific gravity measu rementon 03-29-2022 Specific gravity (U) [Rel density] 1.010 1.002-1.030 [facility] Work Phone: Urobilinogen Auto test strip Ql (U)on 03-29-2022 Urobilinogen Ql (U) Normal mg/dl Normal [facility] Work Phone: Whole blood hemoglobin A1c/t otal hemoglobin ratio (mass fraction)on 03-29-2022 HbA1c (Bld) [Mass fraction] 9.5 % 3.8-5.6 [facility] Work Phone: Comment on above: Normal < 5.7 % Predi abetic 5.7 - 6.4 % Diabetic >or= 6.5 % Please note range changes. Absolute lymphocyte counton 12-28-2021 Lymphocytes Auto (Unsp spec) [#/Vol] 0.86 10*3/uL 0.83-4.51 [facility] Work Phone: Basophil percentageon 2021 Basophils/100 WBC (Bld) 1.0 % 0-1 [facility] Work Phone: Bilirubin [Mass/Vol] 0.60 mg/dL 0.20-1.00 [facility] Work Phone: Comment on above: For patients on eltr ombopag therapy, use of Dimension [place] TBIL is not recommended. Chloride [Moles/Vol] 106 mmol/L 98-107 [facility] Work Phone: Eosinophils/100 WBC (Bld) 3.2 % 0-5 [facility] Work Phone: Glucose [Mass/Vol] 242 mg/dL 74-106 [facility] Work Phone: Comment on above: Glucose result great er than or equal to 200 mg/dLsuggests DIABETES MELLITUS per A.D.A. criteria. Neutrophils (Bld) [#/Vol] 2.7 10*3/uL 2.0-7.7 [facility] Work Phone: Neutrophils/100 WBC (Bld) 66.0 % 47-70 [facility] Work Phone: Potassium [Moles/Vol] 4.7 mmol/L 3.5-5.1 [facility] Work Phone: Protein [Mass/Vol] 7.7 g/dL 6.4-8.2 [facility] Work Phone: Sodium [Moles/Vol] 139 mmol/L 136-145 [facility] Work Phone: WBC (Bld) [#/Vol] 4.1 10*3/uL 4.4-11.0 [facility] Work Phone: Blood erythrocytes count (nu mber/volume)on 12-28-2021 RBC (Bld) [#/Vol] 4.17 10*6/uL 4.2-5.4 [facility] Work Phone: Blood hemoglobin measurement (mass/volume)on 12-28-2021 Hemoglobin (Bld) [Mass/Vol] 12.2 g/dL 12.0-15.0 [facility] Work Phone: Blood lymphocytes/100 leukoc yteson 12-28-2021 Lymphocytes/100 WBC (Bld) 20.9 % 19-41 [facility] Work Phone: Blood monocytes/100 leukocyt eson 12-28-2021 Monocytes/100 WBC (Bld) 8.7 % 0-10 [facility] Work Phone: Blood platelet mean volumeon 12-28-2021 Platelet mean volume (Bld) [Entitic vol] 10.4 fL 6.2-12.0 [facility] Work Phone: Determination of erythrocyte mean corpuscular volume (MCV)on 12-28-2021 MCV (RBC) [Entitic vol] 92.8 fL 81-99 [facility] Work Phone: Hematocrit Auto (Bld) [Volum e fraction]on 12-28-2021 Hematocrit (Bld) [Volume fraction] 38.7 % 37-47 [facility] Work Phone: Laboratory - Chemistry and C hemistry - challengeon 12-28-2021 ALP [Catalytic activity/Vol] 90 U/L 45-117 [facility] Work Phone: ALT [Catalytic activity/Vol] 16 U/L 13-56 [facility] Work Phone: CO2 [Moles/Vol] 26.0 mmol/L 21.0-32.0 [facility] Work Phone: Globulin (S) [Mass/Vol] 3.8 g/dL 2.2-4.2 [facility] Work Phone: Urea nitrogen/Creatinine [Mass ratio] 13.9 mg/mg 10-20 [facility] Work Phone: Laboratory - Hematology and Cell countson 12-28-2021 Erythrocyte distribution width (RBC) [Entitic vol] 50.1 fL 35.1-43.9 [facility] Work Phone: Erythrocyte distribution width (RBC) [Ratio] 14.7 % 11.6-14.6 [facility] Work Phone: Immature granulocytes/100 WBC (Bld) 0.200 % 0.0-0.9 [facility] Work Phone: Comment on above: IG% - Immature Granu locytes (promyelocytes, myelocytes and metamyelocytes) > 1% indicates that a LEFT SHIFT is Present. MCH (RBC) [Entitic mass] 29.3 pg 27.0-32.0 [facility] Work Phone: Nucleated RBC/100 WBC (Bld) [Ratio] 0 % 0-5 [facility] Work Phone: MCHC Auto (RBC) [Mass/Vol]on 12-28-2021 MCHC (RBC) [Mass/Vol] 31.5 g/dL 32-36 [facility] Work Phone: No Panel Informationon 12-28 Estimated GFR (MDRD) Amer 48 mL/min >60 [facility] Work Phone: Comment on above: GFR Calc Estimated GFR (MDRD) Non-Af Amer 40 mL/min >60 [facility] Work Phone: Comment on above: Non- GFR Calc Urine Microalbumin/Creatinine Ratio 23.3 mg/g CRE <30 [facility] Work Phone: Vitamin D 25-Hydroxy 75.1 ng/mL [facility] Work Phone: Comment on above: Vitamin D 25(OH) Sta tus Range Deficiency <20 ng/mL (50nmol/L) Insufficiency 20 - 30 ng/mL (50 - 75 nmol/L) Sufficiency 30 - 100 ng/mL (75 - 250 nmol/L) Toxicity >100 ng/mL (>250 nmol/L) Platelets bldon 12-28-2021 Platelets (Bld) [#/Vol] 388 10*3/uL 150-450 [facility] Work Phone: Serum or plasma albumin tameka urement (mass/volume)on 12-28-2021 Albumin [Mass/Vol] 3.9 g/dL 3.2-5.0 [facility] Work Phone: Serum or plasma albumin/glob ulin mass ratioon 12-28-2021 Albumin/Globulin [Mass ratio] 1.0 {ratio} 0.9-2.4 [facility] Work Phone: Serum or plasma calcium tameka urement (mass/volume)on 12-28-2021 Calcium [Mass/Vol] 9.5 mg/dL 8.5-10.1 [facility] Work Phone: Serum or plasma creatinine m easurement (mass/volume)on 12-28-2021 Creatinine [Mass/Vol] 1.37 mg/dL 0.55-1.02 [facility] Work Phone: Comment on above: The validity of the calculated GFR & GFRAA in patients over 70 years has not been determined. Clinical correlation is essential. Serum or plasma urea nitroge n measurement (mass/volume)on 12-28-2021 Urea nitrogen [Mass/Vol] 19 mg/dL 7-18 [facility] Work Phone: Thin prep Papanicolaou smear with manual screeningon 12-28-2021 Thin prep Papanicolaou smear with manual screening 13 U/L 15-37 [facility] Work Phone: Thin prep Papanicolaou smear with manual screening 7 5-15 [facility] Work Phone: Thin prep Papanicolaou smear with manual screening 13.8 mg/L NO RANGE EST. [facility] Work Phone: Urine creatinine measurement (mass/volume)on 12-28-2021 Creatinine (U) [Mass/Vol] 59.30 mg/dL NO RANGE EST. [facility] Work Phone: Whole blood hemoglobin A1c/t otal hemoglobin ratio (mass fraction)on 12-28-2021 HbA1c (Bld) [Mass fraction] 9.2 % 3.8-5.6 [facility] Work Phone: Comment on above: Normal < 5.7 % Predi abetic 5.7 - 6.4 % Diabetic >or= 6.5 % Please note range changes. Absolute lymphocyte counton 09-04-2021 Lymphocytes Auto (Unsp spec) [#/Vol] 0.81 10*3/uL 0.83-4.51 [facility] Work Phone: Basophil percentageon 2021 Basophil percentage 10-25 SEEN /hpf 0-5 [facility] Work Phone: Basophil percentage 4.4 mg/dL 2.5-4.9 [facility] Work Phone: Basophils/100 WBC (Bld) 0.7 % 0-1 [facility] Work Phone: Bilirubin [Mass/Vol] 0.40 mg/dL 0.20-1.00 [facility] Work Phone: Comment on above: For patients on eltr ombopag therapy, use of Dimension [place] TBIL is not recommended. Chloride [Moles/Vol] 104 mmol/L 98-107 [facility] Work Phone: Cholesterol [Mass/Vol] 192 mg/dL <200 [facility] Work Phone: Comment on above: <200 mg/dL Desirable 200-240 mg/dL Borderline >240 mg/dL High Risk Eosinophils/100 WBC (Bld) 1.5 % 0-5 [facility] Work Phone: Glucose [Mass/Vol] 285 mg/dL 74-106 [facility] Work Phone: Comment on above: Glucose result great er than or equal to 200 mg/dLsuggests DIABETES MELLITUS per A.D.A. criteria. Neutrophils (Bld) [#/Vol] 5.6 10*3/uL 2.0-7.7 [facility] Work Phone: Neutrophils/100 WBC (Bld) 77.1 % 47-70 [facility] Work Phone: Potassium [Moles/Vol] 3.9 mmol/L 3.5-5.1 [facility] Work Phone: Comment on above: Slight Hemolysis, Re sult may be falsely increased. Protein [Mass/Vol] 8.3 g/dL 6.4-8.2 [facility] Work Phone: Sodium [Moles/Vol] 136 mmol/L 136-145 [facility] Work Phone: Triglyceride [Mass/Vol] 159 mg/dL <199 [facility] Work Phone: Comment on above: The drugs N-Acetylcy steine and Metamizole may falsely depress this assay.Serum Triglycerides Reference Interval Normal <150 mg/dL Borderline high 150 - 199 mg/dL High 200 - 499 mg/dL Very High > or = 500 mg/dL WBC (Bld) [#/Vol] 7.2 10*3/uL 4.4-11.0 [facility] Work Phone: Bilirubin Test strip Ql (U)o n 09-04-2021 Bilirubin Ql (U) Negative Negative [facility] Work Phone: Blood erythrocytes count (nu mber/volume)on 09-04-2021 RBC (Bld) [#/Vol] 4.52 10*6/uL 4.2-5.4 [facility] Work Phone: Blood hemoglobin measurement (mass/volume)on 09-04-2021 Hemoglobin (Bld) [Mass/Vol] 13.1 g/dL 12.0-15.0 [facility] Work Phone: Blood lymphocytes/100 leukoc yteson 09-04-2021 Lymphocytes/100 WBC (Bld) 11.2 % 19-41 [facility] Work Phone: Blood monocytes/100 leukocyt eson 09-04-2021 Monocytes/100 WBC (Bld) 8.9 % 0-10 [facility] Work Phone: Blood platelet mean volumeon 09-04-2021 Platelet mean volume (Bld) [Entitic vol] 10.2 fL 6.2-12.0 [facility] Work Phone: Determination of erythrocyte mean corpuscular volume (MCV)on 09-04-2021 MCV (RBC) [Entitic vol] 91.6 fL 81-99 [facility] Work Phone: Hematocrit Auto (Bld) [Volum e fraction]on 09-04-2021 Hematocrit (Bld) [Volume fraction] 41.4 % 37-47 [facility] Work Phone: Ketones Test strip Ql (U)on 09-04-2021 Ketones Ql (U) Negative Negative [facility] Work Phone: Laboratory - Chemistry and C hemistry - challengeon 09-04-2021 ALP [Catalytic activity/Vol] 87 U/L 45-117 [facility] Work Phone: ALT [Catalytic activity/Vol] 17 U/L 13-56 [facility] Work Phone: CO2 [Moles/Vol] 25.0 mmol/L 21.0-32.0 [facility] Work Phone: Globulin (S) [Mass/Vol] 4.9 g/dL 2.2-4.2 [facility] Work Phone: Urea nitrogen/Creatinine [Mass ratio] 14.5 mg/mg 10-20 [facility] Work Phone: Laboratory - Hematology and Cell countson 09-04-2021 Erythrocyte distribution width (RBC) [Entitic vol] 43.8 fL 35.1-43.9 [facility] Work Phone: Erythrocyte distribution width (RBC) [Ratio] 13.0 % 11.6-14.6 [facility] Work Phone: Immature granulocytes/100 WBC (Bld) 0.600 % 0.0-0.9 [facility] Work Phone: Comment on above: IG% - Immature Granu locytes (promyelocytes, myelocytes and metamyelocytes) > 1% indicates that a LEFT SHIFT is Present. MCH (RBC) [Entitic mass] 29.0 pg 27.0-32.0 [facility] Work Phone: Nucleated RBC/100 WBC (Bld) [Ratio] 0 % 0-5 [facility] Work Phone: MCHC Auto (RBC) [Mass/Vol]on 09-04-2021 MCHC (RBC) [Mass/Vol] 31.6 g/dL 32-36 [facility] Work Phone: Mucus LM Ql (Urine sed)on Mucus Ql (Urine sed) 0 SEEN /hpf [facility] Work Phone: Nitrite Test strip Ql (U)on 09-04-2021 Nitrite Ql (U) Negative Negative [facility] Work Phone: No Panel Informationon 09-04 Estimated GFR (MDRD) Amer 45 mL/min >60 [facility] Work Phone: Comment on above: GFR Calc Estimated GFR (MDRD) Non-Af Amer 37 mL/min >60 [facility] Work Phone: Comment on above: Non- GFR Calc Parathyroid Hormone (Intact) 37.3 pg/mL 18.4-80.1 [facility] Work Phone: Vitamin D 25-Hydroxy 80.5 ng/mL [facility] Work Phone: Comment on above: Vitamin D 25(OH) Sta tus Range Deficiency <20 ng/mL (50nmol/L) Insufficiency 20 - 30 ng/mL (50 - 75 nmol/L) Sufficiency 30 - 100 ng/mL (75 - 250 nmol/L) Toxicity >100 ng/mL (>250 nmol/L) Platelets bldon 09-04-2021 Platelets (Bld) [#/Vol] 512 10*3/uL 150-450 [facility] Work Phone: Protein Test strip Ql (U)on 09-04-2021 Protein Ql (U) Negative Negative [facility] Work Phone: Serum or plasma albumin tameka urement (mass/volume)on 09-04-2021 Albumin [Mass/Vol] 3.4 g/dL 3.2-5.0 [facility] Work Phone: Serum or plasma albumin/glob ulin mass ratioon 09-04-2021 Albumin/Globulin [Mass ratio] 0.7 {ratio} 0.9-2.4 [facility] Work Phone: Serum or plasma calcium tameka urement (mass/volume)on 09-04-2021 Calcium [Mass/Vol] 10.1 mg/dL 8.5-10.1 [facility] Work Phone: Serum or plasma cholesterol in HDL measurement (mass/volume)on 09-04-2021 Cholesterol in HDL [Mass/Vol] 47 mg/dL >40 [facility] Work Phone: Comment on above: The drugs N-Acetylcy steine and Metamizole may falsely depress this assay. Reference Range HDL <40 mg/dL Low HDL Cholesterol HDL >or= 60 mg/dL High HDL Cholesterol Serum or plasma cholesterol in VLDL measurement (mass/volume)on 09-04-2021 Cholesterol in VLDL [Mass/Vol] 32 mg/dL 5-40 [facility] Work Phone: Serum or plasma creatinine m easurement (mass/volume)on 09-04-2021 Creatinine [Mass/Vol] 1.45 mg/dL 0.55-1.02 [facility] Work Phone: Comment on above: The validity of the calculated GFR & GFRAA in patients over 70 years has not been determined. Clinical correlation is essential. Serum or plasma low density lipoprotein (LDL) cholesterol measurement (mass/volume)on 09-04-2021 Cholesterol in LDL [Mass/Vol] 113 mg/dL 0-130 [facility] Work Phone: Serum or plasma urea nitroge n measurement (mass/volume)on 09-04-2021 Urea nitrogen [Mass/Vol] 21 mg/dL 7-18 [facility] Work Phone: Squamous epithelial cells de tection in urine sediment by light microscopyon 09-04-2021 Epithelial cells.squamous LM Ql (Urine sed) 0-5 SEEN /hpf 5-10 [facility] Work Phone: Thin prep Papanicolaou smear with manual screeningon 09-04-2021 Thin prep Papanicolaou smear with manual screening 8 U/L 15-37 [facility] Work Phone: Comment on above: Slight Hemolysis, Re sult may be falsely increased. Thin prep Papanicolaou smear with manual screening 7 5-15 [facility] Work Phone: Urine blood detectionon - RBC Ql (U) Negative Negative [facility] Work Phone: RBC Ql (U) 0 SEEN /hpf 0-5 [facility] Work Phone: Urine clarityon 09-04-2021 Clarity (U) Sl. Cloudy Clear [facility] Work Phone: Urine color determinationon 09-04-2021 Color (U) Yellow Yellow [facility] Work Phone: Urine creatinine measurement (mass/volume)on 09-04-2021 Creatinine (U) [Mass/Vol] 39.10 mg/dL NO RANGE EST. [facility] Work Phone: Urine glucose detectionon Glucose Ql (U) 1000 mg/dl Normal [facility] Work Phone: Urine leukocyte esterase det ection by dipstickon 09-04-2021 Leukocyte esterase Test strip Ql (U) 100 /ul Negative [facility] Work Phone: Urine pHon 09-04-2021 pH (U) 5.0 [pH] 5.0 - 8.0 [facility] Work Phone: Urine protein measurement (m ass/volume)on 09-04-2021 Protein (U) [Mass/Vol] 10.7 mg/dL 0.0-11.8 [facility] Work Phone: Urine protein/creatinine mas s ratioon 09-04-2021 Protein/Creatinine (U) [Mass ratio] 274 mg/g CRE 0-200 [facility] Work Phone: Urine sediment bacteria coun t by microscopy (number/high power field)on 09-04-2021 Bacteria LM.HPF (Urine sed) [#/Area] 0 /[HPF] None Seen [facility] Work Phone: Urine specific gravity measu rementon 09-04-2021 Specific gravity (U) [Rel density] 1.010 1.002-1.030 [facility] Work Phone: Urobilinogen Auto test strip Ql (U)on 09-04-2021 Urobilinogen Ql (U) Normal mg/dl Normal [facility] Work Phone: Whole blood hemoglobin A1c/t otal hemoglobin ratio (mass fraction)on 09-04-2021 HbA1c (Bld) [Mass fraction] 9.0 % 3.8-5.6 [facility] Work Phone: Comment on above: Normal < 5.7 % Predi abetic 5.7 - 6.4 % Diabetic >or= 6.5 % Please note range changes. CNPNon 11-11-2020 ISH Telephone (ENRRIQUE) MARGOT VASQUEZ ([id number]) 1940 F Date Time Provider Department 11/11/20 KATTY KRISHNA During your visit today, we recorded the following information about you: Betty Grant LPN 11/11/2020 8:08 AM Signed Up all night not feeling well. She thinks she is dehydrated because her skin feels wrinkly . She is having pain in her right shoulder blade and back of neck bones coming down from her head. She is very tired. She had thought about going to ER last night but decided to wait and see what your thoughts are. She get her medication in this am and has drank a 20 Gatorade. Please advise pt. Also wanted to know what her blood work results are. Betty Krishna APRN.SHAHNAZ 11/11/2020 11:45 AM Signed Called patient back verified name and . Patient reports being up since 1:30 AM this morning and just not feeling right. She took her sugar this morning and it was 179. She denies nausea vomiting or diarrhea. She does report that she feels that she is dehydrated. She is drinking more Gatorade. She has a follow-up appointment today with her primary care provider at 2:50 PM. Katty Krishna APRN.SHAHNAZ Allergies As of Date: 11/11/2020 (No Known Allergies) Date Reviewed: 11/10/2020 Reviewed by: Betty Grant LPN - Fully Assessed Reason for Visit: Returning Patient's Call [[id number]] Prescriptions as of 11/11/2020 Sig: GLIPIZIDE 5 MG TABLET Take 1 tablet by mouth once d* OMEPRAZOLE 20 MG CAPSULE,KINGS* Take 1 capsule by mouth once * OZEMPIC 0.25 MG OR 0.5 MG (2 * Inject 0.5 mg subcutaneously * VITAMIN D3-VITAMIN K2 ORAL Take 1 tablet by mouth once d* POLYETHYLENE GLYCOL 3350 17 G* Use as directed for Miralax /* Patient not taking: Reported on 11/10/2020 GABAPENTIN 300 MG CAPSULE Take 1 capsule by mouth three* Patient taking differently: Take 100 mg by mouth as neede* CARISOPRODOL 350 MG TABLET Take 1 tablet by mouth four t* Patient not taking: Reported on 10/16/2020 * METFORMIN 500 MG TABLET Take 500 mg by mouth twice da* Problem List As Of Date 11/11/2020 Noted Resolved ATROPHIC VAGINITIS [N95.2] 01/29/2009 Urge Incontinence [N39.41] 01/15/2010 Encounter Status:Closed by BETTY GRANT LPN on 11/14/20 Normal [facility] CBCon 11-10-2020 Absolute nRBC <0.01 Normal <0.01 [facility] Erythrocyte distribution width (RBC) [Ratio] 14.2 % Normal 11.5-15.0 [facility] Hematocrit (Bld) [Volume fraction] 37.6 % Normal 36.0-46.0 [facility] Hemoglobin (Bld) [Mass/Vol] 12.2 g/dL Normal 11.5-15.5 [facility] MCH 29.1 pG Normal 26.0-34.0 [facility] MCHC (RBC) [Mass/Vol] 32.4 g/dL Normal 30.5-36.0 [facility] MCV (RBC) [Entitic vol] 89.7 fL Normal 80.0-100.0 [facility] Platelet mean volume (Bld) [Entitic vol] 9.2 fL Normal 9.0-12.7 [facility] Platelets (Bld) [#/Vol] 399 10*3/uL Normal 150-400 [facility] RBC (Bld) [#/Vol] 4.19 10*6/uL Normal 3.90-5.20 [facility] WBC (Bld) [#/Vol] 5.32 10*3/uL Normal 3.70-11.00 [facility] CNOVon 11-10-2020 CNOV Office Visit (GASTWS) MARGOT VASQUEZ ([id number]) 1940 F Date Time Provider Department 11/10/20 8:40 AM KATTY KRISHNA During your visit today, we recorded the following information about you: Pulse Blood pressure Weight Height 85/minute 132/80 46.8 kg 1.575 m Katty Krishna APRN.CNP 11/10/2020 1:32 PM Addendum DEPARTMENT OF GASTROENTEROLOGY - FOLLOW UP VISIT HISTORY OF PRESENT ILLNESS Margot Vasquez is a 80 year old female who [...] SURGICAL HISTORY Procedure Laterality Date - ANTER COLPORRHAPHY,BLAD/HENRI MILANA age 32 or so - COLONOSCOPY W/BX [...] on 10/16/2020) 30 tablet 0 No current facility-administere d medications for this visit. ALLERGIES No Known [...] drink Gatorade. Patient has had a concerning dr (more content not included)... Normal [facility] Comp Metabolic Panelon 11-10 Albumin [Mass/Vol] 4.9 g/dL Normal 3.9-4.9 [facility] ALP [Catalytic activity/Vol] 82 U/L Normal 34-123 [facility] ALT [Catalytic activity/Vol] 6 U/L Low 7-38 [facility] Anion gap [Moles/Vol] 15 mmol/L Normal 9-18 [facility] AST [Catalytic activity/Vol] 12 U/L Low 13-35 [facility] Bilirubin [Mass/Vol] 0.7 mg/dL Normal 0.2-1.3 [facility] Calcium [Mass/Vol] 10.0 mg/dL Normal 8.5-10.2 [facility] Chloride [Moles/Vol] 102 mmol/L Normal 97-105 [facility] CO2 [Moles/Vol] 21 mmol/L Low 22-30 [facility] Creatinine [Mass/Vol] 1.09 mg/dL High 0.58-0.96 [facility] eGFR- Amer. 59 Normal [facility] eGFR-All Other Races 49 . Normal [facility] Comment on above: Result Comment: eGFR (Estimated GFR) Units of measure: mL/min/1.73 meters squared eGFR is derived from the reexpressed MDRD Study equation using the following parameters: serum creatinine, age, gender and race. The creatinine assay has been calibrated to be traceable to IDMS. An eGFR <60 mL/min/1.73m2 for >3 months is consistent with chronic kidney disease. Refer to KDOQI guidelines for clinical interpretation. In patients with unstable renal function, e.g. those with acute kidney injury, the eGFR may not accurately reflect actual GFR. Glucose [Mass/Vol] 191 mg/dL High 74-99 [facility] Comment on above: Result Comment: The [place] Diabetes Association (ADA) provides guidance for cutoff values for fasting glucose and random glucose. The ADA defines fasting as no caloric intake for at least 8 hours. Fasting plasma glucose results between 100 to 125 mg/dL indicate increased risk for diabetes (prediabetes). Fasting plasma glucose results greater than or equal to 126 mg/dL meet the criteria for diagnosis of diabetes. In the absence of unequivocal hyperglycemia, results should be confirmed by repeat testing. In a patient with classic symptoms of hyperglycemia or hyperglycemic crisis, random plasma glucose results greater than or equal to 200 mg/dL meet the criteria for diagnosis of diabetes. Reference: Standards of Medical Care in Diabetes 2016, [place] Diabetes Association. Diabetes Care. 2016.39(Suppl 1). Potassium [Moles/Vol] 4.6 mmol/L Normal 3.7-5.1 [facility] Protein [Mass/Vol] 7.6 g/dL Normal 6.3-8.0 [facility] Sodium [Moles/Vol] 138 mmol/L Normal 136-144 [facility] Urea nitrogen [Mass/Vol] 22 mg/dL High 7-21 [facility] CNPNon 11-05-2020 CNPN Telephone (CAWSTR) MARGOT VASQUEZ ([id number]) 1940 F Date Time Provider Department 11/05/20 CHANTELL HOUSER During your visit today, we recorded the following information about you: Nakul Yen RN 11/05/2020 4:07 PM Signed Pt stated she had a colonoscopy done on 10/30/20 and was hoping to hear back regarding results. Pt has follow up apt on 11/10/20 with Katty Krishna CNP regarding procedure. Nakul Yen RN Allergies As of Date: 11/05/2020 (No Known Allergies) Date Reviewed: 10/16/2020 Reviewed by: Sydney Tomlinson LPN - Fully Assessed Reason for Visit: Patient Question [6927] Prescriptions as of 11/05/2020 Sig: OZEMPIC 0.25 MG OR 0.5 MG (2 * Inject 0.5 mg subcutaneously * VITAMIN D3-VITAMIN K2 ORAL Take 1 tablet by mouth once d* POLYETHYLENE GLYCOL 3350 17 G* Use as directed for Miralax /* GATORADE [employer]ORTS DRINK Use as directed for Miralax /* BISACODYL 5 MG TABLET Use as directed for Miralax /* GABAPENTIN 300 MG CAPSULE Take 1 capsule by mouth three* Patient taking differently: Take 100 mg by mouth as neede* CARISOPRODOL 350 MG TABLET Take 1 tablet by mouth four t* Patient not taking: Reported on 10/16/2020 * METFORMIN 500 MG TABLET Take 500 mg by mouth twice da* * GLIPIZIDE 5 MG TABLET Take 5 mg by mouth once daily. * PERCOCET ORAL Take by mouth. Patient not taking: Reported on 10/16/2020 Problem List As Of Date 11/05/2020 Noted Resolved ATROPHIC VAGINITIS [N95.2] 01/29/2009 Urge Incontinence [N39.41] 01/15/2010 Encounter Status:Closed by NAKUL YEN RN on 11/05/20 [facility] CNOVon 10-16-2020 CNOV Office Visit (GASTWS) MARGOT VASQUEZ ([id number]) 1940 F Date Time Provider Department 10/16/20 11:20 AM BRANDY DAVISON During your visit today, we recorded the following information about you: Pulse Blood pressure Weight Height 78/minute 118/54 50.3 kg 1.575 m Brandy Davison RN SIGNAL WORKER.[facility] 10/16/2020 4:38 PM Signed DEPARTMENT OF GASTROENTEROLOGY - NEW PATIENT/CONSULT REASON FOR VISIT Margot Vasquez is a 80 year old female who is scheduled for nausea, hematemesis HISTORY OF PRESENT ILLNESS Margot Vasquez is a 80 year old female who presents today for an evaluation of hematemesis, nausea and diarrhea. The patient was seen by Tiny Crane on 10/14/20, leading to this consultation. That note has been reviewed and part as follows: The patient is a 80-year-old female who presents with nausea. Symptoms include nausea and emesis x1 while symptoms do not include abdominal pain or anorexia. Symptoms onset was 2 months ago. The patient describes this has unchanged. Associated symptoms include dizziness only twice each time after her Covid shot, while associated symptoms do not include diarrhea(loose since on Metformin), fatigue fever or weight loss. The patient is not currently being treated for this problem She recently was seen by her Primary Tiny Crane for these same symptoms. Had 2nd covid Shot on Tuesday10/03/20 - Patient fell on Tuesday10/04/20 morning becoming dizzy she believes the dizziness was from her covid vaccine 10/03/2020. She relates her dizziness to the vaccine because she had dizziness after her 1st vaccine. After she fell she had emesis immediately, but held it in her mouth until she woke crawled to the bathroom. She states that emesis was black. The nausea began with she began taking Ozempic. Since starting this she has been having watery diarrhea. Sometimes 1-5 times in the morning. She plans on going to to discuss if she should stay on the medication. She states that she is very sensitive to medication. She is worried about stopping the medication because her sugars were in the high 200's - 300's and now her BS are running in the mid 100's. Patient states that she checks her BS daily but did not have her paper with her today. Patient did not know what her BS was the morning she was dizzy and fell. The patient does have a change in bowel habits having watery sometimes explosive diarrhea, denies rectal bleeding black tarry stools or abdominal pain. Having a bowel movement 1-5 a day yellow Watery stool - She states before she started omzempic she would have 1 BM daily loose with chunks - Nausea - states that she can tolerate - the constant nausea feeling started after taking ozempic- she states that she gets full fast,thinks she is loosing weight, sometimes a piece of toast, trys to eat 3 times a day and sometimes will eat in the middle night - Heartburn - patient states that she does belch and sometimes it kamara, with indigestion - she said this does not happen often - sometimes will have a sensation of something in her throat when she lays down. Denies difficulty or painful swallowing Usually has dinner: 5-6 Evening snack: yes crackers - toast Bedtime medications: yes metformin Heads to bed: 8:30-9pm Sleeps in a reg with foam topper bed with the head of the bed sleeps flat with one pillow - Labs done on 10/14/20 at [facility]: CBC w/ diff, chem HGB 10.7 L HCT 33.6 L MCHC 31.8 L NA 130 L Pot 3.8 CL 96 L GLU 157 Labs done on 09/03/20:CBC chem Hgb 12.2 Hct 38.8 NA 138 Pot 4.8 CL 4.8 GLU 251 PAST MEDICAL HISTORY Diagnosis Date - Diabetes (HCC) oral medication, no longer using it - Excessive or frequent menstruation PAST SURGICAL HISTORY Procedure Laterality Date - ANTER COLPORRHAPHY,BLAD/VA MILANA age 32 or so - L'SCOPE LIZ W/EXPL CBD - VAGINAL [...] with meals. - glipiZIDE (GLUCOTROL) 5 mg ORAL tablet Take 5 mg by mouth once daily. - polyethylene glycol 3350 (MIRALAX, GLYCOLAX) 17 gram/dose powder Use as directed for Miralax / Gatorade Bowel Prep Kit 238 g 0 - Gatorade Sports Drink Use as directed for Miralax / Gatorade Bowel Prep Kit 64 oz 0 - Bisacodyl (DULCOLAX) 5 mg tab Use as directed for Miralax / Gatorade Bowel Prep Kit 4 tablet 0 - carisoprodol (SOMA) 350 mg tablet Take 1 tablet by mouth four times daily (more content not included)... Normal [facility] Latoya 10-16-2020 [facility] Telephone (KASANDRA) MARGOT VASQUEZ ([id number]) 1940 F Date Time Provider Department 10/16/20 [facility]TE[facility] During your visit today, we recorded the following information about you: Cynthia Ybarra LPN 10/16/2020 12:51 PM Signed Silvia requesting Colon/EGD at [facility] with Dr. Houser on 10/23/2020. Brent Tellez LPN 10/16/2020 1:29 PM Signed [facility] has no further openings on 10/23 . Called and left message to call back to schedule on a different date Brent Tellez LPN 10/16/2020 3:25 PM Signed Pt returned call to office. OK to have done on 10/30. referral placed Allergies As of Date: 10/16/2020 (No Known Allergies) Date Reviewed: 10/16/2020 Reviewed by: Sydney Tomlinson LPN - Fully Assessed Reason for Visit: Procedure [88] Prescriptions as of 10/16/2020 Sig: OZEMPIC 0.25 MG OR 0.5 MG (2 * Inject 0.5 mg subcutaneously * VITAMIN D3-VITAMIN K2 ORAL Take 1 tablet by mouth once d* POLYETHYLENE GLYCOL 3350 17 G* Use as directed for Miralax /* GATORADE SPORTS DRINK Use as directed for Miralax /* BISACODYL 5 MG TABLET Use as directed for Miralax /* GABAPENTIN 300 MG CAPSULE Take 1 capsule by mouth three* Patient taking differently: Take 100 mg by mouth as neede* CARISOPRODOL 350 MG TABLET Take 1 tablet by mouth four t* Patient not taking: Reported on 10/16/2020 * METFORMIN 500 MG TABLET Take 500 mg by mouth twice da* * GLIPIZIDE 5 MG TABLET Take 5 mg by mouth once daily. * PERCOCET ORAL Take by mouth. Patient not taking: Reported on 10/16/2020 Problem List As Of Date 10/16/2020 Noted Resolved ATROPHIC VAGINITIS [N95.2] 01/29/2009 Urge Incontinence [N39.41] 01/15/2010 Encounter Status:Closed by CYNTHIA YBARRA LPN on 10/29/20 [facility] HISTORY PHYSICALon HISTORY PHYSICAL HNO ID: [id number] Author: Brandy Davison Service: ? Author Type: Nurse Practitioner Type: HANDP Filed: 10/16/2020 4:38 PM Note Text: DEPARTMENT OF GASTROENTEROLOGY - NEW PATIENT/CONSULT REASON FOR VISIT Margot Vasquez is a 80 year old female who is scheduled for nausea, hematemesis HISTORY OF PRESENT ILLNESS Margot Vasquez is a 80 year old female who presents today for an evaluation of hematemesis, nausea and diarrhea. The patient was seen by Tiny Crane on 10/14/20, leading to this consultation. That note has been reviewed and part as follows: The patient is a 80-year-old female who presents with nausea. Symptoms include nausea and emesis x1 while symptoms do not include abdominal pain or anorexia. Symptoms onset was 2 months ago. The patient describes this has unchanged. Associated symptoms include dizziness only twice each time after her Covid shot, while associated symptoms do not include diarrhea(loose since on Metformin), fatigue fever or weight loss. The patient is not currently being treated for this problem She recently was seen by her Primary Tiny Crane for these same symptoms. Had 2nd covid Shot on Tuesday10/03/20 - Patient fell on Tuesday10/04/20 morning becoming dizzy she believes the dizziness was from her covid vaccine 10/03/2020. She relates her dizziness to the vaccine because she had dizziness after her 1st vaccine. After she fell she had emesis immediately, but held it in her mouth until she woke crawled to the bathroom. She states that emesis was black. The nausea began with she began taking Ozempic. Since starting this she has been having watery diarrhea. Sometimes 1-5 times in the morning. She plans on going to to discuss if she should stay on the medication. She states that she is very sensitive to medication. She is worried about stopping the medication because her sugars were in the high 200's - 300's and now her BS are running in the mid 100's. Patient states that she checks her BS daily but did not have her paper with her today. Patient did not know what her BS was the morning she was dizzy and fell. The patient does have a change in bowel habits having watery sometimes explosive diarrhea, denies rectal bleeding black tarry stools or abdominal pain. Having a bowel movement 1-5 a day yellow Watery stool - She states before she started omzempic she would have 1 BM daily loose with chunks - Nausea - states that she can tolerate - the constant nausea feeling started after taking ozempic- she states that she gets full fast,thinks she is loosing weight, sometimes a piece of toast, trys to eat 3 times a day and sometimes will eat in the middle night - Heartburn - patient states that she does belch and sometimes it kamara, with indigestion - she said this does not happen often - sometimes will have a sensation of something in her throat when she lays down. Denies difficulty or painful swallowing Usually has dinner: 5-6 Evening snack: yes crackers - toast Bedtime medications: yes metformin Heads to bed: 8:30-9pm Sleeps in a reg with foam topper bed with the head of the bed sleeps flat with one pillow - Labs done on 10/14/20 at [facility]: CBC w/ diff, chem HGB 10.7 L HCT 33.6 L MCHC 31.8 L NA 130 L Pot 3.8 CL 96 L GLU 157 Labs done on 09/03/20:CBC chem Hgb 12.2 Hct 38.8 NA 138 Pot 4.8 CL 4.8 GLU 251 PAST MEDICAL HISTORY Diagnosis Date - Diabetes (HCC) oral medication, no longer using it - Excessive or frequent menstruation PAST SURGICAL HISTORY Procedure Laterality Date - ANTER COLPORRHAPHY,BLAD/VA MILANA age 32 or so - L'SCOPE LIZ W/EXPL CBD - VAGINAL [...] with meals. - glipiZIDE (GLUCOTROL) 5 mg ORAL tablet Take 5 mg by mouth once daily. - polyethylene glycol 3350 (MIRALAX, GLYCOLAX) 17 gram/dose powder Use as directed for Miralax / Gatorade Bowel Prep Kit 238 g 0 - Gatorade Sports Drink Use as directed for Miralax / Gatorade Bowel Prep Kit 64 oz 0 - Bisacodyl (DULCOLAX) 5 mg tab Use as directed for Miralax / Gatorade Bowel Prep Kit 4 tablet 0 - carisoprodol (SOMA) 350 mg tablet Take 1 tablet by mouth four times daily as needed for Muscle Spasm. (Patient not taking: Reported on 10/16/2020) 30 tablet 0 - OXYCODONE HCL/ACETAMINOPHEN (PERCOCET ORAL) Take by mouth. (Patient not taking: Reported on 10/16/2020 ) No current facility-administere d medications for this visit. ALLERGIES (more content not included)... Normal [facility] Vital Signs Date Time Vital Sign Value Performing Clinician Faci lity 03-07-2025 09:13-0400 Body height 157.[address] Jose Rafael Kat MD Work Phone: [facility] 03-07-2025 09:13-0400 Body mass index (BMI) [Ratio] 19 kg/m2 Dr. Jose Rafael Kat MD Work Phone: [facility] 03-07-2025 09:13-0400 Body weight 47.[address] Jose Rafael Kat MD Work Phone: [facility] 03-07-2025 09:13-0400 Diastolic blood pressure 78 mm[Hg] Dr. Jose Rafael Kat MD Work Phone: [facility] 03-07-2025 09:13-0400 Heart rate 84 /min Dr. Jose Rafael Kat MD Work Phone: [facility] 03-07-2025 09:13-0400 Respiratory rate 17 /min Dr. Jose Rafael Kat MD Work Phone: [facility] 03-07-2025 09:13-0400 SaO2% (BldA) [Mass fraction] 99 % Dr. Jose Rafael Kat MD Work Phone: [facility] 03-07-2025 09:13-0400 Systolic blood pressure 177 mm[Hg] Dr. Jose Rafael Kat MD Work Phone: [facility] Encounters Encounter Date Encounter Type Care Provider Facility Start: 04-17-2025 End: 04-17-2025 [facility] Start: 03-27-2025 End: 03-27-2025 [facility] Facility:[facility] Start: 03-07-2025 End: 03-07-[address] Jose Alejo MD -[facility] Work Phone: Start: 03-07-2025 End: 03-07-[address] Jose Rafael Kat MD Work Phone: -[facility] Start: 03-05-2025 End: 03-05-[address] Jose Rafael Kat MD Work Phone: -[facility] [place] Start: 03-05-2025 End: 03-05-[address] Jose Rafael Kat MD -[facility] [place] Work Phone: Start: 03-05-2025 End: 03-05-2025 ambulatory Jose Rafael Kat Facility:[facility] Start: 11-23-2024 End: 11-23-[address] Jose Rafael Kat MD Work Phone: [facility] Work Phone: Start: 11-23-2024 End: 11-23-[address] Jose Rafael Kat MD -Laboratory [facility] Start: 11-23-2024 End: 11-23-2024 ambulatory Jose Rafael Kat Facility:[facility] Start: 11-08-2024 End: 11-08-[address] Jose Rafael Kat MD Work Phone: [facility] Work Phone: Start: 11-08-2024 End: 11-08-[address] [facility] Work Phone: Start: 11-08-2024 End: 11-08-2024 ambulatory Jose Rafael Kat Facility:[facility] Start: 09-26-2024 End: 09-26-[address] Jose Rafael Kat MD Work Phone: [facility] Work Phone: Start: 09-26-2024 End: 09-26-[address] [facility] Start: 09-26-2024 End: 09-26-2024 ambulatory Jose Rafael Kat Facility:[facility] Start: 05-17-2024 End: 05-17-2024 ambulatory Jose Rafael Kat Facility:[facility] Start: 08-15-2023 End: 08-15-2023 ambulatory [facility] Work Phone: Start: 08-15-2023 End: 08-15-2023 Patient encounter procedure [facility] Start: 05-13-2023 End: 05-13-2023 Patient encounter procedure [facility] Start: 01-31-2023 Non-patient / Non-visit Dr. Jose Rafael Kat Work Phone: [facility] Start: 01-31-2023 End: 01-31-[address] Jose Rafael Kat Work Phone: [facility] Work Phone: Start: 01-31-2023 End: 01-31-[address] Jose Rafael Kat Work Phone: [facility] Work Phone: Start: 12-20-2022 End: 12-20-2022 ambulatory [facility] Work Phone: Start: 12-20-2022 End: 12-20-2022 Patient encounter procedure [facility] Start: 09-20-2022 End: 09-20-2022 ambulatory [facility] Work Phone: Start: 09-20-2022 End: 09-20-2022 Patient encounter procedure [facility] Start: 03-29-2022 End: 03-29-2022 ambulatory [facility] Work Phone: Start: 03-29-2022 End: 03-29-2022 Patient encounter procedure [facility] Start: 12-28-2021 End: 12-28-2021 Patient encounter procedure [facility] Start: 09-04-2021 End: 09-04-2021 Patient encounter procedure [facility] Procedures Date Procedure Procedure Detail Performing Clinician Start: 03-27-2025 Urnls dip stick/tabl et reagent auto microscopy Dr. Jose Rafael Kat MD Work Phone: Start: 03-27-2025 Vitamin D, 25-hydrox y measurement Dr. Jose Rafael Kat MD Work Phone: Comment on above: Vitamin D StatusDefi ciency: <20 ng/mL (50nmol/L)Insufficiency: 20-30 ng/mL (50-75 nmol/L)Sufficiency: 30-100 ng/mL (75-250 nmol/L)Toxicity: >100 ng/mL (>250 nmol/L) Start: 03-05-2025 Plain X-ray of hip Dr. Jose Rafael Kat MD Work Phone: Start: 11-08-2024 MRI of brain without contrast Dr. Jose Rafael Kat MD Work Phone: Start: 11-08-2024 MRI of lumbar spine Dr. Jose Rafael Kat MD Work Phone: Start: 09-26-2024 Vitamin D, 25-hydrox y measurement Dr. Jose Rafael Kat MD Work Phone: Comment on above: Vitamin D StatusDefi ciency: <20 ng/mL (50nmol/L)Insufficiency: 20-30 ng/mL (50-75 nmol/L)Sufficiency: 30-100 ng/mL (75-250 nmol/L)Toxicity: >100 ng/mL (>250 nmol/L) Plan of Treatment Date Care Activity Detail Author Start: 05-27-2025 ambulatory Ambulatory Facility:[facility] Start: 03-27-2025 Patient encounter procedure Registered Clinical -Laboratory [facility] Patient referral [facility] Work Phone: Payers Date Payer Category Payer Medicare [id number] 2024 Private Health Insurance [id number] 2024 Self-pay [id number] 2016 Medicare [id number] Unknown [id number] 2.16.8 [id number] Unknown [id number] 2.16.8 [id number] Unknown [id number] 2.16.8 [id number] Unknown [id number] 2.16.8 [id number] Unknown [id number] 2.16.8 [id number] Unknown [id number] 2.16.8 [id number] Unknown [id number] 2.16.8 [id number] Unknown [id number] 2.16.8 [id number] Unknown [id number] 2.16.8 [id number] Unknown [id number] 2.16.8 [id number] Social History Date Type Detail Facility Start: 10-24-2020 End: 10-24-2020 Tobacco smoking status NHIS Unknown if ever smoked [facility] Start: 11-11-2020 None [facility] Start: 11-11-2020 Alone [facility] Start: 11-11-2020 Non-smoker [facility] Start: 1940 Sex Assigned At Female W [facility] Start: 01-17-2024 End: 03-07-2025 Tobacco smoking status NHIS Never smoked tobacco (finding) [facility] Start: 10-01-2024 Sex Female (finding) [facility] Sex Female [facility] Evaluation note 03-07-2025 Note Date & Type Note Facility 03-07-2025 Evaluation note Diagnosis Onset Date Resolution Inguinal hernia, right acute March 07, 2 025 8:44am [facility] Work Phone: Progress note 03-07-2025 Note Date & Type Note Facility 03-07-2025 Progress note [facility] Progress note 03-07-2025 Note Date & Type Note Facility 03-07-2025 Progress note Note Date/Time March 07, 2025 9:38am [facility] [address] [place] [address] OFFICE VISIT Date of Service: 03/07/25 MR#: [id number] Acct: [id number] Name: MARGOT VASQUEZ Rep #: [id number] : 1940 Provider: Dr. Mally Alejo MD Age/Sex: 84/F Location: [facility] Status: Signed Intake Vital Signs 01/17/24 16:33 03/07/25 09:13 Height 5 ft 2 in 5 ft 2 in Weight: 104 lb BMI 19.0 BP 177/78 H Blood Pressure Location Rt brachial Position Sitting Respiration 17 Pulse 84 Pulse Source Monitor Pulse Oximetry (%) 99 Oxygen Delivery Method room air Intake Visit Reasons: INGUINAL HERNIA Chief Complaint: inguinal hernia right side Is patient in pain?: No Allergies semaglutide Adverse Reaction (Intermediate, Verified 03/07/25 09:23) Vomiting oxycodone (Oxycodone) Adverse Reaction (Verified 03/07/25 09:23) passed out Medications ?Medication ?Instructions ?Recorded ?Confirmed ?Type metformin 1,000 mg tablet 500 mg PO BID 06/06/1403/07 History cholecalciferol (vitamin D3) 25 1,000 unit PO DAILY 03/07/25 History mcg (1,000 unit) capsule gabapentin 300 mg capsule 300 mg PO PRN PRN Spasms 08/2103/07/25 History aspirin 81 mg tablet 81 mg PO QDAY 03/07/2503/07 History glipizide 10 mg tablet 10 mg PO BID 03/07/25 History naproxen sodium 220 mg capsule 220 mg PO BID PRN 03/0703/07/25 History (Aleve) rosuvastatin 5 mg tablet 5 mg PO QDAY 03/07/25 History Have you fallen in the past year?: No PFSH Medical History (Updated 03/07/25 @ 09:12 by Becky Basurto) Rheumatoid arthritis Anxiety Basal cell carcinoma (BCC) in situ of skin Surgical History (Updated 03/07/25 @ 09:12 by Becky Basurto) H/O carpal tunnel repair History of cholecystectomy H/O: hysterectomy Family History (Updated 03/07/25 @ 09:13 by Becky Basurto) Mother Diabetes Heart disease Father Diabetes Heart disease Brother Heart disease Diabetes Sister Heart disease Social History (Updated 03/07/25 @ 09:13 by Becky Basurto) Smoking Status: Never smoker alcohol intake: never additional social history: Aleve daily HPI HPI HPI: Patient is an 84-year-old female with right groin bulging. She says this has been there since September. She denies any nausea or vomiting. She says it is soreespecially when coughing. She would like it repaired. ROS General General: No weight change, appetite, fatigue, colon cancer, breast cancer or weakness HEENT HEENT: No difficulty swallowing, eye injury, eye surgery, swollen glands or hoarseness Endo Endocrine: Yes diabetes mellitus; No thyroid disease, thyroid cancer, Hair loss, heat intolerance or cold intolerance Skin Skin: No rash or changing moles Musc Musculoskeletal: Yes back problems, arthritis and rheumatoid arthritis; No gout or joint pain Cardio Cardiovascular: No murmur, pacemaker, heart disease, atrial fibrillation, high blood pressure, heart attack, heart stent, palpitations, shortness of breath with exertion or chest pain Psych Psychiatric: Yes anxiety; No depression or hearing voices Resp Respiratory: No shortness of breath, No sleep apnea, No cough, No COPD, No asthma, No emphysema and No wheezing Gastro Gastrointestinal: No abdominal pain, No nausea or vomiting, No diarrhea, Yes constipation, No blood in stool, No acid reflux, No hemorrhoids, No ulcers, No gallbladder problem and No black,tarry stools Lee Hematologic: No blood thinners, No blood disorders, No bleeding, No anemia and No blood clots Neuro Neurologic: No system reviewed and no additional complaints, except as documented, No as per HPI, No abnormal gait, No abnormal hearing, No abnormal movements, No abnormal speech, No behavioral changes, No burning sensations, No confusion, No convulsions, No disequilibrium, No dizziness, No localized weakness, No frequent falls, No headache(s), No lack of coordination, No loss ofvision, No memory loss, Yes numbness, No other visual disturbances, No radicularpain, No restless legs, No sensory deficit, No syncope, Yes tingling, No tremor(s), No weakness and No other Exam Const General: cooperative Orientation: alert and oriented x3 HENMT Head: normal to inspection Neck Neck: normal visual inspection and full ROM Chest Chest palpation & inspection: normal inspection of the chest Resp Effort & Inspection: normal respiratory effort Auscultation: clear to auscultation bilaterally Cardio Rate: regular rate Rhythm: regular rhythm GI Inspection: non-distended Palpation: soft, hernia direct inguinal on the right and nontender Skin General: no rashes or lesions noted Neuro General: patient alert and patient oriented x3 Extrem General: full ROM Psych Appearance: grossly normal Mental Status: mental status grossly normal Assessment and Plan Assessment and Plan (1) Inguinal hernia, right: Status: Acute Plan: The patient has a reducible right inguinal hernia. I discussed robotic assistedlaparoscopic right inguinal hernia repair with mesh. I discussed the risks including but not limited to bleeding, infection, injury to other organ such as the bowel, bladder, chronic groin pain, mesh infection. Patient understands allthe risks and is willing to proceed. The patient would like to proceed in the wintertime when she is less active. She will hold her aspirin for 5 days. Jose Alejo MD Pager: [facility] [address] [place] [address], [address] [place] [address] Office: Coding Level of Care Code Off vis,new,level 3 Diagnoses Inguinal hernia, right K40.90 Clinical Quality Measures Falls Risk Screening/Assistive Devices Have you fallen in the past year?: No 03/07/25 0938 <Electronically signed by Jose rowell MD> Date _ Jose Alejo MD Cosigner Signature: Date (if applicable) CC: Dr. Jose Rafael Kat MD ~ [facility] Work Phone: Radiology Diagnostic study note 03-05-2025 Note Date & Type Note Facility 03-05-2025 Radiology Diagnostic study note [facility] [address] [place] [address] Hip uni 4+ views with Pelvis MR#: [id number] Acct: [id number] Name: MARGOT VASQUEZ Rep #: [id number] : 1940 F 84 From: Maryjane Magaña MD PCP: Dr. Jose Rafael Kat MD Status: RE G CLI Study:Hip uni 4+ views with Pelvis Date of Ex am: 03/05/25 Exam# [id number] Ordering Dr: Jose Rafael Kat MD EXAM: XR Left Hip With Pelvis When Performed, 2 or 3 Views CLINICAL INDICATION: LEFT HIP PAIN TECHNIQUE: Two or three views of the left hip with pelvis when performed. COMPARISON: No relevant prior studies available. FINDINGS: BONES/JOINTS: Mild degenerative changes of the right hip joint. No acute fracture. No dislocation. SOFT TISSUES: Unremarkable. VASCULATURE: Vascular calcification. RAD/Hip uni 4+ views with Pelvis IMPRESSION: Degenerative changes as above. Reading Location: [facility] CC: Dr. Jose Rafael Kat MD ~ [employer] Installer: Signed [facility] Progress note 11-10-2020 Note Date & Type Note Facility 11-10-2020 Note HNO ID: [id number] Author: Katty Krishna APRN.REFERENCE INVESTIGATOR Service: ? Author Type: Nurse Practitioner Type: Progress Notes Filed: 11/10/2020 1:32 PM Note Text: DEPARTMENT OF GASTROENTEROLOGY - FOLLOW UP VISIT HISTORY OF PRESENT ILLNESS Margot Vasquez is a 80 year old female who [...] omeprazole 20mg onc (more content not included)... [facility] Evaluation note Note Date & Type Note Facility Evaluation note No assessment information availa ble [facility] Work Phone: Evaluation note Note Date & Type Note Facility Evaluation note Diagnosis Onset Date Resolution Inguinal hernia, right acute March 07 8:44am [facility] Work Phone: Reason for referral (narrative) Note Date & Type Note Facility Reason for referral (narrative) No reason for referral information available [facility] Work Phone: Summary Purpose Family History No Family History Records Found Relationship Condition Age at Onset Recorded Date/T honey mother Diabetes mellitus Unknown Cardiac disease Unknown father Diabetes mellitus Unknown brother Cardiac disease Unknown Diabetes mellitus Unknown sister Cardiac disease Unknown Advance Directives No Advanced Directives Records Found Advance Directive Response Recorded Date/ Time Advance Directives No June 06, 2014 2:13pm Living Will No October 24, 2020 11:32am Power of Spooling Machine Operator No October 24 11:32am Advance Directive Response Recorded Date/ Time Advance Directives No June 06, 2014 1:13pm Living Will No October 24, 2020 10:32am Power of Spooling Machine Operator No October 24 10:32am Advance Directive Response Recorded Date/ Time Advance Directives No June 06, 2014 2:13pm Chief Complaint and Reason for Visit Chief Complaint Admit Date INGUINAL HERNIA March 07, 2025 8:44am Reason for Visit Admit Date Inguinal hernia, right March 07 8:44am Chief Complaint Occlusion and stenos is of unspecified carotid nicole Chief Complaint Admit Date LEG WEAKNESS November 08, 2024 6:54am Chief Complaint Admit Date LEG WEAKNESS November 08, 2024 6:54am INGUINAL HERNIA March 07, 2025 8:44am Additional Source Comments INFORMATION SOURCE (unrecogn ized section and content) DATE CREATED AUTHOR 08/03/2021 [facility] DATE CREATED AUTHOR 'S ENRIQUEIZ ATION 08/22/2021 [facility] DATE CREATED AUTHOR AUTHOR'S ORGANIZ ATION 05/14/2025 [facility] Goals (unrecognized section and content) Goals may be documented in a n alternate sectionGoals may be documented in an alternate sectionGoals may be documented in an alternate sectionGoals may be documented in an alternate sectionGoals may be documented in an alternate sectionGoals may be documented in an alternate sectionGoals may be documented in an alternate sectionGoals may be documented in an alternate sectionGoals may be documented in an alternate sectionGoals may be documented in an alternate sectionGoals may be documented in an alternate section Care Teams (unrecognized sec tion and content) Team Status: Active Member Role Status Dates Dr. Jose Rafael Kat MD Family Provider Active Dr. Jose Rafael Kat MD Primary Care Provider Active Team Status: Inactive Member Role Status Dates Dr. Jose Rafael Kat MD Primary Care Provider, Attend ing Provider Active Team Status: Active Member Role Status Dates Dr. Jose Rafael Kat MD Primary Care Provider Active Dr. Dewayne Jordan MD Attending Provider Active Team Status: Inactive Member Role Status Dates Dr. Jose Rafael Kat MD Primary Care Pr ovider, Attending Provider, Referring Provider Active Team Status: Active Member Role Status Dates Dr. Jose Rafael Kat MD Primary Care Provider Active Team Status: Inactive Member Role Status Dates Dr. Jose Rafael Kat MD Primary Care Provider Active Start: September 26, 2024 End: September 26, 2024 Dr. Jose Rafael Kat MD Attending Provider Active Start: September 26, 2024 End: September 26, 2024 Dr. Jose Rafael Kat MD Referring Provider Active Start: September 26, 2024 End: September 26, 2024 Team Status: Inactive Member Role Status Dates Dr. Jose Rafael Kat MD Primary Care Provider Active Start: November 08, 2024 End: November 08, 2024 Dr. Jose Rafael Kat MD Attending Provider Active Start: November 08, 2024 End: November 08, 2024 Dr. Jose Rafael Kat MD Referring Provider Active Start: November 08, 2024 End: November 08, 2024 Team Status: Inactive Member Role Status Dates Dr. Jose Rafael Kat MD Primary Care Provider Active Start: November 23, 2024 End: November 23, 2024 Dr. Jose Rafael Kat MD Attending Provider Active Start: November 23, 2024 End: November 23, 2024 Dr. Jose Rafael Kat MD Referring Provider Active Start: November 23, 2024 End: November 23, 2024 Team Status: Active Member Role/Relationship Status Dates Dr. Jose Rafael Kat MD Primary Care Provider Active Team Status: Inactive Member Role/Relationship Status Dates Dr. Jose Rafael Kat MD Primary Care Provider Active Start: November 08, 2024 End: November 08, 2024 Dr. Jose Rafael Kat MD Attending Provider Active Start: November 08, 2024 End: November 08, 2024 Dr. Jose Rafael Kat MD Referring Provider Active Start: November 08, 2024 End: November 08, 2024 Team Status: Inactive Member Role/Relationship Status Dates Dr. Jose Rafael Kat MD Primary Care Provider Active Start: November 23, 2024 End: November 23, 2024 Dr. Jose Rafael Kat MD Attending Provider Active Start: November 23, 2024 End: November 23, 2024 Dr. Jose Rafael Kat MD Referring Provider Active Start: November 23, 2024 End: November 23, 2024 Team Status: Active Member Role/Relationship Status Dates Dr. Jose Rafael Kat MD Primary Care Provider Active Start: March 05, 2025 Dr. Jose Rafael Kat MD Attending Provider Active Start: March 05, 2025 Dr. Jose Rafael Kat MD Referring Provider Active Start: March 05, 2025 Team Status: Inactive Member Role/Relationship Status Dates Dr. Jose Rafael Kat MD Primary Care Provider Active Start: March 07, 2025 End: March 07, 2025 Dr. Jose Rafael Kat MD Referring Provider Active Start: March 07, 2025 End: March 07, 2025 Dr. Jose Alejo MD Attending Provider Active Start: March 07, 2025 End: March 07, 2025 Team Status: Active Member Role/Relationship Status Dates Dr. Jose Rafael Kat MD Primary care physician Active Team Status: Inactive Member Role/Relationship Status Dates Dr. Jose Rafael Kat MD Primary care physician Active Start: March 05, 2025 End: March 05, 2025 Dr. Jose Rafael Kat MD Attending physician Active Start: March 05, 2025 End: March 05, 2025 Dr. Jose Rafael Kat MD Referring Provider Active Start: March 05, 2025 End: March 05, 2025 Team Status: Inactive Member Role/Relationship Status Dates Dr. Jose Rafael Kat MD Primary care physician Active Start: March 07, 2025 End: March 07, 2025 Dr. Jose Rafael Kat MD Referring Provider Active Start: March 07, 2025 End: March 07, 2025 Dr. Jose Alejo MD Attending physician Active Start: March 07, 2025 End: March 07, 2025 Team Status: Active Member Role/Relationship Status Dates Dr. Jose Rafael Kat MD Primary care physician Active Start: March 27, 2025 Dr. Jose Rafael Kat MD Attending physician Active Start: March 27, 2025 FOR RECORDS PERTAINING TO PATIENTS WHO ARE [...] BE BASED ON THE PRIMARY CLINICAL RECORDS. [employer] provides no warranty or guarantee of the accuracy or completeness of information in this document.
[2025-05-27] MEDS: Lactated Ringers 1,000 ML 15 ML IV (06:45)
[2025-05-27] MEDS: Lactated Ringers 500 ML IV (07:02)
--- NOTE | 2025-05-27 07:13 | PRE.ANES_ITS ---
ASA Classification* ASA Classification ASA Classification: 2 (T2DM, PONV, ANX, RLS) Assessment & Plan Anesthesia* Anesthesia Assessment Anesthesia Assessment: Discussed sedation and/or anesthesia options, risks, benefits, and alternatives with patient/parents/legal guardian/POA. Questions invited. The patient/parents/legal guardian/POA seems to understand and agrees to proceed with anesthesia plan. Reviewed the physical assessment, medical history, allergy history and patient home medications list prior to surgery/procedure/anesthetic and documented any changes. Performed airway and anesthesia risk assessments. 3 units humalog given for elevated glucose. Anesthesia Type Anesthesia Type: General (TIVA for PONV ) History Source History Obtained from:: Patient and Chart Anesthesia Focused Assessment* Temperature: 98.5 F Pulse Rate: 83 Blood Pressure: 143/66 Respiratory Rate: 18 Pulse Ox: 100 Oxygen Delivery Method: Room Air Airway Assessment Mouth opens: >3 cm Mallampati Score: II Teeth Condition: Missing Neck Range of motion (ROM): Full ROM Labs Anesthesia Preop lab: CBC WBC, (4.4-11.0) 4.6 K/mm3 03/27/25, 10:17 RBC, (4.2-5.4) 3.88 M/mm3 L 03/27/25, 10:17 Hgb, (12.0-15.0) 11.5 g/dL L 03/27/25, 10:17 Hct, (37-47) 34.3 % L 03/27/25, 10:17 Plt Count, (150-450) 396 K/mm3 03/27/25, 10:17 CHEMISTRY Potassium, (3.3-5.1) 4.5 mmol/L 05/21/25, 09:48 Sodium, (133-145) 140 mmol/L 05/21/25, 09:48 Magnesium, (1.6-2.6) 2.2 mg/dL 03/29/22, 08:05 Phosphorus, (2.5-4.9) 4.0 mg/dL 03/12/24, 08:03 BUN, (4-19) 21 mg/dL H 05/21/25, 09:48 Creatinine, (0.70-1.20) 1.04 mg/dL 05/21/25, 09:48 Glucose, (70-99) 201 mg/dL H 05/21/25, 09:48 POC Glucose, (74-106) 263 mg/dL H 01/17/24, 18:28 TSH, (0.358-3.74) 0.71 uIU/mL 12/12/23, 08:01 COAG Pre-Assessment Diagnosis/Proposed Procedure Planned Operative Procedure(s): LAP ROBOTIC INGUINAL HERNIA REPAIR WITH MESH RIGHT Anesthesia History 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 When Was Last Pacemaker Check QUESTION #4 FULL TEXT: You/Your Family Experience fever (hyperthermia) with Anesthesia Last Oral Intake Last Oral intake: Last Oral Intake NPO since 02:00 05/27/25 06:22 Meds taken in AM with sips of No 05/27/25 06:22 water? Meds patient instructed to take am of surgery PONV PONV - military communications specialist: PONV - military communications specialist Female Yes 05/17/25 13:04 HX of Motion Sickness No 05/17/25 13:04 HX of N/V After Surgery Yes 05/17/25 13:04 Non-Smoker Yes 05/17/25 13:04 Duration of Surgery greater No 05/17/25 13:04 than 60 minutes Number of Risk Factors 3 05/17/25 13:04 PONV Score Moderate Risk 05/17/25 13:04 Height & Weight Height & Weight: Anesthesia: Height & Weight Height 5 ft 2 in 05/27/25 06:22 Weight: 48 kg 05/27/25 06:22 Body Mass Index (BMI) 19.3 05/27/25 06:22 Respiratory Assessment Respiratory Assessment - military communications specialist: Respiratory Tract Infection Hx - military communications specialist Hx Respiratory Tract Infection No 05/17/25 13:04 STOP Sleep Apnea STOP Sleep Apnea - military communications specialist: STOP Sleep Apnea - military communications specialist Hx Hypertension No 05/17/25 13:04 Hx Sleep Apnea No 05/17/25 13:04 CPAP No 10/30/20 12:16 BIPAP No 10/24/20 11:32 Do you snore loudly (louder Yes 05/17/25 13:04 than talking or can be heard Do you often feel tired/ No 05/17/25 13:04 fatigued/ sleepy during daytime? Has anyone observed you stop No 05/17/25 13:04 breathing during sleep? STOP Results Negative 05/17/25 13:04 QUESTION #5 FULL TEXT : Do you snore loudly (louder than talking or can be heard through closed doors)? Tobacco Use History Tobacco Use History - military communications specialist: Tobacco Use History - military communications specialist Tobacco Use Non-smoker 11/11/20 15:17 Smoking Status Never smoker 05/17/25 13:04 Hx Tobacco Use No 05/17/25 13:04 Years Smoking Packs Smoked per Day Smoking Cessation Date was within the last 15 years Hx Smoking Cessation Date Hx Smoking Cessation Counseling Hematologic Medial History Hematologic Hx - military communications specialist: Hematologic Medical Hx - slag mixer Hx of Blood Transfusion No 05/17/25 13:04 Hx of Transfusion in last 3 No 05/17/25 13:04 Months Date of Last Transfusion (if within last 3 months) Ever experience any problems No 05/17/25 13:04 with transfusion(s)? Specify any problems Hx of Preganancy in last 3 No 05/17/25 13:04 Months Nurse Filling Out Transfusion DSCHRIBER 05/17/25 13:04 & Questions: Date: 05/17/25 05/17/25 13:04 Time: 13:05 05/17/25 13:04 Patient unable to answer at this time (ie. confused, unrespo /Reproduction History /Reproductive History - military communications specialist: /Reproductive Hx- military communications specialist Hx Now No 05/17/25 13:04 Gestational Age (in weeks): EDC: Hx Hx Para Hx Section SAB No 05/17/25 13:04 Does the father of the baby or his family experience fever w Father of the baby Malignant Hypertension history comment Active Medications Active Medications: Current Medications Generic Name Dose Route Start Last Admin Trade Name Freq PRN Reason Stop Dose Admin Cefazolin Sodium 2 gm/ Sodium 110 mls @ 200 mls/hr 05/27/25 07:00 Chloride IV 05/27/25 07:32 INTRAOP ONE Lactated Ringer's 1,000 mls @ 15 mls/hr 05/27/25 06:15 05/27/25 06:45 IV 15 mls/hr .Q48H LORI Administration PFSH Medical History (Updated 05/17/25 @ 13:16 by Cleo Linder) Loss of hearing Wears glasses Wears dentures Post-menopausal Walker as ambulation aid Insulin dependent diabetes mellitus Bladder disease Anemia High cholesterol Restless legs Back pain Loss of consciousness Dietary restriction Heartburn Non-smoker Leg cramps History of pain when walking History of stress test Anxiety Basal cell carcinoma (BCC) in situ of skin Home Medications ?Medication ?Instructions ?Recorded ?Last Taken ?Type gabapentin 300 mg capsule 300 mg PO PRN PRN Spasms 08/21 Unknown History aspirin 81 mg tablet 81 mg PO QDAY 03/07/2505/22 History naproxen sodium 220 mg capsule 220 mg PO BID PRN pain 03/07/25 Unknown History (Aleve) rosuvastatin 5 mg tablet 5 mg PO QDAY 03/07/25 History insulin degludec 100 unit/mL (3 10 unit subcut DAILY 1 07/17/24 05/26/25 History mL) subcutaneous pen (Tresiba FlexTouch U-100 insulin) insulin lispro 100 unit/mL 2 unit subcut TID 05/17/25 05/26/25 History subcutaneous pen metformin 500 mg tablet 500 mg PO BID 05/17/2505/26 History cyclobenzaprine 5 mg tablet 5 mg PO Q8H PRN muscle armani n 05/27/25 Unknown History Allergy/AdvReac Type Severity Reaction Status Date / Time semaglutide AdvReac Intermediate Vomiting Verified 05/27/25 06:25 oxycodone (Oxycodone) AdvReac passed out Verified 05/27/25 06:25 Family History (Updated 03/07/25 @ 09:13 by Becky Basurto) Mother Diabetes Heart disease Father Diabetes Heart disease Brother Heart disease Diabetes Sister Heart disease Surgical History (Updated 05/17/25 @ 13:16 by Cleo Linder) History of surgery on wrist Hx of right cataract extraction Hx of left cataract extraction History of carpal tunnel surgery of right wrist History of carpal tunnel surgery of left wrist History of esophagogastroduodenoscopy (EGD) History of cholecystectomy H/O: hysterectomy Social History (Updated 03/07/25 @ 09:13 by Becky Basurto) Smoking Status: Never smoker alcohol intake: never additional social history: Aleve daily Review of Systems (Anesthesia) ROS Narrative System reviewed and no additional complaints, except as documented. Physical Exam Const alert, oriented x3 and average body habitus Resp normal respiratory effort, normal air movement and clear to auscultation bilaterally Cardio regular rate, regular rhythm and no murmurs; Negative for diaphoretic
--- NOTE | 2025-05-27 07:20 | PCM.HP.BLA ---
History and Physical Date of Admission: 05/27/25 Intake Vital Signs 01/17/2416:33 03/07/2509:13 Height 5 ft 2 in 5 ft 2 in Weight: 104 lb BMI 19.0 BP 177/78 H Blood Pressure Location Rt brachial Position Sitting Respiration 17 Pulse 84 Pulse Source Monitor Pulse Oximetry (%) 99 Oxygen Delivery Method room air Intake Visit Reasons: INGUINAL HERNIA Chief Complaint: inguinal hernia right side Is patient in pain?: No Allergies semaglutide Adverse Reaction (Intermediate, Verified 03/07/25 09:23) Vomiting oxycodone (Oxycodone) Adverse Reaction (Verified 03/07/25 09:23) passed out Medications ?Medication ?Instructions ?Recorded ?Confirmed ?Type metformin 1,000 mg tablet 500 mg PO BID 06/06/14 03/07/25 History cholecalciferol (vitamin D3) 25 1,000 unit PO DAILY 11/02/17 03/07/25 History mcg (1,000 unit) capsule gabapentin 300 mg capsule 300 mg PO PRN PRN Spasms 11/02/17 03/07/25 History aspirin 81 mg tablet 81 mg PO QDAY 03/07/25 03/07/25 History glipizide 10 mg tablet 10 mg PO BID 03/07/25 03/07/25 History naproxen sodium 220 mg capsule 220 mg PO BID PRN 03/07/25 03/07/25 History (Aleve) rosuvastatin 5 mg tablet 5 mg PO QDAY 03/07/25 03/07/25 History Have you fallen in the past year?: No PFSH Medical History (Updated 03/07/25 @ 09:12 by Becky Basurto) Rheumatoid arthritis Anxiety Basal cell carcinoma (BCC) in situ of skin Surgical History (Updated 03/07/25 @ 09:12 by Becky Basurto) H/O carpal tunnel repair History of cholecystectomy H/O: hysterectomy Family History (Updated 03/07/25 @ 09:13 by Becky Basurto) Mother Diabetes Heart disease Father Diabetes Heart disease Brother Heart disease Diabetes Sister Heart disease Social History (Updated 03/07/25 @ 09:13 by Becky Basurto) Smoking Status: Never smoker alcohol intake: never additional social history: Aleve daily HPI HPI HPI: Patient is an 84-year-old female with right groin bulging. She says this has been there since September. She denies any nausea or vomiting. She says it is sore especially when coughing. She would like it repaired. ROS General General: No weight change, appetite, fatigue, colon cancer, breast cancer or weakness HEENT HEENT: No difficulty swallowing, eye injury, eye surgery, swollen glands or hoarseness Endo Endocrine: Yes diabetes mellitus; No thyroid disease, thyroid cancer, Hair loss, heat intolerance or cold intolerance Skin Skin: No rash or changing moles Musc Musculoskeletal: Yes back problems, arthritis and rheumatoid arthritis; No gout or joint pain Cardio Cardiovascular: No murmur, pacemaker, heart disease, atrial fibrillation, high blood pressure, heart attack, heart stent, palpitations, shortness of breath with exertion or chest pain Psych Psychiatric: Yes anxiety; No depression or hearing voices Resp Respiratory: No shortness of breath, No sleep apnea, No cough, No COPD, No asthma, No emphysema and No wheezing Gastro Gastrointestinal: No abdominal pain, No nausea or vomiting, No diarrhea, Yes constipation, No blood in stool, No acid reflux, No hemorrhoids, No ulcers, No gallbladder problem and No black,tarry stools Lee Hematologic: No blood thinners, No blood disorders, No bleeding, No anemia and No blood clots Neuro Neurologic: No system reviewed and no additional complaints, except as documented, No as per HPI, No abnormal gait, No abnormal hearing, No abnormal movements, No abnormal speech, No behavioral changes, No burning sensations, No confusion, No convulsions, No disequilibrium, No dizziness, No localized weakness, No frequent falls, No headache(s), No lack of coordination, No loss of vision, No memory loss, Yes numbness, No other visual disturbances, No radicular pain, No restless legs, No sensory deficit, No syncope, Yes tingling, No tremor(s), No weakness and No other Exam Const General: cooperative Orientation: alert and oriented x3 HENMT Head: normal to inspection Neck Neck: normal visual inspection and full ROM Chest Chest palpation & inspection: normal inspection of the chest Resp Effort & Inspection: normal respiratory effort Auscultation: clear to auscultation bilaterally Cardio Rate: regular rate Rhythm: regular rhythm GI Inspection: non-distended Palpation: soft, hernia direct inguinal on the right and nontender Skin General: no rashes or lesions noted Neuro General: patient alert and patient oriented x3 Extrem General: full ROM Psych Appearance: grossly normal Mental Status: mental status grossly normal Assessment and Plan Assessment and Plan (1) Inguinal hernia, right: Status: Acute Plan: The patient has a reducible right inguinal hernia. I discussed robotic assisted laparoscopic right inguinal hernia repair with mesh. I discussed the risks including but not limited to bleeding, infection, injury to other organ such as the bowel, bladder, chronic groin pain, mesh infection. Patient understands all the risks and is willing to proceed. She will hold her aspirin for 5 days. Jose Alejo MD Pager: [facility] [address] [place] [address], [address] [place] [address] Office: I have examined the patient and the H&P has been reviewed. There are no clinical changes since date of exam.
[2025-05-27] MEDS: Lidocaine 1% (5 ml sdv) 5 ML Vial IV (07:37)
[2025-05-27] MEDS: Cefazolin 1 GM/5 ML Vial 2 GM IV (07:39)
[2025-05-27] MEDS: fentaNYL 100 MCG/2 ML Ampul IV (08:01)
--- NOTE | 2025-05-27 08:31 | OP.PCM_ITS ---
Operative Report (Standard) Operative Information Date of Procedure: 05/27/25 Pre-Operative Diagnosis: Right inguinal hernia Post-Operative Diagnosis: Right inguinal hernia Surgery/Procedure Performed: Robotic assisted laparoscopic right inguinal hernia repair with mesh space studies faculty member: Yes Regulator Assembler: Salma Pal Tasks completed by behavioral modification assistant: Opening & closing Type of Anesthesia: General/Regional RN Documented Start/Stop Times: Operation Date: 05/27/25 07:30 Case Time Into Pre-Op 05/27/25 06:01 Out of Pre-Op 05/27/25 07:26 Anesthesia Start 05/27/25 07:31 Into Room 05/27/25 07:31 Procedure Start 05/27/25 07:54 Procedure Start Time: 07:54 Procedure Stop Time: 08:40 Select all DRAINS/GRAFTS/IMPLANTS that apply: Implanted device Implanted device details: ProGrip mesh Estimated Blood Loss: 5 Specimen collected: No Description of surgery: Patient was brought back to the operating room and general anesthesia was induced. The abdomen was prepped and draped in usual sterile fashion. A midline incision was made superior to the umbilicus and the fascia was grasped with a Yadira clamp and elevated. A Veress needle was placed into the abdomen and drop test was performed. The abdomen was insufflated 15 mmHg. The Veress needle was removed and a port was placed. The camera was placed into the abdomen to inspect for injuries and there were none. Patient was placed in steep Trendelenburg position. Under direct visualization an 8 mm port was placed in the right and left lateral abdominal sidewalls. The robot was then docked. Using electrocautery scissors the peritoneum was incised in the right lower quadrant. Dissection was carried inferiorly until the hernia sac was encountered. The hernia sac was reduced and divided from its attachments. Dissection was carried posteriorly. Next a piece of ProGrip mesh was placed into the right groin and unfolded completely covering the hernia defect with good coverage. The peritoneum was then reapproximated using a running 3 OV lock suture. This completely covered the mesh with peritoneum. The instruments were removed and the robot was undocked. The abdomen was allowed to desufflate. The ports were removed. The incisions were closed with interrupted 4-0 Monocryl sutures and Steri-Strips and injected with local anesthetic. Patient was awoken and taken to PACU in stable condition and tolerated the procedure well. Surgical Findings: Right inguinal hernia Complications Complications: No Admit VTE Documentation VTE Mechan Device Prophylaxis: SCD's
--- NOTE | 2025-05-27 08:35 | DCINST_ITS ---
Discharge Instructions Diet Discharge Diet: Light diet - advance as tolerated Activity Discharge Activity: May Not Drive (for 2-3 days or while taking narcotic pain meds.) and May Shower (with the bandage in place 1-2 days after surgery.) Lifting Restrictions: 20 pounds for 4 weeks Additional Activity Instructions:: Climbing stairs is fine, walking is encouraged. Sitting in bed may be uncomfortable. Sitting up using your lateral muscles (sitting up sideways) is usually more comfortable. Do not drive, work heavy equipment or sign legal documents for 24 hours. Pain medications may cause nausea, you should typically eat light foods as you take your pain medications. Pain medications may also cause constipation. If you have difficulty with this, discuss with your doctor. Alternate ibuprofen and Tylenol for pain control, Ultram for breakthrough pain Okay to resume aspirin on Tuesday Dressing / Incision Call your doctor if your incision/area has: Continuous Slow Oozing, Sudden Increased Bleeding, Increased Pain/ Swelling, Increased Redness and Foul Smelling Discharge Call your doctor if you observe: Fever of 101 or Higher Suture Line Care: Avoid Pulling/Pushing and Avoid Pinching/Bending Remove Dressing in: 2 days (Remove clear bandages in 2 days, remove Steri-Strips in 7 to 10 days.) Follow Up Care Please Follow Up With: Jose Alejo MD When: Please call to schedule 2 week follow up appointment. [phone] Test Results: Test results from this visit will be discussed in further detail at your follow- up appointment, if applicable. Discharge Plan Admission Attending Provider: Jose Alejo Primary Care Provider: Jose Rafael Kat Instructions Print Language: Slovak Discharge Orders/Prescriptions Prescriptions: New tramadol 50 mg Tablet 50 mg PO Q6H PRN PRN (Reason: Pain Score 4-10) 5 Days Qty: 14 0RF No Action naproxen sodium [Aleve] 220 mg capsule 220 mg PO BID PRN (Reason: pain) aspirin 81 mg tablet 81 mg PO QDAY rosuvastatin 5 mg tablet 5 mg PO QDAY gabapentin 300 MG capsule 300 mg PO PRN PRN (Reason: Spasms) insulin degludec [Tresiba FlexTouch U-100] 100 unit/mL (3 mL) insulin pen 10 unit subcut DAILY insulin lispro 100 unit/mL insulin pen 2 unit subcut TID metformin 500 mg tablet 500 mg PO BID cyclobenzaprine 5 mg tablet 5 mg PO Q8H PRN Referrals / Follow Up: Jose Rafael Kat MD [Primary Care Provider, Family Practice] Disposition Disposition (needs filled in before D/C Order can be placed): Home, Self Care
--- NOTE | 2025-05-27 08:54 | PCM.POST.ANE ---
Anesthesia: Postop Eval I Current Vital Signs Temperature: 97.9 F Pulse Rate: 75 Blood Pressure: 156/69 Respiratory Rate: 16 Pulse Ox: 100 Oxygen Delivery Method: Room Air Assessment Airway patent: Yes Spontaneous unlabored respirations: Yes Mental status: Awake and Calm nausea: No Vomiting: No Anesthesia Complication: No Fluid Hydration Crystalloid volume administer (ml): 800 Total IV fluid infused: 800 Progress Note Anesthesia document: Postop Eval 1 completed: Yes
== END 2025-05-27 10:25 | disposition home or self-care (01) ==
LOC: SDC 05:47 → AC 05:48
PROVIDERS: Anesthesiology; PCP Family Medicine; Referring Provider Family Medicine; Visit Provider Surgery
PROC: (CPT 49650; principal; 2025-05-27 07:10)
DX: K40.90 Unilateral inguinal hernia, without obstruction or gangrene, not specified as recurrent (principal); Z79.4 Long term (current) use of insulin; E11.9 Type 2 diabetes mellitus without complications; E78.00 Pure hypercholesterolemia, unspecified; Z79.84 Long term (current) use of oral hypoglycemic drugs; Z79.899 Other long term (current) drug therapy; Z79.82 Long term (current) use of aspirin
CPT/HCPCS: 49650; S2900; 00840; 36415; 80048; 82962; 83036; 93005; C1781; J2405